=== PATIENT | male | born 1960 | race Caucasian/White ===

== ENCOUNTER 2019-06-16 08:26 | Emergency (ER) | payer MEDICARE, SELFPAY ==
[2019-06-16 08:28] VITALS: BP 102/72; RESP 16; TEMP 36.4; O2SAT 92; BMI 30.6
[2019-06-16 08:39] VITALS: O2SAT 92
--- NOTE | 2019-06-16 08:39 | RAD_ITS ---
STUDY: X-RAY - LEFT KNEE REASON FOR EXAM: Male, 59 years old. Status post fall TECHNIQUE: 2 view(s) of the knee. COMPARISON: None. FINDINGS: Normal visualized distal femur. Normal visualized proximal tibia and fibula. Normal proximal tibiofibular articulation. Normal medial femorotibial compartment. Normal lateral femorotibial compartment. There is a comminuted dislocated patella fracture with a gap of at least 1.5 cm between the craniocaudal fragments. There is overlying soft tissue edema and a ruedh-en-orzrieka joint effusion.. RAD/Knee 1 or 2 Views IMPRESSION: Comminuted superiorly and inferiorly displaced fracture of the patella with overlying soft tissue edema joint effusion. Electronically Signed: Yanna Faria MD at 9:34 EDT Tel , Service support ,
--- NOTE | 2019-06-16 08:40 | ED.VIS.GEN ---
History of Present Illness Chief Complaint: Fall Informant: Patient Onset: Today Current Severity: Mild Narrative: Patient presents to nursing center where he states he was in his usual state of health no changes, he tripped and fell striking his left knee against a hard surface he had trouble moving the knee afterwards and he came in for evaluation with EMS he denies head neck chest or abdominal pain all of his chronic health conditions are stable he has no complaints except for the left knee pain Past Medical History - Allergies and Home Meds Allergies/Adverse Reactions: Allergies No Known Allergies Allergy (Verified 06/16/19 08:33) Primary Care Physician: Andrea Hawley MD [STAFF PHYSICIAN] - Past Medical History: - - hypertension COPD most some element of dementia see the list Surgical History: noncontributory Smoking Status: Former smoker Review of Systems General: Denies: Chills, Fever, Sweats Eyes: Denies: Visual changes - bilaterally, Diplopia ENT: Denies: Rhinorrhea, Sore throat Cardiovascular: Denies: Chest pain, Palpitations Respiratory: Denies: Dyspnea, Cough, Dyspnea on exertion Gastrointestinal: Denies: Abdominal pain, Nausea, Vomiting, Diarrhea, Melena, Hematochezia Genitourinary: Denies: Dysuria, Hematuria, Frequency Musculoskeletal: Reports: Extremity Pain. Denies: Back pain Skin: Denies: Rash, Wounds Neurological: Denies: Headache, Weakness, Numbness Physical Exam Vital Signs/Narrative: Vital Signs Temp Resp BP Pulse Ox 06/16/19 08:28 97.6 F L 16 102/72 92 General: Well nourished, Well developed, No Acute Distress Head: Normocephalic, Atraumatic Eyes: Perrl, EOMI ENT: Moist mucous membranes, No rhinorrhea Neck: Supple, Nontender Cardiovascular: Regular rate, Regular rhythm, No murmurs Respiratory: No distress, Chest nontender, Wheezing Abdomen: Soft, Nontender, Nondistended, Normal bowel sounds Back: Nontender, Normal Inspection Extremities: No edema, Tenderness, - - Has tenderness and contusion to the left knee he has ability to extend but not fully he has some significant swelling of the patella the potential defect in the mid patellar region no malalignment distal hip thigh tib-fib ankle and foot exam unremarkable Skin: Normal color, No rash Neurological: Alert, Oriented x3, Cranial nerves II-XII grossly intact, Normal Strength, Normal Sensation Psychological: Normal affect, Normal Mood Diagnostic/Tx/Re-eval - Medical Decision Making In all the above this are the possibility of fracture other pathologic conditions in the fall x-rays are obtained he does not wish to have any for the pain The patient's x-ray shows a comminuted fracture of the patella see that report again he is able to partially extend explained this to him is placed in the immobilizer walker he is referred to Dr. Ray Newton on-call for orthopedics ice elevation he wants something for pain and he will follow-up with nursing center for further management of all the above Home to [facility] stable Impression final Fall, left knee patellar fracture ED Disposition - Plan for ED Patient: Diagnosis: Patellar fracture Instructions: Reducing Knee Pain and Swelling Prescriptions: Hydrocodone Bitart/Apap 5-325 [[place] 5MG-325MG] 1 tab PO Q4H PRN PRN 2 Days #10 tab PRN Reason: Pain Prescription Printed Referrals: Andrea Hawley MD [STAFF PHYSICIAN] - Isaiah Valera DO [STAFF PHYSICIAN] - Additional Instructions: You have a fractured kneecap, use the knee immobilizer walker and follow-up with orthopedics
[2019-06-16] MEDS: HYDROcodone Bitartrate/Apap 5/325 Tablet PO (08:49)
[2019-06-16 08:52] VITALS: BP 107/89; PULSE 88; O2SAT 93
[2019-06-16] MEDS: Ipratropium/Albuterol Sulfate 3 ML AMPUL.NEB INHALATION (09:04)
[2019-06-16 09:06] VITALS: PULSE 87; RESP 18; O2SAT 93
--- NOTE | 2019-06-16 10:31 | NURSING ---
CALLED [facility] FOR TRANSPORT TO [facility]
[2019-06-16 10:51] VITALS: BP 127/72; BP 128/7; PULSE 100; O2SAT 94; O2SAT 96
--- NOTE | 2019-06-16 10:57 | ED.RN ---
Knee immobilizer placed to left leg for fx patella. No reduction preformed.
--- NOTE | 2019-06-16 11:36 | ED.RN ---
report given to Annemarie from [facility].
== END 2019-06-16 11:38 | disposition skilled nursing facility (03) ==
PROVIDERS: Emergency Provider Emergency Medicine; Family Provider Family Medicine; PCP Family Medicine
DX: S82.045A Nondisplaced comminuted fracture of left patella, initial encounter for closed fracture (principal); F03.90 Unspecified dementia, unspecified severity, without behavioral disturbance, psychotic disturbance, mood disturbance, and anxiety; J44.9 Chronic obstructive pulmonary disease, unspecified; I10 Essential (primary) hypertension; Z79.899 Other long term (current) drug therapy; Z87.891 Personal history of nicotine dependence; W01.0XXA Fall on same level from slipping, tripping and stumbling without subsequent striking against object, initial encounter; Y93.01 Activity, walking, marching and hiking; Y92.89 Other specified places as the place of occurrence of the external cause; Y99.8 Other external cause status
CPT/HCPCS: 73560; 94640; 99285

== ENCOUNTER 2019-06-26 07:08 | Day surgery (SDC) | payer MEDICARE, MEDICAID, SELFPAY ==
[2019-06-18 13:53] VITALS: BMI 30.6
--- NOTE | 2019-06-20 01:14 | HP_ITS ---
I have re-examined the patient. There are no clinical changes since date of exam. Intake Vital Signs 06/18/19 Body Mass Index (BMI) 30.6 Intake Visit Reasons: LEFT KNEE Allergies No Known Allergies Allergy (Verified 06/20/19 09:23) [facility] Social History (Updated 06/20/19 @ 13:14 by Jaqui Amaya DO) Smoking Status: Former smoker HPI LEFT KNEE: Surgical H&P: Yes Details: Parts of this documentation were recorded by a scribe, this documentation accurately reflects the service provided and the decisions made by me, Jaqui Amaya DO 06/18/19 8401. LISSA ZIEGLER is a 59 year old M NEW patient here today for ED f/u on left knee injury from a fall on 06/16/19. He is brought to the appointment by a project scheduler from his care facility in a wheelchair. He states that he is compliant with knee immobilizer with moderate swelling and mild discoloration. He is using pain medication daily, elevating the leg but not using any ice.Denies numbness, tingling or other associated constitutional symptoms. Ortho Exam Left Knee Date of injury: 06/16/19 Skin/Wound: Yes healing, Yes ecchymosis, Yes swelling Contralateral Normal: Yes Homans Sign: No Knee ROM: No ROM-Extension -20 to 0, No ROM-Flexion 0-140 KNEE: ttp at fracture site, neg sec survey Assessment & Plan Problems 1. Closed displaced comminuted fracture of left patella, initial encounter S82.042A Plan Personally reviewed the patient's medical history, medications, surgeries and recent exams if available. X-rays were reviewed. There is a displaced patella fracture noted. He does need surgery to repair the patella but due to the skin abrasion from the fall we will wait one week for additional healing of the abrasion and reduce the risk of infection. Reviewed increased risk of OA secondary to surgery. He can be wbat in the brace prior to surgery. Reviewed the pre-operative plans with the patient. Risks and benefits of the procedure were fully explained, including but not limited to infection, neurovascular injury, continued pain, arthritis, stiffness, need for further surgery, re-injury, DVT, PE, general risks of anesthesia, and loss of limb or life. The patient understands all the risks and does wish to proceed with written consent. Follow up postop or sooner if pain, swelling, numbness or associated symptoms, or concerns develop. All questions answered. Patient in agreement of plan. Coding Level of Care Code Off vis,new,level 3 Diagnoses Closed displaced comminuted fracture of left patella, initial encounter S82.042A ??Encounter type: initial encounter ??Fracture morphology: comminuted ??Fracture type: closed 06/20/19 1315 <Electronically signed by Jaqui ruano DO> Date _ aJqui Amaya DO
[2019-06-26] VITALS (10 sets, daily range): BP systolic 132–161; BP diastolic 72–98; PULSE 95–126; RESP 18–22; TEMP 36.6–37.4; O2SAT 90–98; BMI 27.6
[2019-06-26] MEDS: Lactated Ringers 1,000 ML 100 ML IV ×2 (08:23→10:01)
[2019-06-26] MEDS: Cefazolin 2 GM in 0.9% Normal Saline 100 ML IV (08:42)
--- NOTE | 2019-06-26 08:43 | PCM.DC.ORTHO ---
Discharge Diet: No Restrictions - wbat left le with brace locked in extension, do not bend knee, call with concerns, follow up in 2 weeks Discharge Activity: May Not Drive May shower in (days): 1 Ice area for (Minutes): 20 - Every hour while awake. Weight Bearing Status: Weight bearing as tolerated Keep extremity elevated above heart level: Operative Extremity Call your doctor if your incision/area has: Continuous Slow Oozing, Sudden Increased Bleeding, Increased Pain/ Swelling, Increased Redness, Foul Smelling Discharge Call your doctor if you observe: Fever of 101 or Higher, Coldness, Increased Pain, Numbness or Tingling, Change in Color, Calf discomfort Allergies/Adverse Reactions: Allergies No Known Allergies Allergy (Verified 06/20/19 09:23) Medications to take at Discharge Cimetidine 200 mg PO TID 06/16/19 Multivitamin with Minerals [Multiple Vitamin] 1 ea PO DAILY 06/16/19 Oxcarbazepine [Trileptal] 450 mg PO BID 06/16/19 Paroxetine HCl 40 mg PO DAILY 06/16/19 Tamsulosin HCl [Flomax] 0.4 mg PO QHS 06/16/19 Venlafaxine HCl [Effexor Xr] 37.5 mg PO DAILY 06/16/19 Acetaminophen [Acetaminophen 8 Hour] 650 mg RECTALLY Q4H PRN PRN 06/26/19 Acetaminophen [Tylenol] 325 mg PO Q4H PRN PRN 06/26/19 Bisacodyl 10 mg DE X1 06/26/19 Guaifenesin 10 ml PO Q4H PRN PRN 06/26/19 Hydrocodone/Acetaminophen [Hydrocodon-Acetaminophen 5-325] 2 tab PO Q4H PRN PRN 06/26/19 Loratadine 10 mg PO DAILY PRN 06/26/19 Mag Hydrox/Aluminum Hyd/Simeth [Antacid Suspension] 30 ml PO Q4H PRN PRN 06/26/19 Magnesium Hydroxide [Milk Of Magnesia] 30 ml PO DAILY PRN PRN 06/26/19 Memantine HCl 10 mg PO PCHS 06/26/19 Na Phos,M-B/Na Phos,Di-Ba [Fleet Enema] 1 bottle RECTAL X1 06/26/19 Oxycodone HCl/Acetaminophen [Percocet 5/325] 1 - 2 tab PO Q6H PRN PRN 5 Days #28 tab 06/26/19 The following prescriptions were given: Oxycodone HCl/Acetaminophen [Percocet 5/325] 1 - 2 tab PO Q6H PRN PRN 5 Days #28 tab PRN Reason: Pain Transmission Status: Received by [facility] Primary Care Physician: Giana Hansen MD [Primary Care Provider] - Test Results: Test results from this visit will be discussed in further detail at your follow-up appointment, if applicable. Please Follow Up With: Jaqui Amaya, - [phone]
--- NOTE | 2019-06-26 08:56 | RAD_ITS ---
STUDY: X-RAY - LEFT KNEE REASON FOR EXAM: ORIF left knee. TECHNIQUE: 5 intraoperative images of the knee. COMPARISON: Radiographs 06/16/2019. FINDINGS: There are 2 orthopedic screws transfixing a patellar fracture in anatomic alignment and position. 60.6 seconds of fluoroscopy time was used. Electronically Signed: Tr Elliott MD at 12:10 EDT Tel , Service support , RAD/Knee 1 or 2 Views
--- NOTE | 2019-06-26 09:01 | OP.PCM_ITS ---
Report of Operation Date of Procedure: 06/26/19 Pre-Operative Diagnosis: left displaced patella fracture Post-Operative Diagnosis: same Surgery/Procedure Performed:: orif left patella wash driller helper: Kumar Kern Type of Anesthesia:: General Anesthesiologist: Javi Link Estimated Blood Loss (mL): 25cc Fluids Replaced: 1100cc Description of Procedure: Preoperative note Patient is a 59-year-old male who lives in a halfway who sustained a fall of unknown time and unknown etiology at the halfway x-rays confirmed a patella fracture patient was seen in my office. Secondary survey was essentially negative. Risk benefits alternatives were discussed with patient and caregiver. Risks including but not limited to blood loss, blood clot, infection, neurovascular, failure procedure, loss of life and loss of limb. Patient is aware and would like proceed with ORIF of his left patella. Next Operative note Next Patient seen and examined preoperative holding area. Left knee was marked. Patient was brought to the operating placed supine on the operating table. Signed, anesthesia, antibiotics were oxyacetylene torch operator. The left leg was prepped and draped usual sterile fashion with a tourniquet on his upper thigh. All bony promises well-padded SCDs placed on his contralateral limb. We used fluoroscopy to ascertain the level of the fracture site. The timeout was performed. We marked out our incision for our patella ORIF was which is a midline incision starting at the quad insertion and going down to the tibial tubercle just proximal to that. The left leg was then elevated same any lead pourer rates her pressure 250 torr. A timeout was performed. We then using a 10 blade to cut through the skin dissect down with tenotomies to level of the fracture site which was gently debrided we did mika the fracture site and use a curette we then irrigated the hematoma with copious muscle sterile saline he had a medial retinacular tear. We then use Arthrex his patella fracture repair system. We used pointed bone reduction forceps to reduce the patella fracture we then took multiple images AP and lateral to confirm good reduction of her fracture site which we did have. We then placed 2 guide pins across the fracture site measured appropriate length. We with a we placed 1.35 Hawley guidewire across t he we then placed a second guidewire parallel to the first and confirmed in AP and lateral planes good reduction and good fixation placement of our wires ensuring that they just stopped just distal to the bone. We then measured appropriate length minus to take off 4 mm without over the wire depth gauge. We then reamed over then with a 2.6 cm cannulated drill. We inserted the 36 and a 34 blunt-tipped cannulated lag screws over each guidewire ensuring that the threads across the fracture site. We then placed our past the 5 inch needle with a fiber tape through 1 of the 4 mm cannulated lag screws and then performing a cross stitch and then tying at the superior aspect of the proximally. We then cut about a 5 mm tail and directed the knot underneath the not but underneath the tape to prevent irritation. We then irrigated the incision with copious muscle sterile saline we repaired the retinaculum with a 0 Vicryl. The skin was closed with 3-0 Vicryl and li. Patient was placed in a locked brace placed next in extension. Tourniquet was deflated patient tired procedure well transferred recovery room in stable condition without convocation. Postoperative note Follow-up in 2 weeks Call with increased pain numbness tingling further issues arise [place] per halfway Keep brace locked in extension during ambulation This note was generated with [employer] dictation software. It may contain incorrect words, spelling, and punctuation that were not noted in checking the note before signing.
[2019-06-26] MEDS: Mupirocin Ointment 22gm Tube 1 APPLIC (10:30)
[2019-06-26] MEDS: HYDROcodone Bitartrate/Apap 5/325 Tablet PO (13:28)
== END 2019-06-26 14:41 | disposition skilled nursing facility (03) ==
LOC: SDC 07:10 → AC 07:10
PROVIDERS: Family Provider Family Medicine; PCP Family Medicine; Referring Provider Orthopaedic Surgery; Visit Provider Orthopaedic Surgery
PROC: (CPT 27524; principal; 2019-06-26 08:45)
DX: S82.042A Displaced comminuted fracture of left patella, initial encounter for closed fracture (principal); F41.9 Anxiety disorder, unspecified; F32.9 Major depressive disorder, single episode, unspecified; E06.9 Thyroiditis, unspecified; I10 Essential (primary) hypertension; J44.9 Chronic obstructive pulmonary disease, unspecified; Z87.891 Personal history of nicotine dependence; W19.XXXA Unspecified fall, initial encounter; Y93.89 Activity, other specified; Y92.89 Other specified places as the place of occurrence of the external cause; Y99.8 Other external cause status
CPT/HCPCS: 01392; 27524; 73560; 76000; C1713; J7120; J2405

== ENCOUNTER → 2019-07-11 | Outpatient (CLI) | payer MEDICARE, MEDICAID, SELFPAY ==
[2019-06-26 07:59] VITALS: BMI 27.6
--- NOTE | 2019-07-11 13:20 | RAD_ITS ---
STUDY: X-RAY - LEFT KNEE REASON FOR EXAM: Male, 59 years old. Postop TECHNIQUE: 2 view(s) of the knee. COMPARISON: 06/16/2019. FINDINGS: Normal visualized distal femur. Normal visualized proximal tibia and fibula. Normal proximal tibiofibular articulation. 2. Screws are seen approximating the patellar fragments since previous exam, although along the anterior edge of the patella, the fracture line is still by 8 mm. There is also still a cortical step-off of the posterior surface of the patella. Normal medial femorotibial compartment. Normal lateral femorotibial compartment. Normal patellofemoral articulation. There is a soft tissue prominence in the suprapatellar region suggesting a small volume joint effusion. There are atherosclerotic calcifications. RAD/Knee 1 or 2 Views IMPRESSION: Interval repair of transverse fracture through the patella by 2 orthopedic screws although the fracture line remains distracted. Electronically Signed: Willie Tatum MD at 17:27 EDT , Service support ,
== END | disposition home or self-care (01) ==
LOC: HPRAD 13:19
PROVIDERS: Family Provider Family Medicine; PCP Family Medicine; Referring Provider Physician Assistant; Visit Provider Physician Assistant
DX: S82.002A Unspecified fracture of left patella, initial encounter for closed fracture (principal)
CPT/HCPCS: 73560

== ENCOUNTER 2019-07-17 08:16 | Day surgery (SDC) | payer MEDICARE, MEDICAID, SELFPAY ==
[2019-07-15 14:42] VITALS: BMI 27.6
[2019-07-17] VITALS (10 sets, daily range): BP systolic 118–178; BP diastolic 77–103; PULSE 90–121; RESP 16–18; TEMP 36.2–37.3; O2SAT 93–99; BMI 30.3
[2019-07-17] MEDS: Lactated Ringers 1,000 ML 100 ML IV ×2 (08:20→12:06)
--- NOTE | 2019-07-17 08:30 | EKG12_ITS ---
Test Reason : PREOP Blood Pressure : / mmHG Vent. Rate : 080 BPM Atrial Rate : 080 BPM P-R Int : 152 ms QRS Dur : 088 ms QT Int : 386 ms P-R-T Axes : 048 082 071 degrees QTc Int : 445 ms Normal sinus rhythm Normal ECG When compared with ECG of 07-NOV-2012 18:16, No significant change was found Confirmed by JAME BAGLEY, INDIRA ([id number]), supervising film or videotape editor DANNY LEWIS ([id number]) on 07/19/2019 10:27:53 A M Referred By: Jaqui Amaya Confirmed By:SAMEER KILGORE MD
--- NOTE | 2019-07-17 08:36 | HP.PCM_ITS ---
History and Physical I have re-examined the patient. There are no clinical changes since date of exam. Intake Vital Signs 07/15/19 Body Mass Index (BMI) 27.6 Intake Visit Reasons: LEFT KNEE Is patient in pain?: No Allergies No Known Allergies Allergy (Verified 06/20/19 09:23) [facility] Social History (Updated 07/15/19 @ 16:24 by NAYELY Gray) Smoking Status: Former smoker HPI LEFT KNEE: Details: Parts of this documentation were recorded by a scribe, this documentation accurately reflects the service provided and the decisions made by me, NAYELY Gray 07/15/19 [id number]. LISSA ZIEGLER is a 59 year old M here today for f/u and sign consent for surgery for revision left patella surgery. He presents in the wheelchair with approx 40 degrees of knee flexion in trom brace. Denies numbness, tingling or other associated symptoms. Ortho Exam Left Knee Skin/Wound: Yes healing, No ecchymosis, No erythema, No swelling Contralateral Normal: Yes Homans Sign: No Knee ROM: Yes ROM-Extension -20 to 0, No ROM-Flexion 0-140 KNEE: Patient is still wearing his T ROM brace at the same time the knee is still sitting in a flexed position of approximately 30 to 40 degrees now. There is very mild/minimal swelling at this time. Incision has healed well with minimal scarring and no signs of infection. He does not have any tenderness on palpation around the incision or around the knee. Patient has normal sensation throughout the lower extremity. He has normal distal pulses. He has no calf tenderness, negative Homans, and compartments are soft. As evident intact motor function of the ankle/foot. No rales rhonchi wheezing, no abdominal pain, no audible bruits Assessment & Plan Problems 1. Closed displaced transverse fracture of left patella with malunion, subsequent encounter S82.032P Plan Patient presents to the office today from the [facility] for surgical sent for revision left knee patella ORIF. Risks and benefits of the surgery have already been discussed with his mother at his last visit as well as on the phone this morning. She was unable to make this office visit today and had just the [facility] bring him. I did also discuss risks and benefits of the procedure with the patient as well as recovery. I did explain that this time instead of the T ROM brace he will be placed in a long-leg cast expanding the knee joint to keep him from flexing the knee this time. Patient does verbally acknowledge this at the same time I do understand with his dementia is not something likely he will remember. Again, this was discussed in detail with his mother twice now regarding the procedure as well as the follow-up management/treatment. All of her questions were answered as well as the patient's at this time. Consent was signed by the patient and mother gave verbal consent. She will be present in the morning of surgery. Antibacterial soap was given to [facility] to be used the night before the morning of the surgery. They will be contacted tomorrow afternoon regarding the time of his surgery. Anesthesia will also call him for preanesthesia testing. They can notify the office they have any other concerns or complaints in the meantime. This note was generated with [employer] dictation software. It may contain incorrect words, spelling, and punctuation that were not noted in checking the note before signing. Coding Level of Care Code Global Post Op Diagnoses Closed displaced transverse fracture of left patella with malunion, subsequent encounter S82.032P ??Fracture type: closed ??Fracture morphology: transverse ??Fracture alignment: displaced ??Fracture healing: with malunion ??Encounter type: subsequent encounter
--- NOTE | 2019-07-17 08:38 | DCINST_ITS ---
Discharge Diet: No Restrictions - follow up in one week with [facility] for xrays, wbat with left leg in straight leg cast, keep cast clean and dry, do not put anything down cast or get cast wet Discharge Activity: May Not Drive May shower in (days): 1 Ice area for (Minutes): 20 - Every hour while awake. Weight Bearing Status: Weight bearing as tolerated Keep extremity elevated above heart level: Operative Extremity Call your doctor if your incision/area has: Continuous Slow Oozing, Sudden Increased Bleeding, Increased Pain/ Swelling, Increased Redness, Foul Smelling Discharge Call your doctor if you observe: Fever of 101 or Higher, Coldness, Increased Pain, Numbness or Tingling, Change in Color, Calf discomfort Allergies/Adverse Reactions: Allergies No Known Allergies Allergy (Verified 06/20/19 09:23) Medications to take at Discharge Cimetidine 200 mg PO TID 06/16/19 Multivitamin with Minerals [Multiple Vitamin] 1 ea PO DAILY 06/16/19 Oxcarbazepine [Trileptal] 450 mg PO BID 06/16/19 Paroxetine HCl 40 mg PO DAILY 06/16/19 Tamsulosin HCl [Flomax] 0.4 mg PO QHS 06/16/19 Venlafaxine HCl [Effexor Xr] 37.5 mg PO DAILY 06/16/19 Acetaminophen [Acetaminophen 8 Hour] 650 mg RECTALLY Q4H PRN PRN 06/26/19 Acetaminophen [Tylenol] 325 mg PO Q4H PRN PRN 06/26/19 Bisacodyl 10 mg [place] X1 06/26/19 Guaifenesin 10 ml PO Q4H PRN PRN 06/26/19 Hydrocodone/Acetaminophen [Hydrocodon-Acetaminophen 5-325] 2 tab PO Q4H PRN PRN 06/26/19 Loratadine 10 mg PO DAILY PRN 06/26/19 Mag Hydrox/Aluminum Hyd/Simeth [Antacid Suspension] 30 ml PO Q4H PRN PRN 06/26/19 Magnesium Hydroxide [Milk Of Magnesia] 30 ml PO DAILY PRN PRN 06/26/19 Memantine HCl 10 mg PO PCHS 06/26/19 Orders to be completed after discharge: Thyroid Stim Hormone (TSH) Time Frame: 07/17/19, Facility: [facility], Location: Laboratory Primary Care Physician: Giana Hansen MD [Primary Care Provider] - Test Results: Test results from this visit will be discussed in further detail at your follow- up appointment, if applicable. Please Follow Up With: Jaqui Amaya, - [phone]
--- NOTE | 2019-07-17 08:39 | PCM.OPRPT ---
Report of Operation Date of Procedure: 07/17/19 Pre-Operative Diagnosis: previous orif left patella, displaced left patella fracture Post-Operative Diagnosis: same Surgery/Procedure Performed:: removal of hardware left patella, debridement of callus, open reduction/revision left patella fracture staker surveying: Kumar Kern Type of Anesthesia:: General Anesthesiologist: Dashawn Chin Estimated Blood Loss (mL): 25cc Fluids Replaced: 1200cc lr Description of Procedure: Preop note She is 59-year-old male who had an open reduction internal fixation of his left patella a few weeks ago. He is demented at baseline and was at home. He has been moving his brace and is unaware he had been had surgery he was bending his knee came into the clinic and noted that he had a displaced open left patella fracture. Risk benefits and alternatives were discussed with patient. Risks including but not limited to blood loss, blood clot, infection, neurovascular, failure procedure, loss of life and loss of limb. This was discussed with patient and with mom. Patient and mom are aware would like proceed with revision open reduction internal fixation of left patella with removal of hardware. Next Operative note Patient seen and examined preop preoperative holding area. Left leg was marked. Patient brought to the operating room please see placed on the operating table. Sign, anesthesia, antibiotics were administered. The left leg was prepped and draped in usual sterile fashion with tourniquet around his upper thigh. All bony promises well-padded SCDs placed on his contralateral limb. We used our previous incision and marked out with a marking pen. The left leg was then elevated exsanguinated tourniquet was raised to pressure of 250 torr. Timeout was performed. We then use our 15 blade R 10 blade to cut through skin dissect down tenotomies to level of the scar tissue and the scar tissue throughout over the fascia closure with the use of Bovie to release the fascia from the subcuticular layer pack. We then moved down to the fracture site the fracture site had callus abundant callus which had not had to be taken down. We then placed two-point reduction clamps across the fracture site after please note that we did remove the 2 screws and there was no signs of infection. The cerclage tape had been broken busted. We then irrigated the area with copious muscle sterile saline. We placed 3 guidewires measured and then drilled accordingly for the Arthrex patella fixation system. We measured and then subtracted for from age 3 and ended up doing a 3836 and 32 mm screws across the fracture site. We then placed a [id number] tape further reducing her fracture we then placed a cerclage tape around this for further redundancy as well. The knee was an area again irrigated with copious muscle sterile saline. The fascia was closed with 0 Vicryl and the skin with 2-0 Vicryl subcuticular layer and the skin with li. Tourniquet was deflated for a total working time of 100 minutes minutes. Multiple images throughout the case were maintained good reduction of her fracture site. Patient tied procedure well [facility] recovery room in stable condition. Postoperative note Next Weight-bear as tolerated with knee locked in cast Follow-up in 2 weeks for cast removal next Call with increased pain numbness tingling or further issues arise May resume [facility] at outpatient facility note Dragon disclaimer This note was generated with Contents First dictation software. It may contain incorrect words, spelling, and punctuation that were not noted in checking the note before signing.
[2019-07-17 09:14] LABS: Thyroid Stim Hormone (TSH) 2.47 uIU/mL (0.358-3.74)
--- NOTE | 2019-07-17 09:35 | RAD_ITS ---
STUDY: X-RAY - LEFT KNEE REASON FOR EXAM: ORIF of patella. TECHNIQUE: 2 intraoperative images of the knee. COMPARISON: Radiographs 07/11/2019. FINDINGS: There are 3 orthopedic screws transfixing a patellar fracture in anatomic alignment and position. Electronically Signed: Tr Elliott MD at 13:15 EDT Tel , Service support , RAD/Knee 1 or 2 Views
[2019-07-17] MEDS: Cefazolin 2 GM in 0.9% Normal Saline 100 ML IV (09:40)
--- NOTE | 2019-07-17 14:45 | SUR.PHASEII ---
Addendum entered by Danette Shrestha 07/17/19 16:03: CORRECTION: [facility] WAS CONTACTED AT 1420, WAS TOLD BY DISPATCHER THE AMBULANCE WOULD ARRIVE AT [address]. CALL[address] [facility] AGAIN AT 1520 WHEN NO ONE ARRIVED FOR PATIENT AFTER ONE HOUR. PATIENT'S MOTHER REMAINS AT BEDSIDE TILL [facility] ARRIVED AT 1555. Addendum entered by Danette Shrestha 07/17/19 15:21: CALLED [facility], DISPATCH DID NOT NOTIFY THE [facility] TO PUTTY MIXER AND APPLIER PATIENT, STATES WILL ARRIVE IN 15 MINUTES. REMINDED [facility] THAT PATIENT ARRIVED TO [facility] IN [place] FROM [facility] WHICH NEEDS RETURNED TO FACILITY. Original Note: NORCO GIVEN AT 1445 FOR LEFT KNEE PAIN AFTER GETTING DRESSED. CALLED REPORT TO NURSE MCGHEE AT [facility]. [facility] CONTACTED AT 1520, SCHEDULED ARRIVE FOR TRANSPORT BACK TO [facility] AT APPROX 1550. PATIENT'S MOTHER AT BEDSIDE, COPY OF D/C INSTRUCTIONS GIVEN.
[2019-07-17] MEDS: HYDROcodone Bitartrate/Apap 5/325 Tablet PO (14:46)
== END 2019-07-17 15:55 | disposition intermediate care facility (04) ==
LOC: SDC 08:18 → AC 08:18
PROVIDERS: Anesthesiology; Family Provider Family Medicine; PCP Family Medicine; Referring Provider Orthopaedic Surgery; Visit Provider Orthopaedic Surgery
PROC: (CPT 27524; principal; 2019-07-17 09:20)
DX: S82.032 Displaced transverse fracture of left patella (principal); M25.762 Osteophyte, left knee; I10 Essential (primary) hypertension; F41.9 Anxiety disorder, unspecified; F32.9 Major depressive disorder, single episode, unspecified; E06.9 Thyroiditis, unspecified; Z87.891 Personal history of nicotine dependence; Z79.899 Other long term (current) drug therapy; X58.XXXS Exposure to other specified factors, sequela
CPT/HCPCS: 20680; 27524; 36415; 73560; 76000; 84443; 93005; C1713; J7120; J2405

== ENCOUNTER → 2019-07-22 | Outpatient (CLI) | payer MEDICARE, MEDICAID, SELFPAY ==
[2019-07-17 08:47] VITALS: BMI 30.3
--- NOTE | 2019-07-22 11:05 | RAD_ITS ---
STUDY: X-RAY - LEFT KNEE REASON FOR EXAM: Male, 59 years old. Rest TECHNIQUE: 2 view(s) of the knee. COMPARISON: July 11, 2019 FINDINGS: This postoperative change involving the left knee with cortical screws transfixing the patella. Overlying skin li. There is visualized joint effusion and fluid in Hoffa's fat pad. There is atherosclerotic disease of the superficial femoral artery. There is mild to moderate degenerative change in the medial lateral compartments. RAD/Knee 1 or 2 Views IMPRESSION: Status post open reduction internal fixation of a patellar fracture. Soft tissue edema postoperative change. Electronically Signed: Yanna Faria MD at 17:53 EDT Tel , Service support ,
== END | disposition home or self-care (01) ==
LOC: HPRAD 11:05
PROVIDERS: Family Provider Family Medicine; PCP Family Medicine; Referring Provider Physician Assistant; Visit Provider Physician Assistant
DX: Z98.890 Other specified postprocedural states (principal)
CPT/HCPCS: 73560

== ENCOUNTER → 2019-08-01 | Outpatient (CLI) | payer MEDICARE, MEDICAID, SELFPAY ==
[2019-07-22 11:06] VITALS: BMI 30.3
--- NOTE | 2019-08-01 10:49 | RAD_ITS ---
STUDY: X-RAY - LEFT KNEE REASON FOR EXAM: Male, 59 years old. Post operative follow-up of patellar fracture. TECHNIQUE: 2 view(s) of the knee. COMPARISON: Prior left knee of July 22, 2019. FINDINGS: Normal visualized distal femur. Normal visualized proximal tibia and fibula. Normal proximal tibiofibular articulation. Stable alignment of the transverse patellar fracture with screw fixation. Callus forming at the fracture site. Normal medial femorotibial compartment. Normal lateral femorotibial compartment. Normal patellofemoral articulation. Resolving postoperative soft tissue changes. Skin li have been removed. Atherosclerotic vascular changes. RAD/Knee 1 or 2 Views IMPRESSION: Healing transverse patellar fracture with no change in alignment. Stable hardware placement. Resolving soft tissue edema. [place] removed. Electronically Signed: Genet Navarro MD at 21:47 EDT , Service support ,
== END | disposition home or self-care (01) ==
LOC: HPRAD 10:48
PROVIDERS: Family Provider Family Medicine; PCP Family Medicine; Referring Provider Physician Assistant; Visit Provider Physician Assistant
DX: Z47.89 Encounter for other orthopedic aftercare (principal)
CPT/HCPCS: 73560

== ENCOUNTER → 2019-08-12 | Outpatient (CLI) | payer MEDICARE, MEDICAID, SELFPAY ==
[2019-08-01 11:09] VITALS: BMI 30.3
--- NOTE | 2019-08-12 13:45 | RAD_ITS ---
STUDY: X-RAY - LEFT KNEE REASON FOR EXAM: Male, 59 years old. Pain patient in cast TECHNIQUE: 2 view(s) of the knee. COMPARISON: 01 August 2019 FINDINGS: The knee is in a cast. Assessment of fine osseous details is limited. The knee is located. There is a horizontally oriented fracture of the patella held in anatomic alignment with 3 partially threaded screws. Joint space is preserved. Appearance is similar to prior. RAD/Knee 1 or 2 Views IMPRESSION: 1. Stable appearance of subacute patellar fracture internal screw fixation in cast. Electronically Signed: Medardo Yancey, at 20:01 EDT Tel , Service support ,
--- NOTE | 2019-08-12 14:35 | RAD_ITS ---
STUDY: X-RAY - LEFT KNEE REASON FOR EXAM: Male, 59 years old. Cast removal TECHNIQUE: 2 view(s) of the knee. COMPARISON: August 12, 2019 at 13:55 hours FINDINGS: Status post cast removal since the previous study. Normal visualized distal femur. Normal visualized proximal tibia and fibula. Normal proximal tibiofibular articulation. Normal medial femorotibial compartment. Normal lateral femorotibial compartment. Normal patellofemoral articulation. Status post ORIF of the patella with 3 screws noted. Complete bony union is not appreciated. There is thickening/edema of the quadriceps/infrapatellar tendon. Vascular calcifications. RAD/Knee 1 or 2 Views IMPRESSION: Status post ORIF of the patella with 3 screws noted. Complete bony union is not appreciated. There is thickening/edema of the quadriceps/infrapatellar tendon. Electronically Signed: Navarro Castaneda DO at 20:22 EDT Tel [phone], Service support ,
== END | disposition home or self-care (01) ==
LOC: HPRAD 13:43
PROVIDERS: Family Provider Family Medicine; PCP Family Medicine; Referring Provider Physician Assistant; Visit Provider Physician Assistant
DX: M25.562 Pain in left knee (principal)
CPT/HCPCS: 73560

== ENCOUNTER → 2019-09-12 11:03 | Outpatient (CLI) | payer MEDICARE, MEDICAID, SELFPAY ==
[2019-09-12 10:59] VITALS: BMI 30.3
--- NOTE | 2019-09-12 11:05 | RAD_ITS ---
STUDY: X-RAY - LEFT KNEE REASON FOR EXAM: Male, 59 years old. Postop TECHNIQUE: 2 view(s) of the knee. COMPARISON: Prior study of 08/12/2019 FINDINGS: Normal visualized distal femur. Normal visualized proximal tibia and fibula. Normal proximal tibiofibular articulation. There is mild degenerative arthrosis of the medial femorotibial compartment. Normal lateral femorotibial compartment. There is noted internal fixation with 3 screws of a previously noted transverse patellar fracture. Bone union has not occurred as of yet. There is decrease in the degree of soft tissue swelling in the anterior knee region. RAD/Knee 1 or 2 Views IMPRESSION: Internal fixation with 3 screws of transverse patellar fracture, which appears in adequate alignment. Bone union has not occurred as of yet. Mild degenerative changes of the medial knee compartment. Electronically Signed: Dejon Valdez MD at 23:11 EST , Service support ,
== END ==
PROVIDERS: Family Provider Family Medicine; PCP Family Medicine; Referring Provider Physician Assistant; Visit Provider Physician Assistant
DX: Z47.89 Encounter for other orthopedic aftercare (principal)
CPT/HCPCS: 73560

== ENCOUNTER → 2019-10-10 10:18 | Outpatient (CLI) | payer MEDICARE, MEDICAID, SELFPAY ==
[2019-09-12 10:59] VITALS: BMI 30.3
--- NOTE | 2019-10-10 10:20 | RAD_ITS ---
STUDY: X-RAY - LEFT KNEE REASON FOR EXAM: Male, 59 years old. Recheck left knee TECHNIQUE: 2 view(s) of the knee. COMPARISON: Previous study 09/12/2019 FINDINGS: Normal visualized distal femur. Normal visualized proximal tibia and fibula. Normal proximal tibiofibular articulation. There is mild degenerative arthrosis of the medial femorotibial compartment. There is mild degenerative arthrosis of the lateral femorotibial compartment. Is internal fixation with 3 screws of a previously noted patellar fracture. Fracture fragments appear in adequate alignment. The soft tissue structures are unremarkable. RAD/Knee 1 or 2 Views IMPRESSION: Mild degenerative changes of the medial and lateral knee compartments. Internal fixation of previously noted patellar fracture with 3 screws. Fracture alignment appears adequate and unchanged from the previous study. Bony union has not occurred as of yet. Electronically Signed: Dejon Valdez MD at 21:32 EST , Service support ,
== END ==
PROVIDERS: Family Provider Family Medicine; PCP Family Medicine; Referring Provider Physician Assistant; Visit Provider Physician Assistant
DX: S82.009A Unspecified fracture of unspecified patella, initial encounter for closed fracture (principal)
CPT/HCPCS: 73560

== ENCOUNTER → 2019-12-19 | Outpatient (CLI) | payer MEDICARE, MEDICAID, SELFPAY ==
[2019-10-10 11:34] VITALS: BMI 30.3
--- NOTE | 2019-12-19 10:45 | RAD_ITS ---
STUDY: X-RAY - LEFT KNEE REASON FOR EXAM: Male, 59 years old. POST OP FOLLOW UP VISIT TECHNIQUE: 2 view(s) of the knee. COMPARISON: Previous study of 10/10/2019 FINDINGS: Normal visualized distal femur. Normal visualized proximal tibia and fibula. Normal proximal tibiofibular articulation. There is mild degenerative arthrosis of the medial femorotibial compartment. There is mild degenerative arthrosis of the lateral femorotibial compartment. there is internal fixation with 3 screws are previously noted patellar fracture, appearing similar to the previous study. The soft tissue structures are unremarkable. RAD/Knee 1 or 2 Views IMPRESSION: Mild degenerative changes of the medial and lateral knee compartments. There is again noted internal fixation with 3 screws are previously noted patellar fracture, appearing similar to the previous study. Bone union has not occurred as of yet. Electronically Signed: Dejon Valdez MD at 19:38 EST , Service support ,
== END | disposition home or self-care (01) ==
LOC: HPRAD 10:45
PROVIDERS: PCP Family Medicine; Referring Provider Physician Assistant; Visit Provider Physician Assistant
DX: S82.002A Unspecified fracture of left patella, initial encounter for closed fracture (principal)
CPT/HCPCS: 73560

== ENCOUNTER → 2020-01-27 | Outpatient (CLI) | payer MEDICARE, MEDICAID, SELFPAY ==
[2019-12-19 10:47] VITALS: BMI 30.3
--- NOTE | 2020-01-27 13:26 | CT_ITS ---
STUDY: CT SOFT TISSUE NECK WITH CONTRAST REASON FOR EXAM: Male, 60 years old. RT LATERAL ANTERIOR CERVICAL MASS, MEMORY ISSUES, ETOH ENCEPHALOPATHY RADIATION DOSAGE (If Supplied By Facility): CTDIvol = ( 18.57 ) mGy, DLP = ( 463.61 ) mGycm TECHNIQUE: The patient was scanned in a multi-detector CT scanner. High resolution transaxial imaging was performed following intravenous administration of 100 CC ISOVUE 300. Sagittal and coronal images were reconstructed. Individualized dose optimization techniques were used for this CT. COMPARISON: None. FINDINGS: On the limited views of the brain, there is a 1.6 cm x 1.5 cm slightly enhancing rounded nodule in the right frontal lobe with surrounding edema. A metastatic deposit should be ruled out. Normal bilateral parotid glands. Normal bilateral java tech spaces. Normal bilateral parapharyngeal spaces. Normal bilateral carotid spaces. Normal bilateral sublingual and submandibular glands and spaces. Normal visualized nasopharynx. Normal retropharyngeal space. Normal perivertebral space. Normal visualized bilateral faucial tonsils. The visualized tongue, tongue base and oropharynx are normal. There is a 3.3 cm x 3.8 cm x 3.5 cm inhomogeneously enhancing mass in the right cervical region deep to the right sternocleidomastoid muscle and anterior to the right jugular vein and right common carotid artery. This extends into the inferior aspect of the right parotid gland. This corresponds to the palpable abnormality and most likely represents a neoplastic process or a conglomeration of lymph nodes. Normal epiglottis, bilateral vallecula and hypopharynx. The pre-epiglottic and paraglottic adipose spaces are normal. Normal visualized bilateral piriform sinuses, aryepiglottic folds, vocal cords, and arytenoid-cricoid articulations. Normal subglottic trachea. Normal bilateral lobes of the thyroid gland. Emphysematous changes seen in the upper lobes of both lungs. Partial opacification of the right sphenoid sinus and right ethmoid sinus. There is degenerative changes of the cervical spine. CT/Soft Tissue Neck WITH Contrast IMPRESSION: 3.3 cm x 3.8 cm x 3.5 cm homogeneous enhancing mass in the right cervical region as described corresponding to the palpable abnormality. A neoplastic process should BE ruled out. 1.6 cm x 1.5 cm enhancing nodule in the right frontal lobe with surrounding edema. A metastatic deposit should be ruled out. Electronically Signed: Raman Mallory, at 15:10 EDT , Service support ,
== END | disposition home or self-care (01) ==
LOC: CT 13:25
PROVIDERS: PCP Family Medicine; Referring Provider Family Medicine; Visit Provider Family Medicine
DX: R22.1 Localized swelling, mass and lump, neck (principal)
CPT/HCPCS: 70491; Q9967

== ENCOUNTER → 2020-03-02 | Outpatient (CLI) | payer MEDICARE, MEDICAID, SELFPAY ==
[2019-12-19 10:47] VITALS: BMI 30.3
== END | disposition home or self-care (01) ==
LOC: LABSPEC 03-03 12:54
PROVIDERS: PCP Family Medicine; Referring Provider Family Medicine; Visit Provider Family Medicine
DX: Z53.9 Procedure and treatment not carried out, unspecified reason (principal)

== ENCOUNTER → 2020-03-10 16:18 | Outpatient (CLI) | payer MEDICARE, MEDICAID, SELFPAY ==
[2019-12-19 10:47] VITALS: BMI 30.3
== END ==
PROVIDERS: PCP Family Medicine; Referring Provider Nurse Practitioner Adult Health; Visit Provider Nurse Practitioner Adult Health
DX: J98.8 Other specified respiratory disorders (principal); Z11.59 Encounter for screening for other viral diseases
CPT/HCPCS: 87635; U0004

== ENCOUNTER → 2020-03-12 07:39 | Outpatient (CLI) | payer MEDICARE, MEDICAID, SELFPAY ==
--- NOTE | 2020-03-11 | IMM_PTH ---
PATIENT: Neeta ZIEGLER LOC: [facility] U#:[id number] AGE/SX: 65/M ROOM: RE03/12/[address]: Dr. Yonis Jacobs MD : 1960 BED: DIS: SPEC #: [id number] RECD: 03/13/20 12:22 STATUS: WM SUDEEP #: [id number] BARON: 03/11/20 00:[address]: Yonis Jacobs DEPT: IMMUNOHISTOCHEMISTRY RECD BY: Yulissa Bishop Tissues: Neck, NOS Procedures: RCC (add) NAPSIN A (add) CK20 (add) CK5-6 (add) CK7 (add) CK8 (add) HEP PAR (add) KI-67 (add) P16 (add) TTF1 (add) Pankeratin (initial) P40 (add) PSAP (add) PHYSICIAN & INSTITUTION [place] [id number] SPECIMEN INFORMATION: Tissue Source: Right neck Clinical Info: Right neck mass Specimen Number: [id number] CPT code: 59736, 61636 x12 METHODOLOGY: Deparaffinized sections of prefer/formalin-fixed tissue or PAP/DQ stained slides are incubated with monoclonal/polyclonal antibodies/oligonucleotide probes. Localization is made via biotin free immunoperoxidase method. Appropriate controls are performed and reacted as expected. Results on target cell population are indicated in the following table: RESULTS: ANTIBODY / CLONE RESULT AE1-3 (AE1/AE3/PCK26) positive CK7 (OV-TL12/30) negative CK8 (41vtfbI63) positive CK20 (KS20.8) negative TTF-1 (8G7G3/1) negative Napsin A (Rabbit Polyclonal) negative HepPar (OCh1E5) negative RCC (PN-15) negative PSAP (PASE/4LJ) negative CK5-6 (D5 & 1684) positive P40 (BC28) positive P16 (E6H4) negative Ki-67 (30-9) positive, high These tests were developed and their performance characteristics determined by [facility]. They may not have been cleared or approved by the U.S. Food and Drug Administration. The FDA has determined that such clearance or approval is not necessary. The above immunohistochemical/dualISH markers are ordered and reviewed by the Pathologist. INTERPRETATION: Right neck tissue, core biopsy: Consistent with metastatic non-small cell carcinoma, favor squamous cell carcinoma. SJ:dot 03/17/20
--- NOTE | 2020-03-11 16:00 | MASS_PTH ---
PATIENT: Neeta ZIEGLER LOC: [facility] U#:[id number] AGE/SX: 65/M ROOM: RE03/12/[address]: Dr. Yonis Jacobs MD : 1960 BED: DIS: SPEC #: [id number] RECD: 03/11/20 17:04 STATUS: WM SUDEEP #: [id number] BARON: 03/11/20 16:[address]: Yonis Jacobs DEPT: SURGICAL PATHOLOGY RECD BY: Edgardo Ford Tissues: Neck, NOS Procedures: Surgery Specimen Level IV HEADER OPERATION: Right neck biopsy PRE-OP DIAGNOSIS: Right neck mass TISSUE SUBMITTED: Right neck tissue MICROSCOPIC DIAGNOSIS Right neck tissue, core biopsy: Consistent with metastatic non-small cell carcinoma, favor squamous cell carcinoma. See comment. IRIS:dot 03/13/20 COMMENT Immunohistochemistry ([id number]) supports the above diagnosis. Molecular studies on the tumor can be performed, if clinically indicated, please notify the laboratory if they are needed. Case has been reviewed in consultation with Dr. Boyd who concurs with the above diagnosis. IDC:AM MICROSCOPIC DESCRIPTION Slides are reviewed. GROSS DESCRIPTION Received in fixative is one container labeled with the patient's name and designated right neck tissue. The specimen consists of multiple elongated fragments of wong soft tissue that in aggregate measure 1.5 x 0.2 x 0.1 cm. The specimen is totally submitted in one cassette. / SJ:dot 03/12/20 TC:0 CPT: 95684
[2020-03-11 16:04] VITALS: BMI 26.3
== END ==
PROVIDERS: Referring Provider Surgery; Visit Provider Surgery
DX: R22.1 Localized swelling, mass and lump, neck (principal)
CPT/HCPCS: 88305; 88341; 88342

== ENCOUNTER → 2020-03-27 | Outpatient (CLI) | payer MEDICARE, MEDICAID, SELFPAY ==
[2020-03-18 09:18] VITALS: BMI 27.6
--- NOTE | 2020-03-27 12:17 | MRI_ITS ---
STUDY: MRI SOFT TISSUE NECK WITH AND WITHOUT CONTRAST REASON FOR EXAM: Male, 60 years old. New dx squamous cell neck CA, mass RIGHT neck since November 2019 TECHNIQUE: Standarized fat and water weighted pulse sequences were obtained in all 3 orthogonal plane pre and post administration of IV 19 cc dotarem. COMPARISON: CT 01/27/2020 FINDINGS: Interval increase in the size of the enhancing mass in the right side of the neck just inferior to the right parotid gland and possibly arising from the parotid gland and anterior to the right sternocleidomastoid muscle from 2.8 x 4.2 cm to 4.2 x 6.8 cm. This is consistent with worsening known squamous cell carcinoma. The mass extends medially towards the right side of the floor the mouth. Normal bilateral digital retoucher spaces. Normal bilateral parapharyngeal spaces. Normal bilateral carotid spaces. Normal bilateral sublingual and submandibular glands and spaces. Normal visualized nasopharynx. Normal retropharyngeal space. Normal perivertebral space. Normal visualized bilateral faucial tonsils. The visualized tongue, tongue base and oropharynx are normal. The visualized cervical lymph nodes (levels I-) are within normal size limits, and maintain normal morphology. There is no demonstrated solid or cystic mass lesion. There is no abnormal contrast enhancement. Normal epiglottis, bilateral vallecula and hypopharynx. The pre-epiglottic and paraglottic adipose spaces are normal. Normal visualized bilateral piriform sinuses, aryepiglottic folds, vocal cords, and arytenoid-cricoid articulations. Normal subglottic trachea. Normal bilateral lobes of the thyroid gland. Normal visualized pulmonary apices. Normal visualized paranasal sinuses. Normal visualized cervical spine. MRI/Orbit Face Neck W/WO Contrast IMPRESSION: Worsening known squamous cell carcinoma the right side of the face just inferior to the right parotid gland. Electronically Signed: Jaime Hernández MD at 14:41 EDT Tel , Service support ,
--- NOTE | 2020-03-27 12:17 | MRI_ITS ---
STUDY: MRI BRAIN WITH AND WITHOUT CONTRAST REASON FOR EXAM: Male, 60 years old. New dx squamous cell neck CA, mass RIGHT neck since November 2019 TECHNIQUE: Standardized multiplanar fat and water weighted pulse sequences were obtained. IV 19cc dotarem was administered for the contrast portion of the examination. COMPARISON: 09/01/2010 FINDINGS: There is moderate cerebral atrophy with widening of the extra-axial spaces and ventricular dilatation. Normal white matter tracts of the supratentorial brain. No change in encephalomalacia and gliosis in the frontal lobes bilaterally possibly from prior infarct or trauma. There is no evidence for recent intracranial ischemia or other cause of cytotoxic edema on diffusion weighted imaging (DWI). Normal T2* images of the brain without demonstrated susceptibility artifact. There is no demonstrated hemosiderin stain. Normal bilateral basal ganglia. Normal thalami. There is no extra-axial fluid accumulation. Normal flow voids within the major intracranial circulation suggesting patency by spin echo criteria. Normal venous enhancement. There is no enhancing intra-axial or extra-axial abnormality. Normal sella turcica, pituitary gland, infundibular stalk, optic chiasm and hypothalamus. Normal tectal plate and pineal gland. Normal midbrain, linwood and medulla. Normal cerebellum. Normal basal cisterns. Normal bilateral temporal bones. Normal bilateral internal auditory canals. No demonstrated orbital abnormality, within the constraints of a routine brain study. Normal visualized paranasal sinuses. Normal calvarium and skull base. Normal visualized soft tissue structures. Normal visualized upper cervical spine. MRI/Brain W/WO Contrast IMPRESSION: No MR evidence of metastatic disease. Electronically Signed: Jaime Hernández MD at 14:33 EDT Tel , Service support ,
[2020-03-27 12:36] LABS: CREATININE FINGERSTICK 0.7 mg/dL (0.70-1.30); EGFR FINGERSTICK > 60.0000 mL/min (>60)
== END | disposition home or self-care (01) ==
PROVIDERS: PCP Family Medicine; Visit Provider Internal Medicine Medical Oncology
DX: G93.89 Other specified disorders of brain (principal); C80.1 Malignant (primary) neoplasm, unspecified; R22.1 Localized swelling, mass and lump, neck
CPT/HCPCS: 70543; 70553; A9575

== ENCOUNTER 2020-04-28 11:11 | Day surgery (SDC) | payer MEDICARE, MEDICAID, SELFPAY ==
[2020-04-01 10:26] VITALS: BMI 27.5
[2020-04-27 09:50] VITALS: BMI 27.3
[2020-04-28] VITALS (11 sets, daily range): BP systolic 106–156; BP diastolic 75–98; PULSE 77–95; RESP 16–18; TEMP 36.2–36.8; O2SAT 92–100; BMI 27.1
[2020-04-28] MEDS: Lactated Ringers 1,000 ML 15 ML IV (07:00)
--- NOTE | 2020-04-28 10:31 | PCM.NTREPORT ---
Nutrition Therapy Report - History Nutrition Services has been consulted to:: Manage enteral nutrition Current diet / nutrition support order:: Currently on an oral diet. Anticipate significant decline in oral intake with course of treatment - Anthropometric Measurements Height:: 6 ft Weight:: 91.427 kg Body Mass Index (BMI):: 27.3 - Assessment Food / Nutrition-Related History:: [facility] at [facility] report adequate oral intake at the current time - Nutrition Diagnosis Problem / Etiology / Signs & Symptoms (PES):: Placement of percutaneous endoscopic gastrostomy tube to facilitate chemotherapy. Anticipated inadequate oral nutrition to meet patient's nutrition requirements Evidence of Malnutrition Exists:: No - Nutrition Intervention Nutrition Prescription:: Goal of 1250 mL Impact Peptide 1.5 per day with 1680 mL additional water flush to provide 1875 calories & 117 gm protein when patient is unable to consume nutrients by mouth.
--- NOTE | 2020-04-28 11:21 | EKG12_ITS ---
Test Reason : PRE OP Blood Pressure : / mmHG Vent. Rate : 099 BPM Atrial Rate : 099 BPM P-R Int : 150 ms QRS Dur : 086 ms QT Int : 346 ms P-R-T Axes : 068 086 067 degrees QTc Int : 444 ms Normal sinus rhythm Normal ECG Confirmed by ANTOINE BAGLEY, OBEY ([id number]), newspaper editor managing RACHEL DONIS ([id number]) on 04/29/2020 10:23:22 AM Referred By: Giana Hansen Confirmed By:OBEY SCHULTZ MD
[2020-04-28 11:33] LABS: Hematocrit 42.2 % (40-54); Hemoglobin 13.5 g/dL (13.0-16.5); Mean Corpuscular Hgb 28.2 pg (27.0-32.0); Mean Corpuscular Volume 88.1 fL (80-94); Mean Platelet Vol. 10.7 fl (6.2-12.0); Platelet Count 213 K/mm3 (150-450); RBC Distribution Width CV 13.1 % (11.6-14.6); RBC Distribution Width SD 42.2 fl (35.1-43.9); Red Blood Count 4.79 M/mm3 (4.6-6.2); White Blood Count 7.2 K/mm3 (4.4-11.0)
--- NOTE | 2020-04-28 11:41 | HP.PCM_ITS ---
Problem List (1) Oropharyngeal carcinoma Status: Acute History and Physical Date of Admission: 04/28/20 Intake Visit Reasons: PEG/ PORT PLACEMENT Chief Complaint: discuss port/ PEG Collection Clerk Required: No Is patient in pain?: No Allergies No Known Allergies Allergy (Verified 04/27/20 12:11) Medications Cimetidine 200 mg PO TID 06/16/19 [History Confirmed 04/27/20] Multivitamin with Minerals [Multiple Vitamin] 1 ea PO DAILY 06/16/19 [History Confirmed 04/27/20] Oxcarbazepine [Trileptal] 450 mg PO BID 06/16/19 [History Confirmed 04/27/20] Paroxetine HCl 40 mg PO DAILY 06/16/19 [History Confirmed 04/27/20] Tamsulosin HCl [Flomax] 0.4 mg PO QHS 06/16/19 [History Confirmed 04/27/20] Venlafaxine HCl [Effexor Xr] 37.5 mg PO DAILY 06/16/19 [History Confirmed 04/27/20] Acetaminophen [Acetaminophen 8 Hour] 650 mg RECTALLY Q4H PRN PRN 06/26/19 [History Confirmed 04/27/20] Acetaminophen [Tylenol] 325 mg PO Q4H PRN PRN 06/26/19 [History Confirmed 04/27/20] Guaifenesin 10 ml PO Q4H PRN PRN 06/26/19 [History Confirmed 04/27/20] Hydrocodone/Acetaminophen [Hydrocodon-Acetaminophen 5-325] 2 tab PO Q4H PRN PRN 06/26/19 [History Confirmed 04/27/20] Loratadine 10 mg PO DAILY PRN 06/26/19 [History Confirmed 04/27/20] Mag Hydrox/Aluminum Hyd/Simeth [Antacid Suspension] 30 ml PO Q4H PRN PRN 06/26/19 [History Confirmed 04/27/20] Magnesium Hydroxide [Milk Of Magnesia] 30 ml PO DAILY PRN PRN 06/26/19 [History Confirmed 04/27/20] Memantine HCl 10 mg PO PCHS 06/26/19 [History Confirmed 04/27/20] Ascorbic Acid [Vitamin C] 1,000 mg PO DAILY 04/01/20 [History Confirmed 04/27/20] Lorazepam [Ativan] 1 mg PO Q6H PRN 04/22/20 [History Confirmed 04/27/20] PFSH Family History (Updated 04/01/20 @ 10:18 by Annemarie Tucker) Mother History of heart artery stent Pacemaker Hypertension Father Heart problem Grandmother Hypertension Sister Melanoma of thigh Social History (Updated 04/27/20 @ 12:[address] Yonis Jacobs MD) Smoking Status: Former smoker HPI HPI HPI: LISSA ZIEGLER, is a 60 M who presents to the office today for surgical consultation regarding percutaneous endoscopic gastrostomy tube placement and port placement to facilitate oncology treatment. The patient's history as summarized by Dr. Marques is as follows. 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 History of Present Illness: 01/27/2020: CT neck with contrast was performed due to having developed a right lateral anterior cervical mass. There is a 1.6 x 1.5 cm slightly enhancing rounded nodule in the right frontal lobe with some surrounding edema. There is a 3.3 x 3.8 x 3.5 cm and homogeneously enhancing mass in the right cervical region deep to the right sternocleidomastoid muscle and anterior to the right jugular vein and right common artery. This extends into the inferior aspect of the right parotid gland and corresponds to the palpable abnormality and most likely represents a neoplastic process or conglomeration of lymph nodes. No other abnormality is identified. 03/11/2020: Right neck core biopsy was performed which demonstrated metastatic non-small cell carcinoma favoring squamous cell carcinoma p16 negative. 03/23/2020: PET scan was performed which demonstrated asymmetric focus of increased glucose metabolism defined in the right lateral neck extending medially to the right vascular carotid space, the calculated maximum SUV of this area is 12.9 with the maximal diameter being 6.8 x 4.5 cm. There is increased concentration also observed in the midline pharyngeal mucosal space with soft tissue thickening defined on CT of the neck, the calculated maximum SUV of 6.2 and the abnormality on CT measures 7.9 mm. Both of these areas of abnormality are consistent with viable neoplasm, there is no other evidence of abnormalities noted and no distant metastatic disease identified. 03/27/2020: MRI brain with and without contrast was performed. This demonstrated no evidence of metastatic disease. 03/27/2020: MRI soft tissue neck with and without contrast was performed which demonstrated interval increase in size of the enhancing mass in the right side of the neck just inferior to the right parotid gland and possibly arising from the parotid gland and anterior to the right sternocleidomastoid muscle, this measures 4.2 x 6.8 cm and previously measured 2.8 x 4.2 cm. The mass extends medially towards the right side of the floor of mouth. No other abnormalities are identified. 03/27/2020: Patient was evaluated by ENT on exam he was noted to have a small exophytic smooth midline irregularity/neoplasm within the base of tongue. This did not appear to involve any other adjacent structures and there were no other identified abnormalities. Also noted was a 6 x 6 cm right level 2 lymph node that was fixed to deep tissue and nontender to palpation. He was referred for further evaluation and tumor board discussion at cancer center. HPI HPI HPI: LISAS ZIEGLER, is a 60 M who presents to the office today for ROS General General: Yes fatigue; no weight change, appetite, colon cancer, breast cancer or weakness HEENT HEENT: No difficulty swallowing, eye injury, eye surgery, swollen glands or hoarseness Endo Endocrine: Yes thyroid disease; no diabetes mellitus, thyroid cancer, Hair loss, heat intolerance or cold intolerance Musc Musculoskeletal: Yes arthritis; no back problems, rheumatoid arthritis, gout or joint pain Cardio Cardiovascular: Yes high blood pressure; no murmur, pacemaker, heart disease, atrial fibrillation, heart attack, heart stent, palpitations, shortness of breat with exertion or chest pain Psych Psychiatric: Yes anxiety; no depression or hearing voices Resp Respiratory: No shortness of breath, No sleep apnea, No cough, Yes COPD, No asthma, No emphysema, No wheezing Gastro Gastrointestinal: No abdominal pain, No nausea or vomiting, No diarrhea, No constipation, No blood in stool, No acid reflux, No hemorrhoids, No ulcers, No gallbladder problem, No black,tarry stools Daljit Hematologic: No blood thinners, No blood disorders, No bleeding, No anemia, No blood clots Neuro Neurologic: No weakness Exam Const General: cooperative Nutritional Appearance: overweight Orientation: alert, awake HENHI Head: normal to inspection Neck Other: Very large protruding mass right neck increased from previous visit Resp Effort & Inspection: normal respiratory effort Auscultation: clear to auscultation bilaterally Cardio Rate: regular rate Rhythm: regular rhythm Heart Sounds: no murmurs GI Palpation: soft, no hepatosplenomegaly Auscultation: normal bowel sounds Neuro Other: Wide based unsteady gait Extrem General: no calf tenderness Psych Other: Aware of his situation Assessment & Plan Problems 1. Oropharyngeal carcinoma C10.9 2. Mass of lateral neck R22.1 Plan I recommend to the patient a esophagogastroduodenoscopy with percutaneous endoscopic gastrostomy tube placement. I additionally recommend the placement of a port to facilitate chemotherapy. He is aware of the technique, benefit, risk, alternatives. He has had an opportunity to ask and have questions answered. We will schedule and expedite his care. He has not had any previous abdominal surgery. Because of the large right neck mass I would anticipate a left internal jugular port placement. Cc: Dr. Giana Hansen and Dr. Ortega Calderón and Dr. Giovanny Jacobs M.D., F.A.C.S. Coding Level of Care Code Off vis,est,level 2 Diagnoses Oropharyngeal carcinoma C10.9 Mass of lateral neck R22.1 I have re-examined the patient. There are no clinical changes since date of exam. Procedure Criteria Procedure Type: Elective COVID Risk Discussion: The surgeon/proceduralist and patient have discussed in detail the risk of exposure to and/or potential harm posed by the COVID-19 virus with having a surgery/procedure at this time versus the risk of delaying the surgery/procedure. It is not possible to know either the risk of delaying the surgery or procedure or chance of getting an infection with perfect accuracy, but a joint decision was made between the patient and the surgeon/proceduralist to proceed at this time with the scheduled surgery/procedure as indicated on the consent form.
--- NOTE | 2020-04-28 11:42 | PCM.DC.POR ---
Discharge Diet: No Restrictions - Pain medication may cause nausea. You should typically eat light foods as you take your pain medication. Discharge Activity: Return to Normal Activity, May Not Shower - You may shower in 3 days. Be very careful with your PEG tube site. You may rinse around that site and then after patting the site dry reapply dry gauze dressings. The PEG site should be dressed daily. You may utilize a Q-tip and some peroxide to cleanse and crusting. Apply dry gauze and securely taped the tubing so that it does not accidentally get withdrawn. You may utilize an abdominal binder so that you do not accidentally remove the tube. You may leave the plastic dressings on the chest in place for 3 days then you may remove them. Leave the Steri-Strips then in place for 1 week. The peg tube should be flushed with tap water 30 cc approximately every 4-6 hours. Your oncology department will assist with tube feeding prescriptions and recommendations when appropriate. Additional Dressing/Incision Instructions:: Leave the bandage on for 2-3 days. When you remove the bandage, leave the steri-strips intact until they fall off. Allergies/Adverse Reactions: Allergies No Known Allergies Allergy (Verified 04/28/20 12:00) Medications to take at Discharge Cimetidine 200 mg PO TID 06/16/19 Multivitamin with Minerals [Multiple Vitamin] 1 ea PO DAILY 06/16/19 Oxcarbazepine [Trileptal] 450 mg PO BID 06/16/19 Paroxetine HCl 40 mg PO DAILY 06/16/19 Tamsulosin HCl [Flomax] 0.4 mg PO QHS 06/16/19 Venlafaxine HCl [Effexor Xr] 37.5 mg PO DAILY 06/16/19 Acetaminophen [Acetaminophen 8 Hour] 650 mg RECTALLY Q4H PRN PRN 06/26/19 Acetaminophen [Tylenol] 325 mg PO Q4H PRN PRN 06/26/19 Guaifenesin 10 ml PO Q4H PRN PRN 06/26/19 Hydrocodone/Acetaminophen [Hydrocodon-Acetaminophen 5-325] 2 tab PO Q4H PRN PRN 06/26/19 Loratadine 10 mg PO DAILY PRN 06/26/19 Mag Hydrox/Aluminum Hyd/Simeth [Antacid Suspension] 30 ml PO Q4H PRN PRN 06/26/19 Magnesium Hydroxide [Milk Of Magnesia] 30 ml PO DAILY PRN PRN 06/26/19 Memantine HCl 10 mg PO PCHS 06/26/19 Ascorbic Acid [Vitamin C] 1,000 mg PO DAILY 04/01/20 Lorazepam [Ativan] 1 mg PO Q6H PRN 04/22/20 Hydrocodone Bitart/Apap 5-325 [Mohler 5MG-325MG] 1 tab PO Q6H PRN PRN 3 Days #8 tab 04/28/20 The following prescriptions were given: Hydrocodone Bitart/Apap 5-325 [Mohler 5MG-325MG] 1 tab PO Q6H PRN PRN 3 Days #8 tab PRN Reason: Pain Transmission Status: Sent to [facility] Primary Care Physician: Giana Hansen MD [Primary Care Provider] - Test Results: Test results from this visit will be discussed in further detail at your follow-up appointment, if applicable. Please Follow Up With: Yonis Jacobs MD - [phone] When: Office follow-up can be if needed for concerns
[2020-04-28 11:45] LABS: Anion Gap 4 (5-15); BUN 16 mg/dL (7-18); BUN/Creat Ratio 16.5 RATIO (10-20); Chloride 101 mmol/L (98-107); Creatinine, Serum 0.97 mg/dL (0.70-1.30); EST Glomerular Filtration Rate 84 mL/min (>60); Est Glom Filt Rate - Afr Amer 101 mL/min (>60); Estimated Creatinine Clearance 88.89 ml/min; Glucose 114 mg/dL (74-106); Potassium 3.9 mmol/L (3.5-5.1); Sodium Level 133 mmol/L (136-145)
--- NOTE | 2020-04-28 14:15 | IMM_PTH ---
PATIENT: Neeta ZIEGLER LOC: [facility] – [place] U#:[id number] AGE/SX: 60/M ROOM: RE04/28/[address]: Dr. Yonis Jacobs MD : 1960 BED: DIS: 04/28/2020 SPEC #: [id number] RECD: 04/29/20 12:10 STATUS: WM REQ #: [id number] BARON: 04/28/20 14:[address]: Yonsi Jacobs DEPT: IMMUNOHISTOCHEMISTRY RECD BY: Yulissa Bishop ENTERED: 04/29/20 12:11 SP TYPE: IMMUNO OTHR DR: Dr. Giana Hansen MD Tissues: Stomach, NOS Procedures: H Pylori (initial) PHYSICIAN & INSTITUTION [place] [id number] SPECIMEN INFORMATION: Tissue Source: Antral biopsy Clinical Info: Oropharyngeal cancer Specimen Number: [id number] CPT code: 29949 METHODOLOGY: Deparaffinized sections of prefer/formalin-fixed tissue or PAP/DQ stained slides are incubated with monoclonal/polyclonal antibodies/oligonucleotide probes. Localization is made via biotin free immunoperoxidase method. Appropriate controls are performed and reacted as expected. Results on target cell population are indicated in the following table: RESULTS: ANTIBODY / CLONE RESULT H Pylori (polyclonal) negative These tests were developed and their performance characteristics determined by [facility]. They may not have been cleared or approved by the U.S. Food and Drug Administration. The FDA has determined that such clearance or approval is not necessary. INTERPRETATION: Antral biopsy: Negative for Helicobacter pylori organisms. AM:dot 04/30/20
--- NOTE | 2020-04-28 14:15 | GASB_PTH ---
PATIENT: Neeta ZIEGLER [place] [facility] [place][id number] AGE/SX: 60/M ROOM: RE04/28/[address]: Dr. Yonis Jacobs MD : 1960 BED: DIS: 04/28/2020 SPEC #: [id number] RECD: 04/28/20 17:05 STATUS: WM SUDEEP #: [id number] BARON: 04/28/20 14:[address]: Yonis Jacobs DEPT: SURGICAL PATHOLOGY RECD BY: Edgardo Ford ENTERED: 04/29/20 09:20 SP TYPE: Gastric Bx OTHR DR: Dr. Giana Hansen MD Tissues: Gastric mucous membrane Procedures: Surgery Specimen Level IV HEADER OPERATION: Insertion vascular port / PEG tube PRE-OP DIAGNOSIS: Oropharyngeal cancer TISSUE SUBMITTED: Antral biopsy for H. pylori and pathology MICROSCOPIC DIAGNOSIS Gastric antrum, biopsy: Minimal chronic inflammation. AM:dot 04/30/20 COMMENT The results of immunohistochemistry for Helicobacter pylori will be reported separately ([id number]). MICROSCOPIC DESCRIPTION Slides are reviewed. GROSS DESCRIPTION Received in fixative is one container labeled with the patient's name and designated antrum biopsy. The specimen consists of one irregular fragment of light wong soft tissue that measures 0.7 x 0.2 x 0.1 cm. The specimen is totally submitted in one cassette. / SJ:dot 04/29/20 TC:3 CPT: 00036
[2020-04-28] MEDS: Cefazolin 2 GM in 0.9% Normal Saline 100 ML IV (14:57)
[2020-04-28] MEDS: Bupivacaine Mpf 0.5% 30 ML VIAL (15:50)
--- NOTE | 2020-04-28 16:30 | OP.PCM_ITS ---
Problem List (1) Oropharyngeal carcinoma Status: Acute Report of Operation Date of Procedure: 04/28/20 Pre-Operative Diagnosis: Oral pharyngeal cancer with metastatic disease to the right neck Post-Operative Diagnosis: Same Surgery/Procedure Performed:: Left internal jugular 6 Ukrainian PowerPort placement with fluoroscopic and ultrasound guidance. 6 Ukrainian PowerPort. Reference #[id number]. Lot [id number]. For gastroduodenoscopy with percutaneous endoscopic gastrostomy tube placement. Dictation performed through [employer] system. Primary date 06/22/2021 Description of Surgical Findings:: Timeout and informed consent was obtained. 60-year-old gentleman was taken to the operating placed on the table underwent monitored anesthesia care. Ancef 2 g given intravenously preoperatively. The left neck and chest were sterilely prepped and draped. Under ultrasound guidance the left internal jugular vein was noted. It was rather deeply placed. 1% lidocaine mixed 50-50 with 0.5% Marcaine was used as a local anesthetic. Under ultrasound guidance local was instilled. The ultrasound guidance a micropuncture needle was inserted into the left internal jugular vein followed by micropuncture wire advancement. Fluoroscopy demonstrated good positioning. Micropuncture sheath was inserted. 035 J-wire was inserted. Local was instilled down upon the left chest wall. A transverse incision was made just medial left clavicle to avoid some of his psoriasis. Subcutaneous tissues were dissected free with electrocautery. The tubing was tunneled from the chest to the neck site. Then the sheath dilator was placed over the wire. The wire dilator removed. The catheter was advanced through the sheath. The catheter got hung up in the SVC. I had a placed a 035 angled Glidewire to reposition the catheter. Then the catheter got withdrawn a bit I had exchanged out for an 035 stiff Glidewire finally able to advance the catheter under fluoroscopic control. I did use approximately 5 cc of Isovue contrast to better identify and position the catheter tip. It appeared to be in a good curvilinear position. It aspirated very easily it was flushed with saline. Then it was amputated at length connected to the port secured with a port attachment device. It was placed in the pocket secured there with 2-0 silk. The port site was closed interrupted 3-0 Vicryl subdermal stitch. The neck site was closed with interrupted 5-0 Vicryl. Steri-Strips Telfa OpSite dressings applied. Sponge and instrument and needle counts were reported to the surgeon to be correct. Specimens none. Drains none. Blood loss minimal. Subsequently the EGD with PEG tube placement was performed dictated separately. Yonis Jacobs M.D., F.A.C.S. Type of Anesthesia:: Local MAC Anesthesiologist: Jose Gaston
--- NOTE | 2020-04-28 16:41 | OP.EGD_ITS ---
Patient Name: Oralia Drake Procedure Date: 04/28/2020 4:07 PM Date of : 1960 Age: 60 Procedure: Upper GI endoscopy Indications: Tumor of the GI tract Providers: Yonis Jacobs MD Medicines: See the Anesthesia note for documentation of the administered medications Complications: No immediate complications. Procedure: Pre-Anesthesia Assessment: - Prior to the procedure, a History and Physical was performed, and patient medications and allergies were reviewed. The patient's tolerance of previous anesthesia was also reviewed. The risks and benefits of the procedure and the sedation options and risks were discussed with the patient. All questions were answered, and informed consent was obtained. Prior Anticoagulants: The patient has taken no previous anticoagulant or antiplatelet agents. ASA Grade Assessment: III - A patient with severe systemic disease. After reviewing the risks and benefits, the patient was deemed in satisfactory condition to undergo the procedure. After obtaining informed consent, the endoscope was passed under direct vision. Throughout the procedure, the patient's blood pressure, pulse, and oxygen saturations were monitored continuously. The Endoscope was introduced through the mouth, and advanced to the second part of duodenum. The upper GI endoscopy was accomplished without difficulty. The patient tolerated the procedure well. Scope In: 4:13:55 PM Scope Out: 4:27:14 PM Total Procedure Duration Time 0 hours 13 minutes 19 seconds Findings: The examined esophagus was normal. The Z-line was regular and was found 40 cm from the incisors. Localized mildly erythematous mucosa without bleeding was found in the gastric antrum. Biopsies were taken with a cold forceps for histology. The examined duodenum was normal. Placement of an endoscopically removable PEG with no T-fasteners was successfully completed. The external bumper was at the 4.0 cm marking on the tube. Estimated blood loss was minimal. Impression: - Normal esophagus. - Z-line regular, 40 cm from the incisors. - Erythematous mucosa in the antrum. Biopsied. - Normal examined duodenum. - An endoscopically removable PEG placement was successfully completed. Recommendation: - Discharge patient to a custodial. - Resume previous diet. - Continue present medications. - Telephone my office for pathology results in 1 week. Procedure Code(s): --- Professional --- 43007, Esophagogastroduodenoscopy, flexible, transoral; with directed placement of percutaneous gastrostomy tube 05568, Esophagogastroduodenoscopy, flexible, transoral; with biopsy, single or multiple Diagnosis Code(s): --- Professional --- K31.89, Other diseases of stomach and duodenum D49.0, Neoplasm of unspecified behavior of digestive system CPT copyright 2017 [employer]. All rights reserved. The codes documented in this report are preliminary and upon ground wood supervisor review may be revised to meet current compliance requirements. Yonis Jacobs MD 04/28/2020 4:40:47 PM This report has been signed electronically. Number of Addenda: 0 Note Initiated On: 04/28/2020 4:07 PM
--- NOTE | 2020-04-28 16:41 | OP.CCLET_ITS ---
04/28/2020 Ortega Calderón MD [address] [facility] [address] [place] [address] Re : Upper GI endoscopy procedure for Oralia Vidal Dear Dr. Calderón This procedure was performed on Tuesday, April 28, 2020. My impressions and recommendations are as follows: Impressions : - Normal esophagus. - Z-line regular, 40 cm from the incisors. - Erythematous mucosa in the antrum. Biopsied. - Normal examined duodenum. - An endoscopically removable PEG placement was successfully completed. Recommendations : - Discharge patient to a [place] [facility]. - Resume previous diet. - Continue present medications. - Telephone my office for pathology results in 1 week. My findings are described in the full procedure note, which is enclosed. If I can be of further assistance, please feel free to contact me at Doctor phone number(s): Work: . Sincerely, Yonis Jacobs MD 04/28/2020 4:40:47 PM This report has been signed electronically.
--- NOTE | 2020-04-28 16:55 | RAD_ITS ---
STUDY: X-RAY CHEST REASON FOR EXAM: Male, 60 years old. Line placement TECHNIQUE: Single AP portable view of the chest. COMPARISON: 11/11/2012 FINDINGS: EKG leads overlie the chest. A left subclavian port is in place, tip is in the mid SVC, no pneumothorax or mediastinal shift. The lungs are clear and expanded. There is no demonstrated pleural abnormality. Normal size heart. Normal mediastinum and henrietta. Normal visualized pulmonary arteries. Normal visualized aortic arch and descending thoracic aorta. Normal visualized thoracic spine. Normal visualized ribs, clavicles, and shoulders. There is no demonstrated abnormality of the visualized soft tissue structures of the upper abdomen. RAD/CXR for Line Placement IMPRESSION: No acute pulmonary process Left subclavian port tip in the mid SVC Electronically Signed: Yoni Mena MD at 17:28 EDT , Service support ,
== END 2020-04-28 18:46 | disposition intermediate care facility (04) ==
LOC: SDC 11:12 → AC 11:14
PROVIDERS: Anesthesiology; PCP Family Medicine; Referring Provider Family Medicine; Visit Provider Surgery
PROC: (CPT 36561; principal; 2020-04-28 14:00)
PROC: 0DJ08ZZ Inspection of Upper Intestinal Tract, Via Natural or Artificial Opening Endoscopic (ICD-10-PCS; CPT 43235; principal; 2020-04-28 15:10)
DX: Z51.0 Encounter for antineoplastic radiation therapy (principal); C76.0 Malignant neoplasm of head, face and neck; C10.9 Malignant neoplasm of oropharynx, unspecified; K29.50 Unspecified chronic gastritis without bleeding; R22.1 Localized swelling, mass and lump, neck; F41.9 Anxiety disorder, unspecified; F32.9 Major depressive disorder, single episode, unspecified; I10 Essential (primary) hypertension; J44.9 Chronic obstructive pulmonary disease, unspecified; Z79.899 Other long term (current) drug therapy; Z87.891 Personal history of nicotine dependence
CPT/HCPCS: 00731; 36561; 43239; 43246; 71045; 77001; 77300; 77301; 80048; 85027; 87635; 88305; 88342; 93005; J7120; C1769; U0003

== ENCOUNTER 2020-06-04 01:00 | Inpatient (IN) | payer MEDICARE, MEDICAID, SELFPAY ==
[2020-04-01 10:26] VITALS: BMI 27.5
[2020-06-03 08:36] VITALS: BMI 24.2
[2020-06-04] VITALS (14 sets, daily range): BP systolic 108–130; BP diastolic 50–95; PULSE 68–140; RESP 16–22; TEMP 36.7–38.6; O2SAT 93–98; BMI 25.5; BMI 24.0; BMI 25.6
--- NOTE | 2020-06-04 01:15 | EKG12_ITS ---
Test Reason : FEVER Blood Pressure : / mmHG Vent. Rate : 139 BPM Atrial Rate : 139 BPM P-R Int : 136 ms QRS Dur : 082 ms QT Int : 280 ms P-R-T Axes : 086 090 070 degrees QTc Int : 426 ms Sinus tachycardia Rightward axis Borderline ECG Confirmed by RADAMES WASHINGTON ([id number]), newspaper photo editor RACHEL DONIS ([id number]) on 06/08/2020 2:15:14 PM Referred By: HUEY Confirmed By:RADAMES WASHINGTON
--- NOTE | 2020-06-04 01:18 | CT_ITS ---
STUDY: CT ABDOMEN AND PELVIS WITH CONTRAST REASON FOR EXAM: Male, 60 years old. Left lower quadrant pain RADIATION DOSAGE (If Supplied By Facility): CTDIvol = ( 16.48 ) mGy, DLP = ( 1005.60 ) mGycm TECHNIQUE: Transaxial images were obtained from the dome of the diaphragm to the symphysis pubis without oral contrast. IV 100mL Isovue-370 was administered. Sagittal and coronal images were reconstructed. Individualized dose optimization techniques were used for this CT. COMPARISON: None. FINDINGS: 7 mm subpleural nodule at the left lateral lung base. The visualized portions of the heart are within normal limits. Shrunken nodular appearance to the liver. Normal gallbladder and extrahepatic biliary system. Mild splenomegaly. Normal pancreas. Normal bilateral adrenal glands. Hypoattenuated lesions within the left kidney measuring near water density. No hydronephrosis. Normal bilateral ureters. Percutaneous gastrostomy catheter in place. Stomach is otherwise unremarkable. Normal small intestine. Mild to moderate stool burden within the colon with without colonic wall thickening. The appendix is visualized and appears normal. Moderate atherosclerotic plaque within the abdominal arterial vasculature. Normal inferior vena cava. Normal retroperitoneum. No free air or free fluid. Normal urinary bladder. Small fat-containing umbilical hernia with no bowel involvement. Mild multilevel degenerative change of the spine. No acute skeletal abnormality. CT/Abdomen/Pelvis W IV Cont ONLY IMPRESSION: 1. Mild to moderate constipation. 2. Simple appearing left renal cysts. 3. Cirrhotic changes of the liver. 4. Small fat-containing umbilical hernia without bowel involvement. Electronically Signed: Tejinder Mitchell MD at 2:33 EDT Tel , Service support ,
--- NOTE | 2020-06-04 01:18 | RAD_ITS ---
STUDY: X-RAY CHEST REASON FOR EXAM: Male, 60 years old. Fever and back pain TECHNIQUE: 04/28/2020 a left internal jugular portacatheter is in place with the tip extending to the central superior vena cava. COMPARISON: None. FINDINGS: No confluent airspace opacity. Mild prominence of interstitial lung markings throughout bilateral lung bases, unchanged. No pleural effusion. No pneumothorax. Normal size heart. Normal mediastinum and henrietta. Normal visualized pulmonary arteries. There is atherosclerotic calcification of the aortic arch . There are diffuse degenerative changes of the visualized thoracic spine. Normal visualized ribs, clavicles, and shoulders. There is no demonstrated abnormality of the visualized soft tissue structures of the upper abdomen. RAD/Chest 1 View (Portable) IMPRESSION: Chronic bibasilar interstitial change with no evidence of acute cardiopulmonary disease Electronically Signed: Tejinder Mitchell MD at 2:35 EDT Tel , Service support ,
--- NOTE | 2020-06-04 01:20 | ED.DCSUM_ITS ---
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 Patient had fever of 103.2 at facility. Patient had lab work yesterday from his oncologist which showed a neutropenia with an ANC of 0.9 and thrombocytopenia of 70,000. Patient's last chemotherapy was 04/29/2020, 1 month ago. He did not receive chemotherapy this month because of his neutropenia. Patient is complaining of some mild left lower quadrant abdominal pain but not able to characterize it further. He cannot tell me how long it is been there. He denies associated nausea or vomiting. He denies any other complaints at this time. Patient's oncologist is Dr. Calderón. Past Medical History - Allergies and Home Meds Allergies/Adverse Reactions: Allergies No Known Allergies Allergy (Verified 06/04/20 02:31) Primary Care Physician: Giana Hansen MD [Primary Care Provider] - Past Medical History: - - Age for squamous cell carcinoma of the tongue, hypertension, COPD, EtOH induced dementia Surgical History: noncontributory, - - PEG tube, port Lives: [facility] Smoking Status: Former smoker - Family History Maternal Family History: Family History (Last Reviewed 06/03/20 @ 08:33 by Annemarie Tucker) Mother History of heart artery stent Pacemaker Hypertension Father Heart problem Grandmother Hypertension Sister Melanoma of thigh Family History: Reports: Heart Disease, Hypertension Paternal Family History: Family History (Last Reviewed 06/03/20 @ 08:33 by Annemarie Tucker) Mother History of heart artery stent Pacemaker Hypertension Father Heart problem Grandmother Hypertension Sister Melanoma of thigh Family History: Reports: Heart Disease Review of Systems General: Reports: Fever, Malaise. Denies: Chills, Sweats Eyes: Denies: Visual changes - bilaterally, Diplopia ENT: Denies: Rhinorrhea, Sore throat Cardiovascular: Denies: Chest pain, Palpitations Respiratory: Denies: Dyspnea, Cough, Dyspnea on exertion Gastrointestinal: Reports: Abdominal pain. Denies: Nausea, Vomiting, Diarrhea, Melena, Hematochezia Genitourinary: Denies: Dysuria, Hematuria, Frequency Musculoskeletal: Denies: Back pain, Extremity Pain Skin: Denies: Rash, Wounds Neurological: Denies: Headache, Weakness, Numbness Physical Exam Vital Signs/Narrative: Vital Signs Temp Pulse Resp BP Pulse Ox 06/04/20 01:15 100.3 F H 140 H 22 H 129/59 H 95 06/04/20 01:01 100.3 F H 140 H 22 H 129/59 H 95 Inital Vital Signs reviewed: Yes General: Well nourished, Well developed, No Acute Distress Head: Normocephalic, Atraumatic Eyes: Perrl, EOMI ENT: Moist mucous membranes, No rhinorrhea Neck: Supple, Nontender, No lymphadenopathy, No JVD Cardiovascular: Regular rhythm, No murmurs, Tachycardia Respiratory: No distress, CTA bilaterally, Chest nontender, - - Port palpable in left anterior chest wall Abdomen: Soft, Nondistended, Normal bowel sounds, Tender - LLQ, not reproducable on exam . Negative for: Guarding, Rebound tenderness Back: Nontender, Normal Inspection Extremities: Nontender, No edema Skin: Normal color, Rash - Diffuse erythema of the neck, patient is not sure if this is chronic or not. Neurological: Alert, Cranial nerves II-XII grossly intact, Normal Strength, Normal Sensation, Disoriented, - - Oriented to self only Psychological: Normal affect, Normal Mood Diagnostic/Tx/Re-eval Chest X-Ray - ED: 1 View, Read by ED Physician, Read by Radiologist, No Acute Disease Clinical Impression(s) from Imaging Studies Abdomen/Pelvis CT 06/04/20 01:18 IMPRESSION: 1. Mild to moderate constipation. 2. Simple appearing left renal cysts. 3. Cirrhotic changes of the liver. 4. Small fat-containing umbilical hernia without bowel involvement. Electronically Signed: Tejinder Mitchell MD at 2:33 EDT Tel , Service support , Chest X-Ray 06/04/20 01:18 IMPRESSION: Chronic bibasilar interstitial change with no evidence of acute cardiopulmonary disease Electronically Signed: Tejinder Mitchell MD at 2:35 EDT Tel , Service support , Laboratory Data 06/04/20 06/04/20 06/04/20 01:45 01:45 01:45 WBC 1.2 L* RBC 2.96 L Hgb 8.6 L Hct 24.8 L MCV 83.8 MCH 29.1 MCHC 34.7 RDW Std Deviation 40.6 RDW Coeff of Puneet 14.5 Plt Count 56 L MPV 9.9 Immature Gran % (Auto) 0.900 Neut % (Auto) 73.5 H Lymph % (Auto) 8.5 L [place] % (Auto) 16.2 H Eos % (Auto) 0.9 Baso % (Auto) 0.0 Absolute Neuts (auto) 0.9 L Absolute Lymphs (auto) 0.10 L Nucleated RBC % 0 Differential Comment COMMENT Diff Path Review May foll Platelet Estimate MOD DEC Anisocytosis 1+ Sodium 130 L Potassium 4.1 Chloride 99 Carbon Dioxide 25.0 Anion Gap 6 BUN 23 H Creatinine 0.68 L Estim Creat Clear Calc 130.56 Est GFR (MDRD) Af Amer 153 Est GFR (MDRD) Non-Af 127 BUN/Creatinine Ratio 33.9 H Glucose 142 H Lactic Acid 1.1 Calcium 8.6 Total Bilirubin 0.90 AST 23 ALT 52 Alkaline Phosphatase 29 L Total Protein 6.7 Albumin 2.6 L Globulin 4.1 Albumin/Globulin Ratio 0.6 L Urine Color Urine Clarity Urine pH Ur Specific [place] Urine Protein Urine Glucose (UA) Urine Ketones Urine Occult Blood Urine Nitrite Urine Bilirubin Urine Urobilinogen Ur Leukocyte Esterase Urine RBC Urine WBC Ur Squamous Epith Cells Amorphous Sediment Urine Bacteria Urine Mucus 06/04/20 02:00 WBC RBC Hgb Hct MCV MCH MCHC RDW Std Deviation RDW Coeff of [place]une[place] Plt Count MPV Immature Gran % (Auto) Neut % (Auto) Lymph % (Auto) [place] % (Auto) Eos % (Auto) Baso % (Auto) Absolute Neuts (auto) Absolute Lymphs (auto) Nucleated RBC % Differential Comment Diff Path Review Platelet Estimate Anisocytosis Sodium Potassium Chloride Carbon Dioxide Anion Gap BUN Creatinine Estim Creat Clear Calc Est GFR (MDRD) Af Amer Est GFR (MDRD) Non-Af BUN/Creatinine Ratio Glucose Lactic Acid Calcium Total Bilirubin AST ALT Alkaline Phosphatase Total Protein Albumin Globulin Albumin/Globulin Ratio Urine Color Yellow Urine Clarity Clear Urine pH 7.0 Ur Specific [place] 1.010 Urine Protein 100 H Urine Glucose (UA) Normal Urine Ketones Negative Urine Occult Blood Negative Urine Nitrite Negative Urine Bilirubin Negative Urine Urobilinogen 1 H Ur Leukocyte Esterase Negative Urine RBC 0 SEEN Urine WBC 0 SEEN Ur Squamous Epith Cells 0 SEEN Amorphous Sediment 1+ Urine Bacteria 0 SEEN Urine Mucus 0 SEEN - Rhythm Strip Rhythm Strip: Sinus Tach Rate: 139 Ectopy: None - EKG Initial EKG Interpretation: Sinus Tachycardia, - - Sinus tachycardia at a rate of 139 Right dewey axis Normal intervals Normal ST segments Read by emergency medicine physician - Medical Decision Making Patient is evaluated for fever. He was neutropenic yesterday on his lab work. He is treated as a neutropenic fever in the emergency room antibiotics are immediately ordered. The exact source of his infection is not clear. Patient has erythematous changes around his neck however I suspect is more from radiation versus cellulitis. Patient will be covered for cellulitis however. He is neutropenic in the emergency room with a stable anemia. He does have a slight worsening of his thrombocytopenia. He is not having obvious source of bleeding and again his H&H is stable. Patient has mild hyponatremia however this appears to be his baseline and again stable. He is not have any other significant laboratory abnormalities. His lactate is normal. He is tachycardic and does spike a fever in the emergency room. He is given Tylenol and IV fluids. Blood cultures and urine cultures are pending. Patient did complain of some left lower quadrant abdominal pain. This is very nonspecific however I did obtain a CT which did not show any acute process. Patient be admitted for IV antibiotics and further evaluation of neutropenic fever. He is stable for PCU at time of disposition. He has a slight improvement of his tachycardia while in the emergency room. Patient does meet criteria for sepsis but there is no clear source. ED Disposition - Plan for ED Patient: Disposition: [facility] Diagnosis: Neutropenic fever, Pancytopenia, Tachycardia, Hyponatremia Referrals: Giana Hansen MD [Primary Care Provider] -
[2020-06-04 02:05] LABS: Bacteria 0 SEEN /hpf (None Seen); Color, Urine Yellow (Yellow); Glucose, Dipstick Normal (Normal); Ketone-Dipstick Negative (Negative); Leukocyte Esterase-Dipstick Negative /ul (Negative); Mucous, Urine 0 SEEN /hpf (<or=2+); Nitrite-Dipstick Negative (Negative); Occult Blood-Urine Negative /ul (Negative); Protein-Dipstick 100 mg/dl (Negative); Red Blood Cells-Urine 0 SEEN /hpf (0-5); Squamous Epithelial Cells - UA 0 SEEN /hpf (0-5); Urine Bilirubin Dipstick Negative (Negative); Urine Clarity Clear (Clear); Urine Urobilinogen 1 mg/dl (Normal); White Blood Cells 0 SEEN /hpf (0-5)
[2020-06-04 02:06] LABS: Absolute Neutrophil Count 0.9 X10^3/uL (2.0-7.7); Eosinophil# 0.01 X10^3/uL; Eosinophils% 0.9 % (0-5); Hematocrit 24.8 % (40-54); Hemoglobin 8.6 g/dL (13.0-16.5); Lymphocyte % 8.5 % (19-41); Mean Corp Hgb Conc 34.7 g/dL (32-36); Mean Corpuscular Hgb 29.1 pg (27.0-32.0); Mean Corpuscular Volume 83.8 fL (80-94); Mean Platelet Vol. 9.9 fl (6.2-12.0); Monocyte# 0.19 X10^3/uL; Monocyte% 16.2 % (0-10); NRBC Flagged by Analyzer 0 % (0-5); Neutrophil # 0.86 X10^3/uL (2.7-7.7); Neutrophil % 73.5 % (47-70); POSITIVE COUNT YES; POSITIVE DIFFERENTIAL YES; POSITIVE MORPHOLOGY YES; RBC Distribution Width CV 14.5 % (11.6-14.6); RBC Distribution Width SD 40.6 fl (35.1-43.9); Red Blood Count 2.96 M/mm3 (4.6-6.2)
[2020-06-04 02:09] LABS: White Blood Count 1.2 K/mm3 (4.4-11.0)
[2020-06-04 02:10] LABS: Differential Indicated SCAN CRITERIA MET; Platelet Count 56 K/mm3 (150-450)
[2020-06-04 02:11] LABS: Amorphous Sediment 1+
[2020-06-04 02:13] LABS: ALB/GLOB Ratio 0.6 RATIO (0.9-2.4); AST(SGOT) 23 U/L (15-37); Alanine Aminotransfer ALT/SGPT 52 U/L (16-61); Albumin, Serum 2.6 g/dL (3.2-5.0); Alkaline Phosphatase 29 U/L (45-117); Anion Gap 6 (5-15); BUN 23 mg/dL (7-18); BUN/Creat Ratio 33.9 RATIO (10-20); Calcium,Total 8.6 mg/dL (8.5-10.1); Chloride 99 mmol/L (98-107); Creatinine, Serum 0.68 mg/dL (0.70-1.30); EST Glomerular Filtration Rate 127 mL/min (>60); Est Glom Filt Rate - Afr Amer 153 mL/min (>60); Estimated Creatinine Clearance 130.56 ml/min; Globulin 4.1 g/dL (2.2-4.2); Glucose 142 mg/dL (74-106); Potassium 4.1 mmol/L (3.5-5.1); Protein, Total 6.7 g/dL (6.4-8.2); Sodium Level 130 mmol/L (136-145)
[2020-06-04 02:23] LABS: Lactic Acid 1.1 mmol/L (0.4-1.9)
[2020-06-04] MEDS: 0.9% Normal Saline 1,000 ML 999 ML IV ×2 (02:26→06:03)
[2020-06-04 02:38] LABS: Anisocytosis 1+; Platelet Estimate MOD DEC (ADEQ)
--- NOTE | 2020-06-04 02:40 | PCM.HP.STD ---
Problem List (1) Neutropenic fever Status: Acute (2) Pancytopenia Status: Acute Comment: Acute on Chronic (3) HTN (hypertension) Status: Chronic Qualifiers: Hypertension type: essential hypertension Qualified Code(s): I10 - Essential (primary) hypertension (4) HLD (hyperlipidemia) Status: Chronic Qualifiers: Hyperlipidemia type: unspecified Qualified Code(s): E78.5 - Hyperlipidemia, unspecified (5) Alcoholic dementia Status: Chronic (6) Former tobacco use Status: Chronic (7) COPD (chronic obstructive pulmonary disease) Status: Chronic Qualifiers: Emphysema type: unspecified (8) BPH (benign prostatic hyperplasia) Status: Acute Qualifiers: Lower urinary tract symptom presence: unspecified whether lower urinary tract symptoms present Qualified Code(s): N40.0 - Benign prostatic hyperplasia without lower urinary tract symptoms (9) Oropharyngeal carcinoma Status: Chronic (10) Hyponatremia Status: Chronic History of Present Illness Date of Admission: 06/04/20 Chief Complaint: Fever The patient is a 60 y/o M w/ PMHx: Chronic COPD, Former EtOH Abuse w/ associated induced dementia, Anxiety and Depression, HTN, HLD, BPH, Former Tobacco use, 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 Garrison w/ noted R level II node 6 cm w/ follow-up MRI head and neck 03/27/2020 w/ R upper node 6.8cm, 03/23/2020 PET/CT w/ hypermetabolic area in pharynx and R neck, s/p Port and PEG-tube 04/28/2020, started chemoradiation weekly with Taxol and Carboplatin on 04/29/20 with continuous tube feeds who presents to the [facility] ED on 06/04/20 with history of general malaise and fatigue undifferentiated from recent weeks on the radiation however patient had onset of significant fever at his [place] [facility] facility the evening prior to current presentation noted to be up to 103.2 with recent 06/03/2020 oncology visit with mild hypotension noted during that visit but otherwise no complaints prompting ED presentation. In the ED there was some concern for some mild left lower quadrant discomfort but belly was soft and CT was unremarkable with no [place] [facility] facility reported discomfort nor any nausea or emesis. Patient's last chemotherapy was on 04/29/2020 with chemotherapy skipped this month secondary to ongoing neutropenia. Work-up in the ED included T101.4, heart rate 128, BP 116/95, respiratory rate 22, 95% on room air, CBC with WC 1.2, hemoglobin 8.6, platelet 56 with significant neutropenia and lymphopenia with most recent 06/03/2020 CBC with WBC 1.6, hemoglobin 8.7, platelets 70 with concurrent similar neutropenia and lymphopenia at that time, CMP with sodium 130, BUN/creatinine 23/0.68, glucose 142, alk phos 29 similar to day prior with 06/03/2020 CMP with sodium 129, chloride 95, BUN/creatinine 21/0.62, glucose 116, alk phos 29 noted of been initiated on sodium tablets at that time, urinalysis unremarkable, blood culture x2 pending per ED, urine culture pending per ED, negative coronavirus testing, CT abdomen and pelvis with mild bladder constipation with a simple appearing left renal cyst, cirrhotic changes of the liver, small fat-containing umbilical hernia without bowel movement, chest x-ray with chronic bibasilar interstitial changes with no acute cardiopulmonary disease endings. In the ED patient administered vancomycin as well as meropenem and normal saline. Past Medical History Past Medical History (Chronic Problems): Chronic Problems (Last Reviewed 06/03/20 @ 08:33 by Annemarie Tucker) Hyponatremia (Chronic) HTN (hypertension) (Chronic) HLD (hyperlipidemia) (Chronic) Alcoholic dementia (Chronic) Former tobacco use (Chronic) COPD (chronic obstructive pulmonary disease) (Chronic) Oropharyngeal carcinoma (Chronic) Medical History: Medical History (Last Reviewed 06/03/20 @ 08:33 by Annemarie Tucker) Mass of lateral neck (Acute) R22.1 Alcohol dependence with alcohol-induced persisting dementia F10.27 Anxiety F41.9 Benign prostatic hyperplasia without lower urinary tract symptoms N40.0 Essential (primary) hypertension I10 Impulse disorder, unspecified F63.9 Major depressive disorder, recurrent, mild F33.0 Chronic obstructive pulmonary disease, unspecified J44.9 Allergies No Known Allergies Allergy (Verified 06/04/20 02:31) Home Medications: Ambulatory Orders Medication Instructions Recorded Cimetidine 200 mg PO TID 06/16/19 Multivitamin with Minerals 1 ea PO DAILY 06/16/19 [Multiple Vitamin] Paroxetine HCl 40 mg PO DAILY 06/16/19 Acetaminophen [Acetaminophen 8 650 mg RECTALLY Q4H PRN PRN 06/26/19 Hour] Acetaminophen [Tylenol] 325 mg PO Q4H PRN PRN 06/26/19 Guaifenesin 10 ml PO Q4H PRN PRN 06/26/19 Hydrocodone/Acetaminophen 2 tab PO Q4H PRN PRN 06/26/19 [Hydrocodon-Acetaminophen 5-325] Loratadine 10 mg PO DAILY PRN 06/26/19 Mag Hydrox/Aluminum Hyd/Simeth 30 ml PO Q4H PRN PRN 06/26/19 [Antacid Suspension] Magnesium Hydroxide [Milk Of 30 ml PO DAILY PRN PRN 06/26/19 Magnesia] Memantine HCl 10 mg PO BID 06/26/19 Ascorbic Acid [Vitamin C] 1,000 mg PO DAILY 04/01/20 Lorazepam [Ativan] 1 mg PO Q6H PRN 04/22/20 Doxazosin Mesylate [Cardura] 1 mg PO DAILY 06/03/20 Hydrocodone/Acetaminophen 1 tab PO BID 06/03/20 [Hydrocodon-Acetaminophen 5-325] Lidocaine/Prilocaine 1 applicatio TP PRN PRN 06/03/20 [Lidocaine-Prilocaine Cream] Magic Mouth Wash 15 ml PO ACHS 06/03/20 Mineral Oil/Petrolatum Cr 1 applic TOPICAL TID 06/03/20 [Aquaphor] Ondansetron HCl [Zofran] 8 mg PO Q8H PRN 06/03/20 Oxcarbazepine [Trileptal] 7.5 ml PO BID 06/03/20 Polyethylene Glycol 3350 [Miralax] 17 gm PO DAILY PRN 06/03/20 Saliva Substitute Combo No.9 15 ml MM PRN PRN 06/03/20 [Biotene] Venlafaxine HCl [Effexor] 12.5 mg PO DINNER 06/03/20 Venlafaxine HCl [Effexor] 25 mg PO DAILY 06/03/20 Surgical History: Surgical History (Last Reviewed 06/03/20 @ 08:33 by Annemarie Tucker) Hx of knee surgery Z98.890 Left knee x2 surgeries, has 3 pins history of neck biopsy Onset Date: ~02/2020 Surgical History: - - PEG tube, port, L knee surgery x 2, neck Bx. Psychiatric History: Anxiety, Depression Lives: Intermediate Smoking Status: Former smoker - Patient reports quitting in his 40s with prior to this at least 1 pack/day since early use. Tobacco Use: Non-smoker Alcohol: Sober Drugs: None - *Family History Maternal Family History: Family History (Last Reviewed 06/03/20 @ 08:33 by Annemarie Tucker) Mother History of heart artery stent Pacemaker Hypertension Father Heart problem Grandmother Hypertension Sister Melanoma of thigh History Items: Heart Disease, Hypertension Paternal Family History: Family History (Last Reviewed 06/03/20 @ 08:33 by Annemarie Tucker) Mother History of heart artery stent Pacemaker Hypertension Father Heart problem Grandmother Hypertension Sister Melanoma of thigh History Items: Heart Disease Review of Systems Constitutional: Reports: Anorexia, Fever, Malaise, Weakness, Fatigue. Denies: Chills, Weight Change HEENT: Reports: Difficulty Swallowing, Sore Throat. Denies: Head Aches, Sinus Congestion, Sinus Drainage Cardiovascular: Denies: Chest Pain, Palpitations Respiratory: Denies: Cough, Shortness of breath at rest, Sputum production Gastrointestinal: Denies: Abdominal Pain, Nausea, Vomiting Genitourinary: Denies: Dysuria Musculoskeletal: Reports: Joint Pain. Denies: Joint Tenderness Skin: Denies: Rash, Wounds Neurological: Reports: Confusion. Denies: Focal weakness, Numbness, Tingling Psychiatric: Reports: Anxiety, Depression. Denies: Homicidal Ideations, Suicidal Ideations Hematologic/ Lymphatic: Reports: Anemia, Easy Bruising, Easy Bleeding VTE Information - Inpt Only VTE Present on Admission: No VTE Mechan Device Prophylaxis: SCD's VTE Pharm Prophylaxis ordered?: No Reason prophylaxis not ordered:: Medical Contraindication Patient Problems: Active and Suspected Problems (Last Reviewed 06/03/20 @ 08:33 by Annemarie Tucker) Encounter for education (Acute) Chemotherapy management, encounter for (Acute) Hypoalbuminemia (Acute) Weight loss (Acute) Dehydration (Acute) Neutropenic fever (Acute) Pancytopenia (Acute) Acute on Chronic BPH (benign prostatic hyperplasia) (Acute) Carcinoma of unknown primary (Acute) Mass, brain (Acute) Subjective: Patient laying in the ED bed, mildly irritable at having examination otherwise no acute distress. Objective: Physical Examination: General: awake, alert, oriented to self and place as well as some events but significant severe dementia present, remains cooperative, seated upright in the ED bed in no apparent distress, mildly irritable with certain requests. Skin: normal color, turgor, no icterus, cyanosis set noted expected reddening of the neck region with ongoing radiation therapy. HEENT: AT/NC, EOMI, PERRLA, dry MM, right neck mass with lateral erythema with no evidence of desquamation with recent radiation therapy, no carotid bruits or JVD noted however radiation changes make examination difficult. Lungs: CTA bilaterally, moderate effort, moderate decrease BL bases, no rales, ronchi or wheezing. Heart: Tachycardic with regular rhythm; no gallop, rub audible. Abdomen: soft, unable to discern any discomfort with palpation of all quadrants, ND, normal BS, no HSM. Extremities: no cyanosis, clubbing, or edema. Neurological: patient awake, alert, oriented as noted; cognitive function per report severely reduced baseline secondary to severe dementia, suspect baseline intact; pupils equally reactive to light and accomodation; cranial nerves II-XII grossly normal, moving all 4 extremities, no focal deficits, strength moderately global decreased. Psychiatric: affect appears mildly irritable otherwise normal, no acute evidence of depressive or anxiety feelings. - Physical Exam Vitals/I&O's: Vital Signs Temp Pulse Resp BP Pulse Ox 101.4 F H 128 H 18 116/95 H 97 06/04/20 02:30 06/04/20 02:30 06/04/20 02:30 06/04/20 02:30 06/04/20 02:30 Oxygen Delivery Method Room Air Weight: 193 lb 12.581 oz Body Mass Index (BMI) 25.5 Laboratory Results 06/04/20 01:35: COVID-19 ([facility]) Pending 06/04/20 01:45: WBC 1.2 L*, RBC 2.96 L, Hgb 8.6 L, Hct 24.8 L, MCV 83.8, MCH 29.1, MCHC 34.7, RDW Std Deviation 40.6, RDW Coeff of Puneet 14.5, Plt Count 56 L, MPV 9.9, Immature Gran % (Auto) 0.900, Neut % (Auto) 73.5 H, Lymph % (Auto) 8.5 L, Alfalfa % (Auto) 16.2 H, Eos % (Auto) 0.9, Baso % (Auto) 0.0, Absolute Neuts (auto) 0.9 L, Absolute Lymphs (auto) 0.10 L, Nucleated RBC % 0, Differential Comment COMMENT, Diff Path Review May foll, Platelet Estimate MOD DEC, Anisocytosis 1+ 06/04/20 01:45: Sodium 130 L, Potassium 4.1, Chloride 99, Carbon Dioxide 25.0, Anion Gap 6, BUN 23 H, Creatinine 0.68 L, Estim Creat Clear Calc 130.56, Est GFR (MDRD) Af Amer 153, Est GFR (MDRD) Non-Af 127, BUN/Creatinine Ratio 33.9 H, Glucose 142 H, Calcium 8.6, Total Bilirubin 0.90, AST 23, ALT 52, Alkaline Phosphatase 29 L, Total Protein 6.7, Albumin 2.6 L, Globulin 4.1, Albumin/Globulin Ratio 0.6 L 06/04/20 01:45: Lactic Acid 1.1 06/04/20 02:00: Urine Color Yellow, Urine Clarity Clear, Urine pH 7.0, Ur Specific [place] 1.010, Urine Protein 100 H, Urine Glucose (UA) Normal, Urine Ketones Negative, Urine Occult Blood Negative, Urine Nitrite Negative, Urine Bilirubin Negative, Urine Urobilinogen 1 H, Ur Leukocyte Esterase Negative, Urine RBC 0 SEEN, Urine WBC 0 SEEN, Ur Squamous Epith Cells 0 SEEN, Amorphous Sediment 1+, Urine Bacteria 0 SEEN, Urine Mucus 0 SEEN Current Medications Vancomycin HCl 2,000 mg/ (Sodium Chloride) 540 mls @ 250 mls/hr IV X1 ONE; Protocol Stop: 06/04/20 03:23 Assessment/Plan All Active Problems (Last Reviewed 06/03/20 @ 08:33 by Annemarie Tucker) Encounter for education (Acute) Chemotherapy management, encounter for (Acute) Hypoalbuminemia (Acute) Weight loss (Acute) Dehydration (Acute) Neutropenic fever (Acute) Pancytopenia (Acute) BPH (benign prostatic hyperplasia) (Acute) Carcinoma of unknown primary (Acute) Mass, brain (Acute) Mass of lateral neck (Acute) The patient is a 60 y/o M w/ PMHx: Chronic COPD, Former EtOH Abuse w/ associated induced dementia, Anxiety and Depression, HTN, HLD, BPH, Former Tobacco use, recent diagnosis 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 ED on 06/04/20 with history of general malaise and fatigue undifferentiated from recent weeks on the radiation however patient had onset of significant fever at his [place] [facility] facility the evening prior to current presentation noted to be up to 103.2. 1. Acute SIRS with Neutropenic Fever, Unclear Source: Admission CBC with WC 1.2, hemoglobin 8.6, platelet 56 with significant neutropenia and lymphopenia, CMP with sodium 130, BUN/creatinine 23/0.68, glucose 142, alk phos 29, urinalysis unremarkable, blood culture x 2 pending per ED, urine culture pending per ED, negative coronavirus testing, CT abdomen and pelvis with mild bladder constipation with a simple appearing left renal cyst, cirrhotic changes of the liver, small fat-containing umbilical hernia without bowel movement, chest x-ray with chronic bibasilar interstitial changes with no acute cardiopulmonary disease endings, LA normal. Will admit to PCU given significant ongoing tachycardia, give additional IVF bolus and continued MIVFs, consult Oncology, maintain on Neutropenic precautions, obtain mag and phos levels, maintain I&Os, treat with IV meropenem and vancomycin pending cultures. PRN tylenol, anti-emetics, pain regimen. 2. 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 Last chemotherapy 04/29/2020 with chemotherapy skipped this month secondary to ongoing neutropenia. We will continue patient PRN guaifenesin, oral pain regimen, Magic mouthwash, Biotene regimen. From SNF able to have altered diet with TFs also scheduled. ST consulted. Continue to trend CBC, defer any chemoprophylaxis. Dr. Calderón consulted. 3. Chronic COPD: Will maintain on oxygen with wean as tolerated to room air, PRN albuterol, HOB, IS parameters. 4. Anxiety and depression: We will continue patient home venlafaxine and paroxetine however recommend continued close outpatient follow-up given usage of these 2 agents together. Continue PRN Ativan. 5. Hypertension: Continue home regimen including Cardura, PRN hydralazine. 6. Hyperlipidemia: Not on statin, defer. 7. Alcohol-related dementia with unclear behavioral disturbance history: Complicates presentation, will continue patient home memantine regimen. 8. Chronic constipation: We will continue patient home PRN bowel regimen. 9. BPH: We will continue patient home Cardura regimen. 10. Former tobacco use: Encourage continued tobacco cessation. 11. DVT prophylaxis: SCDs, defer chemoprophylaxis given thrombocytopenia. 12. CODE status: DNR-CCA, no intubation per SNF paperwork. Inpatient E&M: 87431 Init Hosp L3
[2020-06-04] MEDS: Acetaminophen 160 MG/5 ML UDC 1000 MG GT (03:38)
[2020-06-04 04:56] LABS: Magnesium 1.5 mg/dL (1.6-2.6); Phosphorus 1.9 mg/dL (2.5-4.9)
--- NOTE | 2020-06-04 05:02 | PCM.RX.CS ---
Consult Pharmacy has been consulted to manage selected antiobiotic: Vancomycin Type of Consult: New start Labs: Sodium 130 mmol/L (136-145) L 06/04/20 01:45 Potassium 4.1 mmol/L (3.5-5.1) 06/04/20 01:45 Chloride 99 mmol/L (98-107) 06/04/20 01:45 Carbon Dioxide 25.0 mmol/L (21.0-32.0) 06/04/20 01:45 Anion Gap 6 (5-15) 06/04/20 01:45 BUN 23 mg/dL (7-18) H 06/04/20 01:45 Creatinine 0.68 mg/dL (0.70-1.30) L 06/04/20 01:45 Est GFR (MDRD) Af Amer 153 mL/min (>60) 06/04/20 01:45 Est GFR (MDRD) Non-Af 127 mL/min (>60) 06/04/20 01:45 BUN/Creatinine Ratio 33.9 RATIO (10-20) H 06/04/20 01:45 Glucose 142 mg/dL (74-106) H 06/04/20 01:45 Weight used for dosin.2 kg Estimated Creatinine Clearance: 138 Goal Trough: 15-20 mcg/mL Pharmacy Plan for Drug Dosing: Pharmacy Service will continue to monitor and adjust dosing as required. Medications Vancomycin IV Pharmacy to Dose (1 ea/ Sodium Chloride) 500 mls @ 250 mls/hr IV X1 PRN; Protocol PRN Reason: Rx to Dose Discontinued Medications Vancomycin HCl 2,000 mg/ (Sodium Chloride) 540 mls @ 250 mls/hr IV X1 ONE; Protocol Stop: 06/04/20 03:23 Last Admin: 06/04/20 03:10 Dose: 250 mls/hr Documented by: Follow-Up Labs: Trough Vancomycin Labs to be done on [date and time ordered]: 06/05 @ 3421
[2020-06-04 05:44] LABS: Absolute Lymphocyte Count 0.11 X10^3/uL (0.83-4.51); Absolute Neutrophil Count 0.8 X10^3/uL (2.0-7.7); Hematocrit 21.1 % (40-54); Hemoglobin 7.2 g/dL (13.0-16.5); Lymphocyte # 0.11 X10^3/ul (4.0); Lymphocyte % 9.2 % (19-41); Mean Corp Hgb Conc 34.1 g/dL (32-36); Mean Corpuscular Hgb 28.8 pg (27.0-32.0); Mean Corpuscular Volume 84.4 fL (80-94); Mean Platelet Vol. 9.7 fl (6.2-12.0); Monocyte# 0.29 X10^3/uL; Monocyte% 24.4 % (0-10); NRBC Flagged by Analyzer 0 % (0-5); Neutrophil # 0.78 X10^3/uL (2.7-7.7); Neutrophil % 65.6 % (47-70); POSITIVE COUNT YES; POSITIVE DIFFERENTIAL YES; POSITIVE MORPHOLOGY YES; RBC Distribution Width CV 14.4 % (11.6-14.6)
[2020-06-04 05:49] LABS: Differential Indicated SCAN CRITERIA MET; Platelet Count 49 K/mm3 (150-450); White Blood Count 1.2 K/mm3 (4.4-11.0)
[2020-06-04 06:23] LABS: Platelet Estimate MKD DEC (ADEQ)
[2020-06-04] MEDS: 0.9% Normal Saline 1,000 ML 150 ML IV (08:23)
[2020-06-04 08:29] LABS: M R Staph aureus DNA By PCR Negative (Negative); Probe Check PASS; Specimen Processing Control PASS
--- NOTE | 2020-06-04 10:19 | CASEMGMT ---
Patient is from [facility]. SW faxed updates to [facility]. 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 She is checking to see if he will need pre-cert to return. Isadora ODELL MSW
--- NOTE | 2020-06-04 10:28 | CON.PCM_ITS ---
Problem List (1) Neutropenic fever Status: Acute Reason for Consult: fever Consulted by: Dr. Hawkins History of Present Illness: The patient is a 60 year old M with dementia, laryngeal cancer, [facility] last night due to one day of fever, not feeling well. He is unable to provide much history. Mild sore throat, no cough or SOB. No abd pain or n/v/d. No blood in stool, no aches, no dysuria. No line in place, no sick contacts. Admitted on vanc/tara, feeling better this AM. Full ROS performed and neg except as noted above. - Medical History Past Medical History (Chronic Problems): Chronic Problems (Last Reviewed 06/03/20 @ 08:33 by Annemarie Tucker) Hyponatremia (Chronic) HTN (hypertension) (Chronic) HLD (hyperlipidemia) (Chronic) Alcoholic dementia (Chronic) Former tobacco use (Chronic) COPD (chronic obstructive pulmonary disease) (Chronic) Oropharyngeal carcinoma (Chronic) Allergies/Adverse Reactions: Allergies No Known Allergies Allergy (Verified 06/04/20 02:31) Home Medications: Ambulatory Orders Medication Instructions Recorded Cimetidine 200 mg PO TID 06/16/19 Multivitamin with Minerals 1 ea PO DAILY 06/16/19 [Multiple Vitamin] Paroxetine HCl 40 mg PO DAILY 06/16/19 Acetaminophen [Acetaminophen 8 650 mg RECTALLY Q4H PRN PRN 06/26/19 Hour] Acetaminophen [Tylenol] 325 mg PO Q4H PRN PRN 06/26/19 Guaifenesin 10 ml PO Q4H PRN PRN 06/26/19 Hydrocodone/Acetaminophen 2 tab PO Q4H PRN PRN 06/26/19 [Hydrocodon-Acetaminophen 5-325] Loratadine 10 mg PO DAILY PRN 06/26/19 Mag Hydrox/Aluminum Hyd/Simeth 30 ml PO Q4H PRN PRN 06/26/19 [Antacid Suspension] Magnesium Hydroxide [Milk Of 30 ml PO DAILY PRN PRN 06/26/19 Magnesia] Memantine HCl 10 mg PO BID 06/26/19 Ascorbic Acid [Vitamin C] 1,000 mg PO DAILY 04/01/20 Lorazepam [Ativan] 1 mg PO Q6H PRN 04/22/20 Doxazosin Mesylate [Cardura] 1 mg PO DAILY 06/03/20 Hydrocodone/Acetaminophen 1 tab PO BID 06/03/20 [Hydrocodon-Acetaminophen 5-325] Lidocaine/Prilocaine 1 applicatio TP PRN PRN 06/03/20 [Lidocaine-Prilocaine Cream] Magic Mouth Wash 15 ml PO ACHS 06/03/20 Ondansetron HCl [Zofran] 8 mg PO Q8H PRN 06/03/20 Oxcarbazepine [Trileptal] 7.5 ml PO BID 06/03/20 Polyethylene Glycol 3350 [Miralax] 17 gm PO DAILY PRN 06/03/20 Saliva Substitute Combo No.9 15 ml MM PRN PRN 06/03/20 [Biotene] Venlafaxine HCl [Effexor] 12.5 mg PO DINNER 06/03/20 Venlafaxine HCl [Effexor] 25 mg PO DAILY 06/03/20 Sodium Chloride 1 gm PO DAILY 06/04/20 - Social History SMOKING STATUS:: Former smoker Vital Signs Temp Pulse Resp BP Pulse Ox 98.9 F 116 H 18 108/50 L 95 06/04/20 04:30 06/04/20 07:47 06/04/20 04:30 06/04/20 04:30 06/04/20 04:30 Oxygen Delivery Method Room Air Weight: 87.2 kg Body Mass Index (BMI) 24.0 Laboratory Tests Past 24 Hrs 06/04/20 06/04/20 06/04/20 01:35 01:45 01:45 WBC 1.2 L* RBC 2.96 L Hgb 8.6 L Hct 24.8 L MCV 83.8 MCH 29.1 MCHC 34.7 RDW Std Deviation 40.6 RDW Coeff of Puneet 14.5 Plt Count 56 L MPV 9.9 Immature Gran % (Auto) 0.900 Neut % (Auto) 73.5 H Lymph % (Auto) 8.5 L [place] % (Auto) 16.2 H Eos % (Auto) 0.9 Baso % (Auto) 0.0 Absolute Neuts (auto) 0.9 L Absolute Lymphs (auto) 0.10 L Nucleated RBC % 0 Differential Comment COMMENT Diff Path Review May foll Platelet Estimate MOD DEC Anisocytosis 1+ Sodium 130 L Potassium 4.1 Chloride 99 Carbon Dioxide 25.0 Anion Gap 6 BUN 23 H Creatinine 0.68 L Estim Creat Clear Calc 130.56 Est GFR (MDRD) Af Amer 153 Est GFR (MDRD) Non-Af 127 BUN/Creatinine Ratio 33.9 H Glucose 142 H Lactic Acid Calcium 8.6 Phosphorus 1.9 L Magnesium 1.5 L Total Bilirubin 0.90 AST 23 ALT 52 Alkaline Phosphatase 29 L Troponin I Total Protein 6.7 Albumin 2.6 L Globulin 4.1 Albumin/Globulin Ratio 0.6 L Urine Color Urine Clarity Urine pH Ur Specific [place] Urine Protein Urine Glucose (UA) Urine Ketones Urine Occult Blood Urine Nitrite Urine Bilirubin Urine Urobilinogen Ur Leukocyte Esterase Urine RBC Urine WBC Ur Squamous Epith Cells Amorphous Sediment Urine Bacteria Urine Mucus COVID-19 ([facility]) Not Detected MRSA (PCR) 06/04/20 06/04/20 06/04/20 01:45 01:45 02:00 WBC RBC Hgb Hct MCV MCH MCHC RDW Std Deviation RDW Coeff of [place] Plt Count MPV Immature Gran % (Auto) Neut % (Auto) Lymph % (Auto) [place] % (Auto) Eos % (Auto) Baso % (Auto) Absolute Neuts (auto) Absolute Lymphs (auto) Nucleated RBC % Differential Comment Diff Path Review Platelet Estimate Anisocytosis Sodium Potassium Chloride Carbon Dioxide Anion Gap BUN Creatinine Estim Creat Clear Calc Est GFR (MDRD) Af Amer Est GFR (MDRD) Non-Af BUN/Creatinine Ratio Glucose Lactic Acid 1.1 Calcium Phosphorus Magnesium Total Bilirubin AST ALT Alkaline Phosphatase Troponin I < 0.015 Total Protein Albumin Globulin Albumin/Globulin Ratio Urine Color Yellow Urine Clarity Clear Urine pH 7.0 Ur Specific [place] 1.010 Urine Protein 100 H Urine Glucose (UA) Normal Urine Ketones Negative Urine Occult Blood Negative Urine Nitrite Negative Urine Bilirubin Negative Urine Urobilinogen 1 H Ur Leukocyte Esterase Negative Urine RBC 0 SEEN Urine WBC 0 SEEN Ur Squamous Epith Cells 0 SEEN Amorphous Sediment 1+ Urine Bacteria 0 SEEN Urine Mucus 0 SEEN COVID-19 ([facility]) MRSA (PCR) 06/04/20 06/04/20 05:12 05:30 WBC 1.2 L* RBC 2.50 L Hgb 7.2 L Hct 21.1 L MCV 84.4 MCH 28.8 MCHC 34.1 RDW Std Deviation 41.0 RDW Coeff of Puneet 14.4 Plt Count 49 L* MPV 9.7 Immature Gran % (Auto) 0.800 Neut % (Auto) 65.6 Lymph % (Auto) 9.2 L [place] % (Auto) 24.4 H Eos % (Auto) 0.0 Baso % (Auto) 0.0 Absolute Neuts (auto) 0.8 L Absolute Lymphs (auto) 0.11 L Nucleated RBC % 0 Differential Comment COMMENT Diff Path Review May foll Platelet Estimate MKD DEC Anisocytosis Sodium Potassium Chloride Carbon Dioxide Anion Gap BUN Creatinine Estim Creat Clear Calc Est GFR (MDRD) Af Amer Est GFR (MDRD) Non-Af BUN/Creatinine Ratio Glucose Lactic Acid Calcium Phosphorus Magnesium Total Bilirubin AST ALT Alkaline Phosphatase Troponin I Total Protein Albumin Globulin Albumin/Globulin Ratio Urine Color Urine Clarity Urine pH Ur Specific [place] Urine Protein Urine Glucose (UA) Urine Ketones Urine Occult Blood Urine Nitrite Urine Bilirubin Urine Urobilinogen Ur Leukocyte Esterase Urine RBC Urine WBC Ur Squamous Epith Cells Amorphous Sediment Urine Bacteria Urine Mucus COVID-19 ([facility]) MRSA (PCR) Negative - Other Studies Radiology: [] reviewed Other Studies: [] Route of nutrition/ use of supplements: [] Nutritional Intake: [] IV Site: [] Onofre Catheter: [] - Physical Exam General: Cooperative, No apparent distress, - - oriented x1 HEENT: Atraumatic, PERRLA, EOMI, - - small amount of blood in posterior pharynx. No thrush. Neck: Supple, No Nodes Lungs: Clear to auscultation, Normal air movement Cardiovascular: Regular rate, Regular Rhythm Abdomen: Soft, Non Tender, Non-Distended Extremities: No edema Skin: No rashes IV Site: Peripheral, without redness Musculoskeletal: No Tenderness to Palpation of Joints or Extremities Neurological: Cranial nerves II-XII grossly intact - Assessment/Plan Antibiotics: [] Assessment/Plan: [] Active and Suspected Problems (Last Reviewed 06/03/20 @ 08:33 by Annemarie Tucker) Encounter for education (Acute) Chemotherapy management, encounter for (Acute) Hypoalbuminemia (Acute) Weight loss (Acute) Dehydration (Acute) Neutropenic fever (Acute) Pancytopenia (Acute) Acute on Chronic Tachycardia (Acute) Carcinoma of unknown primary (Acute) Mass, brain (Acute) Neutropenic fever - cxs pending. covid neg. On RA. No line in place. Cont vanc/tara for now, likely can stop vanc tomorrow if cxs still neg. Will follow, thank you
--- NOTE | 2020-06-04 11:44 | PCM.NTREPORT ---
Nutrition Therapy Report - History Nutrition Services has been consulted to:: Manage enteral nutrition Current diet / nutrition support order:: NPO - Anthropometric Measurements Height:: 6 ft 3 in Weight:: 87.2 kg Body Mass Index (BMI):: 24.0 - Relevant Labs Relevant Labs:: WBC 1.2 K/mm3 (4.4-11.0) L* 06/04/20 05:12 RBC 2.50 M/mm3 (4.6-6.2) L 06/04/20 05:12 Hgb 7.2 g/dL (13.0-16.5) L 06/04/20 05:12 Hct 21.1 % (40-54) L 06/04/20 05:12 Plt Count 49 K/mm3 (150-450) L* 06/04/20 05:12 Neut % (Auto) 73.5 % (47-70) H 06/04/20 01:45 Lymph % (Auto) 9.2 % (19-41) L 06/04/20 05:12 [place] % (Auto) 24.4 % (0-10) H 06/04/20 05:12 Absolute Neuts (auto) 0.8 X10^3/uL (2.0-7.7) L 06/04/20 05:12 Absolute Lymphs (auto) 0.11 X10^3/uL (0.83-4.51) L 06/04/20 05:12 Sodium 130 mmol/L (136-145) L 06/04/20 01:45 BUN 23 mg/dL (7-18) H 06/04/20 01:45 Creatinine 0.68 mg/dL (0.70-1.30) L 06/04/20 01:45 BUN/Creatinine Ratio 33.9 RATIO (10-20) H 06/04/20 01:45 Glucose 142 mg/dL (74-106) H 06/04/20 01:45 Phosphorus 1.9 mg/dL (2.5-4.9) L 06/04/20 01:45 Magnesium 1.5 mg/dL (1.6-2.6) L 06/04/20 01:45 Alkaline Phosphatase 29 U/L (45-117) L 06/04/20 01:45 Albumin 2.6 g/dL (3.2-5.0) L 06/04/20 01:45 Albumin/Globulin Ratio 0.6 RATIO (0.9-2.4) L 06/04/20 01:45 - Assessment Food / Nutrition-Related History:: Pt residing at [facility] prior to admin. Underwent PEG placement 04/28. TF provided at [facility]- Impact Peptide 1.5 via PEG 5 cartons per day (250 ml) with 340 ml H2O 5 times per day to provide 1875 calories, 117.5 gram protein, 2665 ml total fluid. Per EMR pt was receiving pureed diet w/ PEG tube feedings at [facility] however pt w/ minimal PO intake during stay; poor PO intake x ~ 2 weeks at [facility] per EMR. BEREAVEMENT COORDINATOR consulted. Last chemoradition tx 04/29- tx to be held at this time. CBW 192.2#; [facility] wt hx-- 187# 06/02, 186.2# 05/20, 203.9# 05/06, 201.6# 04/28. Noted wt loss of 9.4#/5% x 1 month (moderate). Will monitor wt for trends. Upon visual observation pt w/ no s/s of muscle wasting/fat loss. Pt reports unsure of wt changes. States receiving 3 meals per day however minimal intake noted. States no N/V/D/C. RDN spoke w/ Kalani Izquierdo RDN who has been following w/ pt as outpatient-- reports Dr. Marques Oncologist would like pt to recieve Lex 1 packet BID in TF. RDN will order. - Nutrition Diagnosis Problem / Etiology / Signs & Symptoms (PES):: Moderate Malnutrition in the context of chronic illness related to inadequate oral intake as evidenced by </= 50% of energy intake compared to estimated energy needs, 5% wt loss x 1 month. Evidence of Malnutrition Exists:: Yes Moderate PCM:: Chronic Illness - Nutrition Intervention Nutrition Prescription:: Estimated needs: [id number]; 120-130 gram protein. - Food / Nutrient Delivery Interventions Summary of nutrition intervention:: Pivot 1.5 via PEG 345 ml five times per day w/ 260 ml H2O flush five times per day to provide 2588 calories, 162 gram protein, 2609 ml total fluid per day. TF will meet 100% of pt estimated nutrition needs. Provide 1 packet Lex BID via PEG. Rec diet advanced as pt medically able to Regular w/ texture modification per BEREAVEMENT COORDINATOR. Nutrition support ordered as / adjusted to:: Pivot 1.5 via PEG 345 ml five times per day w/ 260 ml H2O flush five times per day to provide 2588 calories, 162 gram protein, 2609 ml total fluid per day. TF will meet 100% of pt estimated nutrition needs. Will provide Lex 1 packet BID. Nutrition education provided?: No - MNT Monitoring Further MNT monitoring and evaluation required?: Yes MNT Follow-up in:: 1-2 days - Please call RDN as needed [phone].
--- NOTE | 2020-06-04 11:50 | ONC.CON.INP2 ---
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 Chemotherapy for the week of June 01 was held due to neutropenia and hospitalized June 03 with neutropenic fever. Past Medical History: Chronic Problems (Last Reviewed 06/03/20 @ 08:33 by Annemarie Tucker) Hyponatremia (Chronic) HTN (hypertension) (Chronic) HLD (hyperlipidemia) (Chronic) Alcoholic dementia (Chronic) Former tobacco use (Chronic) COPD (chronic obstructive pulmonary disease) (Chronic) Past Medical/Surgical History: Past Medical History - Most Recent Inpatient Visit Past Medical History Start: 06/04/20 04:30 Text: Status: Complete Freq: ONCE Protocol: Document 06/04/20 04:30 MAB (Rec: 06/04/20 04:36 MAB [id number]) BMI Required to complete PMH What is Patient's BMI 25.6 Neurologic Medical History Hx Stroke/TIA No Hx Dementia/Alzheimer's Yes: alcohol induced dementia Hx Parkinson's Disease No Hx Seizures No Hx Multiple Sclerosis No Hx Migraines No Cardiac Medical History VTE Present on Admission No Hx of Deep Vein Thrombosis/VTE/PE No Hx Hypertension Yes: ON NO MEDS Hx Chest Pain/Angina No Hx Heart Attack No Hx Cardiac Surgery/Stents/Etc. No Hx Heart Failure No Hx Pacemaker/AICD No Hx Irregular Heartbeat and/or Afib No Hx Anticoagulant Therapy No Query Text:(Coumadin, Aspirin, Plavix, Xarelto, etc.) Hx Pain in Legs when Walking/Leg Cramps No Respiratory Medical History Hx COPD No Hx Emphysema No Hx Smoking Yes Smoking Status Former smoker Tobacco Use Non-smoker Hx Smoking Cessation Date 08/01/10 Hx Smoking Cessation Counseling No Hx Smoking Exposure No Hx Tobacco Use in last 12 months No Hx of Pipe Smoking No Hx Sleep Apnea No Do you snore loudly (louder than talking No or can be heard through closed doors)? Do you often feel tired/ fatigued/ Yes sleepy during daytime? Has anyone observed you stop breathing No during sleep? STOP Results Positive GI Medical History Hx Ulcer No Hx Hepatitis No: inflammatory liver disease in the past Hx Cirrhosis No Hx GI Bleed No Hx Unplanned Weight Loss No Genitourinary Medical History Indwelling Catheter in Place on Arrival/ No Admission Hx Renal Disease No: benign prostatic hyperplasia Hx Dialysis No Musculoskeletal History Hx Arthritis No Hx Rheumatoid Arthritis No Endocrine Medical History Hx Diabetes No Hx Thyroid Disease No Hematologic Medical History Hx of Blood Transfusion No Hx of Transfusion in last 3 Months No Ever experience any problems with No transfusion(s)? Hx of Preganancy in last 3 Months N/A Nurse Filling Out Transfusion & [facility]OREMAN Questions: Date: 06/04/20 Time: 04:35 Psycho/Social Medical History Hx Depression Yes: on meds Hx Anxiety Yes: on meds Hx Behavior Disorder No Hx Alcohol Use Yes Hx Substance Use No Other Medical History Hx Blood Disorders No Hx Anemia No Hx Cancer Yes: tongue ca/right neck lymph node mets/brain nodule Hx Drug Resistant Organism No Wound/Pressure Injury Present on Arrival No /Admission Query Text:If yes, chart assessment in Shift/Clinical Findings Central Line/PICC/VAD Present on Arrival No /Admission Antibiotics within last 7 days? No Methicillin Resistant Staphylococcus aureus Screening Active MRSA No Risk for Readmission Number of Risk Factors 5 At Risk for Readmission Patient is At Risk For Readmission Patient is eligible for Call Back Y Past Medical History (Last Reviewed 06/03/20 @ 08:33 by Annemarie Tucker) Mass of lateral neck (Acute) Alcohol dependence with alcohol-induced persisting dementia (Acute) Anxiety (Acute) Benign prostatic hyperplasia without lower urinary tract symptoms (Acute) Essential (primary) hypertension (Acute) Impulse disorder, unspecified (Acute) Major depressive disorder, recurrent, mild (Acute) Chronic obstructive pulmonary disease, unspecified (Chronic) Past Surgical History (Last Reviewed 06/03/20 @ 08:33 by Annemarie Tucker) Hx of knee surgery (Acute) history of neck biopsy (Acute ~02/2020) Maternal Family History: Family History (Last Reviewed 06/03/20 @ 08:33 by Annemarie Tucker) Mother History of heart artery stent Pacemaker Hypertension Father Heart problem Grandmother Hypertension Sister Melanoma of thigh Family History: Heart Disease, Hypertension Paternal Family History: Family History (Last Reviewed 06/03/20 @ 08:33 by Annemarie Tucker) Mother History of heart artery stent Pacemaker Hypertension Father Heart problem Grandmother Hypertension Sister Melanoma of thigh Family History: Heart Disease - Social History Lives: [place] Smoking Status: Former smoker Tobacco Use: Non-smoker Alcohol: Sober Drugs: None Allergies/Adverse Reactions: Allergy/AdvReac Type Severity Reaction Status Date / Time No Known Allergies Allergy Verified 06/04/20 02:31 Review of Systems Unable to obtain accurate/complete ROS d/t: Confusion Comment: Patient denied any pain or discomfort Vital Signs Temperature 98.0 F 06/04/20 10:30 Temperature Source Temporal 06/04/20 10:30 Pulse Rate 68 06/04/20 10:30 Pulse Strength Normal (2+) 06/04/20 10:00 Respiratory Rate 18 06/04/20 10:30 Respiratory Effort 06/04/20 10:00 Respiratory Depth Normal 06/04/20 10:00 Respiratory Pattern Normal 06/04/20 10:00 Blood Pressure 122/68 H 06/04/20 10:30 Blood Pressure Mean 86 06/04/20 10:30 Blood Pressure Source Monitor 06/04/20 10:30 Blood Pressure Position Semi-Fowlers 06/04/20 10:30 Blood Pressure Location Left Arm 06/04/20 10:30 Pulse Ox 94 06/04/20 11:42 Oxygen Delivery Method Room Air 06/04/20 11:42 - Physical Exam General: Cooperative, No apparent distress, Confused HEENT: Atraumatic Oropharynx:: Dry mucosa Neck:: Supple Cardiac:: Regular rate, Regular rhythm, Normal S1, Normal S2. Negative for: Murmur Lungs: Clear to auscultation, Excusion symmetrical Abdomen:: Soft, Non-tender, Non-distended Extremities:: Negative for: Cyanosis, Edema Neurological: - - Confused, responds to verbal commands Skin:: Redness - And neck radiation field. Negative for: Ecchymosis Lymphatics:: Negative for: Cervical lymphadenopathy Laboratory Data: Laboratory Tests 06/04/20 06/04/20 06/04/20 Range/Units 05:30 05:12 02:00 WBC 1.2 L* (4.4-11.0) K/mm3 RBC 2.50 L (4.6-6.2) M/mm3 Hgb 7.2 L (13.0-16.5) g/dL Hct 21.1 L (40-54) % MCV 84.4 (80-94) fL MCH 28.8 (27.0-32.0) pg MCHC 34.1 (32-36) g/dL RDW Std Deviation 41.0 (35.1-43.9) fl RDW Coeff of Puneet 14.4 (11.6-14.6) % Plt Count 49 L* (150-450) K/mm3 MPV 9.7 (6.2-12.0) fl Immature Gran % (Auto) 0.800 (0.0-0.9) % Neut % (Auto) 65.6 (47-70) % Lymph % (Auto) 9.2 L (19-41) % [place] % (Auto) 24.4 H (0-10) % Eos % (Auto) 0.0 (0-5) % Baso % (Auto) 0.0 (0-1) % Absolute Neuts (auto) 0.8 L (2.0-7.7) X10^3/uL Absolute Lymphs (auto) 0.11 L (0.83-4.51) X10^3/uL Nucleated RBC % 0 (0-5) % Differential Comment COMMENT Diff Path Review May foll Platelet Estimate MKD DEC (ADEQ) Anisocytosis Sodium (136-145) mmol/L Potassium (3.5-5.1) mmol/L Chloride (98-107) mmol/L Carbon Dioxide (21.0-32.0) mmol/L Anion Gap (5-15) BUN (7-18) mg/dL Creatinine (0.70-1.30) mg/dL Estim Creat Clear Calc ml/min Est GFR (MDRD) Af Amer (>60) mL/min Est GFR (MDRD) Non-Af (>60) mL/min BUN/Creatinine Ratio (10-20) RATIO Glucose (74-106) mg/dL Lactic Acid (0.4-1.9) mmol/L Calcium (8.5-10.1) mg/dL Phosphorus (2.5-4.9) mg/dL Magnesium (1.6-2.6) mg/dL Total Bilirubin (0.20-1.00) mg/dL AST (15-37) U/L ALT (16-61) U/L Alkaline Phosphatase (45-117) U/L Troponin I (<0.045) ng/mL Total Protein (6.4-8.2) g/dL Albumin (3.2-5.0) g/dL Globulin (2.2-4.2) g/dL Albumin/Globulin Ratio (0.9-2.4) RATIO Urine Color Yellow (Yellow) Urine Clarity Clear (Clear) Urine pH 7.0 (5.0 - 8.0) Ur Specific [place] 1.010 (1.002-1.030) Urine Protein 100 H (Negative) mg/dl Urine Glucose (UA) Normal (Normal) mg/dl Urine Ketones Negative (Negative) mg/dl Urine Occult Blood Negative (Negative) /ul Urine Nitrite Negative (Negative) Urine Bilirubin Negative (Negative) mg/dL Urine Urobilinogen 1 H (Normal) mg/dl Ur Leukocyte Esterase Negative (Negative) /ul Urine RBC 0 SEEN (0-5) /hpf Urine WBC 0 SEEN (0-5) /hpf Ur Squamous Epith Cells 0 SEEN (0-5) /hpf Amorphous Sediment 1+ Urine Bacteria 0 SEEN (None Seen) /hpf Urine Mucus 0 SEEN (<or=2+) /hpf COVID-19 ([place]) (Not Detect) MRSA (PCR) Negative (Negative) 06/04/20 06/04/20 06/04/20 Range/Units 01:45 01:45 01:45 WBC (4.4-11.0) K/mm3 RBC (4.6-6.2) M/mm3 Hgb (13.0-16.5) g/dL Hct (40-54) % MCV (80-94) fL MCH (27.0-32.0) pg MCHC (32-36) g/dL RDW Std Deviation (35.1-43.9) fl RDW Coeff of Puneet (11.6-14.6) % Plt Count (150-450) K/mm3 MPV (6.2-12.0) fl Immature Gran % (Auto) (0.0-0.9) % Neut % (Auto) (47-70) % Lymph % (Auto) (19-41) % [place] % (Auto) (0-10) % Eos % (Auto) (0-5) % Baso % (Auto) (0-1) % Absolute Neuts (auto) (2.0-7.7) X10^3/uL Absolute Lymphs (auto) (0.83-4.51) X10^3/uL Nucleated RBC % (0-5) % Differential Comment Diff Path Review Platelet Estimate (ADEQ) Anisocytosis Sodium 130 L (136-145) mmol/L Potassium 4.1 (3.5-5.1) mmol/L Chloride 99 (98-107) mmol/L Carbon Dioxide 25.0 (21.0-32.0) mmol/L Anion Gap 6 (5-15) BUN 23 H (7-18) mg/dL Creatinine 0.68 L (0.70-1.30) mg/dL Estim Creat Clear Calc 130.56 ml/min Est GFR (MDRD) Af Amer 153 (>60) mL/min Est GFR (MDRD) Non-Af 127 (>60) mL/min BUN/Creatinine Ratio 33.9 H (10-20) RATIO Glucose 142 H (74-106) mg/dL Lactic Acid 1.1 (0.4-1.9) mmol/L Calcium 8.6 (8.5-10.1) mg/dL Phosphorus 1.9 L (2.5-4.9) mg/dL Magnesium 1.5 L (1.6-2.6) mg/dL Total Bilirubin 0.90 (0.20-1.00) mg/dL AST 23 (15-37) U/L ALT 52 (16-61) U/L Alkaline Phosphatase 29 L (45-117) U/L Troponin I < 0.015 (<0.045) ng/mL Total Protein 6.7 (6.4-8.2) g/dL Albumin 2.6 L (3.2-5.0) g/dL Globulin 4.1 (2.2-4.2) g/dL Albumin/Globulin Ratio 0.6 L (0.9-2.4) RATIO Urine Color (Yellow) Urine Clarity (Clear) Urine pH (5.0 - 8.0) Ur Specific [place] (1.002-1.030) Urine Protein (Negative) mg/dl Urine Glucose (UA) (Normal) mg/dl Urine Ketones (Negative) mg/dl Urine Occult Blood (Negative) /ul Urine Nitrite (Negative) Urine Bilirubin (Negative) mg/dL Urine Urobilinogen (Normal) mg/dl Ur Leukocyte Esterase (Negative) /ul Urine RBC (0-5) /hpf Urine WBC (0-5) /hpf Ur Squamous Epith Cells (0-5) /hpf Amorphous Sediment Urine Bacteria (None Seen) /hpf Urine Mucus (<or=2+) /hpf COVID-19 ([place]) (Not Detect) MRSA (PCR) (Negative) 06/04/20 06/04/20 Range/Units 01:45 01:35 WBC 1.2 L* (4.4-11.0) K/mm3 RBC 2.96 L (4.6-6.2) M/mm3 Hgb 8.6 L (13.0-16.5) g/dL Hct 24.8 L (40-54) % MCV 83.8 (80-94) fL MCH 29.1 (27.0-32.0) pg MCHC 34.7 (32-36) g/dL RDW Std Deviation 40.6 (35.1-43.9) fl RDW Coeff of Puneet 14.5 (11.6-14.6) % Plt Count 56 L (150-450) K/mm3 MPV 9.9 (6.2-12.0) fl Immature Gran % (Auto) 0.900 (0.0-0.9) % Neut % (Auto) 73.5 H (47-70) % Lymph % (Auto) 8.5 L (19-41) % [place] % (Auto) 16.2 H (0-10) % Eos % (Auto) 0.9 (0-5) % Baso % (Auto) 0.0 (0-1) % Absolute Neuts (auto) 0.9 L (2.0-7.7) X10^3/uL Absolute Lymphs (auto) 0.10 L (0.83-4.51) X10^3/uL Nucleated RBC % 0 (0-5) % Differential Comment COMMENT Diff Path Review May foll Platelet Estimate MOD DEC (ADEQ) Anisocytosis 1+ Sodium (136-145) mmol/L Potassium (3.5-5.1) mmol/L Chloride (98-107) mmol/L Carbon Dioxide (21.0-32.0) mmol/L Anion Gap (5-15) BUN (7-18) mg/dL Creatinine (0.70-1.30) mg/dL Estim Creat Clear Calc ml/min Est GFR (MDRD) Af Amer (>60) mL/min Est GFR (MDRD) Non-Af (>60) mL/min BUN/Creatinine Ratio (10-20) RATIO Glucose (74-106) mg/dL Lactic Acid (0.4-1.9) mmol/L Calcium (8.5-10.1) mg/dL Phosphorus (2.5-4.9) mg/dL Magnesium (1.6-2.6) mg/dL Total Bilirubin (0.20-1.00) mg/dL AST (15-37) U/L ALT (16-61) U/L Alkaline Phosphatase (45-117) U/L Troponin I (<0.045) ng/mL Total Protein (6.4-8.2) g/dL Albumin (3.2-5.0) g/dL Globulin (2.2-4.2) g/dL Albumin/Globulin Ratio (0.9-2.4) RATIO Urine Color (Yellow) Urine Clarity (Clear) Urine pH (5.0 - 8.0) Ur Specific [place] (1.002-1.030) Urine Protein (Negative) mg/dl Urine Glucose (UA) (Normal) mg/dl Urine Ketones (Negative) mg/dl Urine Occult Blood (Negative) /ul Urine Nitrite (Negative) Urine Bilirubin (Negative) mg/dL Urine Urobilinogen (Normal) mg/dl Ur Leukocyte Esterase (Negative) /ul Urine RBC (0-5) /hpf Urine WBC (0-5) /hpf Ur Squamous Epith Cells (0-5) /hpf Amorphous Sediment Urine Bacteria (None Seen) /hpf Urine Mucus (<or=2+) /hpf COVID-19 ([place]) Not Detected (Not Detect) MRSA (PCR) (Negative) Diagnostic Data: Diagnostic Data Abdomen/Pelvis CT 06/04/20 01:18 IMPRESSION: 1. Mild to moderate constipation. 2. Simple appearing left renal cysts. 3. Cirrhotic changes of the liver. 4. Small fat-containing umbilical hernia without bowel involvement. Electronically Signed: Tejinder Mitchell MD at 2:33 EDT Tel , Service support , Chest X-Ray 06/04/20 01:18 IMPRESSION: Chronic bibasilar interstitial change with no evidence of acute cardiopulmonary disease Electronically Signed: Tejinder Mitchell MD at 2:35 EDT Tel , Service support , Assessment and Plan 60-year-old male with head and neck squamous cell cancer on active combined chemoradiation hospitalized with febrile neutropenia. Neutropenia was noted earlier this week and therefore his chemotherapy was held. Recommendation: 1. Broad spectrum empiric antibiotic cover as per primary service, to be modified according to culture sensitivity results if any bacterial infection is confirmed. If no bacterial infections are confirmed continue empiric antibiotic coverage until neutrophil recovery. 2. Radiation will be on hold for the rest of this week and until recovery of neutrophil count and treatment of any documented active infection (discussed with Dr. Marques). 3. Growth factor support with filgrastim (5 mcg/kg rounded to 480 mcg) subcutaneously daily until neutrophil recovery above 1000 for at least 2 days in succession. 4. Follow with daily CBC and differential. Tracey Fox MD Periodontist, [facility] Divisions of Medical Oncology & Hematology Department of Internal Medicine [place] [phone] This note was generated using a voice recognition system software. Although it was reviewed by the author prior to finalization, it may still contain incorrect words, spelling, and punctuation that were not noted when reviewing prior to saving. If a clinically significant typo or inaccurately typed phrase is noted, please notify the author. Medications: Prescriptions This Visit Medication Instructions Recorded Sodium Chloride 1 gm PO DAILY 06/04/20 Medications Added to Medication List This Visit Category Date Time Status 0.9% Normal Saline 1,000 ml Med 06/04/20 04:22 Active IV 150 mls/hr 0.9% Normal Saline 250 ml Med 06/04/20 04:31 Active IV 15 mls/hr 0.9% Normal Saline 250 ml Med 06/04/20 04:31 Active IV 15 mls/hr 0.9% Saline Lock Med 06/04/20 04:31 Active 10 - 40 ml IV UD PRN Acetaminophen Liquid [Tylenol Liquid] Med 06/04/20 09:32 Active 650 mg GT Q6H PRN PRN Acetaminophen [Tylenol] Med 06/04/20 04:22 Active 650 mg RECTAL Q4H PRN PRN Albuterol Aerosols [Ventolin Aerosols] Med 06/04/20 04:22 Active 2.5 mg INHALATION Q2H PRN PRN Bmx Liquid Med 06/04/20 07:00 Active 15 ml PO ACHS Doxazosin Mesylate [Cardura] Med 06/04/20 10:00 Active 1 mg GT DAILY Ensure Enlive Med 06/04/20 10:00 Active 120 ml PO 4X/DAY Famotidine [Pepcid] Med 06/04/20 10:00 Active 20 mg GT BID Guaifenesin [Robitussin] Med 06/04/20 09:30 Active 10 ml GT Q4H PRN PRN Hydrocodone Bitart/Apap 5-325 [[place] 5MG-325MG] Med 06/04/20 10:00 Active 1 tablet GT BID Hydrocodone Bitart/Apap 5-325 [[place] 5MG-325MG] Med 06/04/20 09:30 Active 2 tablet GT Q4H PRN PRN Loratadine [Claritin] Med 06/04/20 09:30 Active 10 mg GT DAILY PRN PRN Lorazepam [Ativan] Med 06/04/20 09:30 Active 1 mg GT Q6H PRN Mag Hydrox/Al Hydrox/Simeth [Mylanta II] Med 06/04/20 09:30 Active 30 ml GT Q4H PRN PRN Magnesium Hydroxide [Milk Of Magnesia] Med 06/04/20 04:22 Active 30 ml PO DAILY PRN PRN Memantine Hydrochloride [Namenda] Med 06/04/20 10:00 Active 10 mg GT BID Meropenem [Merrem] 1 gm Med 06/04/20 14:00 Active 0.9% Normal Saline 100 ml IV Q8 Ondansetron [Zofran] Med 06/04/20 04:22 Active 4 mg IV Q8H PRN PRN Ondansetron [Zofran] Med 06/04/20 04:22 Active 8 mg PO Q8H PRN PRN Oxcarbazepine [Trileptal] Med 06/04/20 10:00 Active 450 mg GT BID Paroxetine [Paxil] Med 06/04/20 10:00 Active 40 mg PO DAILY Polyethylene Glycol 3350 [Miralax] Med 06/04/20 09:35 Active 17 gm GT DAILY PRN Saliva Substitute [Biotene] Med 06/04/20 04:22 Active 15 ml MM PRN PRN Tbo-Filgrastim [Granix] Med 06/04/20 10:00 Active 480 mcg SC DAILY Vancomycin IV Pharmacy to Dose 1 ea Med 06/04/20 04:22 Active 0.9% Normal Saline 500 ml IV X1 Vancomycin IV [Vancomycin] Med 06/04/20 11:00 Active 1,000 mg in 200 ml IV Q8H Venlafaxine HCl [Effexor] Med 06/04/20 17:00 Active 12.5 mg GT DINNER Venlafaxine HCl [Effexor] Med 06/04/20 10:00 Active 25 mg GT DAILY hydrALAZINE IV [Apresoline IV] Med 06/04/20 04:22 Active 10 mg IV Q4H PRN PRN morphine Inj Med 06/04/20 04:22 Active 2 mg IV Q3H PRN PRN proCHLORPERazine IV [Compazine IV] Med 06/04/20 04:22 Active 5 mg IV Q4H PRN PRN Primary Care Provider: Dr. Giana Hansen MD Referring Provider:
[2020-06-04 11:57] LABS: Pathologist Review Reviewed
[2020-06-04 11:57] LABS: Pathologist Review Reviewed
[2020-06-04] MEDS: Vancomycin IV 1,000 MG/200 ML BAG 200 MG IV ×2 (12:00→19:06)
[2020-06-04] MEDS: HYDROcodone Bitartrate/Apap 5/325 Tablet GT ×2 (12:00→22:45)
--- NOTE | 2020-06-04 15:26 | PCM.HOSP.N ---
Hospitalist Note Patient was seen and examined briefly today, I had infectious diseases see the patient concerning antibiotic coverage, for now patient will remain on vancomycin and meropenem. I placed the patient on Zoloft due to the fact his Paxil cannot be crushed. Patient will continue tube feedings while in the hospital
[2020-06-04] MEDS: Famotidine 20 MG Tablet GT ×2 (15:29→22:40)
[2020-06-04] MEDS: OXcarbazepine 300 MG Tablet 450 MG GT ×2 (15:30→22:39)
[2020-06-04] MEDS: TBO-FILGRASTIM 480 MCG/0.8 ML ML SC (15:38)
[2020-06-04] MEDS: BMX LIQUID 180 ML 15 ML PO (15:38)
[2020-06-04] MEDS: Venlafaxine HCl 25 MG Tablet 12.5 MG GT (15:49)
[2020-06-04] MEDS: Doxazosin 1 MG Tablet GT (15:49)
[2020-06-04] MEDS: Memantine Hydrochloride 10 MG Tablet GT (22:39)
[2020-06-05] VITALS (16 sets, daily range): BP systolic 113–148; BP diastolic 51–86; PULSE 84–107; RESP 16–18; TEMP 36.2–37.8; O2SAT 95–98
[2020-06-05] MEDS: Vancomycin IV 1,000 MG/200 ML BAG 200 MG IV ×2 (02:47→10:07)
[2020-06-05 03:16] LABS: Vancomycin, Trough Level 15.6 ug/mL (5.0-15.0)
[2020-06-05] MEDS: 0.9% Normal Saline 1,000 ML 150 ML IV (05:22)
[2020-06-05] MEDS: BMX LIQUID 180 ML 15 ML PO ×3 (05:26→15:00)
[2020-06-05] MEDS: Pivot 1.5 Cal 1,000 ML BOTTLE 345 ML GT ×5 (05:28→21:53)
--- NOTE | 2020-06-05 05:50 | PCM.RX.CS ---
Consult Pharmacy has been consulted to manage selected antiobiotic: Vancomycin Type of Consult: Follow-up Labs: Sodium 130 mmol/L (136-145) L 06/04/20 01:45 Potassium 4.1 mmol/L (3.5-5.1) 06/04/20 01:45 Chloride 99 mmol/L (98-107) 06/04/20 01:45 Carbon Dioxide 25.0 mmol/L (21.0-32.0) 06/04/20 01:45 Anion Gap 6 (5-15) 06/04/20 01:45 BUN 23 mg/dL (7-18) H 06/04/20 01:45 Creatinine 0.68 mg/dL (0.70-1.30) L 06/04/20 01:45 Est GFR (MDRD) Af Amer 153 mL/min (>60) 06/04/20 01:45 Est GFR (MDRD) Non-Af 127 mL/min (>60) 06/04/20 01:45 BUN/Creatinine Ratio 33.9 RATIO (10-20) H 06/04/20 01:45 Glucose 142 mg/dL (74-106) H 06/04/20 01:45 Vancomycin Trough 15.6 ug/mL (5.0-15.0) H 06/05/20 02:37 Goal Trough: 15-20 mcg/mL Pharmacy Plan for Drug Dosing: Pharmacy Service will continue to monitor and adjust dosing as required. TROUGH 15.6 NO CHANGES Follow-Up Labs: Trough Vancomycin Labs to be done on [date and time ordered]: 06/09 @ 4168
[2020-06-05 07:29] LABS: Hematocrit 20.5 % (40-54); Hemoglobin 6.9 g/dL (13.0-16.5); Mean Corp Hgb Conc 33.7 g/dL (32-36); Mean Corpuscular Hgb 28.9 pg (27.0-32.0); Mean Corpuscular Volume 85.8 fL (80-94); Mean Platelet Vol. 10.4 fl (6.2-12.0); POSITIVE COUNT YES; POSITIVE DIFFERENTIAL YES; POSITIVE MORPHOLOGY YES; Platelet Count 53 K/mm3 (150-450); RBC Distribution Width CV 15.1 % (11.6-14.6); RBC Distribution Width SD 42.7 fl (35.1-43.9); Red Blood Count 2.39 M/mm3 (4.6-6.2); White Blood Count 1.5 K/mm3 (4.4-11.0)
[2020-06-05 08:22] LABS: Blast 1 % (0-0); Eosinophil 1 % (0-5); Lymphocyte 10 % (19-41); Metamyelocyte 1 % (0-1); Monocyte 18 % (0-10); Neutrophil-Band 39 % (0-5); Neutrophil-Segmented 30 % (47-70); Total Cells Counted 100 (MANUAL DIFF)
[2020-06-05 08:23] LABS: Absolute Lymphocyte Count 0.15 X10^3/uL (0.83-4.51); Differential Indicated MANUAL DIFF
[2020-06-05 08:24] LABS: Absolute Neutrophil Count 1.1 X10^3/uL (2.0-7.7)
[2020-06-05 08:25] LABS: Platelet Estimate MOD DEC (ADEQ)
[2020-06-05 08:26] LABS: Anisocytosis 1+; Red Cell Morphology N CHROM NORMAL (NORM C&C)
[2020-06-05] MEDS: Juven (unflavored) Packet 1 PACKET GT ×2 (10:11→17:41)
[2020-06-05] MEDS: Venlafaxine HCl 25 MG Tablet GT (10:13)
[2020-06-05] MEDS: HYDROcodone Bitartrate/Apap 5/325 Tablet GT ×2 (10:13→22:08)
[2020-06-05] MEDS: Famotidine 20 MG Tablet GT ×2 (10:14→21:53)
[2020-06-05] MEDS: OXcarbazepine 300 MG Tablet 450 MG GT ×2 (10:15→21:54)
[2020-06-05] MEDS: Sertraline 100 MG Tablet GT (10:16)
[2020-06-05] MEDS: TBO-FILGRASTIM 480 MCG/0.8 ML ML SC (10:39)
--- NOTE | 2020-06-05 11:31 | CASEMGMT ---
ALYSSA still has not been able to get updates faxed to [facility] as there is something wrong with their fax machine. ALYSSA called [facility] and spoke with Tracie letting her know this information. She told SW to fax updates to [phone]. SW let her know patient may come over the weekend. SW then faxed updates to the alternate fax number. Plan: d/c back to [facility] under skilled level of care. Isadora [employer]
[2020-06-05 12:36] LABS: Pathologist Review Reviewed
--- NOTE | 2020-06-05 14:57 | PCM.PN.ID ---
Patient Problems: Active and Suspected Problems (Last Reviewed 06/03/20 @ 08:33 by Annemarie Tucker) Encounter for education (Acute) Chemotherapy management, encounter for (Acute) Hypoalbuminemia (Acute) Weight loss (Acute) Dehydration (Acute) Neutropenic fever (Acute) Pancytopenia (Acute) Acute on Chronic Tachycardia (Acute) Regional lymph node metastasis present (Acute) Carcinoma of unknown primary (Acute) Mass, brain (Acute) Oropharyngeal carcinoma (Acute) Subjective: Feeling better, no fever, no abd pain, no cough or SOB, no dysuria - Physical Exam Vitals/I&O's: Vital Signs Temp Pulse Resp BP Pulse Ox 98.2 F 94 18 120/73 97 06/05/20 14:37 06/05/20 14:37 06/05/20 14:37 06/05/20 14:37 06/05/20 14:37 Oxygen Delivery Method Room Air Weight: 87.2 kg Body Mass Index (BMI) 24.0 Intake and Output for Last 24 Hours 06/03/20 06/04/20 06/05/20 23:59 23:59 23:59 Intake Total 4002.5 / 4342.5 2687.5 / 2687.5 Balance 4002.5 / 4342.5 2687.5 / 2687.5 General: Alert, Cooperative, No apparent distress Lungs: Clear to auscultation, Normal air movement Cardiovascular: Regular rate, Regular Rhythm Abdomen: Soft, Non Tender, Non-Distended Skin: No rashes Microbiology Past 72 Hours 06/04/20 02:00 Urine, Clean Catch Urine Culture - Final Mixed Gram Positive Organisms Laboratory Results 06/05/20 02:37: Vancomycin Trough 15.6 H 06/05/20 02:37: WBC 1.5 L, RBC 2.39 L, Hgb 6.9 L, Hct 20.5 L, MCV 85.8, MCH 28.9, MCHC 33.7, RDW Std Deviation 42.7, RDW Coeff of Puneet 15.1 H, Plt Count 53 L, MPV 10.4, Neut % (Auto) Not Reportable, Absolute Neuts (auto) 1.1 L, Absolute Lymphs (auto) 0.15 L, Total Counted 100, Neutrophils % (Manual) 30 L, Band Neutrophils % 39 H, Lymphocytes % (Manual) 10 L, Monocytes % (Manual) 18 H, Eosinophils % (Manual) 1, Metamyelocytes % 1, Blast Cells % 1 H*, Diff Path Review Reviewed, Platelet Estimate MOD DEC, RBC Morphology N CHROM, Anisocytosis 1+ 06/05/20 09:28: Blood Type A NEGATIVE, Antibody Screen NEGATIVE, Crossmatch See Detail Current Medications Acetaminophen (Tylenol) 650 mg RECTAL Q4H PRN PRN PRN Reason: Pain Score 1-10/Temp > 100.7 F Acetaminophen (Tylenol Liquid) 650 mg GT Q6H PRN PRN PRN Reason: Pain Score 1-10/Temp > 100.7 F Hydrocodone Bitart/Acetaminophen ([place] 5mg-325mg) 1 tablet GT BID [facility] Last Admin: 06/05/20 10:13 Dose: 1 tablet Documented by: Hydrocodone Bitart/Acetaminophen ([place] 5mg-325mg) 2 tablet GT Q4H PRN PRN PRN Reason: Pain Score 1-10/10 Albuterol Sulfate (Ventolin Aerosols) 2.5 mg INHALATION Q2H PRN PRN PRN Reason: Dyspnea, wheezing Doxazosin Mesylate (Cardura) 1 mg GT DAILY [facility] Last Admin: 06/05/20 12:53 Dose: Not Given Documented by: Famotidine (Pepcid) 20 mg GT BID [facility] Last Admin: 06/05/20 10:14 Dose: 20 mg Documented by: Sodium Chloride () 1,000 mls @ 150 mls/hr IV .Q6H40M [facility] Last Infusion: 06/05/20 10:10 Dose: 0 mls/hr Documented by: Meropenem 1 gm/ Sodium (Chloride) 120 mls @ 33 mls/hr IV Q8 [facility] Last Admin: 06/05/20 14:39 Dose: 33 mls/hr Documented by: Sodium Chloride () 250 mls @ 15 mls/hr IV .[id number] PRN PRN Reason: Saline Flush Sodium Chloride () 250 mls @ 15 mls/hr IV .[id number] PRN PRN Reason: Additional IVPB Infusion Lactose (Pivot 1.5 Joseph) 345 ml GT 5X/DAY [facility] Last Admin: 06/05/20 14:47 Dose: 345 ml Documented by: Lidocaine/Diphenhydr/Alum/Mg/Simeth () 15 ml PO ACHS [facility] Last Admin: 06/05/20 10:40 Dose: 15 ml Documented by: Lorazepam (Ativan) 1 mg GT Q6H PRN PRN Reason: ANXIETY Memantine (Namenda) 10 mg GT BID [facility] Last Admin: 06/05/20 12:54 Dose: Not Given Documented by: Morphine Sulfate () 2 mg IV Q3H PRN PRN PRN Reason: Pain Score 6-10/10 Ondansetron HCl (Zofran) 8 mg PO Q8H PRN PRN PRN Reason: NAUSEA Ondansetron HCl (Zofran) 4 mg IV Q8H PRN PRN PRN Reason: NAUSEA/VOMITING Oxcarbazepine (Trileptal) 450 mg GT BID [facility] Last Admin: 06/05/20 10:15 Dose: 450 mg Documented by: Saliva Substitute (Biotene) 15 ml MM PRN PRN PRN Reason: DRY MOUTH Sertraline HCl (Zoloft) 100 mg GT DAILY [facility] Last Admin: 06/05/20 10:16 Dose: 100 mg Documented by: Sodium Chloride () 10 - 40 ml IV UD PRN PRN Reason: SALINE FLUSH Tbo-Filgrastim (Granix) 480 mcg SC DAILY [facility] Last Admin: 06/05/20 10:39 Dose: 480 mcg Documented by: Venlafaxine HCl (Effexor) 25 mg GT DAILY [facility] Last Admin: 06/05/20 10:13 Dose: 25 mg Documented by: Venlafaxine HCl (Effexor) 12.5 mg GT DINNER [facility] Last Admin: 06/04/20 15:49 Dose: 12.5 mg Documented by: Medical Necessity - Tobacco Use Smoking Status: Former smoker Tobacco Use: Non-smoker Route of nutrition/ use of supplements: [] Nutritional Intake: [] IV Site: [] Onofre Catheter: [] - Assessment/Plan Antibiotics: [] Assessment/Plan: [] Active and Suspected Problems (Last Reviewed 06/03/20 @ 08:33 by Annemarie Tucker) Encounter for education (Acute) Chemotherapy management, encounter for (Acute) Hypoalbuminemia (Acute) Weight loss (Acute) Dehydration (Acute) Neutropenic fever (Acute) Pancytopenia (Acute) Acute on Chronic Tachycardia (Acute) Carcinoma of unknown primary (Acute) Mass, brain (Acute) Neutropenic fever - cxs neg so far except for some mixed dayne on ucx. covid neg. On RA. No line in place. Cont tara for now, stop vanc today. No fever now, ANC improving. Plan on home with 4 more days of omnicef tomorrow if cont to improve. Will follow
--- NOTE | 2020-06-05 17:13 | PN_ITS ---
Patient Problems: Active and Suspected Problems (Last Reviewed 06/03/20 @ 08:33 by Annemarie Tucker) Encounter for education (Acute) Chemotherapy management, encounter for (Acute) Hypoalbuminemia (Acute) Weight loss (Acute) Dehydration (Acute) Neutropenic fever (Acute) Pancytopenia (Acute) Acute on Chronic Tachycardia (Acute) Regional lymph node metastasis present (Acute) Carcinoma of unknown primary (Acute) Mass, brain (Acute) Oropharyngeal carcinoma (Acute) Subjective: Patient was seen and examined today, his absolute neutrophil count today was 1100. Patient appears comfortable and he has no complaints. - Physical Exam Vitals/I&O's: Vital Signs Temp Pulse Resp BP Pulse Ox 98.2 F 98 18 120/73 97 06/05/20 14:37 06/05/20 15:00 06/05/20 14:37 06/05/20 14:37 06/05/20 14:37 Oxygen Delivery Method Room Air Weight: 87.2 kg Body Mass Index (BMI) 24.0 Intake and Output for Last 24 Hours 06/03/20 06/04/20 06/05/20 23:59 23:59 23:59 Intake Total 4002.5 / 4342.5 2687.5 / 2687.5 Balance 4002.5 / 4342.5 2687.5 / 2687.5 General: Alert, Cooperative, Well developed, Confused HEENT: Atraumatic, PERRLA, EOMI, Normocephalic Oral: Moist Mucosa Neck: Supple, No JVD, Trachea Midline, Thyroid Normal Size and Texture Lungs: Clear to auscultation, Normal air movement, No rhonchi, No wheeze Cardiovascular: Regular rate, Regular Rhythm, Normal S1, Normal S2, No murmurs, PMI Normal, No rub noted, No Gallop Abdomen: Bowel Sounds Present, Soft, Non Tender, Non-Distended, - - PEG tube in place Extremities: No clubbing, No cyanosis, No edema, Capillary Refill Less than 3 Seconds Skin: No rashes, No breakdown Musculoskeletal: No Tenderness to Palpation of Joints or Extremities Neurological: Cranial nerves II-XII grossly intact, Neuro grossly intact, Sensory exam intact to light touch and pain Psych/Mental Status: Flat Affect, - - Patient exhibits confusion Microbiology Past 72 Hours 06/04/20 02:00 Urine, Clean Catch Urine Culture - Final Mixed Gram Positive Organisms Laboratory Results 06/05/20 02:37: Vancomycin Trough 15.6 H 06/05/20 02:37: WBC 1.5 L, RBC 2.39 L, Hgb 6.9 L, Hct 20.5 L, MCV 85.8, MCH 28.9, MCHC 33.7, RDW Std Deviation 42.7, RDW Coeff of Puneet 15.1 H, Plt Count 53 L , MPV 10.4, Neut % (Auto) Not Reportable, Absolute Neuts (auto) 1.1 L, Absolute Lymphs (auto) 0.15 L, Total Counted 100, Neutrophils % (Manual) 30 L, Band Neutrophils % 39 H, Lymphocytes % (Manual) 10 L, Monocytes % (Manual) 18 H, Eosinophils % (Manual) 1, Metamyelocytes % 1, Blast Cells % 1 H*, Diff Path Review Reviewed, Platelet Estimate MOD DEC, RBC Morphology N CHROM, Anisocytosis 1+ 06/05/20 09:28: Blood Type A NEGATIVE, Antibody Screen NEGATIVE, Crossmatch See Detail Current Medications Acetaminophen (Tylenol) 650 mg RECTAL Q4H PRN PRN PRN Reason: Pain Score 1-10/Temp > 100.7 F Acetaminophen (Tylenol Liquid) 650 mg GT Q6H PRN PRN PRN Reason: Pain Score 1-10/Temp > 100.7 F Hydrocodone Bitart/Acetaminophen ([place] 5mg-325mg) 1 tablet GT BID [facility] Last Admin: 06/05/20 10:13 Dose: 1 tablet Documented by: Hydrocodone Bitart/Acetaminophen ([place] 5mg-325mg) 2 tablet GT Q4H PRN PRN PRN Reason: Pain Score 1-10/10 Albuterol Sulfate (Ventolin Aerosols) 2.5 mg INHALATION Q2H PRN PRN PRN Reason: Dyspnea, wheezing Doxazosin Mesylate (Cardura) 1 mg GT DAILY [facility] Last Admin: 06/05/20 12:53 Dose: Not Given Documented by: Famotidine (Pepcid) 20 mg GT BID [facility] Last Admin: 06/05/20 10:14 Dose: 20 mg Documented by: Meropenem 1 gm/ Sodium (Chloride) 120 mls @ 33 mls/hr IV Q8 [facility] Last Admin: 06/05/20 14:39 Dose: 33 mls/hr Documented by: Sodium Chloride () 250 mls @ 15 mls/hr IV .[id number] PRN PRN Reason: Saline Flush Sodium Chloride () 250 mls @ 15 mls/hr IV .[id number] PRN PRN Reason: Additional IVPB Infusion Lactose (Pivot 1.5 Joseph) 345 ml GT 5X/DAY [facility] Last Admin: 06/05/20 14:47 Dose: 345 ml Documented by: Lidocaine/Diphenhydr/Alum/Mg/Simeth () 15 ml PO ACHS [facility] Last Admin: 06/05/20 15:00 Dose: 15 ml Documented by: Lorazepam (Ativan) 1 mg GT Q6H PRN PRN Reason: ANXIETY Memantine (Namenda) 10 mg GT BID [facility] Last Admin: 06/05/20 12:54 Dose: Not Given Documented by: Morphine Sulfate () 2 mg IV Q3H PRN PRN PRN Reason: Pain Score 6-10/10 Ondansetron HCl (Zofran) 8 mg PO Q8H PRN PRN PRN Reason: NAUSEA Ondansetron HCl (Zofran) 4 mg IV Q8H PRN PRN PRN Reason: NAUSEA/VOMITING Oxcarbazepine (Trileptal) 450 mg GT BID [facility] Last Admin: 06/05/20 10:15 Dose: 450 mg Documented by: Saliva Substitute (Biotene) 15 ml MM PRN PRN PRN Reason: DRY MOUTH Sertraline HCl (Zoloft) 100 mg GT DAILY [facility] Last Admin: 06/05/20 10:16 Dose: 100 mg Documented by: Sodium Chloride () 10 - 40 ml IV UD PRN PRN Reason: SALINE FLUSH Tbo-Filgrastim (Granix) 480 mcg SC DAILY [facility] Last Admin: 06/05/20 10:39 Dose: 480 mcg Documented by: Venlafaxine HCl (Effexor) 25 mg GT DAILY [facility] Last Admin: 06/05/20 10:13 Dose: 25 mg Documented by: Venlafaxine HCl (Effexor) 12.5 mg GT DINNER [facility] Last Admin: 06/04/20 15:49 Dose: 12.5 mg Documented by: Medical Necessity - Tobacco Use Smoking Status: Former smoker Tobacco Use: Non-smoker Assessment/Plan All Active Problems (Last Reviewed 06/03/20 @ 08:33 by Annemarie Tucker) Encounter for education (Acute) Chemotherapy management, encounter for (Acute) Hypoalbuminemia (Acute) Weight loss (Acute) Dehydration (Acute) Neutropenic fever (Acute) Pancytopenia (Acute) BPH (benign prostatic hyperplasia) (Acute) Tachycardia (Acute) Regional lymph node metastasis present (Acute) Carcinoma of unknown primary (Acute) Mass, brain (Acute) Oropharyngeal carcinoma (Acute) Mass of lateral neck (Acute) #1 neutropenic fever-etiology unclear, patient has no evidence of an acute infection at this time, infectious diseases is seeing patient, patient's IV vancomycin was stopped today. #2 pancytopenia-secondary to chemotherapy, patient is getting IV Granix, recheck CBC tomorrow #3 head and neck cancer #4 dementia #5 essential hypertension Inpatient E&M: 20317 Subs Hosp L2
[2020-06-05] MEDS: Venlafaxine HCl 25 MG Tablet 12.5 MG GT (17:41)
[2020-06-05] MEDS: Memantine Hydrochloride 10 MG Tablet GT (21:53)
[2020-06-05] MEDS: 0.9% Saline Lock 10 ML Syringe IV (22:17)
[2020-06-06] VITALS (8 sets, daily range): BP systolic 114–131; BP diastolic 62–81; PULSE 78–97; RESP 16–18; TEMP 36.6–37.2; O2SAT 96–98
[2020-06-06] MEDS: Pivot 1.5 Cal 1,000 ML BOTTLE 345 ML GT ×2 (05:51→11:47)
[2020-06-06 07:14] LABS: Absolute Neutrophil Count 1.5 X10^3/uL (2.0-7.7); Basophil# 0.01 X10^3/uL; Basophil% 0.5 % (0-1); Eosinophil# 0.03 X10^3/uL; Eosinophils% 1.5 % (0-5); Hematocrit 24.3 % (40-54); Hemoglobin 8.4 g/dL (13.0-16.5); Mean Corp Hgb Conc 34.6 g/dL (32-36); Mean Corpuscular Hgb 29.5 pg (27.0-32.0); Mean Corpuscular Volume 85.3 fL (80-94); Mean Platelet Vol. 9.8 fl (6.2-12.0); Monocyte# 0.26 X10^3/uL; Monocyte% 12.9 % (0-10); NRBC Flagged by Analyzer 0 % (0-5); Neutrophil % 74.6 % (47-70); POSITIVE COUNT YES; POSITIVE DIFFERENTIAL YES; POSITIVE MORPHOLOGY YES; Platelet Count 65 K/mm3 (150-450); RBC Distribution Width CV 15.8 % (11.6-14.6); RBC Distribution Width SD 44.2 fl (35.1-43.9); Red Blood Count 2.85 M/mm3 (4.6-6.2)
[2020-06-06 07:29] LABS: Differential Indicated SCAN CRITERIA MET
[2020-06-06 08:08] LABS: Dohle Bodies RARE; Hypochromasia 2+; Platelet Estimate MKD DEC (ADEQ); Toxic Granulation 1+
[2020-06-06] MEDS: HYDROcodone Bitartrate/Apap 5/325 Tablet GT (09:36)
[2020-06-06] MEDS: Juven (unflavored) Packet 1 PACKET GT (09:38)
[2020-06-06] MEDS: Famotidine 20 MG Tablet GT (09:42)
[2020-06-06] MEDS: Sertraline 100 MG Tablet GT (09:42)
[2020-06-06] MEDS: Doxazosin 1 MG Tablet GT (09:42)
[2020-06-06] MEDS: Memantine Hydrochloride 10 MG Tablet GT (09:43)
[2020-06-06] MEDS: Venlafaxine HCl 25 MG Tablet GT (09:43)
[2020-06-06] MEDS: OXcarbazepine 300 MG Tablet 450 MG GT (09:45)
[2020-06-06] MEDS: BMX LIQUID 180 ML 15 ML PO (10:02)
--- NOTE | 2020-06-06 10:23 | PCM.TXEXTCAR ---
- Diet 06/04/20 06:38 NPO [Diet: Nothing Per Oral] Is pt able to select menu?: Yes - Wound(s) jaw/tongue Wound Type: radiation burn - Therapies Physical Therapy: Eval and Treat Occupational Therapy: Eval and Treat Speech Therapy: Eval and Treat - Allergies/Procedures Done in Hospital Allergies/Adverse Reactions: Allergies No Known Allergies Allergy (Verified 06/04/20 02:31) - Type of Care/Length of Stay Estimated LOS: Convalescent Care Less Than 30 days Type of Care Needed: Skilled Rehab Potential: Good Prognosis: Good - Additional Orders/Day of Discharge H&P will serve as current which was dated: 06/04/20 Day of Discharge: 06/06/20 - Dietary and Speech Recommendations Dietitian Recommendations/Changes: Continue Pivot 1.5 via PEG- 345 mL bolus five times per day w/ 130 mL H2O flush before and after each feeding to provide 2588 calories, 162 g protein, 2609 mL total fluid per day. TF will meet 100% of pt estimated nutrition needs. Continue 1 packet Lex BID mixed in 8 oz water via PEG. If appropriate for PO diet, recommend regular diet consistency per RV TECHNICIAN. - Follow Up Care Primary Care Physician: Giana Hansen MD [Primary Care Provider] - Please Follow Up With: Ortega Calderón MD When: DIRECTED
--- NOTE | 2020-06-06 11:24 | NURSING ---
Report called to nurse Ariza for pt transfer to [facility].
--- NOTE | 2020-06-06 11:27 | PCM.DC.SUM ---
Discharge Date and Diagnosis - Problem List Patient Problems: Active and Suspected Problems (Last Reviewed 06/03/20 @ 08:33 by Annemarie Tucker) Encounter for education (Acute) Chemotherapy management, encounter for (Acute) Hypoalbuminemia (Acute) Weight loss (Acute) Dehydration (Acute) Neutropenic fever (Acute) Pancytopenia (Acute) Acute on Chronic Tachycardia (Acute) Regional lymph node metastasis present (Acute) Carcinoma of unknown primary (Acute) Oropharyngeal carcinoma (Acute) Date of Admission: 06/04/20 Date of Discharge: 06/06/20 - Primary Discharge Diagnosis Acute Problems: Active Problems (Last Reviewed 06/03/20 @ 08:33 by Annemarie Tucker) #1 neutropenic fever-etiology unclear #2 pancytopenia-secondary to chemotherapy #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 #4 dementia #5 essential hypertension #6 anemia secondary to chemotherapy requiring blood transfusion #7 severe protein and caloric malnutrition - Secondary Discharge Diagnosis Chronic Problems: Chronic Problems (Last Reviewed 06/03/20 @ 08:33 by Annemarie Tucker) Hyponatremia (Chronic) HTN (hypertension) (Chronic) HLD (hyperlipidemia) (Chronic) Alcoholic dementia (Chronic) Former tobacco use (Chronic) COPD (chronic obstructive pulmonary disease) (Chronic) Hospital Course and Treatment Operations: None Procedures: Blood transfusion Summary of Care Provided: The patient is a 60 year old M was seen in the emergency room at [facility] after being transported in from a local [facility] care facility at which she resides due to fever. Patient had lab work the day before which showed a pancytopenia. Patient is undergoing chemotherapy for head and neck cancer. Work-up in the emergency room included labs which showed an absolute neutrophil count of 900, hemoglobin was low at 8.6, platelet count was 56,000. Chest x-ray was performed which showed no evidence of pneumonia, blood cultures were drawn and at the time of this dictation the results are pending. Urine culture showed mixed gram-positive organisms. Patient was admitted to PCU, he was seen in consultation by infectious diseases and oncology, he was kept on IV antibiotics during his hospital stay and given Granix at the direction of his oncologist. Patient's hemoglobin dipped to 6.9 and he was given 1 unit of packed red blood cells. Patient's blood counts improved during his hospital stay. On 06/06/2020, patient was seen and examined: General: Alert, Cooperative, Well developed, Confused HEENT: Atraumatic, PERRLA, EOMI, Normocephalic Oral: Moist Mucosa Neck: Supple, No JVD, Trachea Midline, Thyroid Normal Size and Texture Lungs: Clear to auscultation, Normal air movement, No rhonchi, No wheeze Cardiovascular: Regular rate, Regular Rhythm, Normal S1, Normal S2, No murmurs, PMI Normal, No rub noted, No Gallop Abdomen: Bowel Sounds Present, Soft, Non Tender, Non-Distended, - - PEG tube in place Extremities: No clubbing, No cyanosis, No edema, Capillary Refill Less than 3 Seconds Skin: No rashes, No breakdown Musculoskeletal: No Tenderness to Palpation of Joints or Extremities Neurological: Cranial nerves II-XII grossly intact, Neuro grossly intact, Sensory exam intact to light touch and pain Psych/Mental Status: Flat Affect, - - Patient exhibits confusion Patient was felt to be stable for discharge to his extended care facility on 06/06/2020. Patient Problems: Active and Suspected Problems (Last Reviewed 06/03/20 @ 08:33 by Annemarie Tucker) Encounter for education (Acute) Chemotherapy management, encounter for (Acute) Hypoalbuminemia (Acute) Weight loss (Acute) Dehydration (Acute) Neutropenic fever (Acute) Pancytopenia (Acute) Acute on Chronic Tachycardia (Acute) Regional lymph node metastasis present (Acute) Carcinoma of unknown primary (Acute) Oropharyngeal carcinoma (Acute) - Physical Exam Vitals/I&O's: Vital Signs Temp Pulse Resp BP Pulse Ox 99 F 84 18 122/62 H 98 06/06/20 10:57 06/06/20 11:00 06/06/20 10:57 06/06/20 10:57 06/06/20 10:57 Oxygen Delivery Method Room Air Weight: 87.2 kg Body Mass Index (BMI) 24.0 Intake and Output for Last 24 Hours 06/04/20 06/05/20 06/06/20 23:59 23:59 23:59 Intake Total 4002.5 / 4342.5 3292.5 / 3292.5 1209 / 1209 Balance 4002.5 / 4342.5 3292.5 / 3292.5 1209 / 1209 Microbiology Past 72 Hours 06/04/20 02:00 Urine, Clean Catch Urine Culture - Final Mixed Gram Positive Organisms Laboratory Results 06/05/20 02:37: Diff Path Review Reviewed 06/05/20 09:28: Blood Type A NEGATIVE, Antibody Screen NEGATIVE, Crossmatch See Detail 06/06/20 06:48: WBC 2.0 L, RBC 2.85 L, Hgb 8.4 L, Hct 24.3 L, MCV 85.3, MCH 29.5, MCHC 34.6, RDW Std Deviation 44.2 H, RDW Coeff of Puneet 15.8 H, Plt Count 65 L, MPV 9.8, Immature Gran % (Auto) 0.500, Neut % (Auto) 74.6 H, Lymph % (Auto) 10.0 L, [place] % (Auto) 12.9 H, Eos % (Auto) 1.5, Baso % (Auto) 0.5, Absolute Neuts (auto) 1.5 L, Absolute Lymphs (auto) 0.20 L, Nucleated RBC % 0, Diff Path Review May foll, Toxic Granulation 1+, Dohle Bodies RARE, Platelet Estimate MKD DEC, Hypochromasia 2+ Current Medications Acetaminophen (Tylenol) 650 mg RECTAL Q4H PRN PRN PRN Reason: Pain Score 1-10/Temp > 100.7 F Acetaminophen (Tylenol Liquid) 650 mg GT Q6H PRN PRN PRN Reason: Pain Score 1-10/Temp > 100.7 F Hydrocodone Bitart/Acetaminophen ([place] 5mg-325mg) 1 tablet GT BID [facility] Last Admin: 06/06/20 09:36 Dose: 1 tablet Documented by: Hydrocodone Bitart/Acetaminophen ([place] 5mg-325mg) 2 tablet GT Q4H PRN PRN PRN Reason: Pain Score 1-10/10 Doxazosin Mesylate (Cardura) 1 mg GT DAILY [facility] Last Admin: 06/06/20 09:42 Dose: 1 mg Documented by: Famotidine (Pepcid) 20 mg GT BID [facility] Last Admin: 06/06/20 09:42 Dose: 20 mg Documented by: Meropenem 1 gm/ Sodium (Chloride) 120 mls @ 33 mls/hr IV Q8 [facility] Last Infusion: 06/06/20 09:54 Dose: Infused Documented by: Sodium Chloride () 250 mls @ 15 mls/hr IV .[id number] PRN PRN Reason: Saline Flush Sodium Chloride () 250 mls @ 15 mls/hr IV .[id number] PRN PRN Reason: Additional IVPB Infusion Lactose (Pivot 1.5 Joseph) 345 ml GT 5X/DAY [facility] Last Admin: 06/06/20 05:51 Dose: 345 ml Documented by: Lidocaine/Diphenhydr/Alum/Mg/Simeth () 15 ml PO ACHS [facility] Last Admin: 06/06/20 10:02 Dose: 15 ml Documented by: Lorazepam (Ativan) 1 mg GT Q6H PRN PRN Reason: ANXIETY Memantine (Namenda) 10 mg GT BID [facility] Last Admin: 06/06/20 09:43 Dose: 10 mg Documented by: Morphine Sulfate () 2 mg IV Q3H PRN PRN PRN Reason: Pain Score 6-10/10 Ondansetron HCl (Zofran) 8 mg PO Q8H PRN PRN PRN Reason: NAUSEA Ondansetron HCl (Zofran) 4 mg IV Q8H PRN PRN PRN Reason: NAUSEA/VOMITING Oxcarbazepine (Trileptal) 450 mg GT BID [facility] Last Admin: 06/06/20 09:45 Dose: 450 mg Documented by: Saliva Substitute (Biotene) 15 ml MM PRN PRN PRN Reason: DRY MOUTH Sertraline HCl (Zoloft) 100 mg GT DAILY [facility] Last Admin: 06/06/20 09:42 Dose: 100 mg Documented by: Sodium Chloride () 10 - 40 ml IV UD PRN PRN Reason: SALINE FLUSH Last Admin: 06/05/20 22:17 Dose: 10 ml Documented by: Tbo-Filgrastim (Granix) 480 mcg SC DAILY [facility] Last Admin: 06/06/20 10:02 Dose: Not Given Documented by: Venlafaxine HCl (Effexor) 25 mg GT DAILY [facility] Last Admin: 06/06/20 09:43 Dose: 25 mg Documented by: Venlafaxine HCl (Effexor) 12.5 mg GT DINNER [facility] Last Admin: 06/05/20 17:41 Dose: 12.5 mg Documented by: Home Medications: Medications to take at Discharge Lidocaine/Prilocaine [Lidocaine-Prilocaine Cream] 1 applicatio TP PRN PRN 06/03/20 Magic Mouth Wash 15 ml PO ACHS 06/03/20 Ondansetron HCl [Zofran] 8 mg PO Q8H PRN 06/03/20 Saliva Substitute Combo No.9 [Biotene] 15 ml MM PRN PRN 06/03/20 Cefdinir [Omnicef [equiv]] 600 mg PO DAILY #10 cap 06/06/20 Doxazosin Mesylate [Cardura] 1 mg GT DAILY tab 06/06/20 Famotidine [Pepcid] 20 mg GT BID tab 06/06/20 Hydrocodone Bitart/Apap 5-325 [[place] 5/325] 1 tab GT BID 5 Days #10 tab 06/06/20 Hydrocodone Bitart/Apap 5-325 [[place] 5/325] 2 tab GT Q4H PRN PRN 7 Days #20 tab 06/06/20 Lorazepam [Ativan] 1 mg GT Q6H PRN #20 tab 06/06/20 Memantine Hydrochloride [Namenda] 10 mg GT BID tab 06/06/20 Ondansetron [Zofran] 8 mg GT Q8H PRN PRN tab 06/06/20 Oxcarbazepine [Trileptal] 450 mg GT BID tab 06/06/20 Pivot 1.5 Joseph 345 ml GT 5X/DAY bottle 06/06/20 Sertraline HCl [Zoloft] 100 mg GT DAILY tab 06/06/20 Venlafaxine HCl [Effexor] 12.5 mg GT DINNER tab 06/06/20 Venlafaxine HCl [Effexor] 25 mg GT DAILY tab 06/06/20 Following Prescriptions Were Given to Patient: Lorazepam [Ativan] 1 mg GT Q6H PRN #20 tab PRN Reason: Anxiety Prescription Printed Hydrocodone Bitart/Apap 5-325 [[place] 5/325] 2 tab GT Q4H PRN PRN 7 Days #20 tab PRN Reason: Pain Score 1-10/10 Prescription Printed Hydrocodone Bitart/Apap 5-325 [[place] 5/325] 1 tab GT BID 5 Days #10 tab Prescription Printed Cefdinir [Omnicef [equiv]] 600 mg PO DAILY #10 cap Primary Care Physician: Giana Hansen MD [Primary Care Provider] - Please Follow Up With: Ortega Calderón MD When: DIRECTED Disposition: Long-Term facility Minutes spent on discharge:: 32 Patient Condition:: Stable Medical Necessity - Tobacco Use Smoking Status: Former smoker Tobacco Use: Non-smoker Meaningful Use Info Meaningful Use Diagnoses (Choose all that apply): None applicable Inpatient E&M: 13361 Disch Hosp
[2020-06-08 12:30] LABS: Pathologist Review Reviewed
== END 2020-06-06 14:00 | disposition skilled nursing facility (03) | DRG 808 ==
LOC: ED 03:22 → PCU 04:13
PROVIDERS: Internal Medicine Hematology & Oncology; Admitting Provider Family Medicine; Emergency Provider Emergency Medicine; PCP Family Medicine; Visit Provider Internal Medicine
DX: D70.9 Neutropenia, unspecified (principal); E43 Unspecified severe protein-calorie malnutrition; E87.1 Hypo-osmolality and hyponatremia; C77.0 Secondary and unspecified malignant neoplasm of lymph nodes of head, face and neck; F10.97 Alcohol use, unspecified with alcohol-induced persisting dementia; E78.5 Hyperlipidemia, unspecified; R50.81 Fever presenting with conditions classified elsewhere; D61.810 Antineoplastic chemotherapy induced pancytopenia; T45.1X5A Adverse effect of antineoplastic and immunosuppressive drugs, initial encounter; I10 Essential (primary) hypertension; C01 Malignant neoplasm of base of tongue; Z87.891 Personal history of nicotine dependence; J44.9 Chronic obstructive pulmonary disease, unspecified; Z79.899 Other long term (current) drug therapy; F32.9 Major depressive disorder, single episode, unspecified; F41.9 Anxiety disorder, unspecified; K59.09 Other constipation; N40.0 Benign prostatic hyperplasia without lower urinary tract symptoms; Z66 Do not resuscitate; Z51.0 Encounter for antineoplastic radiation therapy; C76.0 Malignant neoplasm of head, face and neck; C10.9 Malignant neoplasm of oropharynx, unspecified
CPT/HCPCS: 36415; 36591; 71045; 74177; 77336; 77386; 80053; 80202; 81001; 83605; 83735; 84100; 84484; 85025; 86850; 86900; 86901; 86920; 86922; 87040; 87086; 87088; 87635; 87641; 92610; 93005; 94799; 96360; 96361; 97162; 97166; 97802; 97803; 99251; 99285; J2185; J7030; J7040; J7050; P9016; Q9967; A4216; G0463; J1447; U0003

== ENCOUNTER 2020-06-25 12:17 | Emergency (ER) | payer MEDICARE, MEDICAID, SELFPAY ==
[2020-04-01 10:26] VITALS: BMI 27.5
[2020-06-24 10:40] VITALS: BMI 24.5
[2020-06-25 12:20] VITALS: BP 138/82; PULSE 88; RESP 16; TEMP 36.6; O2SAT 95; BMI 22.7
--- NOTE | 2020-06-25 12:31 | CT_ITS ---
STUDY: CT ABDOMEN AND PELVIS WITHOUT CONTRAST REASON FOR EXAM: Male, 60 years old. PT STATED PAIN WHEN USING PEG TUBE RADIATION DOSAGE (If Supplied By Facility): CTDIvol = ( 8.28 ) mGy, DLP = ( 457.46 ) mGycm TECHNIQUE: Transaxial images were obtained from the dome of the diaphragm to the symphysis pubis without oral contrast, and without intravenous contrast. Sagittal and coronal images were reconstructed. Individualized dose optimization techniques were used for this CT. COMPARISON: Comparison is made with prior study dated 06/04/2020. FINDINGS: The visualized lung bases are unremarkable. The visualized portions of the heart are within normal limits. Normal liver. Normal gallbladder and extrahepatic biliary system. Normal spleen. Normal pancreas. There is symmetric enlargement of the adrenal glands suggesting adrenal hyperplasia. Normal right kidney. Stable 1.9 cm cyst in the upper pole of the left kidney. A PEG tube is seen in the body of the stomach. Normal small intestine. Normal colon. The appendix is visualized and appears normal. There is diffuse atherosclerotic calcification of the abdominal aorta, without a demonstrated aneurysm. Normal inferior vena cava. Normal retroperitoneum. Distended urinary bladder. Small bilateral inguinal hernias containing fat. Small umbilical hernia containing fat. There are mild degenerative changes of the visualized lumbar spine. CT/Abdomen/Pelvis without Cont IMPRESSION: A PEG tube is seen with the tip in the body of the stomach. This is unchanged. Stable 1.9 cm cyst in the upper pole of the left kidney. Electronically Signed: Raman Mallory, at 13:42 EDT , Service support ,
--- NOTE | 2020-06-25 12:35 | ED.DCSUM_ITS ---
- ER Visit Summary Date of Service: 06/25/20 Chief Complaint: Abdominal pain History of Present Illness: The patient is a 60 M who presents with abdominal pain that has been intermittent over the past couple days. Patient states he gets pain around his PEG tube site whenever tube feedings are administered. Patient states his last a couple minutes. Patient describes the pain is sharp. Patient denies any fevers or chills. Patient denies any nausea or vomiting. Patient denies any chest pain or shortness of breath. Patient denies any drainage around the PEG tube site. Patient denies any redness over this area. Physical Examination: Vital signs are stable. Patient is afebrile. Patient is in no acute distress. Oral mucosa is pink and moist. Neck is supple. Trachea is midline. There is no JVD. Heart was regular rate and rhythm. Lungs are clear and equal bilaterally. Abdomen is soft. There is some tenderness over the left upper quadrant around the PEG tube site. There is no erythema. There is no discharge or drainage. Bowel sounds are normal. Cranial nerves II through XII are intact. There are no focal motor or sensory deficits noted. Extremities are intact. There is no calf tenderness or edema. Test Results: CBC showed a hemoglobin of 10.3. Hematocrit was 31.3. Comprehensive metabolic profile was essentially within normal limits. CT scan of the abdomen pelvis was obtained. There is no acute abnormality. The PEG tube is noted to be in good position. This was interpreted by the radiologist and reviewed by myself. Emergency Department Course and Treatment: The PEG tube was flushed. Patient had minimal discomfort after this. Case was discussed with Dr. Yin. He agreed with discharging the patient back to the extended care facility. He will continue treating the patient for peptic ulcer disease. Patient and family understood and were agreeable with the plan. All questions were answered. Disposition: Discharge home Impression: Abdominal pain This note was generated with [employer] dictation software. It may contain incorrect words, spelling, and punctuation that were not noted in review of the chart prior to signing ED Disposition - Plan for ED Patient: Disposition: Assisted Facility Diagnosis: Abdominal pain Instructions: ED Unknown Causes of Abdominal Pain Male Referrals: Giana Hansen MD [Primary Care Provider] - 5-7 Days Nolan Yin MD [STAFF PHYSICIAN] - 5-7 Days
[2020-06-25 13:20] LABS: Absolute Lymphocyte Count 0.44 X10^3/uL (0.83-4.51); Basophil# 0.01 X10^3/uL; Basophil% 0.2 % (0-1); Eosinophil# 0.03 X10^3/uL; Eosinophils% 0.7 % (0-5); Hematocrit 31.3 % (40-54); Hemoglobin 10.3 g/dL (13.0-16.5); Lymphocyte # 0.44 X10^3/ul (4.0); Lymphocyte % 9.5 % (19-41); Mean Corp Hgb Conc 32.9 g/dL (32-36); Mean Corpuscular Hgb 29.9 pg (27.0-32.0); Mean Corpuscular Volume 90.7 fL (80-94); Mean Platelet Vol. 8.9 fl (6.2-12.0); Monocyte# 1.14 X10^3/uL; Monocyte% 24.7 % (0-10); NRBC Flagged by Analyzer 0 % (0-5); Neutrophil # 2.97 X10^3/uL (2.7-7.7); Neutrophil % 64.5 % (47-70); POSITIVE DIFFERENTIAL YES; Platelet Count 256 K/mm3 (150-450); RBC Distribution Width CV 19.2 % (11.6-14.6); RBC Distribution Width SD 62.2 fl (35.1-43.9); Red Blood Count 3.45 M/mm3 (4.6-6.2); White Blood Count 4.6 K/mm3 (4.4-11.0)
[2020-06-25 13:23] LABS: Differential Indicated SCAN CRITERIA MET
[2020-06-25 13:33] LABS: ALB/GLOB Ratio 0.7 RATIO (0.9-2.4); AST(SGOT) 30 U/L (15-37); Alanine Aminotransfer ALT/SGPT 54 U/L (16-61); Albumin, Serum 2.9 g/dL (3.2-5.0); Alkaline Phosphatase 32 U/L (45-117); Anion Gap 7 (5-15); BUN 21 mg/dL (7-18); Chloride 103 mmol/L (98-107); Creatinine, Serum 0.66 mg/dL (0.70-1.30); EST Glomerular Filtration Rate 131 mL/min (>60); Est Glom Filt Rate - Afr Amer 159 mL/min (>60); Estimated Creatinine Clearance 138.89 ml/min; Globulin 4.2 g/dL (2.2-4.2); Glucose 107 mg/dL (74-106); Lipase 275 U/L (73-393); Potassium 4.1 mmol/L (3.5-5.1); Protein, Total 7.1 g/dL (6.4-8.2); Sodium Level 134 mmol/L (136-145)
--- NOTE | 2020-06-25 15:22 | ED.RN ---
flushed PEG with 60 ml of sterile water. pt tolerated with slight burning. aware. mother at bedside.
[2020-06-25 16:35] VITALS: BP 131/71; PULSE 98; RESP 16; O2SAT 100
--- NOTE | 2020-06-25 16:43 | ED.RN ---
dressing changed to PEG tube site. report given to nurse at [facility]. mother is giving pt a ride home.
== END 2020-06-25 16:44 ==
PROVIDERS: Emergency Provider Emergency Medicine; PCP Family Medicine
DX: R10.12 Left upper quadrant pain (principal); Z93.1 Gastrostomy status; F03.90 Unspecified dementia, unspecified severity, without behavioral disturbance, psychotic disturbance, mood disturbance, and anxiety; C02.9 Malignant neoplasm of tongue, unspecified; Z87.891 Personal history of nicotine dependence
CPT/HCPCS: 36591; 74176; 80053; 83690; 85025; 99285; A4216

== ENCOUNTER 2020-07-01 05:25 | Day surgery (SDC) | payer MEDICARE, MEDICAID, SELFPAY ==
[2020-04-01 10:26] VITALS: BMI 27.5
[2020-06-30 05:28] VITALS: BMI 22.7
[2020-06-30 13:23] VITALS: BMI 24.0
[2020-07-01] VITALS (7 sets, daily range): BP systolic 97–124; BP diastolic 71–89; PULSE 69–80; RESP 14–16; TEMP 36.1–36.4; O2SAT 97–100; BMI 24.1
--- NOTE | 2020-07-01 06:01 | PCM.HP.BLA ---
Problem List (1) PEG (percutaneous endoscopic gastrostomy) status Status: Acute History and Physical Date of Admission: 07/01/20 Intake Visit Reasons: PEG leaking/pain Chief Complaint: F/u for peg tube check Learning Support Services Director Required: No Is patient in pain?: No Allergies No Known Allergies Allergy (Verified 06/30/20 12:38) Medications Lidocaine/Prilocaine [Lidocaine-Prilocaine Cream] 1 applicatio TP PRN PRN 06/03/20 [History Confirmed 06/30/20] Magic Mouth Wash 15 ml PO ACHS 06/03/20 [History Confirmed 06/30/20] Ondansetron HCl [Zofran] 8 mg PO Q8H PRN 06/03/20 [History Confirmed 06/30/20] Saliva Substitute Combo No.9 [Biotene] 15 ml MM PRN PRN 06/03/20 [History Confirmed 06/30/20] Doxazosin Mesylate [Cardura] 1 mg GT DAILY tab 06/06/20 [Rx Confirmed 06/30/20] Famotidine [Pepcid] 20 mg GT BID tab 06/06/20 [Rx Confirmed 06/30/20] Lorazepam [Ativan] 1 mg GT Q6H PRN #20 tab 06/06/20 [Rx Confirmed 06/30/20] Memantine Hydrochloride [Namenda] 10 mg GT BID tab 06/06/20 [Rx Confirmed 06/30/20] Ondansetron [Zofran] 8 mg GT Q8H PRN PRN tab 06/06/20 [Rx Confirmed 06/30/20] Oxcarbazepine [Trileptal] 450 mg GT BID tab 06/06/20 [Rx Confirmed 06/30/20] Pivot 1.5 Joseph 345 ml GT 5X/DAY bottle 06/06/20 [Rx Confirmed 06/30/20] Sertraline HCl [Zoloft] 100 mg GT DAILY tab 06/06/20 [Rx Confirmed 06/30/20] Venlafaxine HCl [Effexor] 12.5 mg GT DINNER tab 06/06/20 [Rx Confirmed 06/30/20] Venlafaxine HCl [Effexor] 25 mg GT DAILY tab 06/06/20 [Rx Confirmed 06/30/20] aluminum-magnesium hydroxide 225 mg-200 mg/5 mL oral suspension ml PO 06/30/20 [History] bacitracin-polymyxin B ea TOPICAL 06/30/20 [History] hydrocodone 5 mg-acetaminophen 325 mg tablet 1 tab PO BID PRN 06/30/20 [History Confirmed 06/30/20] omeprazole magnesium 20 mg tablet,delayed release 20 mg PO DAILY 06/30/20 [History Confirmed 06/30/20] polyethylene glycol 3350 17 gram/dose oral powder 17 g PO DAILY 06/30/20 [History Confirmed 06/30/20] saliva stimulant comb. no.3 1 applic MUCOUS MEMBRANE 4-6XD PRN 06/30/20 [History Confirmed 06/30/20] [facility] Medical History Mass of lateral neck (Acute) Alcohol dependence with alcohol-induced persisting dementia (Acute) Anxiety (Acute) Benign prostatic hyperplasia without lower urinary tract symptoms (Acute) Essential (primary) hypertension (Acute) Impulse disorder, unspecified (Acute) Major depressive disorder, recurrent, mild (Acute) Chronic obstructive pulmonary disease, unspecified (Chronic) Surgical History Hx of knee surgery (Acute) history of neck biopsy (Acute ~02/2020) Family History Mother History of heart artery stent Pacemaker Hypertension Father Heart problem Grandmother Hypertension Sister Melanoma of thigh Social History (Updated 06/30/20 @ 12:[address] Yonis Jacobs MD) Smoking Status: Former smoker HPI HPI HPI: LISSA ZIEGLER, is a 60 M who presents to the office today for surgical follow-up of PEG tube. He has metastatic oropharyngeal cancer. There is concerns that the PEG tube is not irrigating well and is causing pain. He was seen in the emergency room on June 25, 2020. CT scan was obtained. That suggested there was good positioning. On my review of the CT however there appears to be unusual soft tissue swelling at the site of the tube. April 28, 2020 I performed an upper endoscopy with placement of the PEG tube. [facility] Imaging Services [address] [place] [address] Abdomen/Pelvis without Cont MR#: [id number] Name: LISSA ZIEGLER RRep #:[id number] : 1960 60 From: Raman Mallory MD PCP:Dr. Giana Hansen MD Status:REG ER Study:Abdomen/Pelvis without Cont Date of Exam:06/25/20 Exam#[id number] Ordering Dr: Dashawn Álvarez DO STUDY: CT ABDOMEN AND PELVIS WITHOUT CONTRAST REASON FOR EXAM: Male, 60 years old. PT STATED PAIN WHEN USING PEG TUBE RADIATION DOSAGE (If Supplied By Facility): CTDIvol = ( 8.28 ) mGy, DLP = ( 457.46 ) mGycm TECHNIQUE: Transaxial images were obtained from the dome of the diaphragm to the symphysis pubis without oral contrast, and without intravenous contrast. Sagittal and coronal images were reconstructed. Individualized dose optimization techniques were used for this CT. COMPARISON: Comparison is made with prior study dated 06/04/2020. FINDINGS: The visualized lung bases are unremarkable. The visualized portions of the heart are within normal limits. Normal liver. Normal gallbladder and extrahepatic biliary system. Normal spleen. Normal pancreas. There is symmetric enlargement of the adrenal glands suggesting adrenal hyperplasia. Normal right kidney. Stable 1.9 cm cyst in the upper pole of the left kidney. A PEG tube is seen in the body of the stomach. Normal small intestine. Normal colon. The appendix is visualized and appears normal. There is diffuse atherosclerotic calcification of the abdominal aorta, without a demonstrated aneurysm. Normal inferior vena cava. Normal retroperitoneum. Distended urinary bladder. Small bilateral inguinal hernias containing fat. Small umbilical hernia containing fat. There are mild degenerative changes of the visualized lumbar spine. CT/Abdomen/Pelvis without Cont IMPRESSION: A PEG tube is seen with the tip in the body of the stomach. This is unchanged. Stable 1.9 cm cyst in the upper pole of the left kidney. Electronically Signed: Raman Mallory, at 13:42 EDT , Service support , HPI HPI HPI: LISSA ZIEGLER, is a 60 M who presents to the office today for Exam Const General: cooperative, comfortable, no acute distress Nutritional Appearance: average body habitus Orientation: awake Resp Effort & Inspection: normal respiratory effort Auscultation: clear to auscultation bilaterally Cardio Rate: regular rate Rhythm: regular rhythm GI Other: PEG tube left upper quadrant. I am not able to irrigate it. There was some fluid drainage from around it. Minimal erythema at the site. Extrem General: no calf tenderness Psych Affect: normal affect Assessment & Plan Problems 1. PEG (percutaneous endoscopic gastrostomy) status Z93.1 Plan I was unable to flush the PEG tube. I remove the PEG tube thinking there was an obstruction. I then attempted replace PEG tube on to realize that the PEG tube was asked to complete the external to the stomach. Upon probing the track does not enter the stomach. The external bumper also appear to be more distally placed consistent with malpositioning of the PEG. I suspect at some time there is been traction applied to the PEG partially removing it from the stomach. I will recommend dressing changes to the wound. We will allow it to slowly resolve and heal. He will need to have a urgent esophagogastroduodenoscopy with replacement of the PEG tube. He is accompanied by his mother who has had an opportunity ask and have questions answered. We will schedule and proceed tomorrow morning. Yonis Jacobs M.D., F.A.C.S. Coding Level of Care Code Off vis,est,level 2 Diagnoses PEG (percutaneous endoscopic gastrostomy) status Z93.1 I have re-examined the patient. There are no clinical changes since date of exam. Procedure Criteria COVID Risk Discussion: Urgent place replacement of PEG tube allow for nutrition warranted. This will not permit 1 week delay in COVID testing. The patient is aware of the pandemic. He is aware of the increased risk. The urgent nature of the procedure appears to outweigh this risk. We will proceed as noted. Yonis Jacobs M.D., F.A.C.S.
[2020-07-01] MEDS: Lactated Ringers 1,000 ML 100 ML IV (06:12)
[2020-07-01] MEDS: Cefazolin 2 GM in 0.9% Normal Saline 100 ML IV (06:21)
--- NOTE | 2020-07-01 06:49 | OP.CCLET_ITS ---
07/01/2020 Giana Hansen [address] [place] [address] Re : Upper GI endoscopy procedure for Oralia Drake Dear Dr. Hansen This procedure was performed on Wednesday, July 01, 2020. My impressions and recommendations are as follows: Impressions : - Reflux esophagitis. - Medium-sized hiatal hernia. - Scarred mucosa in the gastric body with irritation and swelling at site of recent PEG - Normal examined duodenum. - An externally removable PEG placement was successfully completed. - No specimens collected. Recommendations : - Please follow the post-PEG recommendations including: change dressing once per day, dry dressing only, NPO x4 hrs then water today, may use PEG today for meds and water and may use PEG tomorrow for feedings. - Continue present medications. My findings are described in the full procedure note, which is enclosed. If I can be of further assistance, please feel free to contact me at Doctor phone number(s): Work: . Sincerely, Yonis Jacobs MD 07/01/2020 6:48:58 AM This report has been signed electronically.
--- NOTE | 2020-07-01 06:49 | OP.EGD_ITS ---
Patient Name: Oralia Drake Procedure Date: 07/01/2020 6:03 AM Date of : 1960 Age: 60 Procedure: Upper GI endoscopy Indications: Place PEG because patient is unable to eat Providers: Yonis Jacobs MD Medicines: See the Anesthesia note for documentation of the administered medications Complications: No immediate complications. Procedure: Pre-Anesthesia Assessment: - Prior to the procedure, a History and Physical was performed, and patient medications and allergies were reviewed. The patient's tolerance of previous anesthesia was also reviewed. The risks and benefits of the procedure and the sedation options and risks were discussed with the patient. All questions were answered, and informed consent was obtained. Prior Anticoagulants: The patient has taken no previous anticoagulant or antiplatelet agents. ASA Grade Assessment: III - A patient with severe systemic disease. After reviewing the risks and benefits, the patient was deemed in satisfactory condition to undergo the procedure. After obtaining informed consent, the endoscope was passed under direct vision. Throughout the procedure, the patient's blood pressure, pulse, and oxygen saturations were monitored continuously. The Endoscope was introduced through the mouth, and advanced to the second part of duodenum. The upper GI endoscopy was accomplished without difficulty. The patient tolerated the procedure well. Scope In: 6:28:25 AM Scope Out: 6:39:57 AM Total Procedure Duration Time 0 hours 11 minutes 32 seconds Findings: Esophagitis with no bleeding was found 39 cm from the incisors. A medium-sized hiatal hernia was present. Localized mucosal changes characterized by scarring were found in the gastric body. The examined duodenum was normal. Placement of an externally removable PEG with no T-fasteners was successfully completed. The external bumper was at the 5.0 cm marking on the tube. Estimated blood loss was minimal. Impression: - Reflux esophagitis. - Medium-sized hiatal hernia. - Scarred mucosa in the gastric body with irritation and swelling at site of recent PEG - Normal examined duodenum. - An externally removable PEG placement was successfully completed. - No specimens collected. Recommendation: - Please follow the post-PEG recommendations including: change dressing once per day, dry dressing only, NPO x4 hrs then water today, may use PEG today for meds and water and may use PEG tomorrow for feedings. - Continue present medications. Procedure Code(s): --- Professional --- 81635, Esophagogastroduodenoscopy, flexible, transoral; with directed placement of percutaneous gastrostomy tube Diagnosis Code(s): --- Professional --- K21.0, Gastro-esophageal reflux disease with esophagitis K44.9, Diaphragmatic hernia without obstruction or gangrene K31.89, Other diseases of stomach and duodenum R63.3, Feeding difficulties Z43.1, Encounter for attention to gastrostomy CPT copyright 2017 [employer]. All rights reserved. The codes documented in this report are preliminary and upon field account director review may be revised to meet current compliance requirements. Yonis Jacobs MD 07/01/2020 6:48:58 AM This report has been signed electronically. Number of Addenda: 0 Note Initiated On: 07/01/2020 6:03 AM
== END 2020-07-01 07:48 ==
LOC: EN 05:29 → AC 05:29
PROVIDERS: PCP Family Medicine; Referring Provider Family Medicine; Visit Provider Surgery
PROC: 0DJ08ZZ Inspection of Upper Intestinal Tract, Via Natural or Artificial Opening Endoscopic (ICD-10-PCS; CPT 43235; principal; 2020-07-01 06:25)
DX: C10.9 Malignant neoplasm of oropharynx, unspecified (principal); C79.9 Secondary malignant neoplasm of unspecified site; Z43.1 Encounter for attention to gastrostomy; I10 Essential (primary) hypertension; F41.9 Anxiety disorder, unspecified; F32.9 Major depressive disorder, single episode, unspecified; J44.9 Chronic obstructive pulmonary disease, unspecified; Z87.891 Personal history of nicotine dependence; Z79.899 Other long term (current) drug therapy
CPT/HCPCS: 43246; J7120; J2405

== ENCOUNTER 2020-08-19 06:10 | Day surgery (SDC) | payer MEDICARE, MEDICAID, SELFPAY ==
[2020-04-01 10:26] VITALS: BMI 27.5
[2020-08-19] VITALS (7 sets, daily range): BP systolic 112–140; BP diastolic 77–84; PULSE 74–83; RESP 16; TEMP 36.2–36.5; O2SAT 96–98; BMI 24.0
--- NOTE | 2020-08-19 06:16 | HP.PCM_ITS ---
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: No Accompanied by: Mother Is patient in pain?: No Allergies No Known Allergies Allergy (Verified 08/18/20 13:56) Medications Lidocaine/Prilocaine [Lidocaine-Prilocaine Cream] 1 applicatio TP PRN PRN 06/03/20 [History Confirmed 08/18/20] Magic Mouth Wash 15 ml PO ACHS 06/03/20 [History Confirmed 08/18/20] Doxazosin Mesylate [Cardura] 1 mg GT DAILY tab 06/06/20 [Rx Confirmed 08/18/20] Famotidine [Pepcid] 20 mg GT BID tab 06/06/20 [Rx Confirmed 08/18/20] Memantine Hydrochloride [Namenda] 10 mg GT BID tab 06/06/20 [Rx Confirmed 08/18/20] Ondansetron [Zofran] 8 mg GT Q8H PRN PRN tab 06/06/20 [Rx Confirmed 08/18/20] Sertraline HCl [Zoloft] 100 mg GT DAILY tab 06/06/20 [Rx Confirmed 08/18/20] Venlafaxine HCl [Effexor] 12.5 mg GT DINNER tab 06/06/20 [Rx Confirmed ] Venlafaxine HCl [Effexor] 25 mg GT DAILY tab 06/06/20 [Rx Confirmed 08/18/20] Lorazepam [Ativan] 1 mg GT Q8H PRN 06/30/20 [History Confirmed 08/18/20] Oxcarbazepine [Trileptal] 7.5 ml GT BID 06/30/20 [History Confirmed 08/18/20] aluminum-magnesium hydroxide 225 mg-200 mg/5 mL oral suspension 5 ml PO Q4H PRN 06/30/20 [History Confirmed 08/18/20] hydrocodone 5 mg-acetaminophen 325 mg tablet 1 tab PO BID 06/30/20 [History Confirmed 08/18/20] omeprazole magnesium 20 mg tablet,delayed release 20 ml GT DAILY 06/30/20 [History Confirmed 08/18/20] polyethylene glycol 3350 17 gram/dose oral powder 17 g GT PRN PRN 06/30/20 [History Confirmed 08/18/20] [facility] Medical History Mass of lateral neck (Acute) Alcohol dependence with alcohol-induced persisting dementia (Acute) Anxiety (Acute) Benign prostatic hyperplasia without lower urinary tract symptoms (Acute) Essential (primary) hypertension (Acute) Impulse disorder, unspecified (Acute) Major depressive disorder, recurrent, mild (Acute) Chronic obstructive pulmonary disease, unspecified (Chronic) Surgical History Hx of knee surgery (Acute) history of neck biopsy (Acute ~02/2020) Family History Mother History of heart artery stent Pacemaker Hypertension Father Heart problem Grandmother Hypertension Sister Melanoma of thigh Social History (Updated 08/18/20 @ 16:08 by Radha ADLER, PAPatriciaC) Smoking Status: Former smoker HPI HPI HPI: LISSA ZIEGLER, is a 60 M who presents to the office today for HPI HPI HPI: LISSA ZIEGLER, is a 60 M who presents to the office today for malfunction PEG tube. Patient has a history of dementia. He currently resides in [facility]. custodial called our office yesterday noting the patient's PEG tube was malfunctioning for approximately 1 1/2 days. Patient states he is not taking any solid or liquid foods. Patient has not been wearing a binder. ROS General General: Yes fatigue; no weight change, appetite, colon cancer, breast cancer or weakness HEENT HEENT: No difficulty swallowing, eye injury, eye surgery, swollen glands or hoarseness Endo Endocrine: Yes thyroid disease; no diabetes mellitus, thyroid cancer, Hair loss, heat intolerance or cold intolerance Musc Musculoskeletal: Yes arthritis; no back problems, rheumatoid arthritis, gout or joint pain Cardio Cardiovascular: Yes high blood pressure; no murmur, pacemaker, heart disease, atrial fibrillation, heart attack, heart stent, palpitations, shortness of breat with exertion or chest pain Psych Psychiatric: Yes anxiety; no depression or hearing voices Resp Respiratory: No shortness of breath, No sleep apnea, No cough, Yes COPD, No asthma, No emphysema, No wheezing Gastro Gastrointestinal: No abdominal pain, No nausea or vomiting, No diarrhea, No constipation, No blood in stool, No acid reflux, No hemorrhoids, No ulcers, No gallbladder problem, No black,tarry stools Daljit Hematologic: No blood thinners, No blood disorders, No bleeding, No anemia, No blood clots Neuro Neurologic: No weakness Exam Const General: cooperative, healthy appearing, comfortable, no acute distress [facility] Head: normal to inspection Eyes General: appearance normal, both eyes and all related structures Neck Neck: normal visual inspection Neck mass: No Resp Effort & Inspection: normal respiratory effort Auscultation: clear to auscultation bilaterally Cardio Rate: regular rate Rhythm: regular rhythm Heart Sounds: no murmurs GI Inspection: normal to inspection Palpation: soft Auscultation: normal bowel sounds Other: PEG tube at 5 cm. Abdomen soft. Audible gurgle noted with air flush and then normal saline flush 10cc would not go down. Skin General: no rashes or lesions noted Neuro General: no focal motor deficits Extrem General: normal to inspection Psych Appearance: grossly normal Affect: normal affect Assessment & Plan Problems 1. Malfunction of percutaneous endoscopic gastrostomy (PEG) tube K94.[address] Jacobs also evaluated this patient. Dr. Jacobs removed the PEG tube in office, upon Qtip evaluation the tract was not present. Dr. Jacobs will plan to perform an EGD with PEG tube placement. Patient has had the opportunity to ask and have questions answered. Patient verbally understands and agrees with the plan. custodial has been updated with current plan. Coding Level of Care Code Off vis,est,level 3 Diagnoses Malfunction of percutaneous endoscopic gastrostomy (PEG) tube K94.23 Second time at this long term that the patient has disrupted the PEG tube pulling it out of the stomach and having it sitting in the subcutaneous tissue. After the last replacement the PEG tube was treated with a completely occlusive dressing and the patient was discharged with an abdominal binder to help protect the PEG tube. Both the occlusive dressing in the binder were discontinued at the long term and now a similar recurrence with partial PEG tube removal has occurred. The patient is presenting now for third PEG tube placement. I have personally contacted the nursing facility suggesting that protective measures to be continuously utilized to help protect the PEG tube from removal. If the PEG tube is removed soon after placement the patient risks peritonitis and . I have re-examined the patient. There are no clinical changes since date of exam. Procedure Criteria Procedure Type: Elective COVID Risk Discussion: The surgeon/proceduralist and patient have discussed in detail the risk of exposure to and/or potential harm posed by the COVID-19 virus with having a surgery/procedure at this time versus the risk of delaying the surgery/procedure. It is not possible to know either the risk of delaying the surgery or procedure or chance of getting an infection with perfect accuracy, but a joint decision was made between the patient and the surgeon/proceduralist to proceed at this time with the scheduled surgery/procedure as indicated on the consent form.
[2020-08-19] MEDS: Lactated Ringers 1,000 ML 100 ML IV (06:45)
[2020-08-19] MEDS: Cefazolin 2 GM in 0.9% Normal Saline 100 ML IV (07:04)
--- NOTE | 2020-08-19 07:30 | OP.CCLET_ITS ---
08/19/2020 Nolan Yin MD [address] [id number] Re : Upper GI endoscopy procedure for Oralia Vidal Dear Dr. Yin This procedure was performed on Wednesday, August 19, 2020. My impressions and recommendations are as follows: Impressions : - Normal esophagus. - Erythematous mucosa in the gastric body. - Normal examined duodenum. - An endoscopically removable PEG placement was successfully completed. - No specimens collected. Recommendations : - Discharge patient to a [facility]. - Resume previous diet. - Continue present medications. My findings are described in the full procedure note, which is enclosed. If I can be of further assistance, please feel free to contact me at Doctor phone number(s): Work: . Sincerely, Yonis Jacobs MD 08/19/2020 7:29:38 AM This report has been signed electronically.
--- NOTE | 2020-08-19 07:30 | OP.EGD_ITS ---
Patient Name: Oralia Drake Procedure Date: 08/19/2020 6:57 AM Date of : 1960 Age: 60 Procedure: Upper GI endoscopy Indications: Dysphagia Providers: Yonis Jacobs MD Medicines: See the Anesthesia note for documentation of the administered medications Complications: No immediate complications. Procedure: Pre-Anesthesia Assessment: - Prior to the procedure, a History and Physical was performed, and patient medications and allergies were reviewed. The patient's tolerance of previous anesthesia was also reviewed. The risks and benefits of the procedure and the sedation options and risks were discussed with the patient. All questions were answered, and informed consent was obtained. Prior Anticoagulants: The patient has taken no previous anticoagulant or antiplatelet agents. ASA Grade Assessment: III - A patient with severe systemic disease. After reviewing the risks and benefits, the patient was deemed in satisfactory condition to undergo the procedure. After obtaining informed consent, the endoscope was passed under direct vision. Throughout the procedure, the patient's blood pressure, pulse, and oxygen saturations were monitored continuously. The Endoscope was introduced through the mouth, and advanced to the second part of duodenum. The upper GI endoscopy was accomplished without difficulty. The patient tolerated the procedure well. Scope In: 7:08:15 AM Scope Out: 7:21:51 AM Total Procedure Duration Time 0 hours 13 minutes 36 seconds Findings: The examined esophagus was normal. Diffuse mildly erythematous mucosa without bleeding was found in the gastric body. The examined duodenum was normal. Placement of an endoscopically removable PEG with no T-fasteners was successfully completed. The external bumper was at the 4.5 cm marking on the tube. Estimated blood loss was minimal. Impression: - Normal esophagus. - Erythematous mucosa in the gastric body. - Normal examined duodenum. - An endoscopically removable PEG placement was successfully completed. - No specimens collected. Recommendation: - Discharge patient to a [facility]. - Resume previous diet. - Continue present medications. Procedure Code(s): --- Professional --- 41594, Esophagogastroduodenoscopy, flexible, transoral; with directed placement of percutaneous gastrostomy tube Diagnosis Code(s): --- Professional --- K31.89, Other diseases of stomach and duodenum R13.10, Dysphagia, unspecified CPT copyright 2017 [employer]. All rights reserved. The codes documented in this report are preliminary and upon inspector general review may be revised to meet current compliance requirements. Yonis Jacobs MD 08/19/2020 7:29:38 AM This report has been signed electronically. Number of Addenda: 0 Note Initiated On: 08/19/2020 6:57 AM
--- NOTE | 2020-08-19 07:35 | DCINST_ITS ---
Discharge Diet: - - Resume tube feeds Discharge Activity: Return to Normal Activity Additional Instructions: Change PEG tube gauze daily Patient went home with a binder. The binder will need to be worn at all times. The tubing will need to have an occlusive dressing followed by the binder at all times. Occlusive dressing meaning gauze sponge at the hub, ABD pad taped to the skin followed by the abdominal binder. Please call our office in regards to any questions or concerns Allergies/Adverse Reactions: Allergies No Known Allergies Allergy (Verified 08/18/20 16:43) Medications to take at Discharge Lidocaine/Prilocaine [Lidocaine-Prilocaine Cream] 1 applicatio TP PRN PRN 06/03/20 Magic Mouth Wash 15 ml PO ACHS 06/03/20 Doxazosin Mesylate [Cardura] 1 mg GT DAILY tab 06/06/20 Famotidine [Pepcid] 20 mg GT BID tab 06/06/20 Memantine Hydrochloride [Namenda] 10 mg GT BID tab 06/06/20 Ondansetron [Zofran] 8 mg GT Q8H PRN PRN tab 06/06/20 Sertraline HCl [Zoloft] 100 mg GT DAILY tab 06/06/20 Venlafaxine HCl [Effexor] 12.5 mg GT DINNER tab 06/06/20 Venlafaxine HCl [Effexor] 25 mg GT DAILY tab 06/06/20 Lorazepam [Ativan] 1 mg GT Q8H PRN 06/30/20 Oxcarbazepine [Trileptal] 7.5 ml GT BID 06/30/20 aluminum-magnesium hydroxide 225 mg-200 mg/5 mL oral suspension 5 ml PO Q4H PRN 06/30/20 hydrocodone 5 mg-acetaminophen 325 mg tablet 1 tab PO BID 06/30/20 omeprazole magnesium 20 mg tablet,delayed release 20 ml GT DAILY 06/30/20 polyethylene glycol 3350 17 gram/dose oral powder 17 g GT PRN PRN 06/30/20 Primary Care Physician: Nolan Yin MD [Primary Care Provider] - Test Results: Test results from this visit will be discussed in further detail at your follow- up appointment, if applicable. When: Follow-up as needed
== END 2020-08-19 08:20 | disposition home or self-care (01) ==
LOC: EN 06:13 → AC 06:13
PROVIDERS: PCP Family Medicine; Referring Provider Family Medicine; Visit Provider Surgery
PROC: 0DJ08ZZ Inspection of Upper Intestinal Tract, Via Natural or Artificial Opening Endoscopic (ICD-10-PCS; CPT 43235; principal; 2020-08-19 06:55)
DX: K94.23 Gastrostomy malfunction (principal); F41.9 Anxiety disorder, unspecified; F32.9 Major depressive disorder, single episode, unspecified; I10 Essential (primary) hypertension; J44.9 Chronic obstructive pulmonary disease, unspecified; F03.90 Unspecified dementia, unspecified severity, without behavioral disturbance, psychotic disturbance, mood disturbance, and anxiety; K21.9 Gastro-esophageal reflux disease without esophagitis; Z85.810 Personal history of malignant neoplasm of tongue; Z79.899 Other long term (current) drug therapy; Z87.891 Personal history of nicotine dependence
CPT/HCPCS: 43246; J7120; A4216; J2405

== ENCOUNTER → 2021-03-23 04:00 | Outpatient (REF) | payer MEDICARE, MEDICAID, SELFPAY ==
[2020-04-01 10:26] VITALS: BMI 27.5
[2020-09-29 14:31] VITALS: BMI 23.8
[2021-03-29 13:11] VITALS: BMI 23.8
== END ==
LOC: OLS.SW300 04:00
PROVIDERS: PCP Family Medicine; Referring Provider Family Medicine; Visit Provider Family Medicine
DX: F31.9 Bipolar disorder, unspecified (principal)
CPT/HCPCS: 36415

== ENCOUNTER → 2021-04-12 06:35 | Outpatient (REF) | payer MEDICARE, MEDICAID, SELFPAY ==
[2020-04-01 10:26] VITALS: BMI 27.5
[2021-03-29 13:11] VITALS: BMI 23.8
[2021-04-12 09:49] LABS: ALB/GLOB Ratio 0.9 RATIO (0.9-2.4); AST(SGOT) 18 U/L (15-37); Alanine Aminotransfer ALT/SGPT 18 U/L (16-61); Albumin, Serum 3.2 g/dL (3.2-5.0); Alkaline Phosphatase 38 U/L (45-117); Anion Gap 8 (5-15); BUN 8 mg/dL (7-18); BUN/Creat Ratio 10.2 RATIO (10-20); Chloride 92 mmol/L (98-107); Creatinine, Serum 0.78 mg/dL (0.70-1.30); EST Glomerular Filtration Rate 107 mL/min (>60); Est Glom Filt Rate - Afr Amer 130 mL/min (>60); Globulin 3.5 g/dL (2.2-4.2); Glucose 87 mg/dL (74-106); Potassium 3.9 mmol/L (3.5-5.1); Protein, Total 6.7 g/dL (6.4-8.2); Sodium Level 128 mmol/L (136-145); Thyroid Stim Hormone (TSH) 3.25 uIU/mL (0.358-3.74)
[2021-04-14 14:27] VITALS: BMI 23.5
== END ==
LOC: OLS.SW300 06:35
PROVIDERS: PCP Family Medicine; Visit Provider Family Medicine
DX: C10.9 Malignant neoplasm of oropharynx, unspecified (principal); R53.83 Other fatigue
CPT/HCPCS: 36415; 80053; 84443

== ENCOUNTER → 2021-05-17 04:00 | Outpatient (REF) | payer MEDICARE, MEDICAID, SELFPAY ==
[2020-04-01 10:26] VITALS: BMI 27.5
[2021-04-14 14:27] VITALS: BMI 23.5
[2021-05-17 08:29] LABS: Absolute Neutrophil Count 2.3 X10^3/uL (2.0-7.7); Basophil# 0.01 X10^3/uL; Basophil% 0.3 % (0-1); Eosinophil# 0.11 X10^3/uL; Eosinophils% 3.2 % (0-5); Hematocrit 35.5 % (40-54); Hemoglobin 12.4 g/dL (13.0-16.5); Lymphocyte % 11.5 % (19-41); Mean Corp Hgb Conc 34.9 g/dL (32-36); Mean Corpuscular Volume 82.9 fL (80-94); Mean Platelet Vol. 10.1 fl (6.2-12.0); Monocyte# 0.61 X10^3/uL; Monocyte% 17.6 % (0-10); NRBC Flagged by Analyzer 0 % (0-5); Neutrophil # 2.32 X10^3/uL (2.7-7.7); Neutrophil % 66.8 % (47-70); POSITIVE DIFFERENTIAL YES; Platelet Count 115 K/mm3 (150-450); RBC Distribution Width CV 13.2 % (11.6-14.6); RBC Distribution Width SD 39.8 fl (35.1-43.9); Red Blood Count 4.28 M/mm3 (4.6-6.2); White Blood Count 3.5 K/mm3 (4.4-11.0)
[2021-05-17 08:31] LABS: Differential Indicated SCAN CRITERIA MET
[2021-05-17 08:55] LABS: Anion Gap 7 (5-15); BUN 9 mg/dL (7-18); BUN/Creat Ratio 13.4 RATIO (10-20); Calcium,Total 8.6 mg/dL (8.5-10.1); Chloride 92 mmol/L (98-107); Creatinine, Serum 0.67 mg/dL (0.70-1.30); EST Glomerular Filtration Rate 128 mL/min (>60); Est Glom Filt Rate - Afr Amer 155 mL/min (>60); Glucose 90 mg/dL (74-106); Potassium 3.5 mmol/L (3.5-5.1); Sodium Level 127 mmol/L (136-145)
[2021-05-18 12:13] LABS: Pathologist Review Reviewed
== END ==
LOC: OLS.SW300 04:00
PROVIDERS: PCP Family Medicine; Referring Provider Family Medicine; Visit Provider Family Medicine
DX: R53.83 Other fatigue (principal)
CPT/HCPCS: 36415; 80048; 85025

== ENCOUNTER → 2021-06-21 04:00 | Outpatient (REF) | payer MEDICARE, MEDICAID, SELFPAY ==
[2021-06-23 13:09] LABS: Trileptal-Oxcarbazepine 11 ug/mL (10-35)
== END ==
LOC: OLS.SW300 04:00
PROVIDERS: PCP Family Medicine; Referring Provider Family Medicine; Visit Provider Family Medicine
DX: F31.9 Bipolar disorder, unspecified (principal)
CPT/HCPCS: 36415; 82542

== ENCOUNTER → 2021-07-27 04:00 | Outpatient (REF) | payer MEDICARE, MEDICAID, SELFPAY ==
[2020-04-01 10:26] VITALS: BMI 27.5
== END ==
LOC: OLS.SW300 04:00
PROVIDERS: PCP Family Medicine; Visit Provider Family Medicine
DX: I10 Essential (primary) hypertension (principal); K75.9 Inflammatory liver disease, unspecified
CPT/HCPCS: 36415; 82140

== ENCOUNTER 2021-08-06 21:30 | Inpatient (IN) | payer MEDICARE, MEDICAID, SELFPAY ==
[2020-04-01 10:26] VITALS: BMI 27.5
[2021-08-06 21:32] VITALS: BP 170/89; PULSE 95; RESP 18; TEMP 36.8; O2SAT 98; BMI 25.2
--- NOTE | 2021-08-06 21:56 | RAD_ITS ---
EXAM: XR RIGHT FOOT COMPLETE, 3 OR MORE VIEWS : 1960 CLINICAL INDICATION: REDNESS, SWELLING, WOUND TECHNIQUE: Frontal, lateral and oblique views of the right foot. This report was created using [employer] report generation technology. COMPARISON: None. FINDINGS: BONES/JOINTS: Dislocation at the fifth MTP joint. No acute fracture. No sclerotic or destructive changes observed. SOFT TISSUES: Significant soft tissue swelling of the fifth toe with a plantar wound identified, as well as small foci of air possibly in the joint space. Soft tissue swelling of the forefoot. No radiopaque foreign body. RAD/Foot min 3 Views IMPRESSION: Significant soft tissue swelling of the fifth toe with a plantar wound identified, as well as small foci of air possibly in the joint space. Dislocation at the fifth MTP joint. Septic joint is not excluded. at 2222 Reported and signed by: Mazin Dunn MD Electronically Signed: Mazin Dunn MD at 22:21 EDT Tel , Service support ,
[2021-08-06 22:19] LABS: Absolute Lymphocyte Count 0.23 X10^3/uL (0.83-4.51); Absolute Neutrophil Count 5.3 X10^3/uL (2.0-7.7); Basophil# 0.01 X10^3/uL; Basophil% 0.2 % (0-1); Eosinophil# 0.03 X10^3/uL; Eosinophils% 0.5 % (0-5); Hematocrit 33.8 % (40-54); Hemoglobin 11.7 g/dL (13.0-16.5); Lymphocyte # 0.23 X10^3/ul (0.83-4.51); Lymphocyte % 3.6 % (19-41); Mean Corp Hgb Conc 34.6 g/dL (32-36); Mean Corpuscular Hgb 28.6 pg (27.0-32.0); Mean Corpuscular Volume 82.6 fL (80-94); Mean Platelet Vol. 9.4 fl (6.2-12.0); Monocyte# 0.78 X10^3/uL; Monocyte% 12.1 % (0-10); NRBC Flagged by Analyzer 0 % (0-5); Neutrophil # 5.34 X10^3/uL (2.7-7.7); Neutrophil % 83.1 % (47-70); POSITIVE DIFFERENTIAL YES; Platelet Count 171 K/mm3 (150-450); RBC Distribution Width CV 12.5 % (11.6-14.6); Red Blood Count 4.09 M/mm3 (4.6-6.2); White Blood Count 6.4 K/mm3 (4.4-11.0)
[2021-08-06 22:30] LABS: Anion Gap 8 (5-15); BUN 11 mg/dL (7-18); Calcium,Total 8.7 mg/dL (8.5-10.1); Chloride 90 mmol/L (98-107); Creatinine, Serum 0.74 mg/dL (0.70-1.30); EST Glomerular Filtration Rate 115 mL/min (>60); Est Glom Filt Rate - Afr Amer 139 mL/min (>60); Estimated Creatinine Clearance 115.06 ml/min; Glucose 103 mg/dL (74-106); Sodium Level 123 mmol/L (136-145)
[2021-08-06 22:51] LABS: Differential Indicated SCAN CRITERIA MET
--- NOTE | 2021-08-06 22:52 | EDS_ITS ---
HPI History of Present Illness Chief Complaint: Wound Narrative Narrative: 61-year-old male presenting with right foot infection. He is unsure how long it has been here. He thinks it might be a day. He does not know if he had any injury. He does not know if Deniz Ford has been caring for his foot or not. He does not know if he has been on antibiotics. Patient is a poor informant. Per his medical records he has a history of hypothyroidism, EtOH abuse, gastric ulcer, anxiety disorder, hyperlipidemia, bipolar disorder, pancytopenia, COPD. [facility] Medical History Alcohol dependence with alcohol-induced persisting dementia Anxiety Benign prostatic hyperplasia without lower urinary tract symptoms Chronic obstructive pulmonary disease, unspecified Essential (primary) hypertension Impulse disorder, unspecified Major depressive disorder, recurrent, mild Mass of lateral neck Home Medications Magic Mouth Wash 15 ml PO ACHS 06/03/20 [History Last Taken 06/03/20 15 ml] lidocaine-prilocaine 1 applicatio TP PRN PRN 06/03/20 [History Last Taken Unknown] doxazosin 1 mg G-TUBE DAILY tab 06/06/20 [Rx Last Taken Unknown] famotidine 20 mg G-TUBE BID tab 06/06/20 [Rx Last Taken Unknown] memantine 10 mg G-TUBE BID tab 06/06/20 [Rx Last Taken Unknown] ondansetron HCl 8 mg G-TUBE Q8H PRN PRN tab 06/06/20 [Rx Last Taken Unknown] sertraline 100 mg G-TUBE DAILY tab 06/06/20 [Rx Last Taken Unknown] aluminum-magnesium hydroxide 225 mg-200 mg/5 mL oral suspension 5 ml PO Q4H PRN 06/30/20 [History Last Taken Unknown] hydrocodone-acetaminophen 5-325mg 5mg-325mg 1 tab PO BID 06/30/20 [History Last Taken Unknown] oxcarbazepine 2.5 ml G-TUBE BID 06/30/20 [History Last Taken Unknown] polyethylene glycol 3350 17 gram/dose oral powder 17 g G-TUBE PRN PRN 06/30/20 [History Last Taken Unknown] sodium chloride 1 gram tablet 1,000 mg PO BID tab 04/14/21 [History Last Taken Unknown] buspirone 10 mg tablet 10 mg PO BID 06/24/21 [History Last Taken Unknown] guaifenesin 100 mg/5 mL oral liquid 200 mg PO Q4H PRN 06/24/21 [History Last Taken Unknown] lorazepam 1 mg tablet 1 mg PO Q12H PRN tab 06/24/21 [History Last Taken Unknown] menthol-sorbitol lozenges 1 kena MUCOUS MEMBRANE Q2H PRN 06/24/21 [History Last Taken Unknown] saliva substitute combo no.9 15 ml MUCOUS MEMBRANE BID-QID PRN 06/24/21 [History Last Taken Unknown] Allergy/AdvReac Type Severity Reaction Status Date / Time No Known Allergies Allergy Verified 08/06/21 21:32 Family History Mother History of heart artery stent Pacemaker Hypertension Father Heart problem Grandmother Hypertension Sister Melanoma of thigh Surgical History history of neck biopsy (~02/2020) Hx of knee surgery Social History Smoking Status: Former smoker ROS ROS ED Review of Systems ROS Unobtainable: due to mental condition EXAM Physical Exam Const Vital Signs: 08/06/21 21:32 08/06/21 23:44 Temperature 98.3 F 96.8 F L Temperature Source Oral Temporal Pulse Rate 95 90 Respiratory Rate 18 16 Blood Pressure 170/89 H 169/89 H Blood Pressure Mean 116 115 Pulse Ox 98 96 Oxygen Delivery Method Room Air Room Air Positive unkempt General Appearance ED: unkempt and NAD HEENT normocephalic and atraumatic Eyes PERRL Neck full ROM and supple Resp normal respiratory effort and clear to auscultation bilaterally GI non-tender Palpation: soft Extremity Extremity Narrative: Erythema and swelling of the right foot. There is a small wound on the base of the right foot proximal to the right fifth toe. There is drainage from this site. There does not appear to be any crepitance. Erythema does move proximally over the base of the foot and there is some streaking up the tibia. Neuro CN's II-XII intact bilaterally Sensorium / Orientation: alert Psych Appearance: unkempt Skin Skin Narrative: As described above MDM MDM MDM Narrative Medical decision making narrative: Patient is a poor informant. His foot does appear to be cellulitic. There is a draining wound on the plantar surface. This was cultured. Patient CBC shows no leukocytosis but he does have a left shift. Renal function electrolytes are normal with exception of hyponatremia and a sodium of 123. ESR is 67. CRP 138. It does appear to be a dorsal dislocation of the right fifth MTP with air likely in the joint based on my interpretation. Radiologist does agree. It is unknown how long this has been this way. Is possible this could have been an old dislocation and this is why the skin is breaking down and the specific area. Discussed with Dr. Dodson who will see the patient in consult. Patient will be admitted to the hospitalist. Patient was given vancomycin and Zosyn. He is kept n.p.o. I am told patient will likely need the OR at 7 AM. Impression: 1. Right foot wound 2. Right foot cellulitis 3. Right fifth MTP dislocation Lab Data Labs: Laboratory Results - last 24 hr 08/06/21 08/06/21 08/06/21 22:06 22:06 22:06 WBC 6.4 RBC 4.09 L Hgb 11.7 L Hct 33.8 L MCV 82.6 MCH 28.6 MCHC 34.6 RDW Std Deviation 38.0 RDW Coeff of Puneet 12.5 Plt Count 171 MPV 9.4 Immature Gran % (Auto) 0.500 Neut % (Auto) 83.1 H Lymph % (Auto) 3.6 L [place] % (Auto) 12.1 H Eos % (Auto) 0.5 Baso % (Auto) 0.2 Absolute Neuts (auto) 5.3 Absolute Lymphs (auto) 0.23 L Nucleated RBC % 0 Differential Comment SEE COMMENT Toxic Granulation RARE Platelet Estimate ADEQUATE RBC Morphology NORM C+C Hypochromasia RARE Anisocytosis RARE ESR 67 H Sodium 123 L Potassium 4.0 Chloride 90 L Carbon Dioxide 25.0 Anion Gap 8 BUN 11 Creatinine 0.74 Estim Creat Clear Calc 115.06 Est GFR (MDRD) Af Amer 139 Est GFR (MDRD) Non-Af 115 BUN/Creatinine Ratio 15.0 Glucose 103 Calcium 8.7 C-React Prot Ext Range 08/06/21 22:06 WBC RBC Hgb Hct MCV MCH MCHC RDW Std Deviation RDW Coeff of Puneet Plt Count MPV Immature Gran % (Auto) Neut % (Auto) Lymph % (Auto) [place] % (Auto) Eos % (Auto) Baso % (Auto) Absolute Neuts (auto) Absolute Lymphs (auto) Nucleated RBC % Differential Comment Toxic Granulation Platelet Estimate RBC Morphology Hypochromasia Anisocytosis ESR Sodium Potassium Chloride Carbon Dioxide Anion Gap BUN Creatinine Estim Creat Clear Calc Est GFR (MDRD) Af Amer Est GFR (MDRD) Non-Af BUN/Creatinine Ratio Glucose Calcium C-React Prot Ext Range 138.00 H Radiography Diagnostic Testing: Clinical Impression(s) from Imaging Studies Foot X-Ray 08/06/21 21:56 IMPRESSION: Significant soft tissue swelling of the fifth toe with a plantar wound identified, as well as small foci of air possibly in the joint space. Dislocation at the fifth MTP joint. Septic joint is not excluded. at 2222 Reported and signed by: Mazin Dunn MD Electronically Signed: Mazin Dunn MD at 22:21 EDT Tel , Service support , Discharge Plan Triage Chief Complaint: Wound ED Provider: Alvin Garcia Dx/Rx/DC Orders Prescriptions: No Action aluminum-magnesium hydroxide 225 mg-200 mg/5 mL oral suspension 225-200 mg/5 mL suspension 5 ml PO Q4H PRN (Reason: gi distress) RF: 0 hydrocodone-acetaminophen 5-325 mg tablet 1 tab PO BID RF: 0 polyethylene glycol 3350 [Miralax] 17 gram/dose powder 17 g G-tube PRN PRN (Reason: Constipation) RF: 0 sodium chloride 1 gram tablet 1,000 mg PO BID RF: 0 Biotene Dry Mouth Oral Rinse Mouthwash 15 ml mucous membrane BID-QID PRNRF: 0 buspirone 10 mg tablet 10 mg PO BID RF: 0 guaifenesin 100 mg/5 mL liquid 200 mg PO Q4H PRNRF: 0 Throat Lozenges Lozenge 1 kena mucous membrane Q2H PRNRF: 0 lidocaine-prilocaine 30 GM cream 1 applicatio TP PRN PRN (Reason: Port access) RF: 0 Magic Mouth Wash 15 ml PO ACHS RF: 0 doxazosin 1 MG tablet 1 mg G-tube DAILY RF: 0 ondansetron HCl 8 MG tablet 8 mg G-tube Q8H PRN PRN (Reason: NAUSEA) RF: 0 sertraline 100 MG tablet 100 mg G-tube DAILY RF: 0 famotidine 20 MG tablet 20 mg G-tube BID RF: 0 memantine 10 MG tablet 10 mg G-tube BID RF: 0 oxcarbazepine 300 MG tablet 2.5 ml G-tube BID RF: 0 lorazepam 1 mg tablet 1 mg PO Q12H PRN (Reason: Anxiety) RF: 0 Primary Care Provider: Giana Hansen
[2021-08-06 22:55] LABS: Anisocytosis RARE; Platelet Estimate ADEQUATE (ADEQ); Red Cell Morphology NORM C+C NORMAL (NORM C&C); Toxic Granulation RARE
[2021-08-06 22:56] LABS: Hypochromasia RARE
[2021-08-06 23:44] VITALS: BP 169/89; PULSE 90; RESP 16; TEMP 36; O2SAT 96
[2021-08-06 23:54] LABS: Erythrocyte Sedimentation Rate 67 mm/hr (0-20)
[2021-08-07] VITALS (14 sets, daily range): BP systolic 127–172; BP diastolic 71–106; PULSE 69–92; RESP 16–18; TEMP 36.1–37.1; O2SAT 95–100; BMI 24.3
--- NOTE | 2021-08-07 02:00 | PCM.HP.STD ---
HPI - General General Date of Admission: 08/07/21 HPI Narrative LISSA ZIEGLER, is a 61 M with a significant history of hypertension and bipolar disorder who presents to the emergency department with swelling and redness of his right foot. Patient denies knowledge of when his symptoms started. Patient is minimally participative in the history taking. He answers majority of questions by I do not know. Patient lives at [facility]. [facility] Medical History Alcohol dependence with alcohol-induced persisting dementia Anxiety Benign prostatic hyperplasia without lower urinary tract symptoms Chronic obstructive pulmonary disease, unspecified Essential (primary) hypertension Impulse disorder, unspecified Major depressive disorder, recurrent, mild Mass of lateral neck Home Medications Magic Mouth Wash 15 ml PO ACHS 06/03/20 [History Last Taken 06/03/20 15 ml] lidocaine-prilocaine 1 applicatio TP PRN PRN 06/03/20 [History Last Taken Unknown] doxazosin 1 mg G-TUBE DAILY tab 06/06/20 [Rx Last Taken Unknown] famotidine 20 mg G-TUBE BID tab 06/06/20 [Rx Last Taken Unknown] memantine 10 mg G-TUBE BID tab 06/06/20 [Rx Last Taken Unknown] ondansetron HCl 8 mg G-TUBE Q8H PRN PRN tab 06/06/20 [Rx Last Taken Unknown] sertraline 100 mg G-TUBE DAILY tab 06/06/20 [Rx Last Taken Unknown] aluminum-magnesium hydroxide 225 mg-200 mg/5 mL oral suspension 5 ml PO Q4H PRN 06/30/20 [History Last Taken Unknown] hydrocodone-acetaminophen 5-325mg 5mg-325mg 1 tab PO BID 06/30/20 [History Last Taken Unknown] oxcarbazepine 2.5 ml G-TUBE BID 06/30/20 [History Last Taken Unknown] polyethylene glycol 3350 17 gram/dose oral powder 17 g G-TUBE PRN PRN 06/30/20 [History Last Taken Unknown] sodium chloride 1 gram tablet 1,000 mg PO BID tab 04/14/21 [History Last Taken Unknown] buspirone 10 mg tablet 10 mg PO BID 06/24/21 [History Last Taken Unknown] guaifenesin 100 mg/5 mL oral liquid 200 mg PO Q4H PRN 06/24/21 [History Last Taken Unknown] lorazepam 1 mg tablet 1 mg PO Q12H PRN tab 06/24/21 [History Last Taken Unknown] menthol-sorbitol lozenges 1 kena MUCOUS MEMBRANE Q2H PRN 06/24/21 [History Last Taken Unknown] saliva substitute combo no.9 15 ml MUCOUS MEMBRANE BID-QID PRN 06/24/21 [History Last Taken Unknown] Allergy/AdvReac Type Severity Reaction Status Date / Time No Known Allergies Allergy Verified 08/06/21 21:32 Family History Mother History of heart artery stent Pacemaker Hypertension Father Heart problem Grandmother Hypertension Sister Melanoma of thigh Surgical History history of neck biopsy (~02/2020) Hx of knee surgery Social History Smoking Status: Former smoker ROS Review of Systems ROS Unobtainable: due to mental condition Vital Signs Vital Signs Vital Signs: 08/06/21 21:32 08/06/21 23:44 08/07/21 01:14 Temperature 98.3 F 96.8 F L Temperature Source Oral Temporal Pulse Rate 95 90 Respiratory Rate 18 16 18 Blood Pressure 170/89 H 169/89 H 149/79 H Blood Pressure Mean 116 115 102 Blood Pressure Source Blood Pressure Position Blood Pressure Location Pulse Ox 98 96 96 Oxygen Delivery Method Room Air Room Air Room Air 08/07/21 01:23 08/07/21 01:56 Temperature 96.9 F L 98.8 F Temperature Source Temporal Oral Pulse Rate 79 92 Respiratory Rate 16 18 Blood Pressure 149/94 H 172/106 H Blood Pressure Mean 112 128 Blood Pressure Source Monitor Blood Pressure Position Semi-Fowlers Blood Pressure Location Right Arm Pulse Ox 97 95 Oxygen Delivery Method Room Air Room Air Weight Weight: 84.6 kg Body Mass Index (BMI) 25.2 Physical Exam Narrative Physical exam: General: Well-nourished, well-developed. Head: Normocephalic, atraumatic, no tenderness Eyes: PERRLA, EOMI ENT, no trauma, moist mucous membranes, no rhinorrhea Neck: Nontender, full range of motion, no spinal tenderness, deformities, step-off CVS: Regular rate and rhythm. S1-S2 present. No murmur, gallop or rub. Respiratory : clear to auscultation bilaterally, chest wall nontender, no wheezing Abdomen: Soft, nontender, nondistended, normal bowel sounds, no masses : Deferred Back: Nontender, no CVA tenderness, no midline spinal tenderness, deformities, step-offs Extremities: Right foot erythema; swelling; tenderness and with ulcers. No swelling; no erythema and no tenderness of left foot. Skin: Normal color, no trauma, abrasions Neuro: Alert, oriented, cranial nerves II through XII grossly intact. Psychiatry: Normal mood. Normal affect. Not depressed. Not anxious. Results Lab / Micro Data Result Diagrams: 08/06/21 22:06 08/06/21 22:06 Labs: Laboratory Results - last 24 hr 08/06/21 22:06: WBC 6.4, RBC 4.09 L, Hgb 11.7 L, Hct 33.8 L, MCV 82.6, MCH 28.6, MCHC 34.6, RDW Std Deviation 38.0, RDW Coeff of Puneet 12.5, Plt Count 171, MPV 9.4, Immature Gran % (Auto) 0.500, Neut % (Auto) 83.1 H, Lymph % (Auto) 3.6 L, [place] % (Auto) 12.1 H, Eos % (Auto) 0.5, Baso % (Auto) 0.2, Absolute Neuts (auto) 5.3, Absolute Lymphs (auto) 0.23 L, Nucleated RBC % 0, Differential Comment SEE COMMENT, Toxic Granulation RARE, Platelet Estimate ADEQUATE, RBC Morphology NORM C+C, Hypochromasia RARE, Anisocytosis RARE 08/06/21 22:06: Sodium 123 L, Potassium 4.0, Chloride 90 L, Carbon Dioxide 25.0, Anion Gap 8, BUN 11, Creatinine 0.74, Estim Creat Clear Calc 115.06, Est GFR (MDRD) Af Amer 139, Est GFR (MDRD) Non-Af 115, BUN/Creatinine Ratio 15.0, Glucose 103, Calcium 8.7 08/06/21 22:06: ESR 67 H 08/06/21 22:06: C-React Prot Ext Range 138.00 H Radiology Impression Foot X-Ray 08/06/21 21:56 IMPRESSION: Significant soft tissue swelling of the fifth toe with a plantar wound identified, as well as small foci of air possibly in the joint space. Dislocation at the fifth MTP joint. Septic joint is not excluded. at 2222 Reported and signed by: Mazin Dunn MD Electronically Signed: Mazin Dunn MD at 22:21 EDT Tel , Service support , Assessment & Plan Assessment/Plan (1) Foot infection: (2) Hyponatremia: PLAN: R Foot infection with dislocation of fifth MTP joint Foot x-ray was independently interpreted and I agree with radiologist interpretation as above. Received vancomycin and Zosyn IV at the ED; and continued Review of labs showed normal white count with neutrophilia, lymphopenia and monocytosis. ESR is elevated at 67. Podiatry is following. NPO for possible foot surgical intervention. Trend CBC and BMP. Acute on chronic Hyponatremia Asymptomatic Likely secondary to oxcarbazepine use. Gentle IV hydration Trend BMP History of Bipolar Continue home meds DVT Prophylaxis: SCD ordered Charges/Coding Visit Charges Inpatient E&M: 66237 Init Hosp L3
[2021-08-07] MEDS: 0.9% Normal Saline 1,000 ML 75 ML IV ×2 (02:48→17:28)
--- NOTE | 2021-08-07 02:55 | PCM.RX.CS ---
Consult Pharmacy has been consulted to manage selected antiobiotic: Vancomycin Type of Consult: New start Suspected Infection: Skin/Soft tissue Prior Doses of Antibiotics Received/Current Regimen: Medications Vancomycin HCl (Vancomycin) 1,000 mg in 200 mls @ 200 mls/hr IV Q8H EDUARDO Discontinued Medications Vancomycin HCl 1,250 mg/ (Sodium Chloride) 275 mls @ 167 mls/hr IV X1 ONE Stop: 08/07/21 01:46 Last Admin: 08/07/21 01:19 Dose: 167 mls/hr Labs: Sodium 123 mmol/L (136-145) L 08/06/21 22:06 Potassium 4.0 mmol/L (3.5-5.1) 08/06/21 22:06 Chloride 90 mmol/L (98-107) L 08/06/21 22:06 Carbon Dioxide 25.0 mmol/L (21.0-32.0) 08/06/21 22:06 Anion Gap 8 (5-15) 08/06/21 22:06 BUN 11 mg/dL (7-18) 08/06/21 22:06 Creatinine 0.74 mg/dL (0.70-1.30) 08/06/21 22:06 Est GFR (MDRD) Af Amer 139 mL/min (>60) 08/06/21 22:06 Est GFR (MDRD) Non-Af 115 mL/min (>60) 08/06/21 22:06 BUN/Creatinine Ratio 15.0 RATIO (10-20) 08/06/21 22:06 Glucose 103 mg/dL (74-106) 08/06/21 22:06 Weight used for dosin.6 kg Estimated Creatinine Clearance: 115 Goal Trough: 15-20 mcg/mL Pharmacy Plan for Drug Dosing: Pharmacy Service will continue to monitor and adjust dosing as required. Follow-Up Labs: Trough Vancomycin Labs to be done on [date and time ordered]: 08/08/21 @0100
[2021-08-07 06:28] LABS: Absolute Lymphocyte Count 0.25 X10^3/uL (0.83-4.51); Absolute Neutrophil Count 3.6 X10^3/uL (2.0-7.7); Basophil# 0.01 X10^3/uL; Basophil% 0.2 % (0-1); Eosinophil# 0.09 X10^3/uL; Eosinophils% 1.9 % (0-5); Hematocrit 31.8 % (40-54); Lymphocyte # 0.25 X10^3/ul (0.83-4.51); Lymphocyte % 5.3 % (19-41); Mean Corp Hgb Conc 34.6 g/dL (32-36); Mean Corpuscular Hgb 28.6 pg (27.0-32.0); Mean Corpuscular Volume 82.8 fL (80-94); Mean Platelet Vol. 8.7 fl (6.2-12.0); Monocyte# 0.76 X10^3/uL; NRBC Flagged by Analyzer 0 % (0-5); Neutrophil # 3.62 X10^3/uL (2.7-7.7); POSITIVE DIFFERENTIAL YES; Platelet Count 141 K/mm3 (150-450); RBC Distribution Width CV 12.7 % (11.6-14.6); RBC Distribution Width SD 38.6 fl (35.1-43.9); Red Blood Count 3.84 M/mm3 (4.6-6.2); White Blood Count 4.8 K/mm3 (4.4-11.0)
[2021-08-07 06:34] LABS: Differential Indicated SCAN CRITERIA MET
[2021-08-07 06:52] LABS: Anion Gap 8 (5-15); BUN 9 mg/dL (7-18); BUN/Creat Ratio 12.7 RATIO (10-20); Calcium,Total 8.6 mg/dL (8.5-10.1); Chloride 95 mmol/L (98-107); Creatinine, Serum 0.71 mg/dL (0.70-1.30); EST Glomerular Filtration Rate 120 mL/min (>60); Est Glom Filt Rate - Afr Amer 146 mL/min (>60); Estimated Creatinine Clearance 119.92 ml/min; Glucose 91 mg/dL (74-106); Potassium 4.1 mmol/L (3.5-5.1); Sodium Level 128 mmol/L (136-145)
[2021-08-07] MEDS: Vancomycin IV 1,000 MG/200 ML BAG 200 MG IV ×2 (09:41→17:33)
--- NOTE | 2021-08-07 10:30 | CON.PCM_ITS ---
Assessment & Plan Assessment/Plan (1) Foot infection: (2) Alcoholic peripheral neuropathy: PLAN: Evaluation performed. Reviewed diagnostic data. There is abscess to the right foot, with gas noted on xrays, there is concern for osteomyelitis right 5th toe and 5th met head. Discussed the findings with patient, as well as with his mother with patient's permission. Given the severity of the infection surgical intervention - I+D, debridement and likely amputation of the 5th toe and 5th metatarsal was recommended. Reviewed the rationale of this with them, they agreed with the plan. The patient has been NPO and we will proceed with this procedure this morning. The patient has been started on IV antibiotics, and medically is managed by the hospitalist medical team. No weightbearing right foot. Keep heels offloaded while in bed. D/w Dr. Nascimento. (3) Cellulitis of right lower limb: HPI Consult Data Date of Consult: 08/07/21 HPI Narrative Reason for Consultation: Left foot infection HPI Narrative: LISSA ZIEGLER, is a 61 M who presents from [facility] for right foot infection. Patient was admitted last night from the ER due to the infection. He is not sure how he got the infection. His foot is red and swollen, with some streaking up leg. There is drainage/purulence from the plantar sub 5th met head ulcer. There was noted to be gas on the right foot xrays. I spoke with patient's mother who helps care for him - patient has a stiff gait but does normal walk some. He recently went through cancern treatment s - oropharyngeal cancer- relates it is in remission. Patient has alcoholic dementia. Patients labs show normal WBC, high ESR and CRP, and low sodium [facility] Medical History (Updated 08/07/21 @ 10:[address] Joss Dodson, DPM) Alcohol dependence with alcohol-induced persisting dementia Anxiety Benign prostatic hyperplasia without lower urinary tract symptoms Chronic obstructive pulmonary disease, unspecified Essential (primary) hypertension Impulse disorder, unspecified Major depressive disorder, recurrent, mild Mass of lateral neck Medical History unable to obtain Home Medications Magic Mouth Wash 15 ml PO ACHS PRN 06/03/20 [History Last Taken 06/03/20 15 ml] aluminum-magnesium hydroxide 225 mg-200 mg/5 mL oral suspension 5 ml PO Q4H PRN 06/30/20 [History Last Taken Unknown] oxcarbazepine 300 mg PO BID 06/30/20 [History Last Taken Unknown] polyethylene glycol 3350 17 gram/dose oral powder 17 g PO PRN PRN 06/30/20 [History Last Taken Unknown] sodium chloride 1 gram tablet 1,000 mg PO BID tab 04/14/21 [History Last Taken Unknown] buspirone 10 mg tablet 10 mg PO BID 06/24/21 [History Last Taken Unknown] guaifenesin 100 mg/5 mL oral liquid 200 mg PO Q4H PRN 06/24/21 [History Last Taken Unknown] lorazepam 1 mg tablet 1 mg PO Q12H PRN tab 06/24/21 [History Last Taken Unknown] menthol-sorbitol lozenges 1 kena MUCOUS MEMBRANE Q2H PRN 06/24/21 [History Last Taken Unknown] saliva substitute combo no.9 15 ml MUCOUS MEMBRANE BID-QID PRN 06/24/21 [History Last Taken Unknown] acetaminophen 650 mg PO Q4H PRN 08/07/21 [History Last Taken Unknown] acetaminophen 650 mg PA Q4H PRN 08/07/21 [History Last Taken Unknown] doxazosin 1 mg PO QHS 08/07/21 [History Last Taken Unknown] famotidine 20 mg PO BID 08/07/21 [History Last Taken Unknown] memantine 10 mg PO BID 08/07/21 [History Last Taken Unknown] ondansetron HCl 8 mg PO Q8H PRN PRN 08/07/21 [History Last Taken Unknown] pilocarpine HCl 5 mg PO TID 08/07/21 [History Last Taken Unknown] sertraline 75 mg PO DAILY 08/07/21 [History Last Taken Unknown] Allergy/AdvReac Type Severity Reaction Status Date / Time No Known Allergies Allergy Verified 08/06/21 21:32 Family History Mother History of heart artery stent Pacemaker Hypertension Father Heart problem Grandmother Hypertension Sister Melanoma of thigh Surgical History history of neck biopsy (~02/2020) Hx of knee surgery Social History Smoking Status: Former smoker Physical Exam Const alert and no apparent distress Extremity Extremity Narrative: Right foot - there is ulceration sub 5th met head with purulent drainage, there is visible abscess at the 5th MTPJ, there is significant cellulitis to the right foot extending to ankle and leg, there is concern for osteomyelitis tot he 5th Met head and 5th toe, there are no other open lesions. There are no open lesions to the left foot or areas of break down. Pedal pulses palpable bilateral. Decreased sensation to the foot bilateral. There is contracture of toes - chronic bilateral. There is some tenderness to the 5th MTPJ right foot, otherwise no POP or pain on ROM to the foot or ankle. Lab / Micro Data Result Diagrams: 08/07/21 06:20 08/07/21 06:20 Labs: Laboratory Results - last 24 hr 08/06/21 22:06: WBC 6.4, RBC 4.09 L, Hgb 11.7 L, Hct 33.8 L, MCV 82.6, MCH 28.6, MCHC 34.6, RDW Std Deviation 38.0, RDW Coeff of Puneet 12.5, Plt Count 171, MPV 9.4, Immature Gran % (Auto) 0.500, Neut % (Auto) 83.1 H, Lymph % (Auto) 3.6 L, Bennett % (Auto) 12.1 H, Eos % (Auto) 0.5, Baso % (Auto) 0.2, Absolute Neuts (auto) 5.3, Absolute Lymphs (auto) 0.23 L, Nucleated RBC % 0, Differential Comment SEE COMMENT, Toxic Granulation RARE, Platelet Estimate ADEQUATE, RBC Morphology NORM C+C, Hypochromasia RARE, Anisocytosis RARE 08/06/21 22:06: Sodium 123 L, Potassium 4.0, Chloride 90 L, Carbon Dioxide 25.0, Anion Gap 8, BUN 11, Creatinine 0.74, Estim Creat Clear Calc 115.06, Est GFR (MDRD) Af Amer 139, Est GFR (MDRD) Non-Af 115, BUN/Creatinine Ratio 15.0, Glucose 103, Calcium 8.7 08/06/21 22:06: ESR 67 H 08/06/21 22:06: C-React Prot Ext Range 138.00 H 08/07/21 06:20: WBC 4.8, RBC 3.84 L, Hgb 11.0 L, Hct 31.8 L, MCV 82.8, MCH 28.6, MCHC 34.6, RDW Std Deviation 38.6, RDW Coeff of Puneet 12.7, Plt Count 141 L, MPV 8.7, Immature Gran % (Auto) 0.600, Neut % (Auto) 76.0 H, Lymph % (Auto) 5.3 L, Bennett % (Auto) 16.0 H, Eos % (Auto) 1.9, Baso % (Auto) 0.2, Absolute Neuts (auto) 3.6, Absolute Lymphs (auto) 0.25 L, Nucleated RBC % 0 08/07/21 06:20: Sodium 128 L, Potassium 4.1, Chloride 95 L, Carbon Dioxide 25.0, Anion Gap 8, BUN 9, Creatinine 0.71, Estim Creat Clear Calc 119.92, Est GFR (MDRD) Af Amer 146, Est GFR (MDRD) Non-Af 120, BUN/Creatinine Ratio 12.7, Glucose 91, Calcium 8.6 Radiology Impression Foot X-Ray 08/06/21 21:56 IMPRESSION: Significant soft tissue swelling of the fifth toe with a plantar wound identified, as well as small foci of air possibly in the joint space. Dislocation at the fifth MTP joint. Septic joint is not excluded. at 2222 Reported and signed by: Mazin Dunn MD Electronically Signed: Mazin Dunn MD at 22:21 EDT Tel , Service support ,
--- NOTE | 2021-08-07 10:56 | CM.ED ---
ALYSSA SHAH called Catalina at [facility]. She was not aware of patient being at [facility]. SHe said that patient can return to [facility] medically ready. Plan: Return to [facility] Mimi SOLAN
--- NOTE | 2021-08-07 11:28 | NURSING ---
PT TO OR VIA BED
--- NOTE | 2021-08-07 11:30 | BONBX_PTH ---
PATIENT: Neeta ZIEGLER LOC: MS3 U#:[id number] AGE/SX: 61/M ROOM: OK321 RE08/07/[address]: Dr. Livia Aguiar MD : 1960 BED: 1 DIS: 08/10/2021 SPEC #: [id number] RECD: 08/09/21 09:27 STATUS: WM REQ #: [id number] BARON: 08/07/21 11:[address]: Joss Dodson DEPT: SURGICAL PATHOLOGY RECD BY: Julianna Hernandes ENTERED: 08/09/21 13:13 SP TYPE: Bone OTHR DR: MD Dr. Ortega Strickland MD Dr. Jeffrey Wunning, DPM Dr. Livia Aguiar MD Tissues: A - Toe, NOS B - Toe, NOS Procedures: Decalcification bone/plaque Surgery Specimen Level IV Comments: @ Ordering doctor for DEC edited from to @ franny PEREZ at 08/09/21 1509 @ Ordering doctor for SUIV edited from to @ by ANA at 08/09/21 1509 @ Submitting doctor edited from to @ by ANA at 08/09/21 1509 HEADER OPERATION: Incision, drainage, debridement of soft tissue and bone PRE-OP DIAGNOSIS: Right foot infection with dislocation of fifth MTP joint TISSUE SUBMITTED: A ? Right fifth toe and metatarsal head, B ? Right fifth metatarsal clearance fragment MICROSCOPIC DIAGNOSIS A. Right fifth toe and metatarsal head, excision: Soft tissue with acute inflammation consistent with microabscess formation. Bone with acute osteomyelitis. B. Right fifth bone, biopsy: Reparative and reactive change. No evidence of acute osteomyelitis. Fragment of fibrofatty tissue with no significant pathologic change. AM:dot 08/12/2021 MICROSCOPIC DESCRIPTION Slides are reviewed. GROSS DESCRIPTION A - Received in fixative is one container labeled with the patient's name and designated right fifth toe and metatarsal head. The specimen consists of a portion of toe with attached skin, soft tissue and bone measuring 4 cm in length and 2.5 cm in diameter. No distinct cutaneous lesions are identified. The nail appears to be intact and slightly discolored. The second fragment consists of entirely bone measuring 1.5 cm in length and 0.5 cm in diameter. No gross lesions are identified. Weatherization Administrator sections from both fragments are submitted in two cassettes after decalcification. B - Received in fixative is one container labeled with the patient's name and designated right fifth metatarsal clearance fragment. The specimen consists of multiple irregular fragments of wong bone that in aggregate measure 1.2 x 0.3 x 0.1 cm. The specimen is totally submitted in one cassette after decalcification. / AM:dot 08/09/21 TC:2 CPT: 92374 x2, 38869 x2
--- NOTE | 2021-08-07 12:13 | OP.PCM_ITS ---
Report of Operation Date of Procedure: 08/07/21 Pre-Operative Diagnosis: Osteomyelitis, abscess, gas infection, ulcer down to b one right foot Post-Operative Diagnosis: Same Surgery/Procedure Performed:: Debridement of all nonviable, infected, and necrotic soft tissue and bone right foot Surgeon: Joss Dodson gelatin powder mixer: None Type of Anesthesia: Local MAC Specimen's removed: 1. Removed right 5th toe and 5th metatarsal head sent to microbiology and pathology 2. Clearance fragment right 5th metatarsal sent to microbiology and pathology Estimated Blood Loss (mL): 10mL Description of Procedure: Indications: The patient is a 61 year old male with multiple medical problems including alcoholic dementia as well as peripheral neuropathy who presented with right sub 5th metatarsal head/5th metatarsal phalangeal joint (MTPJ) ulceration with significant infection - including gas as seen on the xray. There is severe redness/cellulitis, purulence with abscess formation, ulcer probed to bone and edema present. We discussed the options with the patient as well as with his mother in great detail, and patient elected to proceed with the procedure. Patient's mother agreed as patient has very poor memory. This was discussed with themin detail, reviewed the possible benefits vs risks. They were advised the risks include, but are not limited to pain, further infections, need for further surgery, nonhealing, delay healing, scarring, poor cosmetic result, numbness, weakness, loss of function, complex regional pain syndrome, blood clots, loss of function, inability to walk or wear foot wear, loss of limb, loss of life. They expressed understanding and agreement, they were able to repeat back, all questions were answered. The consent form was reviewed and it was freely signed. No guarantees were given nor implied. No warranties were given. Operative Procedure: The patient was brought into the operating room, and was place on the operating room table in the supine position. He was carefully secured to the operating room table with a safely belt around his waist. A time out was performed, the patient was properly identified and the surgical plan was confirmed. He was already on IV antibiotics - Vancomycin and Zosyn. A well padded pneumatic tourniquet was placed around the right ankle. The patient received MAC anesthesia per the anesthesiologist, then a total of 20mL of 0.5% Marcaine plain was given as a right foot 5th ray block after the skin was cleansed with 70% isopropyl alcohol. The right foot was scrubbed, prepped and draped in the usual aseptic fashion. The right foot was elevated for 3 minutes, and the ankle pneumatic tourniquet was inflated to 250mmHg. There was again noted to be significant infection as already noted to the right 5th toe/5th MTPJ with cellulitis extending to the rest of the foot and ankle with some slightly to the distal leg. Using a 15 scalpel blade, all nonviable, necrotic, infected soft tissue and bone was debrided, this entailed having to remove the entire 5th toe at the level of the 5th metatarsal phalangeal joint, and also removing the 5th metatarsal head. The toe was disarticulated at the 5th metatarsal phalangeal joint. The base of the proximal phalanx of the 5th toe and the head of the 5th metatarsal was garcia, soft, and eroded consistent with osteomyelitis. There was also significant purulence with abscess to the 5th MTPJ and within the 5th MTPJ. All nonviable bone and soft tissue was debrided in excisional fashion. A bone culture was obtained from the 5th metatarsal head and base of the proximal phalanx of the 5th toe and was sent to microbiology for further evaluation. The removed tissue was sent to pathology for further evaluation as well. The site was flushed out with copious amounts of normal saline solution. Using new instruments/bone cutting forceps a clearance fragment was obtained at the distal edge of the residual 5th metatarsal and this bone overall appeared to be healthy viable and appeared free of infection - this was sent to microbiology and pathology as a clearance fragment. All remaining tissues appeared to be healthy and viable, free of any infection. The site was again flushed out with copious amounts of normal saline solution. Area of debridement as noted above measured 7cm x 2.5cm and 2cm in depth - in excisional fashion using 15 scalpel blade. The pneumatic tourniquet was deflated, and there was immediate return of good vascular flow to the left foot, with normal temperature gradient and CFT < 2 seconds to the amputation site and to all remaining toes. Total tourniquet time was 14 minutes. The site was left open to drain. A dressing was applied which consisted of 1/4in Iodoform packing, 4x4 gauze, Kerlix, abd pads, and kashmir dressing. Patient tolerated the above procedure well with no complications. He was transferred back to the floor with vital signs stable and in good condition. He will be followed as inpatient. Post op xrays were ordered of the right foot - these were reviewed which confirmed 5th toe/5th metatarsal head debridement/removal. No weightbearing to the right foot and keep the right foot elevated. Grafts/Implants Used: None
--- NOTE | 2021-08-07 12:16 | RAD_ITS ---
EXAM: XR RIGHT FOOT COMPLETE, 3 OR MORE VIEWS : 1960 CLINICAL INDICATION: post op TECHNIQUE: Frontal, lateral and oblique views of the right foot. This report was created using [employer] report generation technology. COMPARISON: 08/06/21 FINDINGS: BONES/JOINTS: Surgical resection of the fifth toe and the distal end of the fifth metatarsal with associated soft tissue changes. No acute fracture. No subluxation. Normal alignment. Preservation of the joint space. SOFT TISSUES: Postsurgical changes. No radiopaque foreign body. RAD/Foot min 3 Views IMPRESSION: Surgical resection of the fifth toe and the distal end of the fifth metatarsal with associated soft tissue changes. at 0041 Reported and signed by: Mazin Dunn MD Electronically Signed: Mazin Dunn MD at 0:40 EDT Tel , Service support ,
--- NOTE | 2021-08-07 13:07 | NURSING ---
SPOKE TO NURSE @ [facility] FOR DATES OF VACCINATIONS
[2021-08-07] MEDS: Nystatin Ointment 1 APPLIC TOPICAL ×2 (16:29→21:02)
[2021-08-07] MEDS: Juven (unflavored) Packet 1 PACKET PO (17:28)
--- NOTE | 2021-08-07 17:59 | PN.HOSP_ITS ---
Hospitalist Note Patient was seen and examined today, he underwent surgery on his right foot which consisted of debridement of all nonviable infected and necrotic soft tissue and bone, the right fifth toe and fifth metatarsal head was removed, there was clearance fragment of the right fifth metatarsal sent to microbiology and pathology. I have confirmed patient's detention medications. Patient will remain on IV antibiotics with podiatry participating in his care.
--- NOTE | 2021-08-07 19:11 | ART_ITS ---
Reason For Study: ULCER Procedure A bilateral lower extremity continuous wave Doppler with analog waveform analysis,segmental pressures,and ankle brachial indexes without exercise. Toe waveforms were obtained, toe pressures were not due to bandages. Left Segmental Pressures Left brachial= 160mmHg. Left posterior tibial artery = 178mmHg. Left dorsalis pedis artery = 180mmHg. The left posterior tibial artery waveforms are triphasic. The left dorsalis pedis waveforms are triphasic. Right Segmental Pressures Right brachial= 154mmHg. Right posterior tibial artery = 176mmHg. Right dorsalis pedis artery = 166mmHg. The right posterior tibial artery waveforms are triphasic. The right dorsalis pedis waveforms are triphasic. Indices The right ankle brachial index by the posterior tibial artery is 1.1. The right ankle brachial index by the dorsalis pedis is 1.04. The left ankle brachial index by the posterior tibial artery is 1.11. The left ankle brachial index by the dorsalis pedis is 1.13. VL/Lower Ext Art Exam w/o Exercis Interpretation Summary Normal bilateral extremity ankle-brachial indices and triphasic bilateral poste rior tibial and dorsalis pedis triphasic Doppler waveforms. Digital pressures not obtained secondary to bandages. Ordering Physician: Joss Dodson Referring Physician: Giana Hansen Performed By: Alyce Owusu RVT, RDCS
[2021-08-07] MEDS: busPIRone 5 MG Tablet 10 MG PO (20:54)
[2021-08-07] MEDS: Famotidine 20 MG Tablet PO (20:55)
[2021-08-07] MEDS: OXcarbazepine 300 MG Tablet PO (20:55)
[2021-08-07] MEDS: Memantine Hydrochloride 10 MG Tablet PO (20:55)
[2021-08-07] MEDS: Doxazosin 1 MG Tablet PO (20:56)
[2021-08-08 02:11] VITALS: BP 157/89; PULSE 81; RESP 18; TEMP 36.8; O2SAT 98
[2021-08-08] MEDS: Vancomycin IV 1,000 MG/200 ML BAG 200 MG IV ×2 (02:30→12:29)
[2021-08-08 02:31] LABS: Vancomycin, Trough Level 16.3 ug/mL (5.0-15.0)
--- NOTE | 2021-08-08 02:42 | PCM.RX.CS ---
Consult Pharmacy has been consulted to manage selected antiobiotic: Vancomycin Type of Consult: Follow-up Suspected Infection: Skin/Soft tissue Prior Doses of Antibiotics Received/Current Regimen: Medications Vancomycin HCl (Vancomycin) 1,000 mg in 200 mls @ 200 mls/hr IV Q8H EDUARDO Last Admin: 08/07/21 18:33 Dose: Infused Labs: Sodium 128 mmol/L (136-145) L 08/07/21 06:20 Potassium 4.1 mmol/L (3.5-5.1) 08/07/21 06:20 Chloride 95 mmol/L (98-107) L 08/07/21 06:20 Carbon Dioxide 25.0 mmol/L (21.0-32.0) 08/07/21 06:20 Anion Gap 8 (5-15) 08/07/21 06:20 BUN 9 mg/dL (7-18) 08/07/21 06:20 Creatinine 0.71 mg/dL (0.70-1.30) 08/07/21 06:20 Est GFR (MDRD) Af Amer 146 mL/min (>60) 08/07/21 06:20 Est GFR (MDRD) Non-Af 120 mL/min (>60) 08/07/21 06:20 BUN/Creatinine Ratio 12.7 RATIO (10-20) 08/07/21 06:20 Glucose 91 mg/dL (74-106) 08/07/21 06:20 Vancomycin Trough 16.3 ug/mL (5.0-15.0) H 08/08/21 01:10 Microbiology: Microbiology 08/06/21 22:06 Wound - Right Foot Gram Stain - Final 08/06/21 22:06 Wound - Right Foot Wound Culture - Preliminary Streptococcus group A Weight used for dosin.6 kg Estimated Creatinine Clearance: 120 Goal Trough: 15-20 mcg/mL Pharmacy Plan for Drug Dosing: Vancomycin trough level of 16.3 was within target range of 15-20. Will continue current dosing and re-draw a trough 08/09/21. Pharmacy Service will continue to monitor and adjust dosing as required. Follow-Up Labs: Trough Vancomycin Labs to be done on [date and time ordered]: 08/09/21 @0900
[2021-08-08] MEDS: 0.9% Normal Saline 1,000 ML 75 ML IV ×2 (06:06→18:08)
[2021-08-08 09:45] VITALS: BP 147/85; PULSE 83; RESP 18; TEMP 36.4; O2SAT 96
[2021-08-08] MEDS: busPIRone 5 MG Tablet 10 MG PO ×2 (09:48→22:05)
[2021-08-08] MEDS: Juven (unflavored) Packet 1 PACKET PO ×2 (09:48→18:00)
[2021-08-08] MEDS: Nystatin Ointment 1 APPLIC TOPICAL (09:48)
[2021-08-08] MEDS: Famotidine 20 MG Tablet PO ×2 (09:49→22:05)
[2021-08-08] MEDS: Sertraline 100 MG Tablet 75 MG PO (09:49)
[2021-08-08] MEDS: Memantine Hydrochloride 10 MG Tablet PO ×2 (09:49→22:05)
[2021-08-08] MEDS: OXcarbazepine 300 MG Tablet PO ×2 (09:49→22:05)
--- NOTE | 2021-08-08 10:28 | PCM.PROGNOTE ---
Subjective Subjective Patient was seen this morning, no overnight events. Patient resting comfortably in bed, no complaints. No fever, chills, nausea or vomiting. Objective Data Objective Data Vital Signs: Vital Signs Temp Pulse Resp BP Pulse Ox 97.5 F L 83 18 147/85 H 96 08/08/21 09:45 08/08/21 09:45 08/08/21 09:45 08/08/21 09:45 08/08/21 09:45 Oxygen Delivery Method Room Air Weight: 81.6 kg Body Mass Index (BMI) 24.3 Intake & Output: Intake and Output for Last 24 Hours 08/06/21 08/07/21 08/08/21 23:59 23:59 23:59 Intake Total 2505 / 2505 1197.5 / 1197.5 Output Total 850 / 2025 1675 / 1675 Balance 1655 / 480 -477.5 / -477.5 Lab / Micro Data Result Diagrams: 08/07/21 06:20 08/07/21 06:20 Labs: Laboratory Results - last 24 hr 08/08/21 01:10: Vancomycin Trough 16.3 H Micro: Microbiology 08/06/21 22:06 Wound - Right Foot Gram Stain - Final 08/06/21 22:06 Wound - Right Foot Wound Culture - Preliminary Streptococcus group A Radiography Diagnostic Testing: Radiology Impression Foot X-Ray 08/07/21 12:16 IMPRESSION: Surgical resection of the fifth toe and the distal end of the fifth metatarsal with associated soft tissue changes. at 0041 Reported and signed by: Mazin Dunn MD Electronically Signed: Mazin Dunn MD at 0:40 EDT Tel , Service support , Physical Exam Const alert and no apparent distress Extremity Extremity Narrative: Right foot - s/p debridement 5th toe and distal 5th ray - open ulceration - tissues healthy and viable, there is no maloder, no necrosis, no abscess, no crepitus, no purulence - ulcer down to bone - cellulitis resolved from leg and ankle - there is some residual cellulitis to the dorsal forefoot and midfoot which is resolving. No calf pain bilateral, no leg edema bilateral. No evidence of ischemia to the foot bilateral. Assessment & Plan Assessment/Plan (1) Foot infection: (2) Alcoholic peripheral neuropathy: PLAN: Evaluation performed. Reviewed diagnostic data. Right foot significantly improved. Changed dressing - cleansed with normal saline soln, applied betadine soln, gauze, kerlix, and kashmir bandage - keep clean, dry and intact - change daily. Keep heels offloaded. The patient is on IV antibiotics, Vancomycin and Zosyn, Medically patient is also managed by the hospitalist medical team. No weightbearing right foot. Keep heels offloaded while in bed. LEAS ordered for further evaluation of arterial flow to feet. Patient to go back to nursing facility upon discharge. Podiatry will continue to follow. (3) Cellulitis of right lower limb:
[2021-08-08 11:20] LABS: Absolute Lymphocyte Count 0.27 X10^3/uL (0.83-4.51); Absolute Neutrophil Count 2.8 X10^3/uL (2.0-7.7); Basophil# 0.01 X10^3/uL; Basophil% 0.3 % (0-1); Eosinophils% 2.7 % (0-5); Hemoglobin 11.7 g/dL (13.0-16.5); Lymphocyte # 0.27 X10^3/ul (0.83-4.51); Lymphocyte % 7.4 % (19-41); Mean Corp Hgb Conc 34.4 g/dL (32-36); Mean Corpuscular Hgb 28.7 pg (27.0-32.0); Mean Corpuscular Volume 83.3 fL (80-94); Mean Platelet Vol. 9.4 fl (6.2-12.0); Monocyte# 0.47 X10^3/uL; Monocyte% 12.9 % (0-10); NRBC Flagged by Analyzer 0 % (0-5); Neutrophil # 2.77 X10^3/uL (2.7-7.7); Neutrophil % 75.9 % (47-70); POSITIVE DIFFERENTIAL YES; Platelet Count 177 K/mm3 (150-450); RBC Distribution Width CV 12.9 % (11.6-14.6); RBC Distribution Width SD 39.2 fl (35.1-43.9); Red Blood Count 4.08 M/mm3 (4.6-6.2); White Blood Count 3.7 K/mm3 (4.4-11.0)
[2021-08-08 11:24] LABS: Differential Indicated SCAN CRITERIA MET
[2021-08-08 11:34] LABS: Anion Gap 6 (5-15); BUN 10 mg/dL (7-18); BUN/Creat Ratio 11.8 RATIO (10-20); Calcium,Total 8.7 mg/dL (8.5-10.1); Chloride 100 mmol/L (98-107); Creatinine, Serum 0.85 mg/dL (0.70-1.30); EST Glomerular Filtration Rate 98 mL/min (>60); Est Glom Filt Rate - Afr Amer 118 mL/min (>60); Estimated Creatinine Clearance 100.17 ml/min; Glucose 98 mg/dL (74-106); Potassium 4.6 mmol/L (3.5-5.1); Sodium Level 132 mmol/L (136-145)
[2021-08-08 14:42] VITALS: O2SAT 96
--- NOTE | 2021-08-08 15:24 | PN.HOSP_ITS ---
Subjective Subjective Patient was seen and examined today, he states that his right foot is not bothering him today. Patient does not complain of any fevers or chills. Objective Data Objective Data Vital Signs: Vital Signs Temp Pulse Resp BP Pulse Ox 97.5 F L 83 18 147/85 H 96 08/08/21 09:45 08/08/21 09:45 08/08/21 09:45 08/08/21 09:45 08/08/21 14:42 Oxygen Delivery Method Room Air Weight: 81.6 kg Body Mass Index (BMI) 24.3 Intake & Output: Intake and Output for Last 24 Hours 08/06/21 08/07/21 08/08/21 23:59 23:59 23:59 Intake Total 2505 / 2505 2067.5 / 2067.5 Output Total 850 / 2025 2825 / 2825 Balance 1655 / 480 -757.5 / -757.5 Lab / Micro Data Result Diagrams: 08/08/21 11:08 08/08/21 11:08 Labs: Laboratory Results - last 24 hr 08/08/21 01:10: Vancomycin Trough 16.3 H 08/08/21 11:08: WBC 3.7 L, RBC 4.08 L, Hgb 11.7 L, Hct 34.0 L, MCV 83.3, MCH 28.7, MCHC 34.4, RDW Std Deviation 39.2, RDW Coeff of Puneet 12.9, Plt Count 177, MPV 9.4, Immature Gran % (Auto) 0.800, Neut % (Auto) 75.9 H, Lymph % (Auto) 7.4 L, [place] % (Auto) 12.9 H, Eos % (Auto) 2.7, Baso % (Auto) 0.3, Absolute Neuts (auto) 2.8, Absolute Lymphs (auto) 0.27 L, Nucleated RBC % 0, Diff Path Review February08/08/21 11:08: Sodium 132 L, Potassium 4.6, Chloride 100, Carbon Dioxide 26.0, Anion Gap 6, BUN 10, Creatinine 0.85, Estim Creat Clear Calc 100.17, Est GFR (MDRD) Af Amer 118, Est GFR (MDRD) Non-Af 98, BUN/Creatinine Ratio 11.8, Glucose 98, Calcium 8.7 Micro: Microbiology 08/07/21 12:00 Wound - Right Foot Gram Stain - Final 08/07/21 12:00 Wound - Right Foot Wound Culture - Preliminary Streptococcus group A 08/07/21 12:00 Bone - Right Foot Gram Stain - Final 08/07/21 12:00 Bone - Right Foot Wound Culture - Preliminary No growth-Final to follow 08/06/21 22:06 Wound - Right Foot Gram Stain - Final 08/06/21 22:06 Wound - Right Foot Wound Culture - Final Streptococcus group A Radiography Diagnostic Testing: Radiology Impression Foot X-Ray 08/07/21 12:16 IMPRESSION: Surgical resection of the fifth toe and the distal end of the fifth metatarsal with associated soft tissue changes. at 0041 Reported and signed by: Mazin Dunn MD Electronically Signed: Mazin Dunn MD at 0:40 EDT Tel , Service support , Physical Exam Const alert, no apparent distress and average body habitus HEENT head/scalp atraumatic and moist oral mucous membranes Head and Scalp: normocephalic Eyes PERRL, EOMs intact bilaterally and conjunctivae normal Neck supple and no JVD Resp normal respiratory effort, no retractions, no use of accessory muscles and clear to auscultation bilaterally Cardio regular rate, regular rhythm, S1 normal heart sound, S2 normal heart sound, no gallops and no clicks GI normal to inspection, nondistended, normoactive bowel sounds, soft to palpation and non-tender Extremity Extremity Narrative: Patient's right foot is wrapped with surgical dressing, this was not removed for inspection of area Skin no rashes or lesions noted Neuro CN's II-XII intact bilaterally and no sensory deficits noted Sensorium / Orientation: awake and alert Psych Psych Narrative: Patient has flat affect and is confused Assessment & Plan Assessment/Plan (1) HTN (hypertension): QUALIFIERS: Hypertension type: essential hypertension Qualified Code(s): I10 - Essential (primary) hypertension (2) Foot infection: (3) Hyponatremia: PLAN: 1. Deep infection of the right foot secondary to peripheral neuropathy from alcoholism-patient's final culture from 08/07/2021 grew out Stre ptococcus group A, I will change his antibiotic coverage to Unasyn and drop the vancomycin and Zosyn. I will let podiatry know about this. 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
[2021-08-08 16:00] VITALS: BP 149/80; PULSE 80; RESP 18; TEMP 36.6; O2SAT 97
[2021-08-08 21:56] VITALS: BP 165/96; PULSE 86; RESP 18; TEMP 36.7; O2SAT 100
[2021-08-08] MEDS: Doxazosin 1 MG Tablet PO (22:05)
[2021-08-09 05:04] VITALS: BP 146/77; PULSE 65; RESP 18; TEMP 36.6; O2SAT 95
[2021-08-09] MEDS: 0.9% Normal Saline 1,000 ML 75 ML IV ×2 (05:04→20:35)
--- NOTE | 2021-08-09 05:23 | NURSING ---
this RN went into pts room to get vitals. urinal was full and emptied at this time. this RN noticed that bedsheets were wet from head to toe. this RN stated, your bed looks wet, let me change it for you. pt yelled and said its fine! This RN asked, are you sure? they are wet. pt angry with flat affect and repeated again, I AM FINE!. pt refuses to have sheets changed at this time.
[2021-08-09] MEDS: Nystatin Ointment 1 APPLIC TOPICAL (08:33)
[2021-08-09] MEDS: Juven (unflavored) Packet 1 PACKET PO ×2 (08:33→17:58)
[2021-08-09 09:11] VITALS: BP 150/84; PULSE 75; RESP 18; TEMP 36.3; O2SAT 98
[2021-08-09] MEDS: OXcarbazepine 300 MG Tablet PO ×2 (10:47→20:46)
[2021-08-09] MEDS: Famotidine 20 MG Tablet PO ×2 (10:47→20:45)
[2021-08-09] MEDS: Sertraline 100 MG Tablet 75 MG PO (10:47)
[2021-08-09] MEDS: busPIRone 5 MG Tablet 10 MG PO ×2 (10:48→20:46)
[2021-08-09] MEDS: Memantine Hydrochloride 10 MG Tablet PO ×2 (10:48→20:45)
--- NOTE | 2021-08-09 12:44 | CASEMGMT ---
Social Work Note SW placed a call to Deanna in admissions at [facility] and left message regarding pt. ALYSSA received call from Deanna stating pt is able to return to [facility] when pt is medically cleared. ALYSSA faxed updated clinicals to [facility]. Plan: Return to [facility] when medically cleared Chantel Barroso HEAD ORTHOPEDIC TEAM PHYSICIAN, INGREDIENT SPECIALIST
--- NOTE | 2021-08-09 13:33 | PN.HOSP_ITS ---
Subjective Subjective Patient seen and examined. He feels well and has no complaints. Pain is well controlled. Review of systems is otherwise negative. He has remained hemodynamically stable. Objective Data Objective Data Vital Signs: Vital Signs Temp Pulse Resp BP Pulse Ox 97.3 F L 75 18 150/84 H 98 08/09/21 09:11 08/09/21 09:11 08/09/21 09:11 08/09/21 09:11 08/09/21 09:11 Oxygen Delivery Method Room Air Weight: 179 lb 14.355 oz Body Mass Index (BMI) 24.3 Intake & Output: Intake and Output for Last 24 Hours 08/07/21 08/08/21 08/09/21 23:59 23:59 23:59 Intake Total 2505 / 2505 3132.0 / 3132.0 1344 / 1344 Output Total 850 / 2025 2825 / 2825 1250 / 1250 Balance 1655 / 480 307.0 / 307.0 94 / 94 Lab / Micro Data Result Diagrams: 08/08/21 11:08 08/08/21 11:08 Micro: Microbiology 08/07/21 12:00 Bone - Right Foot Gram Stain - Final 08/07/21 12:00 Bone - Right Foot Wound Culture - Preliminary Streptococcus group A 08/07/21 12:00 Bone - Right Foot Anaerobic Culture - Preliminary No growth in 48 hours. 08/07/21 12:00 Wound - Right Foot Gram Stain - Final 08/07/21 12:00 Wound - Right Foot Wound Culture - Final Streptococcus group A 08/07/21 12:00 Wound - Right Foot Anaerobic Culture - Preliminary Checking for anaerobes, further studies to follow. 08/06/21 22:06 Wound - Right Foot Gram Stain - Final 08/06/21 22:06 Wound - Right Foot Wound Culture - Final Streptococcus group A Physical Exam Const alert, oriented x3 and no apparent distress Exam Limitations: no limitations HEENT head/scalp atraumatic and moist oral mucous membranes Head and Scalp: normocephalic Eyes PERRL, EOMs intact bilaterally and conjunctivae normal Neck no lymphadenopathy Resp normal respiratory effort, no retractions, no use of accessory muscles and clear to auscultation bilaterally Cardio regular rate, regular rhythm, S1 normal heart sound, S2 normal heart sound and no murmurs GI normal to inspection, nondistended, normoactive bowel sounds, soft to palpation, non-tender and non-distended Extremity Extremity Narrative: right foot bandaged. Peripheral Pulses: Yes pulses 2+ throughout and brachial pulses present Skin no rashes or lesions noted Neuro oriented x3, CN's II-XII intact bilaterally and moves all extremities Sensorium / Orientation: awake and alert Psych affect normal Assessment & Plan Assessment/Plan (1) Foot infection: (2) Cellulitis of right lower limb: PLAN: #Right foot infection * due to peripheral neuropathy * wound cultures growing Staph grouop A. * on IV unasyn * podiatry on board. * s/p amputation of the right toe and debriement of the right foot per podiatry. * #Dementia due to alcohol use disorder: stable. On memantine. #Hypertension: #Hyperlipidemia: on statin #COPD: on breathing treatment with bronchodilators. #History of squamous cell carcinoma of the head and neck * stable. to follow up with oncology on outpatient basis. * DVT prophylaxis: will start lovenox Charges/Coding Visit Charges Inpatient E&M: 77657 Subs Hosp L2
--- NOTE | 2021-08-09 15:37 | WOUNDNOTE ---
wound photo: right foot
[2021-08-09 15:51] LABS: Pathologist Review Reviewed
[2021-08-09 15:52] VITALS: BP 155/80; PULSE 74; RESP 18; TEMP 36.6; O2SAT 97
[2021-08-09 17:00] VITALS: RESP 18
[2021-08-09 17:02] VITALS: O2SAT 97
--- NOTE | 2021-08-09 18:55 | PN_ITS ---
Subjective Subjective Patient was seen this afternoon for follow up on right foot, he denies any pain. He is resting comfortably in bed, no complaints. No complaints of fever, chills, nausea or vomiting. Objective Data Objective Data Vital Signs: Vital Signs Temp Pulse Resp BP Pulse Ox 97.8 F 74 18 155/80 H 97 08/09/21 15:52 08/09/21 15:52 08/09/21 17:00 08/09/21 15:52 08/09/21 17:02 Oxygen Delivery Method Room Air Weight: 81.6 kg Body Mass Index (BMI) 24.3 Intake & Output: Intake and Output for Last 24 Hours 08/07/21 08/08/21 08/09/21 23:59 23:59 23:59 Intake Total 2505 / 2505 3132.0 / 3132.0 1456 / 1456 Output Total 850 / 2025 2825 / 2825 1250 / 1250 Balance 1655 / 480 307.0 / 307.0 206 / 206 Lab / Micro Data Result Diagrams: 08/08/21 11:08 08/08/21 11:08 Labs: Laboratory Results - last 24 hr 08/08/21 11:08: Diff Path Review Reviewed Micro: Microbiology 08/07/21 12:00 Bone - Right Foot Gram Stain - Final 08/07/21 12:00 Bone - Right Foot Wound Culture - Preliminary Streptococcus group A 08/07/21 12:00 Bone - Right Foot Anaerobic Culture - Preliminary No growth in 48 hours. 08/07/21 12:00 Wound - Right Foot Gram Stain - Final 08/07/21 12:00 Wound - Right Foot Wound Culture - Final Streptococcus group A 08/07/21 12:00 Wound - Right Foot Anaerobic Culture - Preliminary Checking for anaerobes, further studies to follow. 08/06/21 22:06 Wound - Right Foot Gram Stain - Final 08/06/21 22:06 Wound - Right Foot Wound Culture - Final Streptococcus group A Radiography Diagnostic Testing: Radiology Impression Extremity Arterial Study 08/07/21 19:11 Interpretation Summary Normal bilateral extremity ankle-brachial indices and triphasic bilateral posterior tibial and dorsalis pedis triphasic Doppler waveforms. Digital pressures not obtained secondary to bandages. Ordering Physician: Joss Dodson Referring Physician: Giana Hansen Performed By: Alyce Owusu RVT, RDCS Physical Exam Const alert and no apparent distress Extremity Extremity Narrative: Right foot - s/p debridement 5th toe and distal 5th ray - open ulceration - tissues healthy and viable, there is no maloder, no necrosis, no abscess, no crepitus, no purulence - ulcer down to bone - cellulitis resolved from leg and ankle and significantly resolved from the foot. No calf pain bilateral, no leg edema bilateral. No evidence of ischemia to the foot bila teral. Assessment & Plan Assessment/Plan (1) Foot infection: (2) Alcoholic peripheral neuropathy: PLAN: Evaluation performed. Reviewed diagnostic data. Right foot significantly improved. Continue with daily dressing changes. Keep heels offloaded. Reviewed LEAS - good arterial flow to feet noted. Reviewed culture results - growing strep group A. The patient is on IV antibiotics, Unsasyn, ID consult will be placed. Medically patient is also managed by the hospitalist medical team. No weightbearing right foot. Keep heels offloaded while in bed. Patient to go back to nursing facility upon discharge. Podiatry will continue to follow. (3) Cellulitis of right lower limb:
[2021-08-09 20:42] VITALS: BP 159/98; PULSE 85; RESP 16; TEMP 36.6; O2SAT 100
[2021-08-09] MEDS: Doxazosin 1 MG Tablet PO (20:46)
[2021-08-10 02:36] VITALS: BP 179/87; PULSE 86; RESP 15; TEMP 36.4; O2SAT 99
[2021-08-10 03:33] VITALS: PULSE 87
[2021-08-10] MEDS: hydrALAZINE 20 MG/ML Vial IV (03:33)
[2021-08-10 05:32] VITALS: BP 157/86
[2021-08-10 06:26] LABS: Absolute Lymphocyte Count 0.34 X10^3/uL (0.83-4.51); Absolute Neutrophil Count 2.9 X10^3/uL (2.0-7.7); Basophil# 0.02 X10^3/uL; Basophil% 0.5 % (0-1); Eosinophil# 0.11 X10^3/uL; Eosinophils% 2.8 % (0-5); Hematocrit 31.9 % (40-54); Hemoglobin 11.3 g/dL (13.0-16.5); Lymphocyte # 0.34 X10^3/ul (0.83-4.51); Lymphocyte % 8.6 % (19-41); Mean Corp Hgb Conc 35.4 g/dL (32-36); Mean Platelet Vol. 9.3 fl (6.2-12.0); Monocyte# 0.53 X10^3/uL; Monocyte% 13.5 % (0-10); NRBC Flagged by Analyzer 0 % (0-5); Neutrophil # 2.92 X10^3/uL (2.7-7.7); Neutrophil % 74.1 % (47-70); POSITIVE DIFFERENTIAL YES; Platelet Count 196 K/mm3 (150-450); RBC Distribution Width CV 12.8 % (11.6-14.6); RBC Distribution Width SD 38.5 fl (35.1-43.9); Red Blood Count 3.89 M/mm3 (4.6-6.2); White Blood Count 3.9 K/mm3 (4.4-11.0)
[2021-08-10 06:28] LABS: Differential Indicated SCAN CRITERIA MET
[2021-08-10 06:57] LABS: Anion Gap 9 (5-15); BUN 11 mg/dL (7-18); BUN/Creat Ratio 14.6 RATIO (10-20); Calcium,Total 8.5 mg/dL (8.5-10.1); Chloride 98 mmol/L (98-107); Creatinine, Serum 0.75 mg/dL (0.70-1.30); EST Glomerular Filtration Rate 112 mL/min (>60); Est Glom Filt Rate - Afr Amer 136 mL/min (>60); Estimated Creatinine Clearance 113.53 ml/min; Glucose 105 mg/dL (74-106); Potassium 3.4 mmol/L (3.5-5.1); Sodium Level 129 mmol/L (136-145)
--- NOTE | 2021-08-10 07:16 | PCM.DC ---
Discharge Instructions Activity Weight Bearing Status: No weight bearing (No weightbearing right foot, but ok to put weight on right heel only for transitions if needed, no weight on forefoot/toes right foot) Keep extremity elevated above heart level: Right Leg (Keep right foot elevated as much as possible with heels offloaded with pillows) Dressing / Incision Call your doctor if your incision/area has: Continuous Slow Oozing, Sudden Increased Bleeding and Foul Smelling Discharge Call your doctor if you observe: Fever of 101 or Higher, Calf discomfort and Uncontrolled pain Change Dressing in: 1 day (Right foot wound: Cleanse with normal saline solution, pack open site with 1/4in gauze packing, apply overlying gauze, kerlix and kashmir bandage - change daily.) Follow Up Care Please Follow Up With: Joss Dodson DPM When: in 1 week, sooner if needed at [facility]. Office number is [phone] Test Results: Test results from this visit will be discussed in further detail at your follow-up appointment, if applicable. Discharge Plan Admission Admit Date/Time: 08/07/21 01:52 Primary Reason for Your Visit: right foot infection Attending Provider: Livia Aguiar Primary Care Provider: Giana Hansen Consulting Providers: Joss Dodson ; Yonis Hardy Discharge Orders/Prescriptions Prescriptions: New ceftriaxone 2 gram recon soln 2 g IV DAILY 40 Days Qty: 40 RF: 0 Continued aluminum-magnesium hydroxide 225 mg-200 mg/5 mL oral suspension 225-200 mg/5 mL suspension 5 ml PO Q4H PRN (Reason: gi distress) RF: 0 polyethylene glycol 3350 [Miralax] 17 gram/dose powder 17 g PO PRN PRN (Reason: Constipation) RF: 0 sodium chloride 1 gram tablet 1,000 mg PO BID RF: 0 Biotene Dry Mouth Oral Rinse Mouthwash 15 ml mucous membrane BID-QID PRN (Reason: Dry Mouth) RF: 0 buspirone 10 mg tablet 10 mg PO BID RF: 0 guaifenesin 100 mg/5 mL liquid 200 mg PO Q4H PRN (Reason: COUGH, CONGESTION) RF: 0 Throat Lozenges Lozenge 1 kena mucous membrane Q2H PRN (Reason: Sore Throat) RF: 0 Magic Mouth Wash 15 ml PO ACHS PRN (Reason: ORAL/CANCER PAIN) RF: 0 oxcarbazepine 300 MG tablet 300 mg PO BID RF: 0 lorazepam 1 mg tablet 1 mg PO Q12H PRN (Reason: Anxiety) RF: 0 doxazosin 1 MG tablet 1 mg PO QHS RF: 0 famotidine 20 MG tablet 20 mg PO BID RF: 0 memantine 10 MG tablet 10 mg PO BID RF: 0 ondansetron HCl 8 MG tablet 8 mg PO Q8H PRN PRN (Reason: NAUSEA) RF: 0 sertraline 100 MG tablet 75 mg PO DAILY RF: 0 pilocarpine HCl 5 mg Tablet 5 mg PO TID RF: 0 acetaminophen 650 mg Tablet 650 mg PO Q4H PRN (Reason: pain/fever) RF: 0 acetaminophen 650 mg Suppository 650 mg AK Q4H PRN (Reason: pain/fever) RF: 0 Referrals / Follow Up: Giana Hansen MD [Primary Care Provider] - Within 2 Weeks Disposition Disposition (needs filled in before D/C Order can be placed): [facility]
[2021-08-10] MEDS: Potassium Chloride Oral Tablet 20 MEQ 40 MEQ PO (08:10)
[2021-08-10] MEDS: Juven (unflavored) Packet 1 PACKET PO (08:11)
[2021-08-10 09:00] VITALS: BP 151/96; PULSE 80; RESP 16; TEMP 36.3; O2SAT 99
--- NOTE | 2021-08-10 10:02 | CASEMGMT ---
Social Work Note Pt has PICC line ordered and will be on IV antibiotics. SW placed a call to [facility] and updated Dameeko. SW faxed IV antibiotic script to [facility]. Plan: Return to [facility] skilled when medically cleared Chantel Barroso MSW, TAPE KELLER OPERATOR
--- NOTE | 2021-08-10 10:07 | PCM.CONS.GEN ---
Assessment & Plan Assessment/Plan (1) Foot osteomyelitis, right: PLAN: GAS R foot osteo - now s/p OR 08/07/[address] Dodson for toe amputation and distal 5th ray resection. Clearance cx also with GAS. Will order picc and 6 weeks ceftriaxone, stop date 09/18/21. ID followup in 3 weeks. Thank you, will follow, wrote rx, d/w block and case maker (2) Alcoholic peripheral neuropathy: HPI Consult Data Date of Consult: 08/10/21 HPI Narrative HPI Narrative: LISSA ZIEGLER, is a 61 M REPLACED BY [facility] resident due to etoh dementia, presented 08/07 with R foot redness, swelling, drainage. He does not recall what happened. Denies any symptoms. Thinks he had covid shots. Taken to OR 08/[address] Dodson for toe amputation, distal 5th ray resection. On unasyn. Full ROS performed and neg except as noted above. [facility] Medical History Alcohol dependence with alcohol-induced persisting dementia Anxiety Benign prostatic hyperplasia without lower urinary tract symptoms Cancer Chronic obstructive pulmonary disease, unspecified Essential (primary) hypertension Impulse disorder, unspecified Major depressive disorder, recurrent, mild Mass of lateral neck Medical History unable to obtain Home Medications Magic Mouth Wash 15 ml PO ACHS PRN 06/03/20 [History Last Taken 06/03/20 15 ml] aluminum-magnesium hydroxide 225 mg-200 mg/5 mL oral suspension 5 ml PO Q4H PRN 06/30/20 [History Last Taken Unknown] oxcarbazepine 300 mg PO BID 06/30/20 [History Last Taken Unknown] polyethylene glycol 3350 17 gram/dose oral powder 17 g PO PRN PRN 06/30/20 [History Last Taken Unknown] sodium chloride 1 gram tablet 1,000 mg PO BID tab 04/14/21 [History Last Taken Unknown] buspirone 10 mg tablet 10 mg PO BID 06/24/21 [History Last Taken Unknown] guaifenesin 100 mg/5 mL oral liquid 200 mg PO Q4H PRN 06/24/21 [History Last Taken Unknown] lorazepam 1 mg tablet 1 mg PO Q12H PRN tab 06/24/21 [History Last Taken Unknown] menthol-sorbitol lozenges 1 kena MUCOUS MEMBRANE Q2H PRN 06/24/21 [History Last Taken Unknown] saliva substitute combo no.9 15 ml MUCOUS MEMBRANE BID-QID PRN 06/24/21 [History Last Taken Unknown] acetaminophen 650 mg PO Q4H PRN 08/07/21 [History Last Taken Unknown] acetaminophen 650 mg [place] Q4H PRN 08/07/21 [History Last Taken Unknown] doxazosin 1 mg PO QHS 08/07/21 [History Last Taken Unknown] famotidine 20 mg PO BID 08/07/21 [History Last Taken Unknown] memantine 10 mg PO BID 08/07/21 [History Last Taken Unknown] ondansetron HCl 8 mg PO Q8H PRN PRN 08/07/21 [History Last Taken Unknown] pilocarpine HCl 5 mg PO TID 08/07/21 [History Last Taken Unknown] sertraline 75 mg PO DAILY 08/07/21 [History Last Taken Unknown] ceftriaxone 2 g IV DAILY 40 Days #40 ea 08/10/21 [Rx Last Taken Unknown] Allergy/AdvReac Type Severity Reaction Status Date / Time No Known Allergies Allergy Verified 08/06/21 21:32 Family History Mother History of heart artery stent Pacemaker Hypertension Father Heart problem Grandmother Hypertension Sister Melanoma of thigh Surgical History history of neck biopsy (~02/2020) Hx of knee surgery Social History Smoking Status: Former smoker Physical Exam Const alert and no apparent distress Constitutional Narrative: oriented x2 General Appearance: cooperative HEENT normocephalic and head/scalp atraumatic Eyes PERRL and EOMs intact bilaterally Neck supple and No nodes Resp normal air movement and clear to auscultation bilaterally Cardio regular rate and regular rhythm GI normal to inspection, nondistended, normoactive bowel sounds Extremity no clubbing, cyanosis or edema Skin Skin Narrative: reviewed photo R foot Neuro CN's II-XII intact bilaterally Lab / Micro Data Result Diagrams: 08/10/21 05:36 08/10/21 05:36 Labs: Laboratory Results - last 24 hr 08/08/21 11:08: Diff Path Review Reviewed 08/10/21 05:36: WBC 3.9 L, RBC 3.89 L, Hgb 11.3 L, Hct 31.9 L, MCV 82.0, MCH 29.0, MCHC 35.4, RDW Std Deviation 38.5, RDW Coeff of Puneet 12.8, Plt Count 196, MPV 9.3, Immature Gran % (Auto) 0.500, Neut % (Auto) 74.1 H, Lymph % (Auto) 8.6 L, [place] % (Auto) 13.5 H, Eos % (Auto) 2.8, Baso % (Auto) 0.5, Absolute Neuts (auto) 2.9, Absolute Lymphs (auto) 0.34 L, Nucleated RBC % 0, Diff Path Review February08/10/21 05:36: Sodium 129 L, Potassium 3.4 L, Chloride 98, Carbon Dioxide 22.0, Anion Gap 9, BUN 11, Creatinine 0.75, Estim Creat Clear Calc 113.53, Est GFR (MDRD) Af Amer 136, Est GFR (MDRD) Non-Af 112, BUN/Creatinine Ratio 14.6, Glucose 105, Calcium 8.5 Micro: Microbiology 08/07/21 12:00 Bone - Right Foot Gram Stain - Final 08/07/21 12:00 Bone - Right Foot Wound Culture - Final Streptococcus group A 08/07/21 12:00 Bone - Right Foot Anaerobic Culture - Preliminary No growth in 48 hours. 08/07/21 12:00 Wound - Right Foot Gram Stain - Final 08/07/21 12:00 Wound - Right Foot Wound Culture - Final Streptococcus group A 08/07/21 12:00 Wound - Right Foot Anaerobic Culture - Preliminary Checking for anaerobes, further studies to follow. Radiology Impression Extremity Arterial Study 08/07/21 19:11 Interpretation Summary Normal bilateral extremity ankle-brachial indices and triphasic bilateral posterior tibial and dorsalis pedis triphasic Doppler waveforms. Digital pressures not obtained secondary to bandages. Ordering Physician: Joss Dodson Referring Physician: Giana Hansen Performed By: Alyce Owusu RVT, [facility]
[2021-08-10] MEDS: Enoxaparin 40 MG/0.4 ML Syringe SC (10:19)
[2021-08-10] MEDS: busPIRone 5 MG Tablet 10 MG PO (10:20)
[2021-08-10] MEDS: OXcarbazepine 300 MG Tablet PO (10:20)
[2021-08-10] MEDS: Nystatin Ointment 1 APPLIC TOPICAL (10:20)
[2021-08-10] MEDS: Memantine Hydrochloride 10 MG Tablet PO (10:20)
[2021-08-10] MEDS: Sertraline 100 MG Tablet 75 MG PO (10:20)
[2021-08-10] MEDS: Famotidine 20 MG Tablet PO (10:20)
--- NOTE | 2021-08-10 11:51 | DS.PCM_ITS ---
Providers Date of Admission: 08/07/21 Primary Care Physician: Dr. Giana Hansen MD Consultations 08/07/21 02:29 Consult: Podiatry Routine Consulting Provider: Joss Dodson Reason for Consult: Foot infection; Fifth MTP joint dislocation EMERGENT Consult: No Notified: Yes Date Notified: 08/07/21 Time Notified: 02:01 Method of Notification: Verbal 08/09/21 14:50 Consult: Onc/Wound/skate hop Routine Comment: Reason for Consult:: s/p 5th toe amputation 08/10/21 07:14 Consult: Infectious Disease Routine Consulting Provider: Yonis Hardy Reason for Consult: osteomyelitis right foot EMERGENT Consult: No Notified: Yes Date Notified: 08/09/21 Time Notified: 19:10 Method of Notification: Text Reason For Visit: ACUTE FOOT INFECTION Diagnosis Discharge Diagnosis (1) Foot osteomyelitis, right: Status: Acute Code(s): M86.9 - Osteomyelitis, unspecified (2) Alcoholic peripheral neuropathy: Status: Acute Code(s): G62.1 - Alcoholic polyneuropathy Medications at Discharge Home Medications Magic Mouth Wash 15 ml PO ACHS PRN 06/03/20 aluminum-magnesium hydroxide 225 mg-200 mg/5 mL oral suspension 5 ml PO Q4H PRN 06/30/20 oxcarbazepine 300 mg PO BID 06/30/20 polyethylene glycol 3350 17 gram/dose oral powder 17 g PO PRN PRN 06/30/20 sodium chloride 1 gram tablet 1,000 mg PO BID tab 04/14/21 buspirone 10 mg tablet 10 mg PO BID 06/24/21 guaifenesin 100 mg/5 mL oral liquid 200 mg PO Q4H PRN 06/24/21 lorazepam 1 mg tablet 1 mg PO Q12H PRN tab 06/24/21 menthol-sorbitol lozenges 1 kena MUCOUS MEMBRANE Q2H PRN 06/24/21 saliva substitute combo no.9 15 ml MUCOUS MEMBRANE BID-QID PRN 06/24/21 acetaminophen 650 mg PO Q4H PRN 08/07/21 acetaminophen 650 mg [place] Q4H PRN 08/07/21 doxazosin 1 mg PO QHS 08/07/21 famotidine 20 mg PO BID 08/07/21 memantine 10 mg PO BID 08/07/21 ondansetron HCl 8 mg PO Q8H PRN PRN 08/07/21 pilocarpine HCl 5 mg PO TID 08/07/21 sertraline 75 mg PO DAILY 08/07/21 ceftriaxone 2 g IV DAILY 40 Days #40 ea 08/10/21 Hospital Course Operations - (debridement of right foot soft tissue and bone) Procedures None Summary of Care Provided Minutes Spent on Discharge: 50 Hospital Course: Patient is a 61-year-old male with a past medical history includes hypertension and bipolar disorder who was admitted through the ED on 08/07/2021 with swelling and redness of his right foot and did not know when his symptoms started. He was admitted from his shelter. Patient could not give any further history about this. Right foot x-ray showed significant soft tissue swelling of the fifth toe with a plantar wound identified as well as a small foci of air possibly in the joint space and dislocation at the fifth MTP joint with septic joint not being excluded. He was admitted and managed for right foot infection with dislocation of the fifth MTP joint and started on IV vancomycin and Zosyn. Podiatry was consulted. He had debridement of all nonviable, infected and necrotic soft tissue and bone of the right foot by podiatry. Wound cultures grew staph group A and antibiotics were transitioned to IV Unasyn. ID was consulted to help with antibiotic recommendations. Wound cultures also grew group A strep. The PICC line was ordered and patient was p laced on IV ceftriaxone for 6 weeks with a stop date of 09/18/2021. He was follow-up with ID in 3 weeks and also to follow-up with podiatry and his primary care doctor. He remained stable and was discharged to his SNF on 08/10/2021. He is to follow-up with his primary care doctor in 1 to 2 weeks. Patient seen and examined prior to discharge. He felt well and had no complaints. Review of stents otherwise negative. Labs and vitals reviewed. Home medication reviewed and reconciled. Physical Exam Const alert, oriented x3, no apparent distress and average body habitus General Appearance: cooperative, comfortable and well kempt Orientation / Consciousness: awake Exam Limitations: no limitations HEENT normocephalic, head/scalp atraumatic and moist oral mucous membranes Eyes PERRL, EOMs intact bilaterally and conjunctivae normal Neck no lymphadenopathy, supple and no JVD Resp normal respiratory effort, no retractions, no use of accessory muscles and clear to auscultation bilaterally Cardio regular rate, regular rhythm, S1 normal heart sound, S2 normal heart sound, no murmurs, no gallops and no clicks GI normal to inspection, nondistended, normoactive bowel sounds, soft to palpation, non-tender and non-distended Extremity Extremity Narrative: right foot bandaged. Skin no rashes or lesions noted Neuro oriented x3, CN's II-XII intact bilaterally, moves all extremities and no sensory deficits noted Sensorium / Orientation: awake and alert Psych affect normal Weight / BMI Weight Weight: 179 lb 14.355 oz Body Mass Index (BMI) 24.3 ABG / Lab / Microbiology Data Result Diagrams: 08/10/21 05:36 08/10/21 05:36 Laboratory: Laboratory Results - last 24 hr 08/08/21 11:08: Diff Path Review Reviewed 08/10/21 05:36: WBC 3.9 L, RBC 3.89 L, Hgb 11.3 L, Hct 31.9 L, MCV 82.0, MCH 29.0, MCHC 35.4, RDW Std Deviation 38.5, RDW Coeff of Puneet 12.8, Plt Count 196, MPV 9.3, Immature Gran % (Auto) 0.500, Neut % (Auto) 74.1 H, Lymph % (Auto) 8.6 L, [place] % (Auto) 13.5 H, Eos % (Auto) 2.8, Baso % (Auto) 0.5, Absolute Neuts (auto) 2.9, Absolute Lymphs (auto) 0.34 L, Nucleated RBC % 0, Diff Path Review May 08/10/21 05:36: Sodium 129 L, Potassium 3.4 L, Chloride 98, Carbon Dioxide 22.0, Anion Gap 9, BUN 11, Creatinine 0.75, Estim Creat Clear Calc 113.53, Est GFR (MDRD) Af Amer 136, Est GFR (MDRD) Non-Af 112, BUN/Creatinine Ratio 14.6, Glucose 105, Calcium 8.5 Microbiology: Microbiology 08/07/21 12:00 Bone - Right Foot Gram Stain - Final 08/07/21 12:00 Bone - Right Foot Wound Culture - Final Streptococcus group A 08/07/21 12:00 Bone - Right Foot Anaerobic Culture - Preliminary No growth in 48 hours. 08/07/21 12:00 Wound - Right Foot Gram Stain - Final 08/07/21 12:00 Wound - Right Foot Wound Culture - Final Streptococcus group A 08/07/21 12:00 Wound - Right Foot Anaerobic Culture - Preliminary Checking for anaerobes, further studies to follow. 08/06/21 22:06 Wound - Right Foot Gram Stain - Final 08/06/21 22:06 Wound - Right Foot Wound Culture - Final Streptococcus group A Radiography Diagnostic Testing: Radiology Impression Extremity Arterial Study 08/07/21 19:11 Interpretation Summary Normal bilateral extremity ankle-brachial indices and triphasic bilateral posterior tibial and dorsalis pedis triphasic Doppler waveforms. Digital pressures not obtained secondary to bandages. Ordering Physician: Joss Dodson Referring Physician: Giana Hansen Performed By: Alyce Owusu RVT, [facility] D/C Instructions Weight Bearing Status: No weight bearing (No weightbearing right foot, but ok to put weight on right heel only for transitions if needed, no weight on forefoot/toes right foot) Keep extremity elevated above heart level: Right Leg (Keep right foot elevated as much as possible with heels offloaded with pillows) Call your doctor if your incision/area has: Continuous Slow Oozing, Sudden Increased Bleeding and Foul Smelling Discharge Call your doctor if you observe: Fever of 101 or Higher, Calf discomfort and Uncontrolled pain Please Follow Up With: Joss Dodson DPM When: in 1 week, sooner if needed at the [facility]. Office number is [phone] Meaningful Use Info Meaningful Use Diagnoses (Choose all that apply): None applicable Discharge Plan Admission Admit Date/Time: 08/07/21 01:52 Attending Provider: Livia Aguiar Primary Care Provider: Giana Hansen Consulting Providers: Joss Dodson ; Yonis Hardy Discharge Orders/Prescriptions Prescriptions: New ceftriaxone 2 gram recon soln 2 g IV DAILY 40 Days Qty: 40 RF: 0 Continued aluminum-magnesium hydroxide 225 mg-200 mg/5 mL oral suspension 225-200 mg/5 mL suspension 5 ml PO Q4H PRN (Reason: gi distress) RF: 0 polyethylene glycol 3350 [Miralax] 17 gram/dose powder 17 g PO PRN PRN (Reason: Constipation) RF: 0 sodium chloride 1 gram tablet 1,000 mg PO BID RF: 0 Biotene Dry Mouth Oral Rinse Mouthwash 15 ml mucous membrane BID-QID PRN (Reason: Dry Mouth) RF: 0 buspirone 10 mg tablet 10 mg PO BID RF: 0 guaifenesin 100 mg/5 mL liquid 200 mg PO Q4H PRN (Reason: COUGH, CONGESTION) RF: 0 Throat Lozenges Lozenge 1 kena mucous membrane Q2H PRN (Reason: Sore Throat) RF: 0 Magic Mouth Wash 15 ml PO ACHS PRN (Reason: ORAL/CANCER PAIN) RF: 0 oxcarbazepine 300 MG tablet 300 mg PO BID RF: 0 lorazepam 1 mg tablet 1 mg PO Q12H PRN (Reason: Anxiety) RF: 0 doxazosin 1 MG tablet 1 mg PO QHS RF: 0 famotidine 20 MG tablet 20 mg PO BID RF: 0 memantine 10 MG tablet 10 mg PO BID RF: 0 ondansetron HCl 8 MG tablet 8 mg PO Q8H PRN PRN (Reason: NAUSEA) RF: 0 sertraline 100 MG tablet 75 mg PO DAILY RF: 0 pilocarpine HCl 5 mg Tablet 5 mg PO TID RF: 0 acetaminophen 650 mg Tablet 650 mg PO Q4H PRN (Reason: pain/fever) RF: 0 acetaminophen 650 mg Suppository 650 mg [place] Q4H PRN (Reason: pain/fever) RF: 0 Referrals / Follow Up: Giana Hansen MD [Primary Care Provider] - Within 2 Weeks Disposition Disposition (needs filled in before D/C Order can be placed): [facility] Charges/Coding Visit Charges Inpatient E&M: 55290 Disch Hosp
--- NOTE | 2021-08-10 11:58 | TREXTCAR_ITS ---
Diet 08/07/21 12:16 Diet: Regular - General Wound(s) bottom of rt foot: Wound Type: Pressure Injury top of right foot at base of little toe: Wound Type: Abrasion RIGHT FOOT: Wound Type: Open Surgical Wound Dressing Change: Packed with NuGauze Therapies Weight Bearing: Non weight bearing Problem/Diagnosis (1) Foot osteomyelitis, right: Status: Acute (2) Alcoholic peripheral neuropathy: Status: Acute Allergies/Procedures Done in Hospital Allergies No Known Allergies Allergy (Verified 08/06/21 21:32) Type of Care/Length of Stay Estimated LOS: Convalescent Care Less Than 30 days Type of Care Needed: Skilled Rehab Potential: Good Prognosis: Good Additional Orders/Day of Discharge Day of Discharge: 08/10/21 Dietary and Speech Recommendations Dietitian Recommendations/Changes: Continue regular diet as ordered. Will add Lex BID for wound healing Follow Up Care Please Follow Up With: Joss Dodson DPM Discharge Plan Admission Admit Date/Time: 08/07/21 01:52 Primary Reason for Your Visit: right foot infection Attending Provider: Livia Aguiar Primary Care Provider: Giana Hansen Consulting Providers: Joss Dodson ; Yonis Hardy Discharge Orders/Prescriptions Prescriptions: New ceftriaxone 2 gram recon soln 2 g IV DAILY 40 Days Qty: 40 RF: 0 Continued aluminum-magnesium hydroxide 225 mg-200 mg/5 mL oral suspension 225-200 mg/5 mL suspension 5 ml PO Q4H PRN (Reason: gi distress) RF: 0 polyethylene glycol 3350 [Miralax] 17 gram/dose powder 17 g PO PRN PRN (Reason: Constipation) RF: 0 sodium chloride 1 gram tablet 1,000 mg PO BID RF: 0 Biotene Dry Mouth Oral Rinse Mouthwash 15 ml mucous membrane BID-QID PRN (Reason: Dry Mouth) RF: 0 buspirone 10 mg tablet 10 mg PO BID RF: 0 guaifenesin 100 mg/5 mL liquid 200 mg PO Q4H PRN (Reason: COUGH, CONGESTION) RF: 0 Throat Lozenges Lozenge 1 kena mucous membrane Q2H PRN (Reason: Sore Throat) RF: 0 Magic Mouth Wash 15 ml PO ACHS PRN (Reason: ORAL/CANCER PAIN) RF: 0 oxcarbazepine 300 MG tablet 300 mg PO BID RF: 0 lorazepam 1 mg tablet 1 mg PO Q12H PRN (Reason: Anxiety) RF: 0 doxazosin 1 MG tablet 1 mg PO QHS RF: 0 famotidine 20 MG tablet 20 mg PO BID RF: 0 memantine 10 MG tablet 10 mg PO BID RF: 0 ondansetron HCl 8 MG tablet 8 mg PO Q8H PRN PRN (Reason: NAUSEA) RF: 0 sertraline 100 MG tablet 75 mg PO DAILY RF: 0 pilocarpine HCl 5 mg Tablet 5 mg PO TID RF: 0 acetaminophen 650 mg Tablet 650 mg PO Q4H PRN (Reason: pain/fever) RF: 0 acetaminophen 650 mg Suppository 650 mg [place] Q4H PRN (Reason: pain/fever) RF: 0 Referrals / Follow Up: Giana Hansen MD [Primary Care Provider] - Within 2 Weeks Disposition Disposition (needs filled in before D/C Order can be placed): Nursing Home Facility
[2021-08-10] MEDS: 0.9% Normal Saline 1,000 ML 75 ML IV (11:59)
--- NOTE | 2021-08-10 13:00 | CASEMGMT ---
Addendum entered by Chantel Barroso 08/10/21 15:35: ALYSSA faxed COVID test/tool to [facility]. Original Note: Social Work Note Pt to discharge back to [facility] skilled today. ALYSSA faxed completed discharge paperwork to [facility] including transfer to extended care facility, signed medication list, and any scripts. Original in SNF folder and copy on pt's chart. ALYSSA spoke with RN. Pt to get PICC line placed, requests transportation be arranged for 6:00pm. RN states pt can transport via wheelchair van. SW accessed trip assist and arranged transportation via wheelchair van for 6:00pm. Transportation form completed and placed on SNF folder and copy on pt's chart. RN updated on transportation time. SW to fax COVID test/tool once completed. SW in to speak with pt. ALYSSA introduced self and role at [facility]. ALYSSA informed pt that he will be discharged back to [facility] today and that this worker will call his mother Noni to update. Pt states understanding. ALYSSA placed a call to pt's mother Noni and updated her on discharge, transportation time, and that pt will be discharged back to [facility] skilled today. Noni states understanding, states she will come to [facility] to see pt. ALYSSA placed a call to Deanna in admissions at [facility] and left message updating her on transportation time. Plan: Return to [facility] skilled today under convalescent level of care with Physician's transporting pt via wheelchair van at 6:00pm. Chantel Barroso FARE COLLECTOR, EXPERIMENTAL ELECTRONICS DEVELOPER
--- NOTE | 2021-08-10 13:33 | PHA.DC.MR ---
Pharmacy Service has performed discharge medication reconciliation for this patient. The patient's discharge medication list was reviewed for discrepancies and discrepancies were resolved. Home Medications Magic Mouth Wash 15 ml PO ACHS PRN 06/03/20 aluminum-magnesium hydroxide 225 mg-200 mg/5 mL oral suspension 5 ml PO Q4H PRN 06/30/20 oxcarbazepine 300 mg PO BID 06/30/20 polyethylene glycol 3350 17 gram/dose oral powder 17 g PO PRN PRN 06/30/20 sodium chloride 1 gram tablet 1,000 mg PO BID tab 04/14/21 buspirone 10 mg tablet 10 mg PO BID 06/24/21 guaifenesin 100 mg/5 mL oral liquid 200 mg PO Q4H PRN 06/24/21 lorazepam 1 mg tablet 1 mg PO Q12H PRN tab 06/24/21 menthol-sorbitol lozenges 1 kena MUCOUS MEMBRANE Q2H PRN 06/24/21 saliva substitute combo no.9 15 ml MUCOUS MEMBRANE BID-QID PRN 06/24/21 acetaminophen 650 mg PO Q4H PRN 08/07/21 acetaminophen 650 mg [place] Q4H PRN 08/07/21 doxazosin 1 mg PO QHS 08/07/21 famotidine 20 mg PO BID 08/07/21 memantine 10 mg PO BID 08/07/21 ondansetron HCl 8 mg PO Q8H PRN PRN 08/07/21 pilocarpine HCl 5 mg PO TID 08/07/21 sertraline 75 mg PO DAILY 08/07/21 ceftriaxone 2 g IV DAILY 40 Days #40 ea 08/10/21
[2021-08-10 13:53] LABS: Pathologist Review Reviewed
[2021-08-10 17:11] VITALS: BP 154/70; PULSE 70; RESP 18; TEMP 36.8; O2SAT 100
== END 2021-08-10 18:10 | disposition skilled nursing facility (03) | DRG 475 ==
LOC: ED 08-07 01:19 → MS3 08-07 02:27
PROVIDERS: Podiatrist; Admitting Provider Hospitalist; Emergency Provider Student in an Organized Health Care Education/Training Program; PCP Family Medicine; Visit Provider Student in an Organized Health Care Education/Training Program
PROC: 0Y6M0ZF Detachment at Right Foot, Partial 5th Ray, Open Approach (ICD-10-PCS; principal; 2021-08-07 11:30)
DX: M86.171 Other acute osteomyelitis, right ankle and foot (principal); F10.27 Alcohol dependence with alcohol-induced persisting dementia; E87.1 Hypo-osmolality and hyponatremia; L03.115 Cellulitis of right lower limb; L97.514 Non-pressure chronic ulcer of other part of right foot with necrosis of bone; B95.0 Streptococcus, group A, as the cause of diseases classified elsewhere; G62.1 Alcoholic polyneuropathy; S93.124A Dislocation of metatarsophalangeal joint of right lesser toe(s), initial encounter; Z87.891 Personal history of nicotine dependence; J44.9 Chronic obstructive pulmonary disease, unspecified; F41.9 Anxiety disorder, unspecified; I10 Essential (primary) hypertension; Z79.899 Other long term (current) drug therapy; F31.9 Bipolar disorder, unspecified; T42.1X5A Adverse effect of iminostilbenes, initial encounter; X58.XXXA Exposure to other specified factors, initial encounter; Y93.89 Activity, other specified; Y92.89 Other specified places as the place of occurrence of the external cause; Y99.8 Other external cause status; E78.5 Hyperlipidemia, unspecified; Z85.89 Personal history of malignant neoplasm of other organs and systems
CPT/HCPCS: 36415; 36569; 73630; 80048; 80202; 85025; 85652; 86140; 87015; 87070; 87075; 87077; 87102; 87116; 87176; 87186; 87205; 87206; 87426; 88305; 88311; 93923; 97162; 97166; 97530; 97802; 99285; J7030; J7040; J7050; A4216; J0295; J0696

== ENCOUNTER → 2021-08-11 05:00 | Outpatient (REF) | payer MEDICARE, MEDICAID, SELFPAY ==
[2020-04-01 10:26] VITALS: BMI 27.5
[2021-08-11 08:57] LABS: Erythrocyte Sedimentation Rate 27 mm/hr (0-20)
[2021-08-11 08:59] LABS: Absolute Neutrophil Count 3.1 X10^3/uL (2.0-7.7); Basophil# 0.01 X10^3/uL; Basophil% 0.2 % (0-1); Eosinophil# 0.11 X10^3/uL; Eosinophils% 2.6 % (0-5); Hematocrit 33.2 % (40-54); Hemoglobin 11.5 g/dL (13.0-16.5); Lymphocyte % 9.6 % (19-41); Mean Corp Hgb Conc 34.6 g/dL (32-36); Mean Corpuscular Hgb 28.5 pg (27.0-32.0); Mean Corpuscular Volume 82.4 fL (80-94); Mean Platelet Vol. 9.5 fl (6.2-12.0); Monocyte# 0.53 X10^3/uL; Monocyte% 12.7 % (0-10); NRBC Flagged by Analyzer 0 % (0-5); Neutrophil % 74.2 % (47-70); POSITIVE DIFFERENTIAL YES; Platelet Count 216 K/mm3 (150-450); RBC Distribution Width CV 12.4 % (11.6-14.6); RBC Distribution Width SD 37.6 fl (35.1-43.9); Red Blood Count 4.03 M/mm3 (4.6-6.2); White Blood Count 4.2 K/mm3 (4.4-11.0)
[2021-08-11 09:02] LABS: Differential Indicated SCAN CRITERIA MET
[2021-08-11 09:15] LABS: ALB/GLOB Ratio 0.5 RATIO (0.9-2.4); AST(SGOT) 38 U/L (15-37); Alanine Aminotransfer ALT/SGPT 58 U/L (16-61); Albumin, Serum 2.3 g/dL (3.2-5.0); Alkaline Phosphatase 34 U/L (45-117); Anion Gap 9 (5-15); BUN 10 mg/dL (7-18); BUN/Creat Ratio 13.7 RATIO (10-20); Calcium,Total 8.4 mg/dL (8.5-10.1); Chloride 93 mmol/L (98-107); Creatinine, Serum 0.73 mg/dL (0.70-1.30); EST Glomerular Filtration Rate 116 mL/min (>60); Est Glom Filt Rate - Afr Amer 141 mL/min (>60); Globulin 4.4 g/dL (2.2-4.2); Glucose 91 mg/dL (74-106); Potassium 3.8 mmol/L (3.5-5.1); Protein, Total 6.7 g/dL (6.4-8.2); Sodium Level 125 mmol/L (136-145); Thyroid Stim Hormone (TSH) 5.74 uIU/mL (0.358-3.74)
[2021-08-12 14:13] LABS: Pathologist Review Reviewed
== END ==
LOC: OLS.SW300 05:00
PROVIDERS: PCP Family Medicine; Visit Provider Family Medicine
DX: R53.83 Other fatigue (principal); K76.9 Liver disease, unspecified
CPT/HCPCS: 36415; 80053; 82140; 84443; 85025; 85652

== ENCOUNTER → 2021-08-18 05:00 | Outpatient (REF) | payer MEDICARE, MEDICAID, SELFPAY ==
[2020-04-01 10:26] VITALS: BMI 27.5
[2021-08-18 08:29] LABS: Erythrocyte Sedimentation Rate 31 mm/hr (0-20)
[2021-08-18 08:31] LABS: ALB/GLOB Ratio 0.6 RATIO (0.9-2.4); AST(SGOT) 23 U/L (15-37); Alanine Aminotransfer ALT/SGPT 32 U/L (16-61); Albumin, Serum 2.5 g/dL (3.2-5.0); Alkaline Phosphatase 54 U/L (45-117); Anion Gap 9 (5-15); BUN 10 mg/dL (7-18); BUN/Creat Ratio 13.4 RATIO (10-20); Calcium,Total 8.4 mg/dL (8.5-10.1); Chloride 94 mmol/L (98-107); Creatinine, Serum 0.75 mg/dL (0.70-1.30); EST Glomerular Filtration Rate 113 mL/min (>60); Est Glom Filt Rate - Afr Amer 136 mL/min (>60); Glucose 92 mg/dL (74-106); Potassium 3.7 mmol/L (3.5-5.1); Protein, Total 6.5 g/dL (6.4-8.2); Sodium Level 128 mmol/L (136-145)
[2021-08-18 08:40] LABS: Absolute Lymphocyte Count 0.47 X10^3/uL (0.83-4.51); Absolute Neutrophil Count 3.3 X10^3/uL (2.0-7.7); Basophil# 0.02 X10^3/uL; Basophil% 0.4 % (0-1); Eosinophil# 0.08 X10^3/uL; Eosinophils% 1.8 % (0-5); Hematocrit 33.3 % (40-54); Hemoglobin 11.6 g/dL (13.0-16.5); Lymphocyte # 0.47 X10^3/ul (0.83-4.51); Lymphocyte % 10.6 % (19-41); Mean Corp Hgb Conc 34.8 g/dL (32-36); Mean Corpuscular Hgb 28.6 pg (27.0-32.0); Mean Platelet Vol. 9.9 fl (6.2-12.0); Monocyte# 0.57 X10^3/uL; Monocyte% 12.8 % (0-10); NRBC Flagged by Analyzer 0 % (0-5); Neutrophil # 3.28 X10^3/uL (2.7-7.7); Neutrophil % 73.7 % (47-70); POSITIVE DIFFERENTIAL YES; Platelet Count 190 K/mm3 (150-450); RBC Distribution Width CV 12.9 % (11.6-14.6); RBC Distribution Width SD 38.5 fl (35.1-43.9); Red Blood Count 4.06 M/mm3 (4.6-6.2); White Blood Count 4.5 K/mm3 (4.4-11.0)
[2021-08-18 08:43] LABS: Differential Indicated SCAN CRITERIA MET
== END ==
LOC: OLS.SW300 05:00
PROVIDERS: PCP Family Medicine; Visit Provider Family Medicine
DX: Z79.899 Other long term (current) drug therapy (principal)
CPT/HCPCS: 36415; 80053; 85025; 85652

== ENCOUNTER → 2021-08-23 04:00 | Outpatient (REF) | payer MEDICARE, MEDICAID, SELFPAY ==
[2020-04-01 10:26] VITALS: BMI 27.5
[2021-08-26 15:52] LABS: Trileptal-Oxcarbazepine 11 ug/mL (10-35)
== END ==
LOC: OLS.SW300 04:00
PROVIDERS: PCP Family Medicine; Visit Provider Family Medicine
DX: Z79.899 Other long term (current) drug therapy (principal)
CPT/HCPCS: 36415; 82542

== ENCOUNTER → 2021-09-15 05:00 | Outpatient (REF) | payer MEDICARE, MEDICAID, SELFPAY ==
[2020-04-01 10:26] VITALS: BMI 27.5
[2021-09-15 08:25] LABS: Absolute Lymphocyte Count 0.38 X10^3/uL (0.83-4.51); Absolute Neutrophil Count 1.6 X10^3/uL (2.0-7.7); Basophil# 0.02 X10^3/uL; Basophil% 0.8 % (0-1); Eosinophil# 0.11 X10^3/uL; Eosinophils% 4.2 % (0-5); Hematocrit 36.8 % (40-54); Hemoglobin 12.9 g/dL (13.0-16.5); Lymphocyte # 0.38 X10^3/ul (0.83-4.51); Lymphocyte % 14.3 % (19-41); Mean Corp Hgb Conc 35.1 g/dL (32-36); Mean Corpuscular Hgb 28.5 pg (27.0-32.0); Mean Corpuscular Volume 81.4 fL (80-94); Monocyte# 0.52 X10^3/uL; Monocyte% 19.6 % (0-10); NRBC Flagged by Analyzer 0 % (0-5); Neutrophil # 1.61 X10^3/uL (2.7-7.7); Neutrophil % 60.7 % (47-70); POSITIVE DIFFERENTIAL YES; Platelet Count 129 K/mm3 (150-450); RBC Distribution Width CV 13.7 % (11.6-14.6); RBC Distribution Width SD 40.4 fl (35.1-43.9); Red Blood Count 4.52 M/mm3 (4.6-6.2); White Blood Count 2.7 K/mm3 (4.4-11.0)
[2021-09-15 08:27] LABS: Erythrocyte Sedimentation Rate 10 mm/hr (0-20)
[2021-09-15 08:28] LABS: Differential Indicated SCAN CRITERIA MET
[2021-09-15 08:41] LABS: ALB/GLOB Ratio 0.8 RATIO (0.9-2.4); AST(SGOT) 23 U/L (15-37); Alanine Aminotransfer ALT/SGPT 26 U/L (16-61); Albumin, Serum 2.9 g/dL (3.2-5.0); Alkaline Phosphatase 42 U/L (45-117); Anion Gap 8 (5-15); BUN 8 mg/dL (7-18); BUN/Creat Ratio 10.7 RATIO (10-20); Calcium,Total 9.2 mg/dL (8.5-10.1); Chloride 94 mmol/L (98-107); Creatinine, Serum 0.75 mg/dL (0.70-1.30); EST Glomerular Filtration Rate 112 mL/min (>60); Est Glom Filt Rate - Afr Amer 136 mL/min (>60); Globulin 3.7 g/dL (2.2-4.2); Glucose 81 mg/dL (74-106); Potassium 3.9 mmol/L (3.5-5.1); Protein, Total 6.6 g/dL (6.4-8.2); Sodium Level 128 mmol/L (136-145)
[2021-09-15 09:01] LABS: Platelet Estimate ADEQUATE (ADEQ); Red Cell Morphology NORM C+C NORMAL (NORM C&C)
[2021-09-17 15:18] LABS: Pathologist Review Reviewed
== END ==
LOC: OLS.SW300 05:00
PROVIDERS: PCP Family Medicine; Visit Provider Family Medicine
DX: I10 Essential (primary) hypertension (principal); E78.5 Hyperlipidemia, unspecified; E03.9 Hypothyroidism, unspecified; Z79.2 Long term (current) use of antibiotics
CPT/HCPCS: 36415; 80053; 85025; 85652

== ENCOUNTER → 2021-09-22 06:00 | Outpatient (REF) | payer MEDICARE, MEDICAID, SELFPAY ==
[2020-04-01 10:26] VITALS: BMI 27.5
[2021-09-22 09:46] LABS: Erythrocyte Sedimentation Rate 6 mm/hr (0-20)
[2021-09-22 09:48] LABS: Absolute Lymphocyte Count 0.47 X10^3/uL (0.83-4.51); Absolute Neutrophil Count 1.3 X10^3/uL (2.0-7.7); Basophil# 0.01 X10^3/uL; Basophil% 0.4 % (0-1); Eosinophil# 0.11 X10^3/uL; Eosinophils% 4.7 % (0-5); Hematocrit 38.1 % (40-54); Hemoglobin 13.2 g/dL (13.0-16.5); Lymphocyte # 0.47 X10^3/ul (0.83-4.51); Lymphocyte % 19.9 % (19-41); Mean Corp Hgb Conc 34.6 g/dL (32-36); Mean Corpuscular Hgb 28.3 pg (27.0-32.0); Mean Corpuscular Volume 81.6 fL (80-94); Mean Platelet Vol. 10.5 fl (6.2-12.0); Monocyte# 0.45 X10^3/uL; Monocyte% 19.1 % (0-10); NRBC Flagged by Analyzer 0 % (0-5); Neutrophil # 1.31 X10^3/uL (2.7-7.7); Neutrophil % 55.5 % (47-70); POSITIVE DIFFERENTIAL YES; Platelet Count 117 K/mm3 (150-450); RBC Distribution Width CV 13.7 % (11.6-14.6); RBC Distribution Width SD 40.7 fl (35.1-43.9); Red Blood Count 4.67 M/mm3 (4.6-6.2); White Blood Count 2.4 K/mm3 (4.4-11.0)
[2021-09-22 09:49] LABS: Differential Indicated SCAN CRITERIA MET
[2021-09-22 10:08] LABS: ALB/GLOB Ratio 0.9 RATIO (0.9-2.4); AST(SGOT) 23 U/L (15-37); Alanine Aminotransfer ALT/SGPT 26 U/L (16-61); Alkaline Phosphatase 38 U/L (45-117); Anion Gap 9 (5-15); BUN 7 mg/dL (7-18); BUN/Creat Ratio 9.5 RATIO (10-20); Calcium,Total 8.6 mg/dL (8.5-10.1); Chloride 93 mmol/L (98-107); Creatinine, Serum 0.74 mg/dL (0.70-1.30); EST Glomerular Filtration Rate 115 mL/min (>60); Est Glom Filt Rate - Afr Amer 139 mL/min (>60); Globulin 3.5 g/dL (2.2-4.2); Glucose 84 mg/dL (74-106); Potassium 4.2 mmol/L (3.5-5.1); Protein, Total 6.5 g/dL (6.4-8.2); Sodium Level 127 mmol/L (136-145)
[2021-09-23 09:45] LABS: Pathologist Review Reviewed
== END ==
LOC: OLS.SW300 06:00
PROVIDERS: PCP Family Medicine; Visit Provider Family Medicine
DX: I10 Essential (primary) hypertension (principal); Z79.2 Long term (current) use of antibiotics
CPT/HCPCS: 36415; 80053; 85025; 85652

== ENCOUNTER → 2021-09-29 04:00 | Outpatient (REF) | payer MEDICARE, MEDICAID, SELFPAY ==
[2020-04-01 10:26] VITALS: BMI 27.5
[2021-09-29 07:04] LABS: Erythrocyte Sedimentation Rate 12 mm/hr (0-20)
[2021-09-29 07:09] LABS: Absolute Lymphocyte Count 0.57 X10^3/uL (0.83-4.51); Absolute Neutrophil Count 1.7 X10^3/uL (2.0-7.7); Basophil# 0.02 X10^3/uL; Basophil% 0.7 % (0-1); Eosinophil# 0.11 X10^3/uL; Eosinophils% 3.7 % (0-5); Hematocrit 37.8 % (40-54); Lymphocyte # 0.57 X10^3/ul (0.83-4.51); Mean Corp Hgb Conc 34.4 g/dL (32-36); Mean Corpuscular Hgb 28.4 pg (27.0-32.0); Mean Corpuscular Volume 82.5 fL (80-94); Mean Platelet Vol. 10.1 fl (6.2-12.0); Monocyte# 0.61 X10^3/uL; Monocyte% 20.3 % (0-10); NRBC Flagged by Analyzer 0 % (0-5); Neutrophil # 1.68 X10^3/uL (2.7-7.7); POSITIVE DIFFERENTIAL YES; Platelet Count 115 K/mm3 (150-450); RBC Distribution Width CV 13.6 % (11.6-14.6); RBC Distribution Width SD 41.2 fl (35.1-43.9); Red Blood Count 4.58 M/mm3 (4.6-6.2)
[2021-09-29 07:11] LABS: Differential Indicated SCAN CRITERIA MET
[2021-09-29 07:13] LABS: ALB/GLOB Ratio 0.8 RATIO (0.9-2.4); AST(SGOT) 19 U/L (15-37); Alanine Aminotransfer ALT/SGPT 26 U/L (16-61); Albumin, Serum 2.8 g/dL (3.2-5.0); Alkaline Phosphatase 38 U/L (45-117); Anion Gap 9 (5-15); BUN 10 mg/dL (7-18); BUN/Creat Ratio 13.4 RATIO (10-20); Calcium,Total 8.6 mg/dL (8.5-10.1); Chloride 96 mmol/L (98-107); Creatinine, Serum 0.74 mg/dL (0.70-1.30); EST Glomerular Filtration Rate 113 mL/min (>60); Est Glom Filt Rate - Afr Amer 137 mL/min (>60); Globulin 3.4 g/dL (2.2-4.2); Glucose 88 mg/dL (74-106); Potassium 3.7 mmol/L (3.5-5.1); Protein, Total 6.2 g/dL (6.4-8.2); Sodium Level 131 mmol/L (136-145)
[2021-09-29 13:48] LABS: Pathologist Review Reviewed
== END ==
LOC: OLS.SW300 04:00
PROVIDERS: PCP Family Medicine; Referring Provider Family Medicine; Visit Provider Family Medicine
DX: J44.9 Chronic obstructive pulmonary disease, unspecified (principal); E78.5 Hyperlipidemia, unspecified; Z79.2 Long term (current) use of antibiotics
CPT/HCPCS: 36415; 80053; 85025; 85652

== ENCOUNTER → 2021-11-04 12:24 | Outpatient (REF) | payer MEDICARE, MEDICAID, SELFPAY ==
[2020-04-01 10:26] VITALS: BMI 27.5
== END ==
LOC: OLS.SW1020 12:24
PROVIDERS: PCP Family Medicine; Visit Provider Family Medicine
DX: U07.1 COVID-19 (principal)
CPT/HCPCS: 87635; U0003; U0005

== ENCOUNTER → 2021-11-15 04:00 | Outpatient (REF) | payer MEDICARE, MEDICAID, SELFPAY ==
[2020-04-01 10:26] VITALS: BMI 27.5
[2021-11-15 08:29] LABS: Absolute Lymphocyte Count 0.49 X10^3/uL (0.83-4.51); Eosinophil# 0.07 X10^3/uL; Eosinophils% 2.3 % (0-5); Hemoglobin 13.6 g/dL (13.0-16.5); Lymphocyte # 0.49 X10^3/ul (0.83-4.51); Lymphocyte % 15.9 % (19-41); Mean Corp Hgb Conc 34.9 g/dL (32-36); Mean Corpuscular Hgb 28.6 pg (27.0-32.0); Mean Corpuscular Volume 82.1 fL (80-94); Mean Platelet Vol. 10.7 fl (6.2-12.0); Monocyte# 0.48 X10^3/uL; Monocyte% 15.5 % (0-10); NRBC Flagged by Analyzer 0 % (0-5); Neutrophil # 2.03 X10^3/uL (2.7-7.7); Neutrophil % 65.7 % (47-70); POSITIVE DIFFERENTIAL YES; Platelet Count 123 K/mm3 (150-450); RBC Distribution Width CV 13.4 % (11.6-14.6); RBC Distribution Width SD 40.4 fl (35.1-43.9); Red Blood Count 4.75 M/mm3 (4.6-6.2); White Blood Count 3.1 K/mm3 (4.4-11.0)
[2021-11-15 08:30] LABS: Differential Indicated SCAN CRITERIA MET
[2021-11-15 08:34] LABS: Anion Gap 7 (5-15); BUN 10 mg/dL (7-18); BUN/Creat Ratio 12.8 RATIO (10-20); Calcium,Total 8.8 mg/dL (8.5-10.1); Chloride 96 mmol/L (98-107); Creatinine, Serum 0.78 mg/dL (0.70-1.30); EST Glomerular Filtration Rate 107 mL/min (>60); Est Glom Filt Rate - Afr Amer 130 mL/min (>60); Glucose 84 mg/dL (74-106); Potassium 4.1 mmol/L (3.5-5.1); Sodium Level 130 mmol/L (136-145)
[2021-11-17 09:14] LABS: Pathologist Review Reviewed
== END ==
LOC: OLS.SW1020 04:00
PROVIDERS: PCP Family Medicine; Visit Provider Family Medicine
DX: R53.83 Other fatigue (principal)
CPT/HCPCS: 36415; 80048; 85025

== ENCOUNTER → 2021-11-23 | Outpatient (REF) | payer MEDICARE, MEDICAID, SELFPAY ==
[2020-04-01 10:26] VITALS: BMI 27.5
[2021-11-25 15:32] LABS: Trileptal-Oxcarbazepine 12 ug/mL (10-35)
== END | disposition home or self-care (01) ==
LOC: OLS.SW300 07:40
PROVIDERS: PCP Family Medicine; Visit Provider Family Medicine
DX: E87.1 Hypo-osmolality and hyponatremia (principal); E78.5 Hyperlipidemia, unspecified
CPT/HCPCS: 36415; 82542

== ENCOUNTER 2021-12-22 04:00 | Outpatient (REF) | payer MEDICARE, MEDICAID, SELFPAY ==
[2020-04-01 10:26] VITALS: BMI 27.5
[2021-12-22 09:58] LABS: Thyroid Stim Hormone (TSH) 4.23 uIU/mL (0.358-3.74)
== END 2021-12-22 23:59 | disposition home or self-care (01) ==
LOC: OLS.SW300 04:00
PROVIDERS: PCP Family Medicine; Referring Provider Family Medicine; Visit Provider Family Medicine
DX: E03.9 Hypothyroidism, unspecified (principal)
CPT/HCPCS: 36415; 84443

== ENCOUNTER → 2022-02-09 | Outpatient (REF) | payer MEDICARE, MEDICAID, SELFPAY ==
[2020-04-01 10:26] VITALS: BMI 27.5
[2022-02-09 09:07] LABS: AST(SGOT) 21 U/L (15-37); Alanine Aminotransfer ALT/SGPT 21 U/L (16-61); Albumin, Serum 3.3 g/dL (3.2-5.0); Alkaline Phosphatase 37 U/L (45-117); Anion Gap 9 (5-15); BUN 6 mg/dL (7-18); BUN/Creat Ratio 7.3 RATIO (10-20); Calcium,Total 8.6 mg/dL (8.5-10.1); Chloride 94 mmol/L (98-107); Creatinine, Serum 0.82 mg/dL (0.70-1.30); EST Glomerular Filtration Rate 101 mL/min (>60); Est Glom Filt Rate - Afr Amer 123 mL/min (>60); Globulin 3.4 g/dL (2.2-4.2); Glucose 94 mg/dL (74-106); Protein, Total 6.7 g/dL (6.4-8.2); Sodium Level 129 mmol/L (136-145); Thyroid Stim Hormone (TSH) 5.25 uIU/mL (0.358-3.74)
== END | disposition home or self-care (01) ==
LOC: OLS.SW300 05:00
PROVIDERS: PCP Family Medicine; Visit Provider Family Medicine
DX: R53.83 Other fatigue (principal); K75.9 Inflammatory liver disease, unspecified
CPT/HCPCS: 36415; 80053; 82140; 84443

== ENCOUNTER → 2022-02-14 | Outpatient (REF) | payer MEDICARE, MEDICAID, SELFPAY ==
[2020-04-01 10:26] VITALS: BMI 27.5
[2022-02-14 09:09] LABS: Absolute Lymphocyte Count 0.53 X10^3/uL (0.83-4.51); Absolute Neutrophil Count 2.1 X10^3/uL (2.0-7.7); Basophil# 0.01 X10^3/uL; Basophil% 0.3 % (0-1); Eosinophil# 0.09 X10^3/uL; Eosinophils% 2.8 % (0-5); Hematocrit 41.1 % (40-54); Hemoglobin 14.1 g/dL (13.0-16.5); Lymphocyte # 0.53 X10^3/ul (0.83-4.51); Lymphocyte % 16.7 % (19-41); Mean Corp Hgb Conc 34.3 g/dL (32-36); Mean Corpuscular Hgb 29.3 pg (27.0-32.0); Mean Corpuscular Volume 85.4 fL (80-94); Monocyte# 0.45 X10^3/uL; Monocyte% 14.2 % (0-10); NRBC Flagged by Analyzer 0 % (0-5); Neutrophil # 2.07 X10^3/uL (2.7-7.7); Neutrophil % 65.4 % (47-70); POSITIVE DIFFERENTIAL YES; Platelet Count 138 K/mm3 (150-450); RBC Distribution Width CV 12.9 % (11.6-14.6); RBC Distribution Width SD 40.2 fl (35.1-43.9); Red Blood Count 4.81 M/mm3 (4.6-6.2); White Blood Count 3.2 K/mm3 (4.4-11.0)
[2022-02-14 09:12] LABS: Differential Indicated SCAN CRITERIA MET
[2022-02-14 09:28] LABS: Anion Gap 6 (5-15); BUN 11 mg/dL (7-18); BUN/Creat Ratio 13.1 RATIO (10-20); Calcium,Total 9.5 mg/dL (8.5-10.1); Chloride 95 mmol/L (98-107); Creatinine, Serum 0.84 mg/dL (0.70-1.30); EST Glomerular Filtration Rate 99 mL/min (>60); Est Glom Filt Rate - Afr Amer 119 mL/min (>60); Glucose 88 mg/dL (74-106); Potassium 3.9 mmol/L (3.5-5.1); Sodium Level 129 mmol/L (136-145)
[2022-02-14 11:45] LABS: Platelet Estimate ADEQUATE (ADEQ); Red Cell Morphology NORM C+C NORMAL (NORM C&C)
[2022-02-14 13:34] LABS: Pathologist Review Reviewed
== END | disposition home or self-care (01) ==
LOC: OLS.SW300 04:00
PROVIDERS: PCP Family Medicine; Referring Provider Family Medicine; Visit Provider Family Medicine
DX: R53.83 Other fatigue (principal)
CPT/HCPCS: 36415; 80048; 85025

== ENCOUNTER 2022-02-21 04:00 | Outpatient (REF) | payer MEDICARE, MEDICAID, SELFPAY ==
[2020-04-01 10:26] VITALS: BMI 27.5
[2022-02-21 11:30] LABS: Sodium Level 129 mmol/L (136-145); Thyroid Stim Hormone (TSH) 4.25 uIU/mL (0.358-3.74)
== END 2022-02-21 23:59 | disposition home or self-care (01) ==
LOC: OLS.SW300 04:00
PROVIDERS: PCP Family Medicine; Referring Provider Family Medicine; Visit Provider Family Medicine
DX: Z51.0 Encounter for antineoplastic radiation therapy (principal)
CPT/HCPCS: 36415; 84295; 84443

== ENCOUNTER → 2022-03-25 | Outpatient (REF) | payer MEDICARE, MEDICAID, SELFPAY ==
[2020-04-01 10:26] VITALS: BMI 27.5
[2022-03-25 09:15] LABS: Thyroid Stim Hormone (TSH) 2.84 uIU/mL (0.358-3.74)
== END | disposition home or self-care (01) ==
LOC: OLS.SW300 05:00
PROVIDERS: PCP Family Medicine; Visit Provider Family Medicine
DX: E03.9 Hypothyroidism, unspecified (principal)
CPT/HCPCS: 36415; 84443

== ENCOUNTER → 2022-05-16 04:00 | Outpatient (REF) | payer MEDICARE, MEDICAID, SELFPAY ==
[2020-04-01 10:26] VITALS: BMI 27.5
[2022-05-16 08:38] LABS: Absolute Lymphocyte Count 0.53 X10^3/uL (0.83-4.51); Basophil# 0.01 X10^3/uL; Basophil% 0.3 % (0-1); Eosinophil# 0.12 X10^3/uL; Eosinophils% 3.8 % (0-5); Hemoglobin 13.3 g/dL (13.0-16.5); Lymphocyte # 0.53 X10^3/ul (0.83-4.51); Lymphocyte % 16.6 % (19-41); Mean Corpuscular Hgb 29.2 pg (27.0-32.0); Mean Corpuscular Volume 83.3 fL (80-94); Mean Platelet Vol. 10.7 fl (6.2-12.0); Monocyte# 0.53 X10^3/uL; Monocyte% 16.6 % (0-10); NRBC Flagged by Analyzer 0 % (0-5); Neutrophil # 1.99 X10^3/uL (2.7-7.7); Neutrophil % 62.4 % (47-70); POSITIVE DIFFERENTIAL YES; Platelet Count 149 K/mm3 (150-450); RBC Distribution Width CV 12.8 % (11.6-14.6); Red Blood Count 4.56 M/mm3 (4.6-6.2); White Blood Count 3.2 K/mm3 (4.4-11.0)
[2022-05-16 08:42] LABS: Differential Indicated SCAN CRITERIA MET
[2022-05-16 08:51] LABS: Anion Gap 8 (5-15); BUN 11 mg/dL (7-18); BUN/Creat Ratio 13.3 RATIO (10-20); Calcium,Total 8.9 mg/dL (8.5-10.1); Chloride 91 mmol/L (98-107); Creatinine, Serum 0.83 mg/dL (0.70-1.30); EST Glomerular Filtration Rate 100 mL/min (>60); Est Glom Filt Rate - Afr Amer 121 mL/min (>60); Glucose 86 mg/dL (74-106); Potassium 4.1 mmol/L (3.5-5.1); Sodium Level 127 mmol/L (136-145)
[2022-05-16 09:27] LABS: Platelet Estimate SLT DEC (ADEQ); Red Cell Morphology NORM C+C NORMAL (NORM C&C)
[2022-05-17 09:55] LABS: Pathologist Review Reviewed
== END ==
LOC: OLS.SW300 04:00
PROVIDERS: PCP Family Medicine; Referring Provider Family Medicine; Visit Provider Family Medicine
DX: R53.83 Other fatigue (principal)
CPT/HCPCS: 36415; 80048; 85025

== ENCOUNTER → 2022-05-20 | Outpatient (REF) | payer MEDICARE, MEDICAID, SELFPAY ==
[2020-04-01 10:26] VITALS: BMI 27.5
[2022-05-20 09:43] LABS: AST(SGOT) 19 U/L (15-37); Alanine Aminotransfer ALT/SGPT 22 U/L (16-61); Alkaline Phosphatase 33 U/L (45-117); Anion Gap 5 (5-15); BUN 7 mg/dL (7-18); BUN/Creat Ratio 8.5 RATIO (10-20); Calcium,Total 8.8 mg/dL (8.5-10.1); Chloride 95 mmol/L (98-107); Creatinine, Serum 0.83 mg/dL (0.70-1.30); EST Glomerular Filtration Rate 100 mL/min (>60); Est Glom Filt Rate - Afr Amer 121 mL/min (>60); Globulin 3.1 g/dL (2.2-4.2); Glucose 87 mg/dL (74-106); Potassium 3.8 mmol/L (3.5-5.1); Protein, Total 6.1 g/dL (6.4-8.2); Sodium Level 129 mmol/L (136-145)
== END | disposition home or self-care (01) ==
LOC: OLS.SW300 05:00
PROVIDERS: PCP Family Medicine; Visit Provider Family Medicine
DX: J44.9 Chronic obstructive pulmonary disease, unspecified (principal)
CPT/HCPCS: 36415; 80053

== ENCOUNTER → 2022-05-25 | Outpatient (REF) | payer MEDICARE, MEDICAID, SELFPAY ==
[2020-04-01 10:26] VITALS: BMI 27.5
[2022-05-31 17:44] LABS: Trileptal-Oxcarbazepine 13 ug/mL (10-35)
== END ==
LOC: OLS.SW300 04:00
PROVIDERS: PCP Family Medicine; Referring Provider Family Medicine; Visit Provider Family Medicine
DX: Z79.899 Other long term (current) drug therapy (principal)
CPT/HCPCS: 36415; 82542

== ENCOUNTER → 2022-06-17 | Outpatient (REF) | payer MEDICARE, MEDICAID, SELFPAY ==
[2020-04-01 10:26] VITALS: BMI 27.5
[2022-06-17 08:33] LABS: AST(SGOT) 19 U/L (15-37); Alanine Aminotransfer ALT/SGPT 22 U/L (16-61); Albumin, Serum 3.1 g/dL (3.2-5.0); Alkaline Phosphatase 35 U/L (45-117); Anion Gap 5 (5-15); BUN 10 mg/dL (7-18); BUN/Creat Ratio 10.8 RATIO (10-20); Chloride 96 mmol/L (98-107); Creatinine, Serum 0.92 mg/dL (0.70-1.30); EST Glomerular Filtration Rate 88 mL/min (>60); Est Glom Filt Rate - Afr Amer 107 mL/min (>60); Globulin 3.1 g/dL (2.2-4.2); Glucose 88 mg/dL (74-106); Potassium 4.1 mmol/L (3.5-5.1); Protein, Total 6.2 g/dL (6.4-8.2); Sodium Level 130 mmol/L (136-145)
== END ==
LOC: OLS.SW300 05:00
PROVIDERS: PCP Family Medicine; Visit Provider Family Medicine
DX: J44.9 Chronic obstructive pulmonary disease, unspecified (principal)
CPT/HCPCS: 36415; 80053

== ENCOUNTER → 2022-07-01 | Outpatient (REF) | payer MEDICARE, MEDICAID, SELFPAY ==
[2020-04-01 10:26] VITALS: BMI 27.5
[2022-07-01 08:50] LABS: ALB/GLOB Ratio 0.9 RATIO (0.9-2.4); AST(SGOT) 19 U/L (15-37); Alanine Aminotransfer ALT/SGPT 23 U/L (16-61); Alkaline Phosphatase 45 U/L (45-117); Anion Gap 6 (5-15); BUN 10 mg/dL (7-18); BUN/Creat Ratio 11.1 RATIO (10-20); Chloride 97 mmol/L (98-107); EST Glomerular Filtration Rate 90 mL/min (>60); Est Glom Filt Rate - Afr Amer 109 mL/min (>60); Globulin 3.3 g/dL (2.2-4.2); Glucose 90 mg/dL (74-106); Potassium 3.8 mmol/L (3.5-5.1); Protein, Total 6.3 g/dL (6.4-8.2); Sodium Level 132 mmol/L (136-145)
== END ==
LOC: OLS.SW300 05:00
PROVIDERS: PCP Family Medicine; Visit Provider Family Medicine
DX: I10 Essential (primary) hypertension (principal)
CPT/HCPCS: 36415; 80053

== ENCOUNTER → 2022-07-15 | Outpatient (REF) | payer MEDICARE, MEDICAID, SELFPAY ==
[2020-04-01 10:26] VITALS: BMI 27.5
[2022-07-15 08:06] LABS: ALB/GLOB Ratio 0.9 RATIO (0.9-2.4); AST(SGOT) 21 U/L (15-37); Alanine Aminotransfer ALT/SGPT 23 U/L (16-61); Albumin, Serum 3.2 g/dL (3.2-5.0); Alkaline Phosphatase 34 U/L (45-117); Anion Gap 6 (5-15); BUN 11 mg/dL (7-18); BUN/Creat Ratio 11.7 RATIO (10-20); Calcium,Total 9.4 mg/dL (8.5-10.1); Chloride 97 mmol/L (98-107); Creatinine, Serum 0.94 mg/dL (0.70-1.30); EST Glomerular Filtration Rate 86 mL/min (>60); Est Glom Filt Rate - Afr Amer 105 mL/min (>60); Globulin 3.6 g/dL (2.2-4.2); Glucose 87 mg/dL (74-106); Protein, Total 6.8 g/dL (6.4-8.2); Sodium Level 132 mmol/L (136-145)
== END ==
LOC: OLS.SW300 05:00
PROVIDERS: PCP Family Medicine; Visit Provider Family Medicine
DX: J44.9 Chronic obstructive pulmonary disease, unspecified (principal)
CPT/HCPCS: 36415; 80053

== ENCOUNTER → 2022-07-29 | Outpatient (REF) | payer MEDICARE, MEDICAID, SELFPAY ==
[2020-04-01 10:26] VITALS: BMI 27.5
[2022-07-29 08:19] LABS: ALB/GLOB Ratio 0.9 RATIO (0.9-2.4); AST(SGOT) 15 U/L (15-37); Alanine Aminotransfer ALT/SGPT 21 U/L (16-61); Albumin, Serum 2.9 g/dL (3.2-5.0); Alkaline Phosphatase 31 U/L (45-117); Anion Gap 7 (5-15); BUN 8 mg/dL (7-18); BUN/Creat Ratio 9.2 RATIO (10-20); Calcium,Total 8.5 mg/dL (8.5-10.1); Chloride 96 mmol/L (98-107); Creatinine, Serum 0.87 mg/dL (0.70-1.30); EST Glomerular Filtration Rate 94 mL/min (>60); Est Glom Filt Rate - Afr Amer 114 mL/min (>60); Globulin 3.3 g/dL (2.2-4.2); Glucose 88 mg/dL (74-106); Potassium 3.9 mmol/L (3.5-5.1); Protein, Total 6.2 g/dL (6.4-8.2); Sodium Level 129 mmol/L (136-145)
== END ==
LOC: OLS.SW300 05:00
PROVIDERS: PCP Family Medicine; Visit Provider Family Medicine
DX: J44.9 Chronic obstructive pulmonary disease, unspecified (principal)
CPT/HCPCS: 36415; 80053

== ENCOUNTER → 2022-08-16 | Outpatient (REF) | payer MEDICARE, MEDICAID, SELFPAY ==
[2020-04-01 10:26] VITALS: BMI 27.5
[2022-08-16 09:11] LABS: Absolute Lymphocyte Count 0.53 X10^3/uL (0.83-4.51); Absolute Neutrophil Count 2.2 X10^3/uL (2.0-7.7); Basophil# 0.02 X10^3/uL; Basophil% 0.6 % (0-1); Eosinophil# 0.07 X10^3/uL; Eosinophils% 2.2 % (0-5); Hematocrit 40.6 % (40-54); Hemoglobin 14.5 g/dL (13.0-16.5); Lymphocyte # 0.53 X10^3/ul (0.83-4.51); Lymphocyte % 16.3 % (19-41); Mean Corp Hgb Conc 35.7 g/dL (32-36); Mean Corpuscular Hgb 30.3 pg (27.0-32.0); Mean Corpuscular Volume 84.9 fL (80-94); Mean Platelet Vol. 10.5 fl (6.2-12.0); Monocyte# 0.46 X10^3/uL; Monocyte% 14.2 % (0-10); NRBC Flagged by Analyzer 0 % (0-5); Neutrophil # 2.16 X10^3/uL (2.7-7.7); Neutrophil % 66.4 % (47-70); POSITIVE DIFFERENTIAL YES; Platelet Count 137 K/mm3 (150-450); RBC Distribution Width CV 12.3 % (11.6-14.6); RBC Distribution Width SD 37.9 fl (35.1-43.9); Red Blood Count 4.78 M/mm3 (4.6-6.2); White Blood Count 3.3 K/mm3 (4.4-11.0)
[2022-08-16 09:13] LABS: Differential Indicated SCAN CRITERIA MET
[2022-08-16 09:32] LABS: AST(SGOT) 18 U/L (15-37); Alanine Aminotransfer ALT/SGPT 22 U/L (16-61); Albumin, Serum 3.3 g/dL (3.2-5.0); Alkaline Phosphatase 33 U/L (45-117); Anion Gap 6 (5-15); BUN 9 mg/dL (7-18); BUN/Creat Ratio 9.5 RATIO (10-20); Calcium,Total 8.8 mg/dL (8.5-10.1); Chloride 98 mmol/L (98-107); Creatinine, Serum 0.95 mg/dL (0.70-1.30); EST Glomerular Filtration Rate 85 mL/min (>60); Est Glom Filt Rate - Afr Amer 103 mL/min (>60); Globulin 3.3 g/dL (2.2-4.2); Glucose 106 mg/dL (74-106); Potassium 3.8 mmol/L (3.5-5.1); Protein, Total 6.6 g/dL (6.4-8.2); Sodium Level 130 mmol/L (136-145); Thyroid Stim Hormone (TSH) 3.05 uIU/mL (0.358-3.74)
[2022-08-16 11:19] LABS: Platelet Estimate ADEQUATE (ADEQ); Red Cell Morphology NORM C+C NORMAL (NORM C&C)
[2022-08-17 12:43] LABS: Pathologist Review Reviewed
== END ==
LOC: OLS.SW 08:25
PROVIDERS: PCP Family Medicine; Visit Provider Family Medicine
DX: R53.83 Other fatigue (principal); E87.1 Hypo-osmolality and hyponatremia; I10 Essential (primary) hypertension
CPT/HCPCS: 36415; 80053; 82140; 84443; 85025

== ENCOUNTER → 2022-08-25 | Outpatient (REF) | payer MEDICARE, MEDICAID, SELFPAY ==
[2020-04-01 10:26] VITALS: BMI 27.5
[2022-08-25 10:00] LABS: AST(SGOT) 22 U/L (15-37); Alanine Aminotransfer ALT/SGPT 24 U/L (16-61); Albumin, Serum 3.3 g/dL (3.2-5.0); Alkaline Phosphatase 35 U/L (45-117); Anion Gap 6 (5-15); BUN 8 mg/dL (7-18); BUN/Creat Ratio 8.8 RATIO (10-20); Chloride 93 mmol/L (98-107); Creatinine, Serum 0.91 mg/dL (0.70-1.30); EST Glomerular Filtration Rate 90 mL/min (>60); Est Glom Filt Rate - Afr Amer 109 mL/min (>60); Globulin 3.3 g/dL (2.2-4.2); Glucose 81 mg/dL (74-106); Potassium 4.1 mmol/L (3.5-5.1); Protein, Total 6.6 g/dL (6.4-8.2); Sodium Level 127 mmol/L (136-145)
[2022-09-02 14:26] LABS: Trileptal-Oxcarbazepine 11 ug/mL (10-35)
== END ==
LOC: OLS.SW 05:00
PROVIDERS: PCP Family Medicine; Visit Provider Family Medicine
DX: I10 Essential (primary) hypertension (principal)
CPT/HCPCS: 36415; 80053; 82542

== ENCOUNTER 2022-08-31 17:00 | Emergency (ER) | payer MEDICARE, MEDICAID, SELFPAY ==
[2020-04-01 10:26] VITALS: BMI 27.5
[2022-08-31 17:00] VITALS: BP 200/107; PULSE 94; RESP 16; TEMP 36.8; O2SAT 97; BMI 23.0
--- NOTE | 2022-08-31 17:57 | CT_ITS ---
STUDY: CT BRAIN WITHOUT CONTRAST REASON FOR EXAM: Male, 62 years old. Change in Mental Status Individualized dose optimization techniques were used for this CT. TECHNIQUE: Transaxial CT imaging of the brain was performed without administration of intravenous contrast material. COMPARISON: MRI 03/27/2020 FINDINGS: There are calcifications around the carotid artery. These are noted in the cavernous carotid arteries. Normal calvarium. Normal soft tissues. 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 There is mild cerebral atrophy with widening of the extra-axial spaces and ventricular dilatation. There are areas of decreased attenuation within the white matter tracts of the supratentorial brain, consistent with microvascular disease changes. Normal basal ganglia and thalami. Normal brainstem. There is mild cerebellar atrophy. There is no intracranial hemorrhage. There are no findings of an acute ischemic infarction. Normal visualized paranasal sinuses. ASPECTS Score for Acute Strokes: 08/01 CT/Brain/Head without Contrast IMPRESSION: There are no acute findings. Chronic involutional changes of the brain. Electronically Signed: Mazin Keys MD at 18:58 EST ,
--- NOTE | 2022-08-31 18:08 | EDS_ITS ---
HPI HPI - Psych History of Present Illness Chief Complaint: Mental Health Informant: patient Narrative Narrative: In assisted living and agitated, physically violent. Patient cooperative here and not sure why he is here. At this time, his records show a history of alcoholic dementia but his baseline is unknown. He does not remember being in a fight with anyone earlier, he denies any physical complaints right now. [facility] Medical History Alcohol dependence with alcohol-induced persisting dementia Alcoholic peripheral neuropathy Anxiety Benign prostatic hyperplasia without lower urinary tract symptoms Bipolar 1 disorder Cancer Cellulitis of right lower limb Chronic obstructive pulmonary disease, unspecified COVID Essential (primary) hypertension Foot infection Foot osteomyelitis, right HTN (hypertension) Impulse disorder, unspecified Major depressive disorder, recurrent, mild Mass of lateral neck Home Medications Magic Mouth Wash 15 ml PO ACHS PRN ORAL/CANCER PAIN 06/03/20 [History Last Taken 06/03/20 15 ml] aluminum-magnesium hydroxide 225 mg-200 mg/5 mL oral suspension 5 ml PO Q4H PRN gi distress 06/30/20 [History Last Taken Unknown] buspirone 10 mg tablet 10 mg PO BID BIPOLAR 06/24/21 [History Last Taken Unknown] guaifenesin 100 mg/5 mL oral liquid 200 mg PO Q4H PRN COUGH, CONGESTION 06/24/21 [History Last Taken Unknown] lorazepam 1 mg tablet 1 mg PO Q12H PRN Anxiety 06/24/21 [History Last Taken Unknown] saliva substitute combo no.9 (Biotene Dry Mouth Oral Rinse mouthwash) 15 ml mucous membrane BID-QID PRN Dry Mouth 06/24/21 [History Last Taken Unknown] acetaminophen 650 mg rectal suppository 650 mg HI Q4H PRN pain/fever 08/07/21 [History Last Taken Unknown] acetaminophen 650 mg tablet 650 mg PO Q4H PRN pain/fever 08/07/21 [History Last Taken Unknown] doxazosin 1 mg tablet 1 mg PO QHS BPH 08/07/21 [History Last Taken Unknown] famotidine 20 mg tablet 20 mg PO BID GI DISTRESS 08/07/21 [History Last Taken Unknown] memantine 10 mg tablet 10 mg PO BID ALCOHOL DEPENDENCE 08/07/21 [History Last Taken Unknown] sertraline 100 mg tablet 75 mg PO DAILY depression 08/07/21 [History Last Taken Unknown] ceftriaxone 2 gram intravenous solution 2 g IV DAILY 40 days #40 ea 08/10/21 [Rx Last Taken Unknown] bisacodyl 10 mg rectal suppository 10 mg HI DAILY PRN 11/01/21 [History Last Taken Unknown] bisacodyl 10 mg rectal suppository 10 mg HI DAILY PRN 07/07/22 [History Last Taken Unknown] levothyroxine 50 mcg tablet (Synthroid) 50 mcg PO DAILY 07/07/22 [History Last Taken Unknown] ondansetron HCl 8 mg tablet 8 mg PO Q8H 07/07/22 [History Last Taken Unknown] oxcarbazepine 300 mg tablet 300 mg PO BID 07/07/22 [History Last Taken Unknown] pilocarpine HCl 7.5 mg tablet 7.5 mg PO ONCE 07/07/22 [History Last Taken Unknown] polyethylene glycol 3350 17 gram/dose oral powder 4 g PO DAILY 07/07/22 [History Last Taken Unknown] sodium chloride 1 gram tablet 1,000 mg PO QD-QID PRN 07/07/22 [History Last Taken Unknown] lisinopril 10 mg tablet 10 mg PO DAILY #30 tabs 08/31/22 [Rx Last Taken Unknown] Allergy/AdvReac Type Severity Reaction Status Date / Time No Known Allergies Allergy Verified 08/31/22 17:04 Family History Mother History of heart artery stent Pacemaker Hypertension Father Heart problem Grandmother Hypertension Sister Melanoma of thigh Surgical History history of neck biopsy (~02/2020) Hx of knee surgery Social History Smoking Status: Former smoker ROS ROS ED Constitutional Constitutional ED: Denies chills or fever(s) Eyes Eyes: Denies change in vision or diplopia ENT ENT ED: Denies rhinorrhea or sore throat Cardiovascular Cardiovascular: Denies chest pain or palpitations Respiratory/Chest Respiratory/Chest: Denies cough or dyspnea Gastrointestinal Gastrointestinal: Denies abdominal pain, diarrhea, nausea or vomiting Genitourinary Genitourinary ED: Denies dysuria or hematuria Musculoskeletal Musculoskeletal: Denies back pain or neck pain Integumentary Denies abscess or rash Neurologic Neurologic: Denies headache(s), paresthesias or weakness Psychiatric Psychiatric: Reports as per HPI; Denies anxiety or suicidal thoughts EXAM Physical Exam Const Vital Signs: 08/31/22 17:00 08/31/22 20:00 08/31/22 20:45 Temperature 98.2 F Temperature Source Temporal Pulse Rate 94 Respiratory Rate 16 Blood Pressure 200/107 H 210/109 H 181/101 H Blood Pressure Mean 138 142 127 Pulse Ox 97 Oxygen Delivery Method Room Air 08/31/22 21:04 Temperature Temperature Source Pulse Rate 88 Respiratory Rate 16 Blood Pressure 161/97 H Blood Pressure Mean 118 Pulse Ox 98 Oxygen Delivery Method Room Air Positive well nourished and well developed General Appearance ED: well developed and NAD HEENT Reports moist mucous membranes normocephalic and atraumatic Eyes PERRL and EOMs intact bilaterally Neck full ROM and supple Resp normal respiratory effort and clear to auscultation bilaterally Cardio regular rate, regular rhythm and no murmurs GI non-tender and non-distended Auscultation: normoactive bowel sounds Palpation: soft Back/Spine no CVA tenderness General Back: other FROM Extremity normal to inspection General Extremety ED: Negative for edema, pulses abnormal or tenderness General Extremity: Negative for edema or pulses abnormal Neuro CN's II-XII intact bilaterally and no sensory deficits noted Sensorium / Orientation: awake, alert and oriented to time Motor Exam: strength 5/5 throughout Psych mental status grossly normal, cooperative, affect normal, speech normal, activity/motor behavior normal, denies hallucinations, denies homicidal ideation and denies suicidal ideation Skin no rashes or lesions noted and no wounds MDM MDM MDM Narrative Medical decision making narrative: Show a slightly higher TSH than his prior 1, he is already on levothyroxine. This can be adjusted by his PCP as an outpatient does not require emergent dressing. Sodium is a little low but not low enough to cause all of this. His potassium is also a little low, 3.4. I gave him a dose of oral potassium chloride. His initial blood pressure was 200, had this rechecked and it went higher. He is asymptomatic from this, reviewing his medications I do not see any antihypertensives so I am giving him clonidine orally. He has been calm and cooperative while he is here, his head scan is negative the other labs are unremarkable, no sign of any infection in his urine, and he is otherwise medically cleared. With the clonidine we were able to get his blood pressure down to the 160s. Seen as he is on nothing for his blood pressure I prescribed him lisinopril as we are sending him back to assisted living. We had nursing and social work discussed with them and they are comfortable taking him back since he has been doing so well here. Lab Data Attestation: I reviewed the patient's lab results. Labs: Laboratory Results - last 24 hr 08/31/22 08/31/22 08/31/22 18:06 18:06 18:11 WBC 4.2 L RBC 4.62 Hgb 13.5 Hct 39.2 L MCV 84.8 MCH 29.2 MCHC 34.4 RDW Std Deviation 39.3 RDW Coeff of Puneet 12.7 Plt Count 155 MPV 10.3 Immature Gran % (Auto) 0.500 Neut % (Auto) 70.8 H Lymph % (Auto) 13.5 L Grainger % (Auto) 13.5 H Eos % (Auto) 1.2 Baso % (Auto) 0.5 Absolute Neuts (auto) 2.9 Absolute Lymphs (auto) 0.56 L Nucleated RBC % 0 Differential Comment SCANNED Diff Path Review May foll Sodium Potassium Chloride Carbon Dioxide Anion Gap BUN Creatinine Estim Creat Clear Calc Est GFR (MDRD) Af Amer Est GFR (MDRD) Non-Af BUN/Creatinine Ratio Glucose Calcium Total Bilirubin AST ALT Alkaline Phosphatase Total Protein Albumin Globulin Albumin/Globulin Ratio TSH Urine Color Yellow Urine Clarity Clear Urine pH 7.0 Ur Specific [place] 1.005 Urine Protein 100 H Urine Glucose (UA) Normal Urine Ketones Negative Urine Occult Blood Negative Urine Nitrite Negative Urine Bilirubin Negative Urine Urobilinogen Normal Ur Leukocyte Esterase Negative Urine RBC 0 SEEN Urine WBC 0 SEEN Ur Squamous Epith Cells 0 SEEN Urine Bacteria 0 SEEN Urine Mucus 0 SEEN Urine Opiates Screen NEGATIVE Urine Methadone Screen NEGATIVE Ur Barbiturates Screen NEGATIVE Ur Phencyclidine Scrn NEGATIVE Ur Amphetamines Screen NEGATIVE MDMA (Ecstasy) Screen NEGATIVE U Benzodiazepines Scrn NEGATIVE Urine Cocaine Screen NEGATIVE U Cannabinoids Screen NEGATIVE Ur Drug Screen Comment Ethyl Alcohol 08/31/22 08/31/22 18:11 18:11 WBC RBC Hgb Hct MCV MCH MCHC RDW Std Deviation RDW Coeff of Puneet Plt Count MPV Immature Gran % (Auto) Neut % (Auto) Lymph % (Auto) Grainger % (Auto) Eos % (Auto) Baso % (Auto) Absolute Neuts (auto) Absolute Lymphs (auto) Nucleated RBC % Differential Comment Diff Path Review Sodium 129 L Potassium 3.4 L Chloride 94 L Carbon Dioxide 28.0 Anion Gap 7 BUN 7 Creatinine 0.97 Estim Creat Clear Calc 86.12 Est GFR (MDRD) Af Amer 101 Est GFR (MDRD) Non-Af 83 BUN/Creatinine Ratio 7.2 L Glucose 103 Calcium 9.0 Total Bilirubin 0.30 AST 22 ALT 24 Alkaline Phosphatase 46 Total Protein 7.0 Albumin 3.6 Globulin 3.4 Albumin/Globulin Ratio 1.1 TSH 4.16 H Urine Color Urine Clarity Urine pH Ur Specific [place] Urine Protein Urine Glucose (UA) Urine Ketones Urine Occult Blood Urine Nitrite Urine Bilirubin Urine Urobilinogen Ur Leukocyte Esterase Urine RBC Urine WBC Ur Squamous Epith Cells Urine Bacteria Urine Mucus Urine Opiates Screen Urine Methadone Screen Ur Barbiturates Screen Ur Phencyclidine Scrn Ur Amphetamines Screen MDMA (Ecstasy) Screen U Benzodiazepines Scrn Urine Cocaine Screen U Cannabinoids Screen Ur Drug Screen Comment Ethyl Alcohol < 3.0 Radiography Diagnostic Testing: Clinical Impression(s) from Imaging Studies Brain CT 08/31/22 17:57 IMPRESSION: There are no acute findings. Chronic involutional changes of the brain. Electronically Signed: Mazin Keys MD at 18:58 EST Reading Location ID and State: [facility] / [place] , Service support , Discharge Plan Triage Chief Complaint: Mental Health ED Provider: Fidel De La Fuente Dx/Rx/DC Orders Clinical Impression: Agitation due to dementia, Episode of hypertension, Hyponatremia, Hypothyroid ism, Hypokalemia Instructions: Hypertension Dc, ED Hyponatremia, ED Hypokalemia Prescriptions: New lisinopril 10 mg tablet 10 mg PO DAILY Qty: 30 0RF No Action aluminum-magnesium hydroxide 225 mg-200 mg/5 mL oral suspension 225-200 mg/5 mL suspension 5 ml PO Q4H PRN (Reason: gi distress) Biotene Dry Mouth Oral Rinse Mouthwash 15 ml mucous membrane BID-QID PRN (Reason: Dry Mouth) Rx Instructions: May use 2-10 times/daily. swish for 15-30 secs , then spit out; do not swallow buspirone 10 mg tablet 10 mg PO BID guaifenesin 100 mg/5 mL liquid 200 mg PO Q4H PRN (Reason: COUGH, CONGESTION) bisacodyl 10 mg suppository 10 mg HI DAILY PRN bisacodyl 10 mg suppository 10 mg HI DAILY PRN ondansetron HCl 8 mg tablet 8 mg PO Q8H oxcarbazepine 300 mg tablet 300 mg PO BID pilocarpine HCl 7.5 mg tablet 7.5 mg PO ONCE sodium chloride 1 gram tablet 1,000 mg PO QD-QID PRN levothyroxine [Synthroid] 50 mcg tablet 50 mcg PO DAILY polyethylene glycol 3350 17 gram/dose powder 4 g PO DAILY Magic Mouth Wash 15 ml PO ACHS PRN (Reason: ORAL/CANCER PAIN) lorazepam 1 mg tablet 1 mg PO Q12H PRN (Reason: Anxiety) doxazosin 1 MG tablet 1 mg PO QHS famotidine 20 MG tablet 20 mg PO BID memantine 10 MG tablet 10 mg PO BID sertraline 100 MG tablet 75 mg PO DAILY acetaminophen 650 mg Tablet 650 mg PO Q4H PRN (Reason: pain/fever) acetaminophen 650 mg Suppository 650 mg HI Q4H PRN (Reason: pain/fever) ceftriaxone 2 gram recon soln 2 g IV DAILY 40 Days Qty: 40 0RF Rx Instructions: stop date 09/18/21 dx: foot osteomyelitis weekly bmp, cbc, and esr. Fax to [phone] routine picc care with heparin/saline flush per protocol Primary Care Provider: Nolan Yin Referrals: Giana Hansen MD [Med Staff - Adjunct Faculty Mathematics Department] - As soon as possible (For reevaluation of blood pressure and to possibly have thyroid medication adjusted due to elevated TSH) Disposition Disposition: Home, Self Care
[2022-08-31 18:17] LABS: Bacteria 0 SEEN /hpf (None Seen); Mucous, Urine 0 SEEN /hpf (<or=2+); Red Blood Cells-Urine 0 SEEN /hpf (0-5); Squamous Epithelial Cells - UA 0 SEEN /hpf (0-5); White Blood Cells 0 SEEN /hpf (0-5)
[2022-08-31 18:25] LABS: Absolute Lymphocyte Count 0.56 X10^3/uL (0.83-4.51); Absolute Neutrophil Count 2.9 X10^3/uL (2.0-7.7); Basophil# 0.02 X10^3/uL; Basophil% 0.5 % (0-1); Eosinophil# 0.05 X10^3/uL; Eosinophils% 1.2 % (0-5); Hematocrit 39.2 % (40-54); Hemoglobin 13.5 g/dL (13.0-16.5); Lymphocyte # 0.56 X10^3/ul (0.83-4.51); Lymphocyte % 13.5 % (19-41); Mean Corp Hgb Conc 34.4 g/dL (32-36); Mean Corpuscular Hgb 29.2 pg (27.0-32.0); Mean Corpuscular Volume 84.8 fL (80-94); Mean Platelet Vol. 10.3 fl (6.2-12.0); Monocyte# 0.56 X10^3/uL; Monocyte% 13.5 % (0-10); NRBC Flagged by Analyzer 0 % (0-5); Neutrophil # 2.94 X10^3/uL (2.7-7.7); Neutrophil % 70.8 % (47-70); POSITIVE DIFFERENTIAL YES; Platelet Count 155 K/mm3 (150-450); RBC Distribution Width CV 12.7 % (11.6-14.6); RBC Distribution Width SD 39.3 fl (35.1-43.9); Red Blood Count 4.62 M/mm3 (4.6-6.2); White Blood Count 4.2 K/mm3 (4.4-11.0)
[2022-08-31 18:26] LABS: Color, Urine Yellow (Yellow); Glucose, Dipstick Normal (Normal); Ketone-Dipstick Negative (Negative); Leukocyte Esterase-Dipstick Negative /ul (Negative); Nitrite-Dipstick Negative (Negative); Occult Blood-Urine Negative /ul (Negative); Protein-Dipstick 100 mg/dl (Negative); Specific Gravity, Urine 1.005 (1.002-1.030); Urine Bilirubin Dipstick Negative (Negative); Urine Clarity Clear (Clear); Urine Urobilinogen Normal (Normal)
[2022-08-31 18:26] LABS: Differential Indicated SCAN CRITERIA MET
[2022-08-31 18:31] LABS: Amphetamine Urine VISTA NEGATIVE (<1000 ng/mL); Barbiturate Urine VISTA NEGATIVE (< 200 ng/mL); Benzodiazepine Urine VISTA NEGATIVE (< 200 ng/mL); Cocaine Urine VISTA NEGATIVE (< 300 ng/mL); Ecstacy Urine VISTA NEGATIVE (< 500 ng/mL); Methadone Urine VISTA NEGATIVE (< 300 ng/mL); PCP Urine VISTA NEGATIVE (< 25 ng/mL); THC Urine VISTA NEGATIVE (< 50 ng/mL); Vista UDS pH Range 7
[2022-08-31 18:45] LABS: ALB/GLOB Ratio 1.1 RATIO (0.9-2.4); AST(SGOT) 22 U/L (15-37); Alanine Aminotransfer ALT/SGPT 24 U/L (16-61); Albumin, Serum 3.6 g/dL (3.2-5.0); Alkaline Phosphatase 46 U/L (45-117); Anion Gap 7 (5-15); BUN 7 mg/dL (7-18); BUN/Creat Ratio 7.2 RATIO (10-20); Chloride 94 mmol/L (98-107); Creatinine, Serum 0.97 mg/dL (0.70-1.30); EST Glomerular Filtration Rate 83 mL/min (>60); Est Glom Filt Rate - Afr Amer 101 mL/min (>60); Estimated Creatinine Clearance 86.12 ml/min; Globulin 3.4 g/dL (2.2-4.2); Glucose 103 mg/dL (74-106); Potassium 3.4 mmol/L (3.5-5.1); Sodium Level 129 mmol/L (136-145); Thyroid Stim Hormone (TSH) 4.16 uIU/mL (0.358-3.74)
[2022-08-31 18:51] LABS: Differential Comment SCANNED
[2022-08-31 19:26] LABS: Alcohol, Blood (Medical)-Serum < 3.0 mg/dL
[2022-08-31] MEDS: Potassium Chloride Oral Tablet 20 MEQ 40 MEQ PO (19:45)
[2022-08-31] MEDS: cloNIDine HCl 0.2 MG Tablet PO (19:58)
[2022-08-31 20:00] VITALS: BP 210/109
--- NOTE | 2022-08-31 20:12 | CM.ED ---
Social Work Consult: Mental Health Referral source: Dr. De La Fuente Patient is a long-term resident at [facility] ([facility]). Patient sent to ED initially for mental health evaluation due to behaviors at [facility]. Patient has been calm and appropriate with medical team during ED stay. This social work assistant collaborating with Dr. De La Fuente. Plan is for this social work assistant to reach out to [facility] to inquire about further information/option for patient to return as patient does not appear to meet need for inpatient psychiatric placement. Telephone call to [facility], Hina. 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 Hina states that sometimes other staff will get patient worked up. Hina states that patient is a sick man in regards to mental health. Hina states that there are moments that it is difficult to get patient deescalated, but that patient is typically able to be redirected. Hina states he can turn on and off his behaviors. Hina voices understanding that currently does not appear that patient meets criteria for inpatient psychiatric placement. Hina states able to have patient come back. This social work assistant updated medical team. Nurse to call report when patient is cleared for discharge. PLAN: Return to [facility] Deepika EUGENE, AVIS
[2022-08-31 20:45] VITALS: BP 181/101
[2022-08-31 21:04] VITALS: BP 161/97; PULSE 88; RESP 16; O2SAT 98
[2022-08-31 22:13] VITALS: BP 158/78; PULSE 66; RESP 18; TEMP 36.6; O2SAT 99
[2022-09-01 15:35] LABS: Pathologist Review Reviewed
== END 2022-08-31 23:34 | disposition home or self-care (01) ==
PROVIDERS: Emergency Provider Emergency Medicine; PCP Family Medicine; Visit Provider Emergency Medicine
DX: F03.90 Unspecified dementia, unspecified severity, without behavioral disturbance, psychotic disturbance, mood disturbance, and anxiety (principal); J44.9 Chronic obstructive pulmonary disease, unspecified; E87.1 Hypo-osmolality and hyponatremia; E03.9 Hypothyroidism, unspecified; I10 Essential (primary) hypertension; E87.6 Hypokalemia; R45.1 Restlessness and agitation; R45.6 Violent behavior; Z79.899 Other long term (current) drug therapy; Z87.891 Personal history of nicotine dependence
CPT/HCPCS: 70450; 80053; 80307; 81001; 82077; 84443; 85025; 87811; 99284

== ENCOUNTER → 2022-09-21 | Outpatient (REF) | payer MEDICARE, MEDICAID, SELFPAY ==
[2020-04-01 10:26] VITALS: BMI 27.5
[2022-09-21 07:48] LABS: ALB/GLOB Ratio 0.9 RATIO (0.9-2.4); AST(SGOT) 18 U/L (15-37); Alanine Aminotransfer ALT/SGPT 23 U/L (16-61); Albumin, Serum 2.9 g/dL (3.2-5.0); Alkaline Phosphatase 29 U/L (45-117); Anion Gap 7 (5-15); BUN 9 mg/dL (7-18); Calcium,Total 8.7 mg/dL (8.5-10.1); Chloride 84 mmol/L (98-107); Creatinine, Serum 0.82 mg/dL (0.70-1.30); EST Glomerular Filtration Rate 101 mL/min (>60); Est Glom Filt Rate - Afr Amer 122 mL/min (>60); Globulin 3.2 g/dL (2.2-4.2); Glucose 92 mg/dL (74-106); Potassium 3.8 mmol/L (3.5-5.1); Protein, Total 6.1 g/dL (6.4-8.2); Sodium Level 118 mmol/L (136-145)
== END ==
LOC: OLS.SW 05:00
PROVIDERS: PCP Family Medicine; Visit Provider Family Medicine
DX: I10 Essential (primary) hypertension (principal); E03.9 Hypothyroidism, unspecified; E87.1 Hypo-osmolality and hyponatremia
CPT/HCPCS: 36415; 80053

== ENCOUNTER → 2022-10-19 | Outpatient (REF) | payer MEDICARE, MEDICAID, SELFPAY ==
[2020-04-01 10:26] VITALS: BMI 27.5
[2022-10-19 08:34] LABS: AST(SGOT) 21 U/L (15-37); Alanine Aminotransfer ALT/SGPT 23 U/L (16-61); Albumin, Serum 3.1 g/dL (3.2-5.0); Alkaline Phosphatase 31 U/L (45-117); Anion Gap 8 (5-15); BUN 11 mg/dL (7-18); Calcium,Total 8.9 mg/dL (8.5-10.1); Chloride 93 mmol/L (98-107); Creatinine, Serum 0.91 mg/dL (0.70-1.30); EST Glomerular Filtration Rate 89 mL/min (>60); Est Glom Filt Rate - Afr Amer 108 mL/min (>60); Globulin 3.1 g/dL (2.2-4.2); Glucose 93 mg/dL (74-106); Potassium 4.3 mmol/L (3.5-5.1); Protein, Total 6.2 g/dL (6.4-8.2); Sodium Level 126 mmol/L (136-145)
== END ==
LOC: OLS.SW 05:00
PROVIDERS: PCP Family Medicine; Visit Provider Family Medicine
DX: E87.1 Hypo-osmolality and hyponatremia (principal)
CPT/HCPCS: 36415; 80053

== ENCOUNTER → 2022-11-01 | Outpatient (REF) | payer MEDICARE, MEDICAID, SELFPAY ==
[2020-04-01 10:26] VITALS: BMI 27.5
[2022-11-01 09:15] LABS: Absolute Neutrophil Count 1.7 X10^3/uL (2.0-7.7); Basophil# 0.01 X10^3/uL; Basophil% 0.3 % (0-1); Eosinophil# 0.09 X10^3/uL; Eosinophils% 3.1 % (0-5); Hematocrit 34.2 % (40-54); Hemoglobin 12.1 g/dL (13.0-16.5); Lymphocyte % 17.5 % (19-41); Mean Corp Hgb Conc 35.4 g/dL (32-36); Mean Corpuscular Hgb 29.7 pg (27.0-32.0); Mean Corpuscular Volume 83.8 fL (80-94); Mean Platelet Vol. 10.1 fl (6.2-12.0); Monocyte# 0.54 X10^3/uL; Monocyte% 18.9 % (0-10); NRBC Flagged by Analyzer 0 % (0-5); Neutrophil % 59.5 % (47-70); POSITIVE DIFFERENTIAL YES; Platelet Count 146 K/mm3 (150-450); RBC Distribution Width CV 12.7 % (11.6-14.6); RBC Distribution Width SD 38.8 fl (35.1-43.9); Red Blood Count 4.08 M/mm3 (4.6-6.2); White Blood Count 2.9 K/mm3 (4.4-11.0)
[2022-11-01 09:19] LABS: Differential Indicated SCAN CRITERIA MET
[2022-11-01 09:39] LABS: ALB/GLOB Ratio 0.9 RATIO (0.9-2.4); AST(SGOT) 15 U/L (15-37); Alanine Aminotransfer ALT/SGPT 21 U/L (16-61); Albumin, Serum 2.9 g/dL (3.2-5.0); Alkaline Phosphatase 30 U/L (45-117); Anion Gap 8 (5-15); BUN 11 mg/dL (7-18); Calcium,Total 8.7 mg/dL (8.5-10.1); Chloride 93 mmol/L (98-107); Creatinine, Serum 0.78 mg/dL (0.70-1.30); EST Glomerular Filtration Rate 106 mL/min (>60); Est Glom Filt Rate - Afr Amer 129 mL/min (>60); Globulin 3.2 g/dL (2.2-4.2); Glucose 90 mg/dL (74-106); LDH 147 U/L (87-241); Potassium 4.1 mmol/L (3.5-5.1); Protein, Total 6.1 g/dL (6.4-8.2); Sodium Level 126 mmol/L (136-145); Thyroid Stim Hormone (TSH) 3.34 uIU/mL (0.358-3.74)
[2022-11-01 10:20] LABS: Differential Comment SCANNED
[2022-11-03 09:17] LABS: Pathologist Review Reviewed
== END ==
LOC: OLS.SW 05:00
PROVIDERS: PCP Family Medicine; Visit Provider Family Medicine
DX: R63.4 Abnormal weight loss (principal)
CPT/HCPCS: 36415; 80053; 83615; 84439; 84443; 85025

== ENCOUNTER → 2022-12-14 | Outpatient (REF) | payer MEDICARE, MEDICAID, SELFPAY ==
[2020-04-01 10:26] VITALS: BMI 27.5
[2022-12-14 09:25] LABS: Absolute Lymphocyte Count 0.52 X10^3/uL (0.83-4.51); Absolute Neutrophil Count 2.1 X10^3/uL (2.0-7.7); Basophil# 0.01 X10^3/uL; Basophil% 0.3 % (0-1); Eosinophil# 0.09 X10^3/uL; Eosinophils% 2.8 % (0-5); Hematocrit 38.1 % (40-54); Lymphocyte # 0.52 X10^3/ul (0.83-4.51); Lymphocyte % 15.9 % (19-41); Mean Corp Hgb Conc 34.1 g/dL (32-36); Mean Corpuscular Hgb 29.1 pg (27.0-32.0); Mean Corpuscular Volume 85.4 fL (80-94); Mean Platelet Vol. 10.5 fl (6.2-12.0); Monocyte# 0.52 X10^3/uL; Monocyte% 15.9 % (0-10); NRBC Flagged by Analyzer 0 % (0-5); Neutrophil % 64.2 % (47-70); POSITIVE DIFFERENTIAL YES; Platelet Count 154 K/mm3 (150-450); RBC Distribution Width CV 12.8 % (11.6-14.6); RBC Distribution Width SD 39.7 fl (35.1-43.9); Red Blood Count 4.46 M/mm3 (4.6-6.2); White Blood Count 3.3 K/mm3 (4.4-11.0)
[2022-12-14 09:30] LABS: Differential Indicated SCAN CRITERIA MET
[2022-12-14 09:34] LABS: Anion Gap 9 (5-15); BUN 14 mg/dL (7-18); BUN/Creat Ratio 14.6 RATIO (10-20); Calcium,Total 9.3 mg/dL (8.5-10.1); Chloride 92 mmol/L (98-107); Creatinine, Serum 0.96 mg/dL (0.70-1.30); EST Glomerular Filtration Rate 84 mL/min (>60); Est Glom Filt Rate - Afr Amer 102 mL/min (>60); Glucose 88 mg/dL (74-106); Potassium 4.2 mmol/L (3.5-5.1); Sodium Level 126 mmol/L (136-145)
[2022-12-14 10:04] LABS: Differential Comment SCANNED
[2022-12-14 13:45] LABS: Pathologist Review Reviewed
[2022-12-19 21:03] LABS: Trileptal-Oxcarbazepine 14 ug/mL (10-35)
== END ==
LOC: OLS.SW 05:00
PROVIDERS: PCP Family Medicine; Visit Provider Family Medicine
DX: D70.9 Neutropenia, unspecified (principal); E87.1 Hypo-osmolality and hyponatremia
CPT/HCPCS: 36415; 80048; 82542; 85025

== ENCOUNTER → 2023-03-15 | Outpatient (REF) | payer MEDICARE, MEDICAID, SELFPAY ==
[2020-04-01 10:26] VITALS: BMI 27.5
[2023-03-15 09:13] LABS: Absolute Lymphocyte Count 0.62 X10^3/uL (0.83-4.51); Absolute Neutrophil Count 2.4 X10^3/uL (2.0-7.7); Basophil# 0.01 X10^3/uL; Basophil% 0.3 % (0-1); Eosinophil# 0.08 X10^3/uL; Eosinophils% 2.2 % (0-5); Hematocrit 37.3 % (40-54); Hemoglobin 13.2 g/dL (13.0-16.5); Lymphocyte # 0.62 X10^3/ul (0.83-4.51); Lymphocyte % 16.8 % (19-41); Mean Corp Hgb Conc 35.4 g/dL (32-36); Mean Platelet Vol. 10.2 fl (6.2-12.0); Monocyte# 0.51 X10^3/uL; Monocyte% 13.9 % (0-10); NRBC Flagged by Analyzer 0 % (0-5); Neutrophil # 2.43 X10^3/uL (2.7-7.7); Platelet Count 179 K/mm3 (150-450); RBC Distribution Width SD 38.8 fl (35.1-43.9); Red Blood Count 4.55 M/mm3 (4.6-6.2); White Blood Count 3.7 K/mm3 (4.4-11.0)
[2023-03-15 09:50] LABS: ALB/GLOB Ratio 0.9 RATIO (0.9-2.4); AST(SGOT) 24 U/L (15-37); Alanine Aminotransfer ALT/SGPT 26 U/L (16-61); Albumin, Serum 3.2 g/dL (3.2-5.0); Alkaline Phosphatase 36 U/L (45-117); Anion Gap 8 (5-15); BUN 8 mg/dL (7-18); BUN/Creat Ratio 8.9 RATIO (10-20); Bilirubin, Direct 0.13 mg/dL (0.00-0.30); Calcium,Total 8.7 mg/dL (8.5-10.1); Chloride 92 mmol/L (98-107); EST Glomerular Filtration Rate 90 mL/min (>60); Est Glom Filt Rate - Afr Amer 109 mL/min (>60); Globulin 3.6 g/dL (2.2-4.2); Glucose 101 mg/dL (74-106); Potassium 4.4 mmol/L (3.5-5.1); Protein, Total 6.8 g/dL (6.4-8.2); Sodium Level 123 mmol/L (136-145); Thyroid Stim Hormone (TSH) 3.55 uIU/mL (0.358-3.74)
[2023-03-16 16:10] LABS: Trileptal-Oxcarbazepine 12 ug/mL (10-35)
== END ==
LOC: OLS.SW 05:00
PROVIDERS: PCP Family Medicine; Visit Provider Family Medicine
DX: I10 Essential (primary) hypertension (principal)
CPT/HCPCS: 36415; 80053; 82248; 82542; 84443; 85025

== ENCOUNTER → 2023-05-02 | Outpatient (REF) | payer MEDICARE, MEDICAID, SELFPAY ==
[2020-04-01 10:26] VITALS: BMI 27.5
[2023-05-02 08:11] LABS: Absolute Lymphocyte Count 0.62 X10^3/uL (0.83-4.51); Absolute Neutrophil Count 2.5 X10^3/uL (2.0-7.7); Basophil# 0.01 X10^3/uL; Basophil% 0.3 % (0-1); Eosinophil# 0.06 X10^3/uL; Eosinophils% 1.6 % (0-5); Hematocrit 38.7 % (40-54); Lymphocyte # 0.62 X10^3/ul (0.83-4.51); Lymphocyte % 16.2 % (19-41); Mean Corp Hgb Conc 33.6 g/dL (32-36); Mean Corpuscular Hgb 28.5 pg (27.0-32.0); Mean Corpuscular Volume 84.9 fL (80-94); Mean Platelet Vol. 9.6 fl (6.2-12.0); Monocyte# 0.58 X10^3/uL; Monocyte% 15.1 % (0-10); NRBC Flagged by Analyzer 0 % (0-5); Neutrophil # 2.54 X10^3/uL (2.7-7.7); Neutrophil % 66.3 % (47-70); Platelet Count 184 K/mm3 (150-450); RBC Distribution Width CV 13.5 % (11.6-14.6); Red Blood Count 4.56 M/mm3 (4.6-6.2); White Blood Count 3.8 K/mm3 (4.4-11.0)
[2023-05-02 08:44] LABS: ALB/GLOB Ratio 0.8 RATIO (0.9-2.4); AST(SGOT) 20 U/L (15-37); Alanine Aminotransfer ALT/SGPT 22 U/L (16-61); Albumin, Serum 3.1 g/dL (3.2-5.0); Alkaline Phosphatase 37 U/L (45-117); Anion Gap 4 (5-15); BUN 9 mg/dL (7-18); BUN/Creat Ratio 9.5 RATIO (10-20); Calcium,Total 9.5 mg/dL (8.5-10.1); Chloride 93 mmol/L (98-107); Creatinine, Serum 0.95 mg/dL (0.70-1.30); EST Glomerular Filtration Rate 85 mL/min (>60); Est Glom Filt Rate - Afr Amer 103 mL/min (>60); Globulin 3.9 g/dL (2.2-4.2); Glucose 95 mg/dL (74-106); LDH 183 U/L (87-241); Potassium 3.9 mmol/L (3.5-5.1); Sodium Level 125 mmol/L (136-145); T4 Free Direct 1.02 ng/dL (0.76-1.46)
== END ==
LOC: OLS.SW 05:00
PROVIDERS: PCP Family Medicine; Visit Provider Family Medicine
DX: I10 Essential (primary) hypertension (principal); C10.9 Malignant neoplasm of oropharynx, unspecified; E03.9 Hypothyroidism, unspecified; R63.4 Abnormal weight loss
CPT/HCPCS: 36415; 80053; 83615; 84439; 85025

== ENCOUNTER → 2023-05-25 | Outpatient (REF) | payer MEDICARE, MEDICAID, SELFPAY ==
[2020-04-01 10:26] VITALS: BMI 27.5
[2023-05-25 09:33] LABS: Absolute Lymphocyte Count 0.72 X10^3/uL (0.83-4.51); Absolute Neutrophil Count 3.1 X10^3/uL (2.0-7.7); Basophil# 0.02 X10^3/uL; Basophil% 0.4 % (0-1); Eosinophil# 0.07 X10^3/uL; Eosinophils% 1.5 % (0-5); Hematocrit 36.4 % (40-54); Hemoglobin 12.4 g/dL (13.0-16.5); Lymphocyte # 0.72 X10^3/ul (0.83-4.51); Mean Corp Hgb Conc 34.1 g/dL (32-36); Mean Platelet Vol. 10.5 fl (6.2-12.0); Monocyte# 0.91 X10^3/uL; NRBC Flagged by Analyzer 0 % (0-5); Neutrophil # 3.06 X10^3/uL (2.7-7.7); Neutrophil % 63.7 % (47-70); Platelet Count 176 K/mm3 (150-450); RBC Distribution Width CV 13.6 % (11.6-14.6); RBC Distribution Width SD 42.2 fl (35.1-43.9); Red Blood Count 4.28 M/mm3 (4.6-6.2); White Blood Count 4.8 K/mm3 (4.4-11.0)
[2023-05-25 09:54] LABS: ALB/GLOB Ratio 0.8 RATIO (0.9-2.4); AST(SGOT) 23 U/L (15-37); Alanine Aminotransfer ALT/SGPT 25 U/L (16-61); Albumin, Serum 2.9 g/dL (3.2-5.0); Alkaline Phosphatase 38 U/L (45-117); Anion Gap 5 (5-15); BUN 9 mg/dL (7-18); BUN/Creat Ratio 9.8 RATIO (10-20); Calcium,Total 8.8 mg/dL (8.5-10.1); Chloride 94 mmol/L (98-107); Creatinine, Serum 0.92 mg/dL (0.70-1.30); EST Glomerular Filtration Rate 89 mL/min (>60); Est Glom Filt Rate - Afr Amer 107 mL/min (>60); Globulin 3.6 g/dL (2.2-4.2); Glucose 94 mg/dL (74-106); Potassium 4.4 mmol/L (3.5-5.1); Protein, Total 6.5 g/dL (6.4-8.2); Sodium Level 127 mmol/L (136-145)
== END ==
LOC: OLS.SW 04:00
PROVIDERS: PCP Family Medicine; Referring Provider Family Medicine; Visit Provider Family Medicine
DX: L03.90 Cellulitis, unspecified (principal)
CPT/HCPCS: 36415; 80053; 85025; 86140

== ENCOUNTER 2023-05-26 15:36 | Inpatient (IN) | payer MEDICARE, MEDICAID, SELFPAY ==
[2020-04-01 10:26] VITALS: BMI 27.5
[2023-05-26] VITALS (7 sets, daily range): BP systolic 155–176; BP diastolic 70–93; PULSE 75–98; RESP 14–17; TEMP 36.1–36.6; O2SAT 97–99; BMI 26.0; BMI 25.0
--- NOTE | 2023-05-26 15:53 | EDS_ITS ---
HPI History of Present Illness Chief Complaint: Wound Check Informant: patient and SNF Narrative Narrative: Patient presents via EMS secondary to left great toe wound. Patient was sent in from his ECF secondary to worsening wound. They reportedly started him on Keflex 2 days ago and have noted increased redness and swelling. They are concerned he may have osteomyelitis again. Patient is not able to provide much history. He denies having fever or chills. He denies having much pain in the toe. PFSH [facility] Medical History Alcohol dependence with alcohol-induced persisting dementia Alcoholic peripheral neuropathy Anxiety Benign prostatic hyperplasia without lower urinary tract symptoms Bipolar 1 disorder Cancer Cellulitis of right lower limb Chronic obstructive pulmonary disease, unspecified COVID Essential (primary) hypertension Foot infection Foot osteomyelitis, right HTN (hypertension) Impulse disorder, unspecified Major depressive disorder, recurrent, mild Mass of lateral neck Home Medications aluminum-magnesium hydroxide 225 mg-200 mg/5 mL oral suspension 5 ml PO Q4H PRN gi distress 06/30/20 [History Last Taken Unknown] guaifenesin 100 mg/5 mL oral liquid 200 mg PO Q4H PRN COUGH, CONGESTION 06/24/21 [History Last Taken Unknown] acetaminophen 650 mg rectal suppository 650 mg OR Q4H PRN pain/fever 08/07/21 [History Last Taken Unknown] acetaminophen 650 mg tablet 650 mg PO Q4H PRN pain/fever 08/07/21 [History Last Taken Unknown] doxazosin 1 mg tablet 1 mg PO QHS BPH 08/07/21 [History Last Taken Unknown] memantine 10 mg tablet 10 mg PO BID ALCOHOL DEPENDENCE 08/07/21 [History Last Taken Unknown] bisacodyl 10 mg rectal suppository 10 mg OR DAILY PRN constipation 07/07/22 [History Last Taken Unknown] levothyroxine 50 mcg tablet (Synthroid) 50 mcg PO DAILY 07/07/22 [History Last Taken Unknown] oxcarbazepine 300 mg tablet 300 mg PO BID 07/07/22 [History Last Taken Unknown] pilocarpine HCl 7.5 mg tablet 7.5 mg PO TID 07/07/22 [History Last Taken Unknown] sodium chloride 1 gram tablet 2,000 mg PO Q8H 07/07/22 [History Last Taken Unknown] lisinopril 10 mg tablet 10 mg PO DAILY #30 tabs 08/31/22 [Rx Last Taken Unknown] cimetidine 200 mg tablet (Tagamet HB) 200 mg PO QHS 05/03/23 [History Last Taken Unknown] escitalopram oxalate 10 mg tablet 10 mg PO DAILY 05/03/23 [History Last Taken Unknown] magnesium hydroxide 400 mg/5 mL oral suspension (Milk of Magnesia) 15 ml PO DAILY PRN stomach upset 05/03/23 [History Last Taken Unknown] miconazole nitrate 2 % topical powder (Remedy Phytoplex Antifungal) 1 applic topical DAILY PRN PRN redness 05/03/23 [History Last Taken Unknown] thiamine HCl (vitamin B1) 100 mg tablet 300 mg PO DAILY 05/03/23 [History Last Taken Unknown] cephalexin 500 mg capsule 500 mg PO Q8H 05/26/23 [History Last Taken Unknown] Allergy/AdvReac Type Severity Reaction Status Date / Time No Known Allergies Allergy Verified 05/26/23 15:37 Family History Mother History of heart artery stent Pacemaker Hypertension Father Heart problem Grandmother Hypertension Sister Melanoma of thigh Surgical History history of neck biopsy (~02/2020) Hx of knee surgery Social History Smoking Status: Former smoker ROS ROS ED ROS Narrative Accuracy of ROS limited by patient's dementia. Constitutional Constitutional ED: Denies chills or fever(s) ENT ENT ED: Denies rhinorrhea or sore throat Cardiovascular Cardiovascular: Denies chest pain Respiratory/Chest Respiratory/Chest: Denies cough or dyspnea Gastrointestinal Gastrointestinal: Denies abdominal pain, nausea or vomiting Musculoskeletal Musculoskeletal: Reports extremity pain; Denies back pain Integumentary Reports other Details: Left great toe wound ; Denies Abrasions or rash Neurologic Neurologic: Denies headache(s) or weakness Allergic/Immunologic Allergic/Immunologic ED: Denies lip swelling or urticaria EXAM Physical Exam Const Vital Signs: 05/26/23 15:37 Temperature 97.9 F Temperature Source Temporal Pulse Rate 77 Respiratory Rate 17 Blood Pressure 159/78 H Blood Pressure Mean 105 Pulse Ox 99 Oxygen Delivery Method Room Air Positive well nourished and well developed General Appearance ED: well developed HEENT Reports normocephalic and head/scalp atraumatic Eyes PERRL and EOMs intact bilaterally Neck supple Chest Wall inspection of chest normal and palpation of chest normal Resp normal respiratory effort and clear to auscultation bilaterally Cardio regular rate and regular rhythm GI normal to inspection, nondistended, normoactive bowel sounds Palpation: soft Extremity Extremity Narrative: 1 x 3 cm ulcerated wound to the left great toe. Erythema and mild edema noted to the toe. No drainage at this time. Neuro No no sensory deficits noted Sensorium / Orientation: alert Motor Exam: strength 5/5 throughout Psych mental status grossly normal MDM MDM MDM Narrative Medical decision making narrative: Labwork obtained to evaluate for leukocytosis, anemia, and electrolyte derangement. Blood cultures obtained. Left foot x-rays obtained to evaluate for bony erosion or subcutaneous air. Lab Data Attestation: I reviewed the patient's lab results. Labs: Laboratory Results - last 24 hr 05/26/23 16:03 WBC 5.3 RBC 4.09 L Hgb 12.0 L Hct 34.8 L MCV 85.1 MCH 29.3 MCHC 34.5 RDW Std Deviation 42.5 RDW Coeff of Puneet 13.5 Plt Count 168 MPV 9.6 Immature Gran % (Auto) 0.400 Neut % (Auto) 71.8 H Lymph % (Auto) 11.0 L Stokes % (Auto) 15.7 H Eos % (Auto) 0.9 Baso % (Auto) 0.2 Absolute Neuts (auto) 3.8 Absolute Lymphs (auto) 0.58 L Nucleated RBC % 0 Differential Comment SCANNED Sodium 126 L Potassium 4.0 Chloride 94 L Carbon Dioxide 27.0 Anion Gap 5 BUN 13 Creatinine 1.09 Estim Creat Clear Calc 76.14 Est GFR (MDRD) Af Amer 88 Est GFR (MDRD) Non-Af 73 BUN/Creatinine Ratio 11.9 Glucose 103 Lactic Acid 1.0 Calcium 8.6 Radiography Diagnostic Testing: Clinical Impression(s) from Imaging Studies Foot X-Ray 05/26/23 16:18 IMPRESSION: Diffuse soft tissue swelling around the fifth metatarsophalangeal joint. Possible healed fracture involving the base of the fifth proximal phalanx. Ill-defined lucent area along the head of the fifth metatarsal bone. Infectious process cannot be excluded. Electronically Signed: Mazin Keys MD at 16:45 EDT , Treatment and Re-Evaluation :: CBC was normal white count at 5.3 with 72% neutrophils. Hemoglobin is 12.0. Chemistry studies reveal a sodium of 126 which appears to be consistent with his baseline. Chloride is 94. Renal function is normal. Lactic acid is normal at 1.0. Left foot x-rays per my interpretation reveal some chronic changes laterally. I do not see any obvious bony erosion over the great toe where his current infection is located. Given the size of the patient's wound and erythema and edema to his great toe, I do feel he should be admitted for IV antibiotics with potential MRI to rule out osteo-. Wound cultures will be obtained. Patient is given a dose of cefepime and vancomycin. I will speak with hospitalist regarding admission. Discharge Plan Triage Chief Complaint: Wound Check ED Provider: Serina Florence Dx/Rx/DC Orders Clinical Impression: Foot infection Prescriptions: No Action aluminum-magnesium hydroxide 225 mg-200 mg/5 mL oral suspension 225-200 mg/5 mL suspension 5 ml PO Q4H PRN (Reason: gi distress) guaifenesin 100 mg/5 mL liquid 200 mg PO Q4H PRN (Reason: COUGH, CONGESTION) bisacodyl 10 mg suppository 10 mg OR DAILY PRN (Reason: constipation) oxcarbazepine 300 mg tablet 300 mg PO BID pilocarpine HCl 7.5 mg tablet 7.5 mg PO TID sodium chloride 1 gram tablet 2,000 mg PO Q8H levothyroxine [Synthroid] 50 mcg tablet 50 mcg PO DAILY escitalopram oxalate 10 mg tablet 10 mg PO DAILY miconazole nitrate [Remedy Phytoplex Antifungal] 2 % powder 1 applic topical DAILY PRN PRN (Reason: redness) magnesium hydroxide [Milk of Magnesia] 400 mg/5 mL suspension 15 ml PO DAILY PRN (Reason: stomach upset) cimetidine [Tagamet HB] 200 mg tablet 200 mg PO QHS thiamine HCl (vitamin B1) 100 mg tablet 300 mg PO DAILY doxazosin 1 MG tablet 1 mg PO QHS memantine 10 MG tablet 10 mg PO BID acetaminophen 650 mg Tablet 650 mg PO Q4H PRN (Reason: pain/fever) acetaminophen 650 mg Suppository 650 mg OR Q4H PRN (Reason: pain/fever) lisinopril 10 mg tablet 10 mg PO DAILY Qty: 30 0RF cephalexin 500 mg capsule 500 mg PO Q8H Primary Care Provider: Nolan Yin Referrals: Nolan Yin [[facility]] - Disposition Disposition: Acute Care Hospital [facility]
[2023-05-26] MEDS: 0.9% Normal Saline 1,000 ML 150 ML IV (16:16)
[2023-05-26 16:18] LABS: Absolute Lymphocyte Count 0.58 X10^3/uL (0.83-4.51); Absolute Neutrophil Count 3.8 X10^3/uL (2.0-7.7); Basophil# 0.01 X10^3/uL; Basophil% 0.2 % (0-1); Eosinophil# 0.05 X10^3/uL; Eosinophils% 0.9 % (0-5); Hematocrit 34.8 % (40-54); Lymphocyte # 0.58 X10^3/ul (0.83-4.51); Mean Corp Hgb Conc 34.5 g/dL (32-36); Mean Corpuscular Hgb 29.3 pg (27.0-32.0); Mean Corpuscular Volume 85.1 fL (80-94); Mean Platelet Vol. 9.6 fl (6.2-12.0); Monocyte# 0.83 X10^3/uL; Monocyte% 15.7 % (0-10); NRBC Flagged by Analyzer 0 % (0-5); Neutrophil # 3.79 X10^3/uL (2.7-7.7); Neutrophil % 71.8 % (47-70); POSITIVE DIFFERENTIAL YES; Platelet Count 168 K/mm3 (150-450); RBC Distribution Width CV 13.5 % (11.6-14.6); RBC Distribution Width SD 42.5 fl (35.1-43.9); Red Blood Count 4.09 M/mm3 (4.6-6.2); White Blood Count 5.3 K/mm3 (4.4-11.0)
--- NOTE | 2023-05-26 16:18 | RAD_ITS ---
STUDY: XR Foot Min 3 Views CLINICAL: Male, 63 years old. infection TECHNIQUE: XR Foot Min 3 ViewsLEFT COMPARISON: None. FINDINGS: Normal talus, calcaneus, and tarsal bones. Normal visualized subtalar, talonavicular, calcaneocuboid, tarsal and tarsometatarsal articulations. Normal metatarsophalangeal joint of the great toe. Normal tibial and fibular sesamoid bones. Normal interphalangeal joint of the great toe. Normal phalanges of the great toe. Diffuse soft tissue swelling around the fifth metatarsophalangeal joint. Possible healed fracture involving the base of the fifth proximal phalanx. Ill-defined lucent area along the head of the fifth metatarsal bone. Infectious process cannot be excluded. RAD/Foot min 3 Views IMPRESSION: Diffuse soft tissue swelling around the fifth metatarsophalangeal joint. Possible healed fracture involving the base of the fifth proximal phalanx. Ill-defined lucent area along the head of the fifth metatarsal bone. Infectious process cannot be excluded. Electronically Signed: Mazin Keys MD at 16:45 EDT ,
[2023-05-26 16:19] LABS: Differential Indicated SCAN CRITERIA MET
[2023-05-26 16:42] LABS: Differential Comment SCANNED
[2023-05-26 16:53] LABS: Anion Gap 5 (5-15); BUN 13 mg/dL (7-18); BUN/Creat Ratio 11.9 RATIO (10-20); Calcium,Total 8.6 mg/dL (8.5-10.1); Chloride 94 mmol/L (98-107); Creatinine, Serum 1.09 mg/dL (0.70-1.30); EST Glomerular Filtration Rate 73 mL/min (>60); Est Glom Filt Rate - Afr Amer 88 mL/min (>60); Estimated Creatinine Clearance 76.14 ml/min; Glucose 103 mg/dL (74-106); Sodium Level 126 mmol/L (136-145)
--- NOTE | 2023-05-26 16:59 | CM.ED ---
Social Work SW introduced self and role to patient. Pt has a living will on file but does not have a HCPOA. SW spoke to patient who reports he is unsure whether he has a HCPOA or not. Pt is a alf resident of [facility]. If admitted patient intends to return to [facility]. Shelly Ennis ASSISTANT REFINERY OPERATOR, [employer] CONSULTANT
--- NOTE | 2023-05-26 18:14 | NURSING ---
MED SURG YURIDIA FOOT INFECTION
--- NOTE | 2023-05-26 18:56 | PCM.HP.STD ---
HPI - General General Date of Admission: 05/26/23 Date of Service: 05/26/23 Chief Complaint: Left great toe ulcer HPI Narrative Neeta ZIEGLER, is a 63 M, [facility] resident to came to ED by EMS for left great toe ulcer. Patient does not know how long he has ulcer probably because of dementia as he is on memantine 10 mg twice daily in SNF. From chart review it seems patient was started on Keflex 2 days ago and had blood work in residential. Blood work reviewed patient does not have leukocytosis but elevated CRP 76, sodium 127 and albumin 2.9. Glucose was in normal range. Patient was sent to ED for worsening wound.Patient himself denies fever or chills, headache or other systemic symptoms. He denies alteration in bowel movement or dysuria or new lower Yariel tract symptoms. He ED, patient blood pressure is 159/78 otherwise vitals in normal range. Patient was started on IV antibiotic vancomycin and 1 dose of cefepime and further admitted. [facility] Medical History Alcohol dependence with alcohol-induced persisting dementia Alcoholic peripheral neuropathy Anxiety Benign prostatic hyperplasia without lower urinary tract symptoms Bipolar 1 disorder Cancer Cellulitis of right lower limb Chronic obstructive pulmonary disease, unspecified COVID Essential (primary) hypertension Foot infection Foot osteomyelitis, right HTN (hypertension) Impulse disorder, unspecified Major depressive disorder, recurrent, mild Mass of lateral neck Home Medications aluminum-magnesium hydroxide 225 mg-200 mg/5 mL oral suspension 5 ml PO Q4H PRN gi distress 06/30/20 [History Last Taken Unknown] guaifenesin 100 mg/5 mL oral liquid 200 mg PO Q4H PRN COUGH, CONGESTION 06/24/21 [History Last Taken Unknown] acetaminophen 650 mg rectal suppository 650 mg IA Q4H PRN pain/fever 08/07/21 [History Last Taken Unknown] acetaminophen 650 mg tablet 650 mg PO Q4H PRN pain/fever 08/07/21 [History Last Taken Unknown] doxazosin 1 mg tablet 1 mg PO QHS BPH 08/07/21 [History Last Taken Unknown] memantine 10 mg tablet 10 mg PO BID ALCOHOL DEPENDENCE 08/07/21 [History Last Taken Unknown] bisacodyl 10 mg rectal suppository 10 mg IA DAILY PRN constipation 07/07/22 [History Last Taken Unknown] levothyroxine 50 mcg tablet (Synthroid) 50 mcg PO DAILY 07/07/22 [History Last Taken Unknown] oxcarbazepine 300 mg tablet 300 mg PO BID 07/07/22 [History Last Taken Unknown] pilocarpine HCl 7.5 mg tablet 7.5 mg PO TID 07/07/22 [History Last Taken Unknown] sodium chloride 1 gram tablet 2,000 mg PO Q8H 07/07/22 [History Last Taken Unknown] lisinopril 10 mg tablet 10 mg PO DAILY #30 tabs 08/31/22 [Rx Last Taken Unknown] cimetidine 200 mg tablet (Tagamet HB) 200 mg PO QHS 05/03/23 [History Last Taken Unknown] escitalopram oxalate 10 mg tablet 10 mg PO DAILY 05/03/23 [History Last Taken Unknown] magnesium hydroxide 400 mg/5 mL oral suspension (Milk of Magnesia) 15 ml PO DAILY PRN stomach upset 05/03/23 [History Last Taken Unknown] miconazole nitrate 2 % topical powder (Remedy Phytoplex Antifungal) 1 applic topical DAILY PRN PRN redness 05/03/23 [History Last Taken Unknown] thiamine HCl (vitamin B1) 100 mg tablet 300 mg PO DAILY 05/03/23 [History Last Taken Unknown] cephalexin 500 mg capsule 500 mg PO Q8H 05/26/23 [History Last Taken Unknown] Allergy/AdvReac Type Severity Reaction Status Date / Time No Known Allergies Allergy Verified 05/26/23 15:37 Family History Mother History of heart artery stent Pacemaker Hypertension Father Heart problem Grandmother Hypertension Sister Melanoma of thigh Surgical History history of neck biopsy (~02/2020) Hx of knee surgery Social History Smoking Status: Former smoker ROS ROS Narrative Constitutional: Reports fatigue and weakness. No fever. HEENT: Reports systems reviewed and no addt'l complaints, except as documented Respiratory/Chest: No acute shortness of breath or respiratory distress or wheezing. CVS: Denies chest pain pressure or tightness Gastrointestinal: Denies coffee ground emesis, hematemesis or vomiting Genitourinary: Denies burning urination or new urinary tract symptoms Musculoskeletal: Denies acute joint pain or limited range of motion. No acute injury Neurologic: Denies seizure-like symptoms. Peripheral neuropathy in bilateral foot. History of alcoholic neuropathy Psychiatric: History of impulse disorder, alcohol-related dementia. skin: Left great toe ulcer Endocrinology: Reports systems reviewed and no addt'l complaints, except as documented Hematologic/Lymphatic: Reports systems reviewed and no addt'l complaints, except as documented Rest 14 ROS are negative except as mentioned in HPI Vital Signs Vital Signs Vital Signs: 05/26/23 15:37 05/26/23 17:37 05/26/23 17:40 Temperature 97.9 F 97.5 F L Temperature Source Temporal Temporal Pulse Rate 77 79 78 Respiratory Rate 17 17 15 Blood Pressure 159/78 H 160/74 H 160/74 H Blood Pressure Mean 105 102 102 Pulse Ox 99 99 97 Oxygen Delivery Method Room Air Room Air Room Air 05/26/23 18:12 Temperature 97.6 F L Temperature Source Temporal Pulse Rate 77 Respiratory Rate 15 Blood Pressure 159/78 H Blood Pressure Mean 105 Pulse Ox 97 Oxygen Delivery Method Room Air Weight Weight: 192 lb 0.362 oz Body Mass Index (BMI) 26.0 Physical Exam Narrative General: Alert, Oriented x3, Cooperative HEENT: Atraumatic, PERRLA, EOMI, Normocephalic Oral: Oral mucosa dry. No Gingival or Mucosal Lesions/ Ulcerations Neck: Supple, No JVD, Negative Carotid Bruits Lungs: Air entry diminished in bilateral lung bases. No crepitation/rhonchi Cardiovascular: Regular rate, Regular Rhythm, Normal S1, Normal S2, No murmurs Abdomen: Bowel Sounds Present, Soft, Non Tender, Non-Distended : No renal angle tenderness. No suprapubic tenderness. Extremities: No edema, Capillary Refill Less than 3 Seconds Skin: Superficial open ulcer, non decubitus ulcer over plantar surface of distal left great toe. Minimal discharge. Musculoskeletal: No Tenderness to Palpation of Joints or Extremities ROM intact but muscle strength 4+/5 at knee and hip joints. Mild muscle atrophy of thigh and calf muscles. Neurological: Cranial nerves II-XII grossly intact, DTR 2+/4. Chronic decreased sensation to touch and pressure on bilateral lower one third of lower legs and feet. Position sense of great toe impaired. Two-point discrimination is diminished in left lower leg. Psych/Mental Status: Flat affect. Chronic impulsive disorder. History of chronic alcohol and dementia Results Lab / Micro Data 05/26/23 16:03 05/26/23 16:03 Labs: Laboratory Results - last 24 hr 05/26/23 16:03: WBC 5.3, RBC 4.09 L, Hgb 12.0 L, Hct 34.8 L, MCV 85.1, MCH 29.3, MCHC 34.5, RDW Std Deviation 42.5, RDW Coeff of Puneet 13.5, Plt Count 168, MPV 9.6, Immature Gran % (Auto) 0.400, Neut % (Auto) 71.8 H, Lymph % (Auto) 11.0 L, [place] % (Auto) 15.7 H, Eos % (Auto) 0.9, Baso % (Auto) 0.2, Absolute Neuts (auto) 3.8, Absolute Lymphs (auto) 0.58 L, Nucleated RBC % 0, Differential Comment SCANNED, Sodium 126 L, Potassium 4.0, Chloride 94 L, Carbon Dioxide 27.0, Anion Gap 5, BUN 13, Creatinine 1.09, Estim Creat Clear Calc 76.14, Est GFR (MDRD) Af Amer 88, Est GFR (MDRD) Non-Af 73, BUN/Creatinine Ratio 11.9, Glucose 103, Lactic Acid 1.0, Calcium 8.6 Radiology Impression Foot X-Ray 05/26/23 16:18 IMPRESSION: Diffuse soft tissue swelling around the fifth metatarsophalangeal joint. Possible healed fracture involving the base of the fifth proximal phalanx. Ill-defined lucent area along the head of the fifth metatarsal bone. Infectious process cannot be excluded. Electronically Signed: Mazin Keys MD at 16:45 EDT Reading Location ID and State: [facility] / [place] , Service support , Assessment & Plan Assessment/Plan (1) Foot infection: PLAN: Plan 1. Left great toe none decubitus ulcer: [facility] Wound culture and wound MRSA ordered. Blood cultures x2 ordered by ER physician. Patient had 1 dose of IV vancomycin and cefepime. Sys Dir consulted. Continue vancomycin and start IV Unasyn to cover gram-negative gram-positive and anaerobes. Foot x-ray shows ill-defined lucent area along the fifth metatarsal bone diffuse soft tissue swelling around the fifth metatarsal joint. Patient was last admitted in July 2021 for right foot cellulitis status post amputation of right toe and debridement. At that time patient had debridement of all nonviable infected and necrotic soft tissue and bone of right foot for osteomyelitis abscess, gas infection ulcer to bone in right fifth toe and metatarsal head. 2. 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 Hypertension: Blood BP is elevated. Continue lisinopril 10 mg daily 4. Dyslipidemia: Patient not on a statin. Fasting provided ordered for tomorrow a.m. 5. COPD: Stable. Bronchodilator as needed 6. 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 Patient last saw Dr. Calderón in October 2022 and finished Chemotherapy-Taxol and Carboplatin weekly with Radiation on 06/16/2020 with clinical response. Continue follow-up with Dr. Calderón. 7. DVT prophylaxis, high risk: Started on Lovenox. Living will/advanced directive/end of life care: Patient does not have living will or advanced directive. After discussion of benefits/risks procedures involved with full code, DNR CC arrest and DNR CC, the patient opted for full code. Patient does want artificial life support including intubation, tube feed, ventilator and/chest compression, central venous catheter, vasopressor and DC shock if needed Total time spent in [id number] encounter in discussion of advanced directive 17 minutes. Laboratory Results 05/26/23 16:03: WBC 5.3, RBC 4.09 L, Hgb 12.0 L, Hct 34.8 L, MCV 85.1, MCH 29.3, MCHC 34.5, RDW Std Deviation 42.5, RDW Coeff of Puneet 13.5, Plt Count 168, MPV 9.6, Immature Gran % (Auto) 0.400, Neut % (Auto) 71.8 H, Lymph % (Auto) 11.0 L, [place] % (Auto) 15.7 H, Eos % (Auto) 0.9, Baso % (Auto) 0.2, Absolute Neuts (auto) 3.8, Absolute Lymphs (auto) 0.58 L, Nucleated RBC % 0, Differential Comment SCANNED Sodium 126 L, Potassium 4.0, Chloride 94 L, Carbon Dioxide 27.0, Anion Gap 5, BUN 13, Creatinine 1.09, Estim Creat Clear Calc 76.14, Est GFR (MDRD) Af Amer 88, Est GFR (MDRD) Non-Af 73, BUN/Creatinine Ratio 11.9, Glucose 103, Lactic Acid 1.0, Calcium 8.6 Clinical Impression(s) from Imaging Studies Foot X-Ray 05/26/23 16:18 IMPRESSION: Diffuse soft tissue swelling around the fifth metatarsophalangeal joint. Possible healed fracture involving the base of the fifth proximal phalanx. Ill-defined lucent area along the head of the fifth metatarsal bone. Infectious process cannot be excluded. Charges/Coding Visit Charges Inpatient E&M: 02728 Init Hosp L3 Procedures Hospitalists Procedures: 41726 Advncd Care Plan 30 Min
--- NOTE | 2023-05-26 19:40 | ED.RN ---
attempted to call [facility] x3, no answer.
--- NOTE | 2023-05-26 20:28 | PCM.RX.CS ---
Consult Antibiotic Management Pharmacy has been consulted to manage selected antiobiotic: Vancomycin Type of Intervention Type of Consult: New start Suspected Infection Suspected Infection: Skin/Soft tissue Prior Doses of Antibiotics Prior Doses of Antibiotics Received/Current Regimen: Received 1250mg iv x 1 in ER as loading dose. Labs Labs: Sodium 126 mmol/L (136-145) L 05/26/23 16:03 Potassium 4.0 mmol/L (3.5-5.1) 05/26/23 16:03 Chloride 94 mmol/L (98-107) L 05/26/23 16:03 Carbon Dioxide 27.0 mmol/L (21.0-32.0) 05/26/23 16:03 Anion Gap 5 (5-15) 05/26/23 16:03 BUN 13 mg/dL (7-18) 05/26/23 16:03 Creatinine 1.09 mg/dL (0.70-1.30) 05/26/23 16:03 Est GFR (MDRD) Af Amer 88 mL/min (>60) 05/26/23 16:03 Est GFR (MDRD) Non-Af 73 mL/min (>60) 05/26/23 16:03 BUN/Creatinine Ratio 11.9 RATIO (10-20) 05/26/23 16:03 Glucose 103 mg/dL (74-106) 05/26/23 16:03 Dosing Weight Weight used for dosin.7 kg Estimated Creatinine Clearance Estimated Creatinine Clearance: 76 ml/min Goal Trough Goal Trough: 10-15 mcg/mL Pharmacy Plan for Drug Dosing Pharmacy Plan for Drug Dosing: Recommend starting dose of 750mg iv q12h with trough level before 4th total dose. Pharmacy Service will continue to monitor and adjust dosing as required. Follow-Up Labs Follow-Up Labs: Trough: Vancomycin (8.6.23 @0630 before 0700 dose)
[2023-05-26] MEDS: hydrALAZINE 20 MG/ML Vial 10 MG IV (20:39)
[2023-05-26] MEDS: 0.9% Normal Saline 1,000 ML 75 ML IV (20:49)
[2023-05-26] MEDS: Doxazosin 1 MG Tablet PO (21:05)
[2023-05-26] MEDS: Memantine Hydrochloride 10 MG Tablet PO (21:05)
[2023-05-26] MEDS: OXcarbazepine 300 MG Tablet PO (21:05)
[2023-05-27] VITALS (7 sets, daily range): BP systolic 145–181; BP diastolic 80–107; PULSE 92–98; RESP 16–20; TEMP 36.6–36.8; O2SAT 98–99
[2023-05-27] MEDS: hydrALAZINE 20 MG/ML Vial 10 MG IV (02:23)
[2023-05-27] MEDS: MELATONIN 3 MG TABLET PO ×2 (02:30→22:22)
[2023-05-27] MEDS: Levothyroxine 50 MCG Tablet PO (05:08)
[2023-05-27 06:12] LABS: Absolute Lymphocyte Count 0.42 X10^3/uL (0.83-4.51); Absolute Neutrophil Count 3.4 X10^3/uL (2.0-7.7); Basophil# 0.02 X10^3/uL; Basophil% 0.4 % (0-1); Eosinophil# 0.04 X10^3/uL; Eosinophils% 0.9 % (0-5); Hematocrit 34.1 % (40-54); Lymphocyte # 0.42 X10^3/ul (0.83-4.51); Lymphocyte % 9.4 % (19-41); Mean Corp Hgb Conc 35.2 g/dL (32-36); Mean Corpuscular Hgb 29.4 pg (27.0-32.0); Mean Corpuscular Volume 83.6 fL (80-94); Mean Platelet Vol. 9.9 fl (6.2-12.0); Monocyte# 0.63 X10^3/uL; Monocyte% 14.1 % (0-10); NRBC Flagged by Analyzer 0 % (0-5); Neutrophil # 3.36 X10^3/uL (2.7-7.7); POSITIVE DIFFERENTIAL YES; Platelet Count 164 K/mm3 (150-450); RBC Distribution Width CV 13.4 % (11.6-14.6); RBC Distribution Width SD 41.3 fl (35.1-43.9); Red Blood Count 4.08 M/mm3 (4.6-6.2); White Blood Count 4.5 K/mm3 (4.4-11.0)
[2023-05-27 06:23] LABS: Differential Indicated SCAN CRITERIA MET
[2023-05-27 06:42] LABS: Differential Comment SCANNED
[2023-05-27 06:54] LABS: Anion Gap 7 (5-15); BUN 10 mg/dL (7-18); BUN/Creat Ratio 13.1 RATIO (10-20); Calcium,Total 8.9 mg/dL (8.5-10.1); Chloride 96 mmol/L (98-107); Cholesterol 182 mg/dL (200); Creatinine, Serum 0.76 mg/dL (0.70-1.30); EST Glomerular Filtration Rate 110 mL/min (>60); Est Glom Filt Rate - Afr Amer 133 mL/min (>60); Glucose 109 mg/dL (74-106); High Density Lipoprotein 97 mg/dL; Potassium 3.9 mmol/L (3.5-5.1); Sodium Level 125 mmol/L (136-145); Thyroid Stim Hormone (TSH) 2.35 uIU/mL (0.358-3.74); Triglycerides 49 mg/dL; Very Low Density Lipoprotein 10 mg/dL (5-40)
[2023-05-27] MEDS: Ensure Plus High Protein 120 ML LIQUID PO ×3 (08:46→16:12)
[2023-05-27] MEDS: OXcarbazepine 300 MG Tablet PO ×2 (08:47→22:19)
[2023-05-27] MEDS: Enoxaparin 40 MG/0.4 ML Syringe SC (08:47)
[2023-05-27] MEDS: Memantine Hydrochloride 10 MG Tablet PO ×2 (08:47→22:19)
[2023-05-27] MEDS: Lisinopril 10 MG Tablet PO (08:48)
[2023-05-27] MEDS: Thiamine Hydrochloride 100 MG Tablet PO (08:48)
--- NOTE | 2023-05-27 09:27 | PN_ITS ---
Subjective Subjective Patient seen and examined. He had no active complaints and was lying comfortably in bed. He denied any fever, chills, cough, chest pain, palpitations, dizziness, nausea or vomiting and denied any pain in his foot. Review of systems is otherwise negative. He has remained hemodynamically stable. Objective Data Objective Data Vital Signs: Vital Signs Temp Pulse Resp BP Pulse Ox O2 Del Method 97.9 F 98 16 146/95 H 99 Room Air 05/27/23 01:50 05/27/23 02:23 05/27/23 01:50 05/27/23 03:12 05/27/23 01:50 05/27/23 01:50 Oxygen Delivery Method Room Air Weight: 184 lb 8.43 oz Body Mass Index (BMI) 25.0 Intake & Output: Intake and Output for Last 24 Hours 05/25/23 05/26/23 05/27/23 23:59 23:59 23:59 Intake Total 1419.5 / 1419.5 477 / 477 Balance 1419.5 / 1419.5 477 / 477 Lab / Micro Data 05/27/23 05:25 05/27/23 05:25 Labs: Laboratory Results - last 24 hr 05/26/23 16:03: WBC 5.3, RBC 4.09 L, Hgb 12.0 L, Hct 34.8 L, MCV 85.1, MCH 29.3, MCHC 34.5, RDW Std Deviation 42.5, RDW Coeff of Puneet 13.5, Plt Count 168, MPV 9.6, Immature Gran % (Auto) 0.400, Neut % (Auto) 71.8 H, Lymph % (Auto) 11.0 L, [place] % (Auto) 15.7 H, Eos % (Auto) 0.9, Baso % (Auto) 0.2, Absolute Neuts (auto) 3.8, Absolute Lymphs (auto) 0.58 L, Nucleated RBC % 0, Differential Comment SCANNED, Sodium 126 L, Potassium 4.0, Chloride 94 L, Carbon Dioxide 27.0, Anion Gap 5, BUN 13, Creatinine 1.09, Estim Creat Clear Calc 76.14, Est GFR (MDRD) Af Amer 88, Est GFR (MDRD) Non-Af 73, BUN/Creatinine Ratio 11.9, Glucose 103, Lactic Acid 1.0, Calcium 8.6 08/05/23 05:25: WBC 4.5, RBC 4.08 L, Hgb 12.0 L, Hct 34.1 L, MCV 83.6, MCH 29.4, MCHC 35.2, RDW Std Deviation 41.3, RDW Coeff of Puneet 13.4, Plt Count 164, MPV 9.9, Immature Gran % (Auto) 0.200, Neut % (Auto) 75.0 H, Lymph % (Auto) 9.4 L, [place] % (Auto) 14.1 H, Eos % (Auto) 0.9, Baso % (Auto) 0.4, Absolute Neuts (auto) 3.4, Absolute Lymphs (auto) 0.42 L, Nucleated RBC % 0, Differential Comment SCANNED, Sodium 125 L, Potassium 3.9, Chloride 96 L, Carbon Dioxide 22.0, Anion Gap 7, BUN 10, Creatinine 0.76, Estim Creat Clear Calc 109.20, Est GFR (MDRD) Af Amer 133, Est GFR (MDRD) Non-Af 110, BUN/Creatinine Ratio 13.1, Glucose 109 H, Calcium 8.9, Triglycerides 49, Cholesterol 182, LDL Cholesterol 75, VLDL Cholesterol 10, HDL Cholesterol 97, TSH 2.35 Radiography Diagnostic Testing: Radiology Impression Foot X-Ray 05/26/23 16:18 IMPRESSION: Diffuse soft tissue swelling around the fifth metatarsophalangeal joint. Possible healed fracture involving the base of the fifth proximal phalanx. Ill-defined lucent area along the head of the fifth metatarsal bone. Infectious process cannot be excluded. Electronically Signed: Mazin Keys MD at 16:45 EDT Reading Location ID and State: [facility] / [place] , Service support , Physical Exam Const alert, oriented x3 and no apparent distress General Appearance: cooperative HEENT normocephalic, head/scalp atraumatic and moist oral mucous membranes Mouth: dry mucous membranes Eyes PERRL and EOMs intact bilaterally Neck no lymphadenopathy and no JVD Lymph Lymphatic: no lymphadenopathy noted and no lymphedema noted Resp normal respiratory effort, normal air movement and clear to auscultation bilaterally Cardio regular rate, regular rhythm, S1 normal heart sound, S2 normal heart sound and no murmurs GI normal to inspection, nondistended, normoactive bowel sounds, soft to palpation, non-tender and non-distended Extremity Extremity Narrative: right big toe is bandaged. Skin Wound Narrative: as under extremity Neuro CN's II-XII intact bilaterally, no focal motor deficits, no sensory deficits noted and deep tendon reflexes 2+ bilaterally Motor Exam: strength 5/5 throughout Psych thought process normal, cooperative and affect normal Appearance: appropriate Assessment & Plan Assessment/Plan (1) Foot infection: PLAN: Plan #Left great toe ulcer * denies any fever or chills and couldnt tell how long he had had the ulceration on his foot. * on IV vancomycin and cefepime * xray of the foot showed a diffuse soft tissue swelling around the fifth metatarsophalangeal joint with possible healed fracture of the base of the fifth proximal phalanx with an ill defined lucent area along the head of the fifth metatarsal bone * podiatry consulted; await rec's * Pt/OT on board * fall precautions * #Alcohol use dementia: on memantine #Hypertension: on lisinopril 10mg daily. IV hydralazine prn #Hyponatremia: sodium is 125. This appears to be chronic, going all the way back to 2019. Will monitor #COPD: not in exacerbation. Stable. 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 Finished chemotharapy on 05/27/2020 and also had rad iation * continue follow up with oncology on outpatient basis * DVT prophylaxis: lovenox Charges/Coding Visit Charges Inpatient E&M: 12983 Subs Hosp L2
--- NOTE | 2023-05-27 10:05 | PCM.CONS.GEN ---
Assessment & Plan Assessment/Plan (1) Cellulitis of foot, left: (2) Chronic ulcer of left foot with fat layer exposed: (3) Other hereditary and idiopathic neuropathies: PLAN: Plan Evaluation performed. Reviewed diagnostic data. A culture has been obtained from left 1st toe ulceration - results pending. Reviewed left foot xrays, no gas in the tissues, no evidence of osteomyelitis. Debrided left 1st toe and sub left 5th met heal ulcerations using a 15 blade down to healthy viable base and margins down to subcutaneous tissue level, this was done in excisional fashion. Area debrided measured 2.5cm x 2.0cm for left 1st toe ulceration and 0.5cm x 0.3cm for left sub 5th met ulceration - both down to subcutaneous tissue. Betadine and gauze dressing applied. Change daily. No anesthesia was needed due to patient's peripheral neuropathy. Hemostasis was achieved with gauze and pressure. No weightbearing to left forefoot, ok to put weight on heel if needed. Ordered surgical shoe for left foot. Keep foot elevated. Patient is on IV antibiotic Unasyn and Vancomycin. Also will plan to reduce/debride patient's toenails. Podiatry will continue to follow - thank you for consultation. HPI Consult Data Date of Consult: 05/27/23 HPI Narrative Reason for Consultation: Left 1st toe ulcer and cellulitis HPI Narrative: Neeta ZIEGLER, is a 63 M who presents for left foot infection with wound. He resides at [facility], he is a poor historian. He has hx of right 5th ray partial amputation in 2020 which is doing well. There is redness and swelling to left 1st toe. He has no pain. His shoes are extremely old and falling apart, he relates he has no one to take him to get new shoes. No f/c/n/v. WBC is within normal limits. 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 Anxiety Benign prostatic hyperplasia without lower urinary tract symptoms Bipolar 1 disorder Cancer Cellulitis of right lower limb Chronic obstructive pulmonary disease, unspecified COVID Essential (primary) hypertension Foot infection Foot osteomyelitis, right HTN (hypertension) Impulse disorder, unspecified Major depressive disorder, recurrent, mild Mass of lateral neck Home Medications aluminum-magnesium hydroxide 225 mg-200 mg/5 mL oral suspension 5 ml PO Q4H PRN gi distress 06/30/20 [History Last Taken Unknown] guaifenesin 100 mg/5 mL oral liquid 200 mg PO Q4H PRN COUGH, CONGESTION 06/24/21 [History Last Taken Unknown] acetaminophen 650 mg rectal suppository 650 mg SC Q4H PRN pain/fever 08/07/21 [History Last Taken Unknown] acetaminophen 650 mg tablet 650 mg PO Q4H PRN pain/fever 08/07/21 [History Last Taken Unknown] doxazosin 1 mg tablet 1 mg PO QHS BPH 08/07/21 [History Last Taken 05/25/23] memantine 10 mg tablet 5 mg PO BID ALCOHOL DEPENDENCE 08/07/21 [History Last Taken 05/25/23] bisacodyl 10 mg rectal suppository 10 mg SC DAILY PRN constipation 07/07/22 [History Last Taken Unknown] levothyroxine 50 mcg tablet (Synthroid) 50 mcg PO DAILY thyroid 07/07/22 [History Last Taken 05/25/23] oxcarbazepine 300 mg tablet 300 mg PO BID 07/07/22 [History Last Taken Unknown] pilocarpine HCl 7.5 mg tablet 7.5 mg PO TID dry mouth 07/07/22 [History Last Taken 05/25/23] sodium chloride 1 gram tablet 2,000 mg PO Q8H mineral 07/07/22 [History Last Taken 05/25/23] lisinopril 10 mg tablet 10 mg PO DAILY #30 tabs 08/31/22 [Rx Last Taken 05/25/23] cimetidine 200 mg tablet (Tagamet HB) 200 mg PO QHS etoh 05/03/23 [History Last Taken 05/25/23] escitalopram oxalate 10 mg tablet 10 mg PO DAILY depression 05/03/23 [History Last Taken 05/25/23] magnesium hydroxide 400 mg/5 mL oral suspension (Milk of Magnesia) 15 ml PO DAILY PRN stomach upset 05/03/23 [History Last Taken Unknown] miconazole nitrate 2 % topical powder (Remedy Phytoplex Antifungal) 1 applic topical DAILY PRN PRN redness 05/03/23 [History Last Taken Unknown] thiamine HCl (vitamin B1) 100 mg tablet 300 mg PO DAILY etoh 05/03/23 [History Last Taken 05/25/23] cephalexin 500 mg capsule 500 mg PO Q8H atb 05/26/23 [History Last Taken 05/25/23] Allergy/AdvReac Type Severity Reaction Status Date / Time No Known Allergies Allergy Verified 05/26/23 15:37 Family History Mother History of heart artery stent Pacemaker Hypertension Father Heart problem Grandmother Hypertension Sister Melanoma of thigh Surgical History history of neck biopsy (~02/2020) Hx of knee surgery Social History Smoking Status: Former smoker Physical Exam Narrative Left foot with ulceration plantar 1st toe down to subcutaneous tissue - there is nonviable tissue to the base and margins, there is cellulitis to the 1st toe extending to the dorsal foot, there is edema to the left foot, there is some serous drainage from the ulceration, there is no probe to bone, there is also ulceration to sub 5th met left foot with no evidence of infection here - there is overlying nonviable tissue - ulcer is down to subcutaneous tissue, there is no visible abscess, no crepitus, no fluctuance, no visible abscess to the left foot. CFT < 2 seconds to all toes bilateral with normal temperature bilateral, there are no open lesions right foot or evidence of acute infection to the right foot. Toenails 1-5 left and 1-4 right are elongated, thickened, dystrophic, yellow with subungual debris. No evidence of ischemia to the foot bilateral. No POP or pain on ROM to the foot or ankle bilateral. Chronic peripheral neuropathy is present bilateral. Right 5th toe is abscess - site well healed. Const alert and no apparent distress Lab / Micro Data 05/27/23 05:25 05/27/23 05:25 Labs: Laboratory Results - last 24 hr 05/26/23 16:03: WBC 5.3, RBC 4.09 L, Hgb 12.0 L, Hct 34.8 L, MCV 85.1, MCH 29.3, MCHC 34.5, RDW Std Deviation 42.5, RDW Coeff of Puneet 13.5, Plt Count 168, MPV 9.6, Immature Gran % (Auto) 0.400, Neut % (Auto) 71.8 H, Lymph % (Auto) 11.0 L, [place] % (Auto) 15.7 H, Eos % (Auto) 0.9, Baso % (Auto) 0.2, Absolute Neuts (auto) 3.8, Absolute Lymphs (auto) 0.58 L, Nucleated RBC % 0, Differential Comment SCANNED, Sodium 126 L, Potassium 4.0, Chloride 94 L, Carbon Dioxide 27.0, Anion Gap 5, BUN 13, Creatinine 1.09, Estim Creat Clear Calc 76.14, Est GFR (MDRD) Af Amer 88, Est GFR (MDRD) Non-Af 73, BUN/Creatinine Ratio 11.9, Glucose 103, Lactic Acid 1.0, Calcium 8.6 05/27/23 05:25: WBC 4.5, RBC 4.08 L, Hgb 12.0 L, Hct 34.1 L, MCV 83.6, MCH 29.4, MCHC 35.2, RDW Std Deviation 41.3, RDW Coeff of Puneet 13.4, Plt Count 164, MPV 9.9, Immature Gran % (Auto) 0.200, Neut % (Auto) 75.0 H, Lymph % (Auto) 9.4 L, [place] % (Auto) 14.1 H, Eos % (Auto) 0.9, Baso % (Auto) 0.4, Absolute Neuts (auto) 3.4, Absolute Lymphs (auto) 0.42 L, Nucleated RBC % 0, Differential Comment SCANNED, Sodium 125 L, Potassium 3.9, Chloride 96 L, Carbon Dioxide 22.0, Anion Gap 7, BUN 10, Creatinine 0.76, Estim Creat Clear Calc 109.20, Est GFR (MDRD) Af Amer 133, Est GFR (MDRD) Non-Af 110, BUN/Creatinine Ratio 13.1, Glucose 109 H, Calcium 8.9, Triglycerides 49, Cholesterol 182, LDL Cholesterol 75, VLDL Cholesterol 10, HDL Cholesterol 97, TSH 2.35 Radiology Impression Foot X-Ray 05/26/23 16:18 IMPRESSION: Diffuse soft tissue swelling around the fifth metatarsophalangeal joint. Possible healed fracture involving the base of the fifth proximal phalanx. Ill-defined lucent area along the head of the fifth metatarsal bone. Infectious process cannot be excluded. Electronically Signed: Mazin Keys MD at 16:45 EDT ,
--- NOTE | 2023-05-27 11:37 | CASEMGMT ---
Social Work SW performed chart review; LW on file as of 2006. SW met with patient and inquired about LW and HCPOA documents. Patient verified LW is complete and reports no HCPOA document. Patient declines HCPOA information/assistance to complete. Anette EUGENE, CASS
--- NOTE | 2023-05-27 11:39 | CASEMGMT ---
Social Work SW met with patient and introduced self and role as [facility] SW. Patient sitting up in hospital bed and agreeable to speak with SW. SW verified patient's d/c plan. Patient reports he has been living at [facility] for an extended period of time, unable to recall how long, and plans to return. Patient explained he will need transportation arranged as family will be unable to assist with transport. SW to continue to assist with D/C plan as needed. Updates sent via [employer]. Plan: return to [facility] Anette EUGENE, CASS
[2023-05-27] MEDS: 0.9% Normal Saline 1,000 ML 75 ML IV (13:04)
[2023-05-27] MEDS: Doxazosin 1 MG Tablet PO (22:19)
[2023-05-28] VITALS (7 sets, daily range): BP systolic 146–189; BP diastolic 80–102; PULSE 91–100; RESP 16–20; TEMP 36.6–36.7; O2SAT 96–99
[2023-05-28 03:33] LABS: Absolute Lymphocyte Count 0.54 X10^3/uL (0.83-4.51); Absolute Neutrophil Count 1.8 X10^3/uL (2.0-7.7); Basophil# 0.02 X10^3/uL; Basophil% 0.7 % (0-1); Eosinophil# 0.09 X10^3/uL; Eosinophils% 2.9 % (0-5); Hematocrit 31.9 % (40-54); Hemoglobin 11.1 g/dL (13.0-16.5); Lymphocyte # 0.54 X10^3/ul (0.83-4.51); Lymphocyte % 17.6 % (19-41); Mean Corp Hgb Conc 34.8 g/dL (32-36); Mean Corpuscular Hgb 29.1 pg (27.0-32.0); Mean Corpuscular Volume 83.7 fL (80-94); Mean Platelet Vol. 9.5 fl (6.2-12.0); Monocyte# 0.58 X10^3/uL; Monocyte% 18.9 % (0-10); NRBC Flagged by Analyzer 0 % (0-5); Neutrophil # 1.83 X10^3/uL (2.7-7.7); Neutrophil % 59.6 % (47-70); POSITIVE DIFFERENTIAL YES; Platelet Count 147 K/mm3 (150-450); RBC Distribution Width CV 13.4 % (11.6-14.6); RBC Distribution Width SD 41.2 fl (35.1-43.9); Red Blood Count 3.81 M/mm3 (4.6-6.2); White Blood Count 3.1 K/mm3 (4.4-11.0)
[2023-05-28 03:39] LABS: Differential Indicated SCAN CRITERIA MET
[2023-05-28 03:57] LABS: Vancomycin, Trough Level 15.7 ug/mL (5.0-15.0)
[2023-05-28 04:24] LABS: Anion Gap 6 (5-15); BUN 12 mg/dL (7-18); BUN/Creat Ratio 14.4 RATIO (10-20); Calcium,Total 8.7 mg/dL (8.5-10.1); Chloride 99 mmol/L (98-107); Creatinine, Serum 0.84 mg/dL (0.70-1.30); Differential Comment SCANNED; EST Glomerular Filtration Rate 99 mL/min (>60); Est Glom Filt Rate - Afr Amer 119 mL/min (>60); Glucose 97 mg/dL (74-106); Potassium 3.8 mmol/L (3.5-5.1); Sodium Level 130 mmol/L (136-145)
--- NOTE | 2023-05-28 04:27 | PCM.RX.CS ---
Consult Antibiotic Management Pharmacy has been consulted to manage selected antiobiotic: Vancomycin Type of Intervention Type of Consult: Follow-up Suspected Infection Suspected Infection: Skin/Soft tissue Labs Labs: Sodium 130 mmol/L (136-145) L 05/28/23 03:20 Potassium 3.8 mmol/L (3.5-5.1) 05/28/23 03:20 Chloride 99 mmol/L (98-107) 05/28/23 03:20 Carbon Dioxide 25.0 mmol/L (21.0-32.0) 05/28/23 03:20 Anion Gap 6 (5-15) 05/28/23 03:20 BUN 12 mg/dL (7-18) 05/28/23 03:20 Creatinine 0.84 mg/dL (0.70-1.30) 05/28/23 03:20 Est GFR (MDRD) Af Amer 119 mL/min (>60) 05/28/23 03:20 Est GFR (MDRD) Non-Af 99 mL/min (>60) 05/28/23 03:20 BUN/Creatinine Ratio 14.4 RATIO (10-20) 05/28/23 03:20 Glucose 97 mg/dL (74-106) 05/28/23 03:20 Vancomycin Trough 15.7 ug/mL (5.0-15.0) H 05/28/23 03:20 Microbiology Microbiology: Microbiology 05/26/23 17:41 Wound - Toe Gram Stain - Final Dosing Weight Weight used for dosin.7 kg Estimated Creatinine Clearance Estimated Creatinine Clearance: 99 Goal Trough Goal Trough: 10-15 mcg/mL Pharmacy Plan for Drug Dosing Pharmacy Plan for Drug Dosing: Vancomycin trough level, drawn 11 hours post-dose, was 15.7. This was slightly above the target range of 10-15. Will continue dosing at 1250mg q12h, and re-draw a trough level in two days. Pharmacy Service will continue to monitor and adjust dosing as required. Follow-Up Labs Follow-Up Labs: Trough: Vancomycin Date/Time Labs Ordered Labs to be done on [date and time ordered]: 05/30/23 @0335
[2023-05-28] MEDS: Levothyroxine 50 MCG Tablet PO (05:44)
[2023-05-28] MEDS: hydrALAZINE 20 MG/ML Vial 10 MG IV ×2 (06:37→22:53)
--- NOTE | 2023-05-28 08:37 | PN_ITS ---
Subjective Subjective Patient seen and examined. He had no complaints today and had an uneventful night. Review of systems is otherwise negative. He has remained hemodynamically stable. Objective Data Objective Data Vital Signs: Vital Signs Temp Pulse Resp BP Pulse Ox O2 Del Method 98.1 F 96 20 H 182/94 H 96 Room Air 05/28/23 06:31 05/28/23 06:37 05/28/23 06:31 05/28/23 06:37 05/28/23 07:15 05/28/23 07:15 Oxygen Delivery Method Room Air Weight: 184 lb 8.43 oz Body Mass Index (BMI) 25.0 Intake & Output: Intake and Output for Last 24 Hours 05/26/23 05/27/23 05/28/23 23:59 23:59 23:59 Intake Total 1419.5 / 1419.5 2501 / 2501 1699 / 1699 Balance 1419.5 / 1419.5 2501 / 2501 1699 / 1699 Lab / Micro Data 05/28/23 03:20 05/28/23 03:20 Labs: Laboratory Results - last 24 hr 05/28/23 03:20: WBC 3.1 L, RBC 3.81 L, Hgb 11.1 L, Hct 31.9 L, MCV 83.7, MCH 29.1, MCHC 34.8, RDW Std Deviation 41.2, RDW Coeff of Puneet 13.4, Plt Count 147 L, MPV 9.5, Immature Gran % (Auto) 0.300, Neut % (Auto) 59.6, Lymph % (Auto) 17.6 L , [place] % (Auto) 18.9 H, Eos % (Auto) 2.9, Baso % (Auto) 0.7, Absolute Neuts (auto) 1.8 L, Absolute Lymphs (auto) 0.54 L, Nucleated RBC % 0, Differential Comment SCANNED, Diff Path Review February foll, Sodium 130 L, Potassium 3.8, Chloride 99, Carbon Dioxide 25.0, Anion Gap 6, BUN 12, Creatinine 0.84, Estim Creat Clear Calc 98.80, Est GFR (MDRD) Af Amer 119, Est GFR (MDRD) Non-Af 99, BUN/Creatinine Ratio 14.4, Glucose 97, Calcium 8.7, Vancomycin Trough 15.7 H Micro: Microbiology 05/26/23 17:41 Wound - Toe Gram Stain - Final Physical Exam Const alert, oriented x3 and no apparent distress General Appearance: cooperative HEENT normocephalic, head/scalp atraumatic and moist oral mucous membranes Eyes PERRL and EOMs intact bilaterally Neck no lymphadenopathy, supple and no JVD Lymph Lymphatic: no lymphadenopathy noted and no lymphedema noted Resp normal respiratory effort, normal air movement and clear to auscultation bilaterally Cardio regular rate, regular rhythm, S1 normal heart sound, S2 normal heart sound and no murmurs GI normal to inspection, nondistended, normoactive bowel sounds, soft to palpation, non-tender and non-distended Extremity Extremity Narrative: right big toe is bandaged. Skin Skin Narrative: as under extremities Wound Narrative: as under extremity Neuro CN's II-XII intact bilaterally, no focal motor deficits, no sensory deficits noted and deep tendon reflexes 2+ bilaterally Motor Exam: strength 5/5 throughout Psych thought process normal, cooperative and affect normal Appearance: appropriate Assessment & Plan Assessment/Plan (1) Foot infection: PLAN: Plan #Left great toe ulcer * denies any fever or chills and couldnt tell how long he had had the ulceration on his foot. * on IV vancomycin and unasyn * xray of the foot showed a diffuse soft tissue swelling around the fifth metatarsophalangeal joint with possible healed fracture of the base of the fifth proximal phalanx with an ill defined lucent area along the head of the fifth metatarsal bone * podiatry on board. Did bedside debridement yesterday morning. * Pt/OT on board * fall precautions * #Alcohol use dementia: on memantine #Hypertension: on lisinopril 10mg daily and doxazosin. IV hydralazine prn #Hyponatremia: sodium is 130 today; higher than the 125 of yesterday. This appears to be chronic, going all the way back to 2019. Will monitor #COPD: not in exacerbation. Stable. 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 Finished chemotharapy on 05/27/2020 and also had radiation * continue follow up with oncology on outpatient basis * DVT prophylaxis: lovenox Charges/Coding Visit Charges Inpatient E&M: 47737 Subs Hosp L2
--- NOTE | 2023-05-28 11:32 | PN_ITS ---
Subjective Subjective Patient was seen this morning for follow up on left foot. He is resting in bed. No f/c/n/v. He denies pain. Objective Data Objective Data Vital Signs: Vital Signs Temp Pulse Resp BP Pulse Ox O2 Del Method 98.1 F 96 20 H 182/94 H 96 Room Air 05/28/23 06:31 05/28/23 06:37 05/28/23 06:31 05/28/23 06:37 05/28/23 07:15 05/28/23 07:15 Oxygen Delivery Method Room Air Weight: 83.7 kg Body Mass Index (BMI) 25.0 Intake & Output: Intake and Output for Last 24 Hours 05/26/23 05/27/23 05/28/23 23:59 23:59 23:59 Intake Total 1419.5 / 1419.5 2501 / 2501 1699 / 1699 Balance 1419.5 / 1419.5 2501 / 2501 1699 / 1699 Lab / Micro Data 05/28/23 03:20 05/28/23 03:20 Labs: Laboratory Results - last 24 hr 05/28/23 03:20: WBC 3.1 L, RBC 3.81 L, Hgb 11.1 L, Hct 31.9 L, MCV 83.7, MCH 29.1, MCHC 34.8, RDW Std Deviation 41.2, RDW Coeff of Puneet 13.4, Plt Count 147 L, MPV 9.5, Immature Gran % (Auto) 0.300, Neut % (Auto) 59.6, Lymph % (Auto) 17.6 L , [place] % (Auto) 18.9 H, Eos % (Auto) 2.9, Baso % (Auto) 0.7, Absolute Neuts (auto) 1.8 L, Absolute Lymphs (auto) 0.54 L, Nucleated RBC % 0, Differential Comment SCANNED, Diff Path Review February foll, Sodium 130 L, Potassium 3.8, Chloride 99, Carbon Dioxide 25.0, Anion Gap 6, BUN 12, Creatinine 0.84, Estim Creat Clear Calc 98.80, Est GFR (MDRD) Af Amer 119, Est GFR (MDRD) Non-Af 99, BUN/Creatinine Ratio 14.4, Glucose 97, Calcium 8.7, Vancomycin Trough 15.7 H Micro: Microbiology 05/26/23 17:41 Wound - Toe Gram Stain - Final 05/26/23 17:41 Wound - Toe Wound Culture - Preliminary Gram negative wilner Staphylococcus species Gram positive wilner Physical Exam Narrative Left foot with ulceration plantar 1st toe down to subcutaneous tissue - tissues viable to base and margin, there is cellulitis to the 1st toe extending to the d orsal foot but much improved today, there is edema to the left foot but is less today, there is no probe to bone, there is also ulceration to sub 5th met left foot with no evidence of infection here, and is healthy and viable - ulcer is down to subcutaneous tissue, there is no visible abscess, no crepitus, no fluctuance, no visible abscess to the left foot. CFT < 2 seconds to all toes bilateral with normal temperature bilateral, there are no open lesions right foot or evidence of acute infection to the right foot. Toenails 1-5 left and 1-4 right are elongated, thickened, dystrophic, yellow with subungual debris. No evidence of ischemia to the foot bilateral. No POP or pain on ROM to the foot or ankle bilateral. Chronic peripheral neuropathy is present bilateral. Right 5th toe is abscess - site well healed. Const alert and no apparent distress Assessment & Plan Assessment/Plan (1) Cellulitis of foot, left: (2) Chronic ulcer of left foot with fat layer exposed: (3) Other hereditary and idiopathic neuropathies: PLAN: Plan Evaluation performed. Reviewed diagnostic data. A culture has been obtained from left 1st toe ulceration - gram neg wilner, gram positive wilner, and staph noted so far. Final results pending. Reviewed left foot xrays, no gas in the tissues, no evidence of osteomyelitis. Ulcerations left plantar 1st toe and sub 5th metatarsal head are improved. No weightbearing to left forefoot, ok to put weight on heel with surgical shoe if needed. Keep foot elevated. Patient is on IV antibiotic Unasyn and Vancomycin. Also debrided toenails 1-5 left and 1-4 right using a nail nipper, removing bulk. This was done without incident. Podiatry will continue to follow.
[2023-05-28] MEDS: Thiamine Hydrochloride 100 MG Tablet PO (12:08)
[2023-05-28] MEDS: Enoxaparin 40 MG/0.4 ML Syringe SC (12:08)
[2023-05-28] MEDS: Lisinopril 10 MG Tablet PO (12:09)
[2023-05-28] MEDS: OXcarbazepine 300 MG Tablet PO ×2 (12:09→22:53)
[2023-05-28] MEDS: Memantine Hydrochloride 10 MG Tablet PO ×2 (12:09→22:53)
[2023-05-28] MEDS: Ensure Plus High Protein 120 ML LIQUID PO (12:09)
[2023-05-28] MEDS: Doxazosin 1 MG Tablet PO (22:52)
[2023-05-28] MEDS: MELATONIN 3 MG TABLET PO (22:53)
[2023-05-29] VITALS: BP 130/58; PULSE 90; RESP 16; TEMP 36.6; O2SAT 96
[2023-05-29 06:00] VITALS: BP 156/81; PULSE 85; RESP 16; TEMP 36.4; O2SAT 95
[2023-05-29 06:17] LABS: Absolute Lymphocyte Count 0.57 X10^3/uL (0.83-4.51); Absolute Neutrophil Count 1.8 X10^3/uL (2.0-7.7); Basophil# 0.03 X10^3/uL; Basophil% 0.9 % (0-1); Eosinophils% 3.1 % (0-5); Hematocrit 34.8 % (40-54); Hemoglobin 11.5 g/dL (13.0-16.5); Lymphocyte # 0.57 X10^3/ul (0.83-4.51); Lymphocyte % 17.8 % (19-41); Mean Corpuscular Hgb 28.3 pg (27.0-32.0); Mean Corpuscular Volume 85.7 fL (80-94); Mean Platelet Vol. 9.6 fl (6.2-12.0); Monocyte# 0.69 X10^3/uL; Monocyte% 21.6 % (0-10); NRBC Flagged by Analyzer 0 % (0-5); Neutrophil # 1.79 X10^3/uL (2.7-7.7); POSITIVE DIFFERENTIAL YES; Platelet Count 172 K/mm3 (150-450); RBC Distribution Width CV 13.2 % (11.6-14.6); RBC Distribution Width SD 41.8 fl (35.1-43.9); Red Blood Count 4.06 M/mm3 (4.6-6.2); White Blood Count 3.2 K/mm3 (4.4-11.0)
[2023-05-29 06:27] LABS: Differential Indicated SCAN CRITERIA MET
[2023-05-29] MEDS: Levothyroxine 50 MCG Tablet PO (06:33)
[2023-05-29 06:46] LABS: Anion Gap 7 (5-15); BUN 12 mg/dL (7-18); BUN/Creat Ratio 15.9 RATIO (10-20); Calcium,Total 8.6 mg/dL (8.5-10.1); Chloride 100 mmol/L (98-107); Creatinine, Serum 0.75 mg/dL (0.70-1.30); EST Glomerular Filtration Rate 111 mL/min (>60); Est Glom Filt Rate - Afr Amer 135 mL/min (>60); Estimated Creatinine Clearance 110.65 ml/min; Glucose 93 mg/dL (74-106); Potassium 3.6 mmol/L (3.5-5.1); Sodium Level 132 mmol/L (136-145)
--- NOTE | 2023-05-29 08:37 | PN_ITS ---
Subjective Subjective no changes overnight Objective Data Objective Data Vital Signs: Vital Signs Temp Pulse Resp BP Pulse Ox O2 Del Method 97.5 F L 85 16 156/81 H 95 Room Air 05/29/23 06:00 05/29/23 06:00 05/29/23 06:00 05/29/23 06:00 05/29/23 06:00 05/29/23 06:00 Oxygen Delivery Method Room Air Weight: 83.7 kg Body Mass Index (BMI) 25.0 Intake & Output: Intake and Output for Last 24 Hours 05/27/23 05/28/23 05/29/23 23:59 23:59 23:59 Intake Total 2501 / 2501 3310 / 3310 275 / 275 Balance 2501 / 2501 3310 / 3310 275 / 275 Lab / Micro Data 05/29/23 05:40 05/29/23 05:40 Labs: Laboratory Results - last 24 hr 05/29/23 05:40: WBC 3.2 L, RBC 4.06 L, Hgb 11.5 L, Hct 34.8 L, MCV 85.7, MCH 28.3, MCHC 33.0 D, RDW Std Deviation 41.8, RDW Coeff of [place]uneet 13.2, Plt Count 172, MPV 9.6, Immature Gran % (Auto) 0.600, Neut % (Auto) 56.0, Lymph % (Auto) 17.8 L, [place] % (Auto) 21.6 H, Eos % (Auto) 3.1, Baso % (Auto) 0.9, Absolute Neuts (auto) 1.8 L, Absolute Lymphs (auto) 0.57 L, Nucleated RBC % 0, Diff Path Review February, Sodium 132 L, Potassium 3.6, Chloride 100, Carbon Dioxide 25.0, Anion Gap 7, BUN 12, Creatinine 0.75, Estim Creat Clear Calc 110.65, Est GFR (MDRD) Af Amer 135, Est GFR (MDRD) Non-Af 111, BUN/Creatinine Ratio 15.9, Glucose 93, Calcium 8.6 Micro: Microbiology 05/26/23 17:41 Wound - Toe Gram Stain - Final 05/26/23 17:41 Wound - Toe Wound Culture - Final Stenotrophomonas maltophilia Staphylococcus cohnii urealyti Actinomyces odontolyticus Physical Exam Narrative Left foot with ulceration plantar 1st toe down to subcutaneous tissue - tissues viable to base and margin, there is cellulitis to the 1st toe extending to the dorsal foot but much improved today, there is edema to the left foot but is less today, there is no probe to bone, there is also ulceration to sub 5th met left foot with no evidence of infection here, and is healthy and viable - ulcer is down to subcutaneous tissue, there is no visible abscess, no crepitus, no fluctuance, no visible abscess to the left foot. CFT < 2 seconds to all toes bilateral with normal temperature bilateral, there are no open lesions right foot or evidence of acute infection to the right foot. Toenails 1-5 left and 1-4 right are elongated, thickened, dystrophic, yellow with subungual debris. No evidence of ischemia to the foot bilateral. No POP or pain on ROM to the foot or ankle bilateral. Chronic peripheral neuropathy is present bilateral. Right 5th toe is abscess - site well healed. Cellulitis appears improved today. (05/29/23). Const alert and no apparent distress Assessment & Plan Assessment/Plan (1) Cellulitis of foot, left: (2) Chronic ulcer of left foot with fat layer exposed: (3) Other hereditary and idiopathic neuropathies: PLAN: Plan Evaluation performed. Reviewed diagnostic data. Reviewed left foot xrays, no gas in the tissues, no evidence of osteomyelitis. Ulcerations left plantar 1st toe and sub 5th metatarsal head are improved. No weightbearing to left forefoot, ok to put weight on heel with surgical shoe if needed. Keep foot elevated. Patient is on IV antibiotic Unasyn and Vancomycin. Podiatry will continue to follow. Final cultures growing stenotrophomonas maltophilia, staphylococcus cohnii, urealyti, actinomyces odontolyticus. Patient can likely d/c with PO doxycylcine/ciprofloxacin for 10 days based on C+S. Patient should remain heel weightbearing in surgical shoe. Recommend home health care dressing changes to left foot 2-3 times per week including wound cleansing, application of silver alginate and DSD. Patient will follow up in 1 week
[2023-05-29 09:19] VITALS: BP 157/95; PULSE 95; RESP 18; TEMP 36.7; O2SAT 96
[2023-05-29] MEDS: Lisinopril 10 MG Tablet PO (09:22)
[2023-05-29] MEDS: Memantine Hydrochloride 10 MG Tablet PO (09:22)
[2023-05-29] MEDS: Enoxaparin 40 MG/0.4 ML Syringe SC (09:22)
[2023-05-29] MEDS: Thiamine Hydrochloride 100 MG Tablet PO (09:23)
[2023-05-29] MEDS: OXcarbazepine 300 MG Tablet PO (09:23)
--- NOTE | 2023-05-29 09:36 | TREXTCAR_ITS ---
Diet Diet Order/Speech Therapy: 05/26/23 19:40 Diet: Cardiac - Heart Healthy Food consistency:: Regular Liquid Consistency:: Regular/Thin Type of Dietary Supplement:: Lex Diet Comments: lex bid w/ breakfast and dinner Routine Orders/Code Status Enema Type: Fleetz Enema Frequency: Daily PRN Suppository Type: Dulcolax 10mg Suppository Frequency: Daily PRN Wound(s) left great toe: Wound Type: Neuropathic/Diabetic Foot Ulcer Therapies Weight Bearing: Non weight bearing Problem/Diagnosis (1) Cellulitis of foot, left: Status: Acute Code(s): L03.116 - Cellulitis of left lower limb (2) Chronic ulcer of left foot with fat layer exposed: Status: Chronic Code(s): L97.522 - Non-pressure chronic ulcer of other part of left foot with fat layer exposed (3) Other hereditary and idiopathic neuropathies: Status: Acute Code(s): G60.8 - Other hereditary and idiopathic neuropathies Plan #Left great toe ulcer * denies any fever or chills and couldnt tell how long he had had the ulceration on his foot. * on IV vancomycin and unasyn * xray of the foot showed a diffuse soft tissue swelling around the fifth metatarsophalangeal joint with possible healed fracture of the base of the fifth proximal phalanx with an ill defined lucent area along the head of the fifth metatarsal bone * podiatry on board. Did bedside debridement yesterday morning. * Pt/OT on board * fall precautions * #Alcohol use dementia: on memantine #Hypertension: on lisinopril 10mg daily and doxazosin. IV hydralazine prn #Hyponatremia: sodium is 130 today; higher than the 125 of yesterday. This appears to be chronic, going all the way back to 2019. Will monitor #COPD: not in exacerbation. Stable. 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 Finished chemotharapy on 05/27/2020 and also had radiation * continue follow up with oncology on outpatient basis * DVT prophylaxis: lovenox Allergies/Procedures Done in Hospital Allergies No Known Allergies Allergy (Verified 05/26/23 15:37) Procedures: None Type of Care/Length of Stay Estimated LOS: Convalescent Care Less Than 30 days Type of Care Needed: Skilled Rehab Potential: Fair Prognosis: Fair Additional Orders/Day of Discharge Day of Discharge: 05/29/23 Dietary and Speech Recommendations Dietitian Recommendations/Changes: Continue cardiac diet Continue ensure plus tid w/ medpass Will order lex bid w/ breakfast and lunch for increased nutrition if consumed to help w/ skin healing Discharge Plan Admission Admit Date/Time: 05/26/23 18:52 Primary Reason for Your Visit: left big toe ulceration Attending Provider: Livia Aguiar Primary Care Provider: Nolan Yin Consulting Providers: Joss Dodson; Anurag Tineo Instructions Additional Instructions / Restrictions: follow up in 1 week with podiatry remain heel weightbearing in surgical shoe recommend home health care dressing changes consisting of silver alginate, DSD, kashmir bandage 2-3 times per week for left halluc wound Discharge Orders/Prescriptions Prescriptions: New doxycycline hyclate 100 mg capsule 100 mg PO BID Qty: 20 0RF ciprofloxacin HCl 500 mg tablet 500 mg PO BID Qty: 20 0RF Continued aluminum-magnesium hydroxide 225 mg-200 mg/5 mL oral suspension 225-200 mg/5 mL suspension 5 ml PO Q4H PRN (Reason: gi distress) guaifenesin 100 mg/5 mL liquid 200 mg PO Q4H PRN (Reason: COUGH, CONGESTION) bisacodyl 10 mg suppository 10 mg NH DAILY PRN (Reason: constipation) oxcarbazepine 300 mg tablet 300 mg PO BID pilocarpine HCl 7.5 mg tablet 7.5 mg PO TID sodium chloride 1 gram tablet 2,000 mg PO Q8H levothyroxine [Synthroid] 50 mcg tablet 50 mcg PO DAILY escitalopram oxalate 10 mg tablet 10 mg PO DAILY miconazole nitrate [Remedy Phytoplex Antifungal] 2 % powder 1 applic topical DAILY PRN PRN (Reason: redness) magnesium hydroxide [Milk of Magnesia] 400 mg/5 mL suspension 15 ml PO DAILY PRN (Reason: stomach upset) cimetidine [Tagamet HB] 200 mg tablet 200 mg PO QHS thiamine HCl (vitamin B1) 100 mg tablet 300 mg PO DAILY doxazosin 1 MG tablet 1 mg PO QHS memantine 10 MG tablet 5 mg PO BID acetaminophen 650 mg Tablet 650 mg PO Q4H PRN (Reason: pain/fever) acetaminophen 650 mg Suppository 650 mg [place] Q4H PRN (Reason: pain/fever) lisinopril 10 mg tablet 10 mg PO DAILY Qty: 30 0RF Discontinued cephalexin 500 mg capsule 500 mg PO Q8H Referrals / Follow Up: Max Rocha DPM [Med Staff - Active Staff] - Nolan Yin MD [Primary Care Provider] - Within 2 Weeks Nolan Yin [[facility]] - Disposition Disposition (needs filled in before D/C Order can be placed): [facility]
--- NOTE | 2023-05-29 09:39 | DS.PCM_ITS ---
Providers Date of Admission: 05/26/23 Date of Discharge: 05/29/23 Primary Care Physician: Dr. Nolan Yin MD Consultations 05/26/23 19:40 Consult: Podiatry Routine Consulting Provider: Joss Dodson Reason for Consult: left great toe ulcer EMERGENT Consult: No MD Notified: Yes Date Notified: 05/26/23 Time Notified: 18:59 Method of Notification: Text Reason For Visit: LEFT GREAT TOE ULCER Diagnosis Discharge Diagnosis (1) Cellulitis of foot, left: Status: Acute Code(s): L03.116 - Cellulitis of left lower limb (2) Chronic ulcer of left foot with fat layer exposed: Status: Chronic Code(s): L97.522 - Non-pressure chronic ulcer of other part of left foot with fat layer exposed (3) Other hereditary and idiopathic neuropathies: Status: Acute Code(s): G60.8 - Other hereditary and idiopathic neuropathies Plan #Left great toe ulcer * denies any fever or chills and couldnt tell how long he had had the ulceration on his foot. * on IV vancomycin and unasyn * xray of the foot showed a diffuse soft tissue swelling around the fifth metatarsophalangeal joint with possible healed fracture of the base of the fifth proximal phalanx with an ill defined lucent area along the head of the fifth metatarsal bone * podiatry on board. Did bedside debridement yesterday morning. * Pt/OT on board * fall precautions * #Alcohol use dementia: on memantine #Hypertension: on lisinopril 10mg daily and doxazosin. IV hydralazine prn #Hyponatremia: sodium is 130 today; higher than the 125 of yesterday. This appears to be chronic, going all the way back to 2019. Will monitor #COPD: not in exacerbation. Stable. 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 Finished chemotharapy on 05/27/2020 and also had radiation * continue follow up with oncology on outpatient basis * DVT prophylaxis: lovenox Medications at Discharge Home Medications aluminum-magnesium hydroxide 225 mg-200 mg/5 mL oral suspension 5 ml PO Q4H PRN gi distress 06/30/20 guaifenesin 100 mg/5 mL oral liquid 200 mg PO Q4H PRN COUGH, CONGESTION 06/24/21 acetaminophen 650 mg rectal suppository 650 mg AR Q4H PRN pain/fever 08/07/21 acetaminophen 650 mg tablet 650 mg PO Q4H PRN pain/fever 08/07/21 doxazosin 1 mg tablet 1 mg PO QHS BPH 08/07/21 memantine 10 mg tablet 5 mg PO BID ALCOHOL DEPENDENCE 08/07/21 bisacodyl 10 mg rectal suppository 10 mg AR DAILY PRN constipation 07/07/22 levothyroxine 50 mcg tablet (Synthroid) 50 mcg PO DAILY thyroid 07/07/22 oxcarbazepine 300 mg tablet 300 mg PO BID 07/07/22 pilocarpine HCl 7.5 mg tablet 7.5 mg PO TID dry mouth 07/07/22 sodium chloride 1 gram tablet 2,000 mg PO Q8H mineral 07/07/22 lisinopril 10 mg tablet 10 mg PO DAILY #30 tabs 08/31/22 cimetidine 200 mg tablet (Tagamet HB) 200 mg PO QHS etoh 05/03/23 escitalopram oxalate 10 mg tablet 10 mg PO DAILY depression 05/03/23 magnesium hydroxide 400 mg/5 mL oral suspension (Milk of Magnesia) 15 ml PO DAILY PRN stomach upset 05/03/23 miconazole nitrate 2 % topical powder (Remedy Phytoplex Antifungal) 1 applic topical DAILY PRN PRN redness 05/03/23 thiamine HCl (vitamin B1) 100 mg tablet 300 mg PO DAILY etoh 05/03/23 ciprofloxacin HCl 500 mg tablet 500 mg PO BID #20 tabs 05/29/23 doxycycline hyclate 100 mg capsule 100 mg PO BID #20 caps 05/29/23 Hospital Course Operations None Procedures - (bedside debridement of left great toe ulceration) Summary of Care Provided Minutes Spent on Discharge: 48 Hospital Course: Patient is a 63 y/o male who is resident in [facility]. he was admitted via the ED on 05/26/2023 with a complaint of a left great toe ulcer. It wasnt clear how long it had been present. He had been started on PO Keflex in the SNF 2 days prior for this but it still persisted so he was brought in to the ED. He had no associated fever or chills or any other symptoms. Review of systems was otherwise negative. Xray showed diffuse soft tissue swelling around the fifth metatarsophalangeal joint and possible healed fracture involving the base of the fifth proximal phalanx and ill defined lucent area along the head of the fifth metatarsal bone. He was started on IV vancomycin and cefepime. Podiatry was consulted. He had bedside debridement by podiatry. Per podiatry, there was no suspicion for osteomyelitis. WOund cultures grew Stenotrophomonas maltophilia, Staph cohnii urealyti and Actinomyces odontolyticus. Per podiatry rec's he was discharged on PO ciprofloxacin 500mg bid x 10 days and PO doxycycline 100mg bid x 10 days. He is to follow up with his PCP and podiatry within 1-2 weeks. Patient seen and examined. He had no active complaints and had an uneventful night. Review of systems was otherwise negative. Labs and vitals reviewed. Home meds reviewed and reconciled. Physical Exam Const alert, oriented x3 and no apparent distress General Appearance: cooperative, comfortable and well kempt HEENT normocephalic, head/scalp atraumatic, hearing grossly normal bilaterally, moist oral mucous membranes and oropharynx normal Mouth: oral and palatal mucosa normal Eyes PERRL and EOMs intact bilaterally Neck no lymphadenopathy, supple and no JVD Lymph Lymphatic: no lymphadenopathy noted and no lymphedema noted Resp normal respiratory effort, normal air movement and clear to auscultation bilaterally Cardio regular rate, regular rhythm, S1 normal heart sound, S2 normal heart sound and no murmurs GI normal to inspection, nondistended, normoactive bowel sounds, soft to palpation, non-tender and non-distended Extremity Extremity Narrative: right big toe is bandaged. Skin Skin Narrative: as under extremities Wound Narrative: as under extremity Neuro CN's II-XII intact bilaterally, moves all extremities, no focal motor deficits, no sensory deficits noted and deep tendon reflexes 2+ bilaterally Neuro Narrative: dementia Motor Exam: strength 5/5 throughout Psych thought process normal, cooperative and affect normal Appearance: appropriate Weight / BMI Weight Weight: 184 lb 8.43 oz Body Mass Index (BMI) 25.0 ABG / Lab / Microbiology Data 05/29/23 05:40 05/29/23 05:40 Laboratory: Laboratory Results - last 24 hr 05/29/23 05:40: WBC 3.2 L, RBC 4.06 L, Hgb 11.5 L, Hct 34.8 L, MCV 85.7, MCH 28.3, MCHC 33.0 D, RDW Std Deviation 41.8, RDW Coeff of Puneet 13.2, Plt Count 172, MPV 9.6, Immature Gran % (Auto) 0.600, Neut % (Auto) 56.0, Lymph % (Auto) 17.8 L, [place] % (Auto) 21.6 H, Eos % (Auto) 3.1, Baso % (Auto) 0.9, Absolute Neuts (auto) 1.8 L, Absolute Lymphs (auto) 0.57 L, Nucleated RBC % 0, Diff Path Review February, Sodium 132 L, Potassium 3.6, Chloride 100, Carbon Dioxide 25.0, Anion Gap 7, BUN 12, Creatinine 0.75, Estim Creat Clear Calc 110.65, Est GFR (MDRD) Af Amer 135, Est GFR (MDRD) Non-Af 111, BUN/Creatinine Ratio 15.9, Glucose 93, Calcium 8.6 Microbiology: Microbiology 05/26/23 17:41 Wound - Toe Gram Stain - Final 05/26/23 17:41 Wound - Toe Wound Culture - Final Stenotrophomonas maltophilia Staphylococcus cohnii urealyti Actinomyces odontolyticus D/C Instructions Discharge Diet: Low fat / Low cholesterol Discharge Activity: Return to Normal Activity Weight Bearing Status: - (remain heel weight bearing in surgical shoe) Call your doctor if you observe: Fever of 101 or Higher, Dizziness, Swelling in the ankles, Chest pain and Uncontrolled pain Meaningful Use Info Meaningful Use Diagnoses (Choose all that apply): None applicable Discharge Plan Admission Admit Date/Time: 05/26/23 18:52 Primary Reason for Your Visit: left big toe ulceration Attending Provider: Livia Aguiar Primary Care Provider: Nolan Yin Consulting Providers: Joss Dodson; Anurag Tineo Instructions Additional Instructions / Restrictions: follow up in 1 week with podiatry remain heel weightbearing in surgical shoe recommend home health care dressing changes consisting of silver alginate, DSD, kashmir bandage 2-3 times per week for left halluc wound Discharge Orders/Prescriptions Prescriptions: New doxycycline hyclate 100 mg capsule 100 mg PO BID Qty: 20 0RF ciprofloxacin HCl 500 mg tablet 500 mg PO BID Qty: 20 0RF Continued aluminum-magnesium hydroxide 225 mg-200 mg/5 mL oral suspension 225-200 mg/5 mL suspension 5 ml PO Q4H PRN (Reason: gi distress) guaifenesin 100 mg/5 mL liquid 200 mg PO Q4H PRN (Reason: COUGH, CONGESTION) bisacodyl 10 mg suppository 10 mg AR DAILY PRN (Reason: constipation) oxcarbazepine 300 mg tablet 300 mg PO BID pilocarpine HCl 7.5 mg tablet 7.5 mg PO TID sodium chloride 1 gram tablet 2,000 mg PO Q8H levothyroxine [Synthroid] 50 mcg tablet 50 mcg PO DAILY escitalopram oxalate 10 mg tablet 10 mg PO DAILY miconazole nitrate [Remedy Phytoplex Antifungal] 2 % powder 1 applic topical DAILY PRN PRN (Reason: redness) magnesium hydroxide [Milk of Magnesia] 400 mg/5 mL suspension 15 ml PO DAILY PRN (Reason: stomach upset) cimetidine [Tagamet HB] 200 mg tablet 200 mg PO QHS thiamine HCl (vitamin B1) 100 mg tablet 300 mg PO DAILY doxazosin 1 MG tablet 1 mg PO QHS memantine 10 MG tablet 5 mg PO BID acetaminophen 650 mg Tablet 650 mg PO Q4H PRN (Reason: pain/fever) acetaminophen 650 mg Suppository 650 mg AR Q4H PRN (Reason: pain/fever) lisinopril 10 mg tablet 10 mg PO DAILY Qty: 30 0RF Discontinued cephalexin 500 mg capsule 500 mg PO Q8H Referrals / Follow Up: Max Rocha DPM [Med Staff - Active Staff] - Nolan Yin MD [Primary Care Provider] - Within 2 Weeks Nolan Yin [[facility]] - Disposition Disposition (needs filled in before D/C Order can be placed): [facility] Charges/Coding Visit Charges Inpatient E&M: 27131 Disch Hosp >30min
--- NOTE | 2023-05-29 10:10 | ART_ITS ---
Reason For Study: Ulcer Procedure A bilateral lower extremity continuous wave Doppler with analog waveform analysis,segmental pressures,and ankle brachial indexes without exercise. Left Segmental Pressures Left posterior tibial artery = 182mmHg. Left dorsalis pedis artery = 204mmHg. The left dorsalis pedis waveforms are triphasic. The left posterior tibial artery waveforms are triphasic. Right Segmental Pressures Right brachial= 186mmHg. Right posterior tibial artery = 180mmHg. Right dorsalis pedis artery = 204mmHg. Right digit = 179 mmHg. The right dorsalis pedis waveforms are triphasic. The right posterior tibial artery waveforms are triphasic. Indices The right ankle brachial index by the dorsalis pedis is 1.10. The right ankle brachial index by the posterior tibial artery is 0.97. The right digital-brachial index is 0.96. The left ankle brachial index by the dorsalis pedis is 1.10. The left ankle brachial index by the posterior tibial artery is 0.98. VL/Lower Ext Art Exam w/o Exercis Interpretation Summary Right HERBERT 1.1, normal. TBI and Doppler/PVR waveforms of the right leg normal at rest. Left HERBERT 1.1, normal. Doppler/PVR waveforms of the left leg normal at rest. Ordering Physician: Max Rocha Referring Physician: Nolan Yin Performed By: Chantel Rabago RVT
--- NOTE | 2023-05-29 10:24 | PHA.DC.MR.R ---
Pharmacy IN Med Reconciliation Pharmacy Service has performed discharge medication reconciliation for this patient. The patient's discharge medication list was reviewed for discrepancies and discrepancies were resolved. Medications at Discharge Home Medications aluminum-magnesium hydroxide 225 mg-200 mg/5 mL oral suspension 5 ml PO Q4H PRN gi distress 06/30/20 guaifenesin 100 mg/5 mL oral liquid 200 mg PO Q4H PRN COUGH, CONGESTION 06/24/21 acetaminophen 650 mg rectal suppository 650 mg [place] Q4H PRN pain/fever 08/07/21 acetaminophen 650 mg tablet 650 mg PO Q4H PRN pain/fever 08/07/21 doxazosin 1 mg tablet 1 mg PO QHS BPH 08/07/21 memantine 10 mg tablet 5 mg PO BID ALCOHOL DEPENDENCE 08/07/21 bisacodyl 10 mg rectal suppository 10 mg [place] DAILY PRN constipation 07/07/22 levothyroxine 50 mcg tablet (Synthroid) 50 mcg PO DAILY thyroid 07/07/22 oxcarbazepine 300 mg tablet 300 mg PO BID 07/07/22 pilocarpine HCl 7.5 mg tablet 7.5 mg PO TID dry mouth 07/07/22 sodium chloride 1 gram tablet 2,000 mg PO Q8H mineral 07/07/22 lisinopril 10 mg tablet 10 mg PO DAILY #30 tabs 08/31/22 cimetidine 200 mg tablet (Tagamet HB) 200 mg PO QHS etoh 05/03/23 escitalopram oxalate 10 mg tablet 10 mg PO DAILY depression 05/03/23 magnesium hydroxide 400 mg/5 mL oral suspension (Milk of Magnesia) 15 ml PO DAILY PRN stomach upset 05/03/23 miconazole nitrate 2 % topical powder (Remedy Phytoplex Antifungal) 1 applic topical DAILY PRN PRN redness 05/03/23 thiamine HCl (vitamin B1) 100 mg tablet 300 mg PO DAILY etoh 05/03/23 ciprofloxacin HCl 500 mg tablet 500 mg PO BID #20 tabs 05/29/23 doxycycline hyclate 100 mg capsule 100 mg PO BID #20 caps 05/29/23
[2023-05-29] MEDS: Ensure Plus High Protein 120 ML LIQUID PO (12:56)
--- NOTE | 2023-05-29 13:02 | CASEMGMT ---
Social Work Per physician, pt is ready for discharge today. Discharge orders sent to [facility] via [facility]. Transportation arranged with [facility] for 1:30 pickling operator via Wheel chair van. SW met with pt and updated and he is agreeable to return to [facility] at this time. Nurse and CC notified of pickling operator time. Disposition: [facility], intermediate level of care HOOD Medeiros
[2023-05-29 13:19] VITALS: BP 126/49; PULSE 102; RESP 18; TEMP 36.8; O2SAT 96
[2023-05-30 15:20] LABS: Pathologist Review Reviewed
[2023-05-31 13:13] LABS: Pathologist Review Reviewed
== END 2023-05-29 13:50 | disposition skilled nursing facility (03) | DRG 571 ==
LOC: ED 17:46 → MS3 18:28
PROVIDERS: Admitting Provider Internal Medicine; Emergency Provider Emergency Medicine; PCP Family Medicine; Visit Provider Student in an Organized Health Care Education/Training Program
DX: L97.522 Non-pressure chronic ulcer of other part of left foot with fat layer exposed (principal); L03.116 Cellulitis of left lower limb; E87.1 Hypo-osmolality and hyponatremia; F10.27 Alcohol dependence with alcohol-induced persisting dementia; F03.90 Unspecified dementia, unspecified severity, without behavioral disturbance, psychotic disturbance, mood disturbance, and anxiety; F31.9 Bipolar disorder, unspecified; J44.9 Chronic obstructive pulmonary disease, unspecified; G62.1 Alcoholic polyneuropathy; I10 Essential (primary) hypertension; E78.5 Hyperlipidemia, unspecified; G60.9 Hereditary and idiopathic neuropathy, unspecified; B96.5 Pseudomonas (aeruginosa) (mallei) (pseudomallei) as the cause of diseases classified elsewhere; Z79.890 Hormone replacement therapy; Z79.899 Other long term (current) drug therapy; Z86.16 Personal history of COVID-19; Z92.3 Personal history of irradiation; Z87.891 Personal history of nicotine dependence; Z85.9 Personal history of malignant neoplasm, unspecified
CPT/HCPCS: 36415; 73630; 80048; 80053; 80061; 80202; 83605; 84443; 85025; 86140; 87040; 87070; 87077; 87186; 87205; 93923; 97162; 97166; 97530; 97535; 97802; 99285; J7030; J7050; A4216; J0295

== ENCOUNTER → 2023-06-15 | Outpatient (REF) | payer MEDICARE, MEDICAID, SELFPAY ==
[2020-04-01 10:26] VITALS: BMI 27.5
[2023-06-15 09:35] LABS: Absolute Lymphocyte Count 0.65 X10^3/uL (0.83-4.51); Absolute Neutrophil Count 1.8 X10^3/uL (2.0-7.7); Basophil# 0.02 X10^3/uL; Basophil% 0.7 % (0-1); Eosinophil# 0.07 X10^3/uL; Eosinophils% 2.3 % (0-5); Hematocrit 36.1 % (40-54); Hemoglobin 12.3 g/dL (13.0-16.5); Lymphocyte # 0.65 X10^3/ul (0.83-4.51); Lymphocyte % 21.2 % (19-41); Mean Corp Hgb Conc 34.1 g/dL (32-36); Mean Corpuscular Hgb 28.8 pg (27.0-32.0); Mean Corpuscular Volume 84.5 fL (80-94); Mean Platelet Vol. 10.6 fl (6.2-12.0); Monocyte% 16.3 % (0-10); NRBC Flagged by Analyzer 0 % (0-5); Neutrophil # 1.82 X10^3/uL (2.7-7.7); Neutrophil % 59.2 % (47-70); Platelet Count 164 K/mm3 (150-450); RBC Distribution Width CV 13.6 % (11.6-14.6); RBC Distribution Width SD 41.6 fl (35.1-43.9); Red Blood Count 4.27 M/mm3 (4.6-6.2); White Blood Count 3.1 K/mm3 (4.4-11.0)
[2023-06-15 09:57] LABS: ALB/GLOB Ratio 0.9 RATIO (0.9-2.4); AST(SGOT) 22 U/L (15-37); Alanine Aminotransfer ALT/SGPT 24 U/L (16-61); Alkaline Phosphatase 41 U/L (45-117); Anion Gap 6 (5-15); BUN 9 mg/dL (7-18); Calcium,Total 8.8 mg/dL (8.5-10.1); Chloride 94 mmol/L (98-107); EST Glomerular Filtration Rate 91 mL/min (>60); Est Glom Filt Rate - Afr Amer 110 mL/min (>60); Globulin 3.4 g/dL (2.2-4.2); Glucose 88 mg/dL (74-106); Potassium 4.1 mmol/L (3.5-5.1); Protein, Total 6.4 g/dL (6.4-8.2); Sodium Level 126 mmol/L (136-145); Thyroid Stim Hormone (TSH) 2.38 uIU/mL (0.358-3.74)
[2023-06-18 16:07] LABS: Trileptal-Oxcarbazepine 15 ug/mL (10-35)
== END ==
LOC: OLS.SW 05:00
PROVIDERS: PCP Family Medicine; Referring Provider Family Medicine; Visit Provider Family Medicine
DX: I10 Essential (primary) hypertension (principal)
CPT/HCPCS: 36415; 80053; 82542; 84443; 85025

== ENCOUNTER → 2023-07-26 | Outpatient (REF) | payer MEDICARE, MEDICAID, SELFPAY ==
[2020-04-01 10:26] VITALS: BMI 27.5
[2023-07-26 09:27] LABS: Hematocrit 42.5 % (40-54); Hemoglobin 13.9 g/dL (13.0-16.5); Mean Corp Hgb Conc 32.7 g/dL (32-36); Mean Corpuscular Hgb 28.5 pg (27.0-32.0); Mean Corpuscular Volume 87.1 fL (80-94); Mean Platelet Vol. 10.2 fl (6.2-12.0); Platelet Count 171 K/mm3 (150-450); RBC Distribution Width CV 13.3 % (11.6-14.6); RBC Distribution Width SD 42.6 fl (35.1-43.9); Red Blood Count 4.88 M/mm3 (4.6-6.2); White Blood Count 4.2 K/mm3 (4.4-11.0)
[2023-07-26 09:41] LABS: T3 Total - Triiodothyronine 1.18 ng/mL (0.6-1.81)
[2023-07-26 09:47] LABS: Anion Gap 5 (5-15); BUN 15 mg/dL (7-18); BUN/Creat Ratio 15.1 RATIO (10-20); Calcium,Total 9.3 mg/dL (8.5-10.1); Chloride 97 mmol/L (98-107); Creatinine, Serum 0.99 mg/dL (0.70-1.30); EST Glomerular Filtration Rate 81 mL/min (>60); Est Glom Filt Rate - Afr Amer 98 mL/min (>60); Glucose 94 mg/dL (74-106); Potassium 4.2 mmol/L (3.5-5.1); Sodium Level 131 mmol/L (136-145); Thyroid Stim Hormone (TSH) 5.43 uIU/mL (0.358-3.74)
[2023-08-01 02:07] LABS: Trileptal-Oxcarbazepine 11 ug/mL (10-35)
== END ==
LOC: OLS.SW 07:54
PROVIDERS: PCP Family Medicine; Visit Provider Family Medicine
DX: D70.9 Neutropenia, unspecified (principal); F03.90 Unspecified dementia, unspecified severity, without behavioral disturbance, psychotic disturbance, mood disturbance, and anxiety; I10 Essential (primary) hypertension
CPT/HCPCS: 36415; 80048; 82542; 84436; 84443; 84480; 85027

== ENCOUNTER → 2023-09-15 | Outpatient (REF) | payer MEDICARE, MEDICAID, SELFPAY ==
[2020-04-01 10:26] VITALS: BMI 27.5
[2023-09-15 08:44] LABS: Absolute Lymphocyte Count 0.64 X10^3/uL (0.83-4.51); Absolute Neutrophil Count 2.8 X10^3/uL (2.0-7.7); Basophil# 0.03 X10^3/uL; Basophil% 0.7 % (0-1); Eosinophil# 0.12 X10^3/uL; Eosinophils% 2.9 % (0-5); Hematocrit 36.2 % (40-54); Hemoglobin 12.3 g/dL (13.0-16.5); Lymphocyte # 0.64 X10^3/ul (0.83-4.51); Lymphocyte % 15.4 % (19-41); Mean Corpuscular Hgb 28.5 pg (27.0-32.0); Mean Platelet Vol. 9.9 fl (6.2-12.0); Monocyte# 0.59 X10^3/uL; Monocyte% 14.2 % (0-10); NRBC Flagged by Analyzer 0 % (0-5); Neutrophil # 2.75 X10^3/uL (2.7-7.7); Neutrophil % 66.3 % (47-70); Platelet Count 164 K/mm3 (150-450); RBC Distribution Width CV 13.2 % (11.6-14.6); RBC Distribution Width SD 41.3 fl (35.1-43.9); Red Blood Count 4.31 M/mm3 (4.6-6.2); White Blood Count 4.2 K/mm3 (4.4-11.0)
[2023-09-15 08:48] LABS: Anion Gap 6 (5-15); BUN 14 mg/dL (7-18); Calcium,Total 8.6 mg/dL (8.5-10.1); Chloride 97 mmol/L (98-107); Creatinine, Serum 1.08 mg/dL (0.70-1.30); EST Glomerular Filtration Rate 73 mL/min (>60); Est Glom Filt Rate - Afr Amer 89 mL/min (>60); Glucose 102 mg/dL (74-106); Potassium 4.3 mmol/L (3.5-5.1); Sodium Level 127 mmol/L (136-145)
[2023-09-19 06:08] LABS: Trileptal-Oxcarbazepine 16 ug/mL (10-35)
== END ==
LOC: OLS.SW 05:00
PROVIDERS: PCP Family Medicine; Visit Provider Family Medicine
DX: D70.9 Neutropenia, unspecified (principal); D61.818 Other pancytopenia; F10.27 Alcohol dependence with alcohol-induced persisting dementia; E87.1 Hypo-osmolality and hyponatremia; I10 Essential (primary) hypertension; E03.9 Hypothyroidism, unspecified
CPT/HCPCS: 36415; 80048; 82542; 85025

== ENCOUNTER 2023-10-15 06:06 | Emergency (ER) | payer MEDICARE, MEDICAID, SELFPAY ==
[2020-04-01 10:26] VITALS: BMI 27.5
[2023-10-15 06:06] VITALS: BP 163/94; PULSE 90; RESP 18; TEMP 36.7; O2SAT 96; BMI 23.0
[2023-10-15 06:31] LABS: Absolute Lymphocyte Count 0.92 X10^3/uL (0.83-4.51); Absolute Neutrophil Count 3.8 X10^3/uL (2.0-7.7); Basophil# 0.02 X10^3/uL; Basophil% 0.4 % (0-1); Eosinophil# 0.07 X10^3/uL; Eosinophils% 1.3 % (0-5); Hematocrit 38.5 % (40-54); Lymphocyte # 0.92 X10^3/ul (0.83-4.51); Lymphocyte % 16.8 % (19-41); Mean Corp Hgb Conc 33.8 g/dL (32-36); Mean Corpuscular Hgb 27.9 pg (27.0-32.0); Mean Corpuscular Volume 82.6 fL (80-94); Monocyte# 0.67 X10^3/uL; Monocyte% 12.2 % (0-10); NRBC Flagged by Analyzer 0 % (0-5); Neutrophil # 3.75 X10^3/uL (2.7-7.7); Neutrophil % 68.6 % (47-70); Platelet Count 227 K/mm3 (150-450); RBC Distribution Width CV 13.1 % (11.6-14.6); RBC Distribution Width SD 39.2 fl (35.1-43.9); Red Blood Count 4.66 M/mm3 (4.6-6.2); White Blood Count 5.5 K/mm3 (4.4-11.0)
--- NOTE | 2023-10-15 06:35 | EX.ED.DYSGE1 ---
HPI <Dr. Vanna Mcgee DO - Last Filed: 10/17/23 09:55> History of Present Illness Chief Complaint: Complaint Informant: patient Narrative Narrative: Patient is a 63-year-old male with history of dementia from alcoholism, oropharyngeal carcinoma, hypertension and COPD as well as BPH presenting for difficulty urinating. Patient states it has been 8 to 10 hours since he last urinated. Denies feeling the need to urinate at this time. Denies any abdominal pain. Denies any other GI or symptoms. Nursing staff at his facility attempted straight catheter but was unsuccessful. He was sent to the ER for further evaluation. No other complaints or concerns at this time. No report of any recent fevers or chills. [facility] <Dr. Vanna Mcgee DO - Last Filed: 10/17/23 09:55> [facility] Medical History Alcohol dependence with alcohol-induced persisting dementia Alcoholic peripheral neuropathy Anxiety Benign prostatic hyperplasia without lower urinary tract symptoms Bipolar 1 disorder Cancer Cellulitis of right lower limb Chronic obstructive pulmonary disease, unspecified Chronic ulcer of left foot with fat layer exposed COVID Essential (primary) hypertension Foot infection Foot osteomyelitis, right HTN (hypertension) Impulse disorder, unspecified Major depressive disorder, recurrent, mild Mass of lateral neck Other hereditary and idiopathic neuropathies Home Medications aluminum-magnesium hydroxide 225 mg-200 mg/5 mL oral suspension 5 ml PO Q4H PRN gi distress 06/30/20 [History Last Taken Unknown] guaifenesin 100 mg/5 mL oral liquid 200 mg PO Q4H PRN COUGH, CONGESTION 06/24/21 [History Last Taken Unknown] acetaminophen 650 mg rectal suppository 650 mg NJ Q4H PRN pain/fever 08/07/21 [History Last Taken Unknown] acetaminophen 650 mg tablet 650 mg PO Q4H PRN pain/fever 08/07/21 [History Last Taken Unknown] doxazosin 1 mg tablet 1 mg PO QHS BPH 08/07/21 [History Last Taken 05/25/23] memantine 10 mg tablet 5 mg PO BID ALCOHOL DEPENDENCE 08/07/21 [History Last Taken 05/25/23] bisacodyl 10 mg rectal suppository 10 mg NJ DAILY PRN constipation 07/07/22 [History Last Taken Unknown] levothyroxine 50 mcg tablet (Synthroid) 50 mcg PO DAILY thyroid 07/07/22 [History Last Taken 05/25/23] oxcarbazepine 300 mg tablet 300 mg PO BID 07/07/22 [History Last Taken Unknown] pilocarpine HCl 7.5 mg tablet 7.5 mg PO TID dry mouth 07/07/22 [History Last Taken 05/25/23] sodium chloride 1 gram tablet 2,000 mg PO Q8H mineral 07/07/22 [History Last Taken 05/25/23] lisinopril 10 mg tablet 10 mg PO DAILY #30 tabs 08/31/22 [Rx Last Taken 05/25/23] cimetidine 200 mg tablet (Tagamet HB) 200 mg PO QHS etoh 05/03/23 [History Last Taken 05/25/23] escitalopram oxalate 10 mg tablet 10 mg PO DAILY depression 05/03/23 [History Last Taken 05/25/23] magnesium hydroxide 400 mg/5 mL oral suspension (Milk of Magnesia) 15 ml PO DAILY PRN stomach upset 05/03/23 [History Last Taken Unknown] miconazole nitrate 2 % topical powder (RemedWhodini Phytoplex Antifungal) 1 applic topical DAILY PRN PRN redness 05/03/23 [History Last Taken Unknown] thiamine HCl (vitamin B1) 100 mg tablet 300 mg PO DAILY etoh 05/03/23 [History Last Taken 05/25/23] ciprofloxacin HCl 500 mg tablet 500 mg PO BID #20 tabs 05/29/23 [Rx Last Taken Unknown] doxycycline hyclate 100 mg capsule 100 mg PO BID #20 caps 05/29/23 [Rx Last Taken Unknown] Allergy/AdvReac Type Severity Reaction Status Date / Time No Known Allergies Allergy Verified 10/15/23 06:20 Family History Mother History of heart artery stent Pacemaker Hypertension Father Heart problem Grandmother Hypertension Sister Melanoma of thigh Surgical History history of neck biopsy (~02/2020) Hx of knee surgery Social History Smoking Status: Former smoker ROS <Dr. Vanna Mcgee DO - Last Filed: 10/17/23 09:55> ROS ED Constitutional Constitutional ED: Denies chills or fever(s) Respiratory/Chest Respiratory/Chest: Denies cough Gastrointestinal Gastrointestinal: Denies abdominal pain Genitourinary Genitourinary ED: Reports other Details: Creased urination ; Denies dysuria or hematuria Musculoskeletal Musculoskeletal: Denies arthralgias, back pain or myalgias Integumentary Denies rash Neurologic Neurologic: Denies headache(s) EXAM <Dr. Vanna Mcgee, DO - Last Filed: 10/17/23 09:55> Physical Exam Const Vital Signs: 10/15/23 06:06 Temperature 98.0 F Temperature Source Temporal Pulse Rate 90 Respiratory Rate 18 Blood Pressure 163/94 H Blood Pressure Mean 117 Pulse Ox 96 Oxygen Delivery Method Room Air Positive well nourished and well developed General Appearance ED: well developed and NAD HEENT Reports dry mucous membranes Mouth ED: Yes dry mucous membranes Mouth: dry mucous membranes Eyes PERRL Neck supple and no JVD Resp normal respiratory effort and clear to auscultation bilaterally Cardio regular rate and regular rhythm GI normal to inspection, nondistended, normoactive bowel sounds, non-tender and non-distended GI Narrative: No palpable bladder appreciated Back/Spine no CVA tenderness Neuro Sensorium / Orientation: alert Motor Exam: Negative for general weakness Psych mental status grossly normal Skin no rashes or lesions noted and no wounds <Dr. Max Giraldo, DO - Last Filed: 10/15/23 11:17> Physical Exam Const Vital Signs: 10/15/23 06:06 Temperature 98.0 F Temperature Source Temporal Pulse Rate 90 Respiratory Rate 18 Blood Pressure 163/94 H Blood Pressure Mean 117 Pulse Ox 96 Oxygen Delivery Method Room Air MDM <Dr. Vanna Mcgee, DO - Last Filed: 10/17/23 09:55> [facility] MDM Narrative Medical decision making narrative: Patient is evaluated for difficulty/inability to urinate. Bladder scan obtained in the ER is less than 300 cc. Will check a CBC, BMP for kidney function as well as urinalysis. Will give IV fluids as he does have some dry because of membranes and attempt to obtain a urinalysis. Lower suspicion for acute urinary retention given that he does not have a distended bladder. Differential also includes CLARK as well as mild dehydration. The CVA tenderness or infectious symptoms will suspicion for pyelonephritis. Anticipated kidney function is at baseline can discharge ? antibiotics if required for urinary tract infection once patient is able to urinate once bladder is full. Lab Data Labs: Laboratory Results - last 24 hr 10/15/23 10/15/23 06:26 10:32 WBC 5.5 RBC 4.66 Hgb 13.0 Hct 38.5 L MCV 82.6 MCH 27.9 MCHC 33.8 RDW Std Deviation 39.2 RDW Coeff of Puneet 13.1 Plt Count 227 MPV 9.0 Immature Gran % (Auto) 0.700 Neut % (Auto) 68.6 Lymph % (Auto) 16.8 L [place] % (Auto) 12.2 H Eos % (Auto) 1.3 Baso % (Auto) 0.4 Absolute Neuts (auto) 3.8 Absolute Lymphs (auto) 0.92 Nucleated RBC % 0 Sodium 128 L Potassium 4.1 Chloride 94 L Carbon Dioxide 27.0 Anion Gap 7 BUN 15 Creatinine 1.00 Estim Creat Clear Calc 82.24 Est GFR (MDRD) Af Amer 97 Est GFR (MDRD) Non-Af 80 BUN/Creatinine Ratio 15.0 Glucose 111 H Calcium 9.5 Urine Color Yellow Urine Clarity Clear Urine pH 7.0 Ur Specific [place] 1.015 Urine Protein 500 H Urine Glucose (UA) Normal Urine Ketones 5 H Urine Occult Blood 25 H Urine Nitrite Negative Urine Bilirubin Negative Urine Urobilinogen 1 H Ur Leukocyte Esterase Negative Urine RBC 0 SEEN Urine WBC 0-5 SEEN Ur Squamous Epith Cells 0 SEEN Urine Bacteria 0 SEEN Urine Mucus 1+ <Dr. Max Giraldo, DO - Last Filed: 10/15/23 11:17> [facility] MDM Narrative Medical decision making narrative: Patient is evaluated for difficulty/inability to urinate. Bladder scan obtained in the ER is less than 300 cc. Will check a CBC, BMP for kidney function as well as urinalysis. Will give IV fluids as he does have some dry because of membranes and attempt to obtain a urinalysis. Lower suspicion for acute urinary retention given that he does not have a distended bladder. Differential also includes CLARK as well as mild dehydration. The CVA tenderness or infectious symptoms will suspicion for pyelonephritis. Anticipated kidney function is at baseline can discharge ? antibiotics if required for urinary tract infection once patient is able to urinate once bladder is full. Patient received his IV fluids. He has been up moving around the room and asking when he can leave. We BladderScan him several times. He had just over 500 cc and was still unable to urinate anything more than about 50 cc. Onofre catheter was placed which relieved his pressure in his pelvis that he was experiencing. Urinalysis does not show any overt infection. Catheter will be left in place. He will need to follow-up in approximately 3 days to see if the catheter can be removed. I do not see a new medicine on reports that would have caused this. I do not see an infection. The catheter was not difficult to place per nursing. History & Record Review Discussion w/independent historian: Patient Lab Data Attestation: I reviewed the patient's lab results. Labs: Laboratory Results - last 24 hr 10/15/23 10/15/23 06:26 10:32 WBC 5.5 RBC 4.66 Hgb 13.0 Hct 38.5 L MCV 82.6 MCH 27.9 MCHC 33.8 RDW Std Deviation 39.2 RDW Coeff of Puneet 13.1 Plt Count 227 MPV 9.0 Immature Gran % (Auto) 0.700 Neut % (Auto) 68.6 Lymph % (Auto) 16.8 L [place] % (Auto) 12.2 H Eos % (Auto) 1.3 Baso % (Auto) 0.4 Absolute Neuts (auto) 3.8 Absolute Lymphs (auto) 0.92 Nucleated RBC % 0 Sodium 128 L Potassium 4.1 Chloride 94 L Carbon Dioxide 27.0 Anion Gap 7 BUN 15 Creatinine 1.00 Estim Creat Clear Calc 82.24 Est GFR (MDRD) Af Amer 97 Est GFR (MDRD) Non-Af 80 BUN/Creatinine Ratio 15.0 Glucose 111 H Calcium 9.5 Urine Color Yellow Urine Clarity Clear Urine pH 7.0 Ur Specific [place] 1.015 Urine Protein 500 H Urine Glucose (UA) Normal Urine Ketones 5 H Urine Occult Blood 25 H Urine Nitrite Negative Urine Bilirubin Negative Urine Urobilinogen 1 H Ur Leukocyte Esterase Negative Urine RBC 0 SEEN Urine WBC 0-5 SEEN Ur Squamous Epith Cells 0 SEEN Urine Bacteria 0 SEEN Urine Mucus 1+ Discharge Plan Triage Chief Complaint: Complaint ED Provider: Vanna Mcgee Dx/Rx/DC Orders Clinical Impression: Decreased urination, Acute urinary retention Instructions: ED Onofre Catheter, Care Prescriptions: No Action aluminum-magnesium hydroxide 225 mg-200 mg/5 mL oral suspension 225-200 mg/5 mL suspension 5 ml PO Q4H PRN (Reason: gi distress) guaifenesin 100 mg/5 mL liquid 200 mg PO Q4H PRN (Reason: COUGH, CONGESTION) bisacodyl 10 mg suppository 10 mg NJ DAILY PRN (Reason: constipation) oxcarbazepine 300 mg tablet 300 mg PO BID pilocarpine HCl 7.5 mg tablet 7.5 mg PO TID sodium chloride 1 gram tablet 2,000 mg PO Q8H levothyroxine [Synthroid] 50 mcg tablet 50 mcg PO DAILY escitalopram oxalate 10 mg tablet 10 mg PO DAILY miconazole nitrate [Remedy Phytoplex Antifungal] 2 % powder 1 applic topical DAILY PRN PRN (Reason: redness) magnesium hydroxide [Milk of Magnesia] 400 mg/5 mL suspension 15 ml PO DAILY PRN (Reason: stomach upset) cimetidine [Tagamet HB] 200 mg tablet 200 mg PO QHS thiamine HCl (vitamin B1) 100 mg tablet 300 mg PO DAILY doxazosin 1 MG tablet 1 mg PO QHS memantine 10 MG tablet 5 mg PO BID acetaminophen 650 mg Tablet 650 mg PO Q4H PRN (Reason: pain/fever) acetaminophen 650 mg Suppository 650 mg NJ Q4H PRN (Reason: pain/fever) lisinopril 10 mg tablet 10 mg PO DAILY Qty: 30 0RF doxycycline hyclate 100 mg capsule 100 mg PO BID Qty: 20 0RF ciprofloxacin HCl 500 mg tablet 500 mg PO BID Qty: 20 0RF Primary Care Provider: Nolan Yin Referrals: Nolan Yin MD [Primary Care Provider] - 3-5 Days (3 days he should see either urologist or primary care to see if the Onofre catheter can be removed.) Disposition Disposition: Home, Self Care Discharge Date/Time: 10/15/23 12:38
[2023-10-15 06:46] LABS: Anion Gap 7 (5-15); BUN 15 mg/dL (7-18); Calcium,Total 9.5 mg/dL (8.5-10.1); Chloride 94 mmol/L (98-107); EST Glomerular Filtration Rate 80 mL/min (>60); Est Glom Filt Rate - Afr Amer 97 mL/min (>60); Estimated Creatinine Clearance 82.24 ml/min; Glucose 111 mg/dL (74-106); Potassium 4.1 mmol/L (3.5-5.1); Sodium Level 128 mmol/L (136-145)
[2023-10-15] MEDS: 0.9% Normal Saline (500mL Bag) 500 ML 999 ML IV (07:11)
[2023-10-15 10:40] LABS: Bacteria 0 SEEN /hpf (None Seen); Red Blood Cells-Urine 0 SEEN /hpf (0-5); Squamous Epithelial Cells - UA 0 SEEN /hpf (0-5)
[2023-10-15 10:48] LABS: Color, Urine Yellow (Yellow); Glucose, Dipstick Normal (Normal); Nitrite-Dipstick Negative (Negative); Protein-Dipstick 500 mg/dl (Negative); Specific Gravity, Urine 1.015 (1.002-1.030); Urine Bilirubin Dipstick Negative (Negative); Urine Urobilinogen 1 mg/dl (Normal)
[2023-10-15 10:54] LABS: Ketone-Dipstick 5 mg/dl (Negative); Leukocyte Esterase-Dipstick Negative /ul (Negative); Occult Blood-Urine 25 /ul (Negative); Urine Clarity Clear (Clear)
[2023-10-15 11:11] LABS: Mucous, Urine 1+ /hpf (<or=2+); White Blood Cells 0-5 SEEN /hpf (0-5)
[2023-10-15 11:49] VITALS: BP 160/70; PULSE 72; RESP 14; O2SAT 99
== END 2023-10-15 12:38 | disposition home or self-care (01) ==
PROVIDERS: Emergency Provider Emergency Medicine; PCP Family Medicine; Visit Provider Emergency Medicine
DX: R33.9 Retention of urine, unspecified (principal); J44.9 Chronic obstructive pulmonary disease, unspecified; F10.27 Alcohol dependence with alcohol-induced persisting dementia; I10 Essential (primary) hypertension; Z87.891 Personal history of nicotine dependence
CPT/HCPCS: 51702; 80048; 81001; 85025; 96360; 96361; 99283; J7030; A4216

== ENCOUNTER → 2023-11-02 | Outpatient (REF) | payer MEDICARE, MEDICAID, SELFPAY ==
[2020-04-01 10:26] VITALS: BMI 27.5
[2023-11-02 09:26] LABS: Hematocrit 34.4 % (40-54); Hemoglobin 11.4 g/dL (13.0-16.5); Mean Corp Hgb Conc 33.1 g/dL (32-36); Mean Corpuscular Hgb 27.5 pg (27.0-32.0); Mean Corpuscular Volume 83.1 fL (80-94); Mean Platelet Vol. 10.2 fl (6.2-12.0); Platelet Count 168 K/mm3 (150-450); RBC Distribution Width CV 13.6 % (11.6-14.6); RBC Distribution Width SD 41.4 fl (35.1-43.9); Red Blood Count 4.14 M/mm3 (4.6-6.2); White Blood Count 5.3 K/mm3 (4.4-11.0)
[2023-11-02 09:51] LABS: Anion Gap 7 (5-15); BUN 12 mg/dL (7-18); BUN/Creat Ratio 12.2 RATIO (10-20); Calcium,Total 8.6 mg/dL (8.5-10.1); Chloride 103 mmol/L (98-107); Creatinine, Serum 0.99 mg/dL (0.70-1.30); EST Glomerular Filtration Rate 81 mL/min (>60); Est Glom Filt Rate - Afr Amer 98 mL/min (>60); Glucose 103 mg/dL (74-106); Sodium Level 136 mmol/L (136-145); Thyroid Stim Hormone (TSH) 3.05 uIU/mL (0.358-3.74)
== END ==
LOC: OLS.SW 05:00
PROVIDERS: PCP Family Medicine; Visit Provider Family Medicine
DX: E03.9 Hypothyroidism, unspecified (principal); J44.9 Chronic obstructive pulmonary disease, unspecified; I10 Essential (primary) hypertension
CPT/HCPCS: 36415; 80048; 84443; 85027

== ENCOUNTER → 2023-11-06 | Outpatient (REF) | payer MEDICARE, MEDICAID, SELFPAY ==
[2020-04-01 10:26] VITALS: BMI 27.5
[2023-11-07 08:58] LABS: Bacteria 0 SEEN /hpf (None Seen); Mucous, Urine 0 SEEN /hpf (<or=2+)
[2023-11-07 09:19] LABS: Color, Urine Yellow (Yellow); Glucose, Dipstick Normal (Normal); Ketone-Dipstick Negative (Negative); Leukocyte Esterase-Dipstick Negative /ul (Negative); Nitrite-Dipstick Negative (Negative); Occult Blood-Urine 25 /ul (Negative); Protein-Dipstick 500 mg/dl (Negative); Urine Bilirubin Dipstick Negative (Negative); Urine Clarity Clear (Clear); Urine Urobilinogen 1 mg/dl (Normal)
[2023-11-07 09:26] LABS: Red Blood Cells-Urine 0-5 SEEN /hpf (0-5); Squamous Epithelial Cells - UA 0-5 SEEN /hpf (0-5); White Blood Cells 25-50 SEEN /hpf (0-5)
== END ==
LOC: OLS.SW 08:57
PROVIDERS: PCP Family Medicine; Visit Provider Family Medicine
DX: R41.82 Altered mental status, unspecified (principal)
CPT/HCPCS: 81001; 87086; 87088

== ENCOUNTER → 2023-12-11 | Outpatient (REF) | payer MEDICARE, MEDICAID, SELFPAY ==
[2020-04-01 10:26] VITALS: BMI 27.5
--- OUTSIDE RECORDS SUMMARY | 2023-12-11 05:34 | XMS RPT_ITS | CCD ---
Author Name Unknown Address [address] [place] [address] Organization [facility] Care Team Providers Care [employer] Name Role Phone Unavailable Primary Care Provider Unavailabl e Medications Completed/Discontinued Medications Medication Drug Class(es) Dates Sig (Normalized) Sig (Original) OLANZapine 5 mg oral tablet (1 source) Atypical Antipsychotic Start: 11-21-2006 ZYPREXA 5 MG TAB ramipril 5 mg oral capsule (1 source) Angiotensin Converting Enzyme Inhibitor Start: 11-21-2006 ALTACE 5 MG CAP Problems Problem Classification Problem Date Documented Da te Episodic/Chronic Gastrointestinal hemorrhage (1 source) Hemorrhage of rectum and anus; Translations: [Hemorrhage of anus and rectum] 04-10-2007 Episodic Results Test Name Value Interpretation Reference Range Facil ity Encounters Encounter Date Encounter Type Care Provider Facility Start: 12-05-2023 Telephone encounter Chetan beltran PA-C Work Phone: Urology Plan of Treatment Date Care Activity Detail Author Start: 10-23-2023 Depression Assessment Depression Ass essment [facility] Start: 06-23-2023 Influenza vaccination Influenza Vacc ine (#1) [facility] Start: 2020 RSV Vaccine (1 - 1-d ose 60+ series) RSV Vaccine (1 - 1-dose 60+ series) [facility] Start: 01-06-2015 Prostate specific an tigen measurement Prostate Cancer Screening Discussion [facility] Start: 01-06-2010 Shingrix Vaccine (1 of 2) [place] grix Vaccine (1 of 2) [facility] Start: 01-06-2005 Diabetes Screening Diabetes Screenin g [facility] Start: 01-06-2005 Screening for malign ant neoplasm of colon [facility] Start: 01-06-1995 Lipid panel Lipid Screening [facility] Start: 01-06-1979 Urine microalbumin profile DTa P,Tdap,Td Vaccine (1 - Tdap) [facility] Start: 01-06-1978 Hepatitis C screening Hepatitis C Sc arik [facility] Start: 01-06-1978 HIV screening HIV Screening [facility] Start: 1960 Covid-19 Vaccine (#1) Covid-19 Vacci ne (#1) [facility] Payers Date Payer Category Payer Medicaid [employer] [id number] 2014-Present [phone] [address] [place] [address] Medicaid [id number] Social History Date Type Detail Facility Tobacco smoking stat [facility] Smokes tobacco daily [facility] History of tobacco use Cigarette Smoker [facility] Start: 04-17-2007 Alcohol intake Current drinke r of alcohol (finding) [facility] Start: 1960 Sex Assigned At Not on file [facility] Gender identity Not on file [facility] inic Note 12-07-2023 Telephone Encounter - Bouchra Gaitan LPN - 12/07/2023 3:01 PM ESTTelephone Encounter - Bouchra Gaitan LPN - 12/05/2023 3:22 PM EST Note Date & Type Note Facility 12-07-2023 Miscellaneous Notes Formattin g of this note might be different from the original. Called [facility]- spoke with Mireille and requested records to be faxed. Bouchra Gaitan LPN [facility] Spoke with Brandon on [address] and informed of need for records pertaining to appointment. States will get them faxed to clinic. Bouchra Gaitan LPN documented in this encounter [facility] Summary Purpose Family History No Family History Records Found Advance Directives No Advanced Directives Records Found Additional Source Comments Source Comments (unrecognize d section and content) In the event this informatio n is protected by the Federal Confidentiality of Alcohol and Drug Abuse Patient Records regulations: The Federal rules restrict any use of the information to criminally investigate or prosecute any alcohol or drug abuse patient.[facility] Reason for Visit (unrecogniz ed section and content) (unrecognized sect ion and content) No Status Records Found INFORMATION SOURCE (unrecogn ized section and content) FOR RECORDS PERTAINING TO PATIENTS WHO ARE OR HAVE BEEN ENROLLED IN A CHEMICAL DEPENDENCY/SUBSTANCEABUSE PROGRAM, SOME INFORMATION MAY BE OMITTED. This clinical summary was aggregated from multiple sources. Caution should be exercised in using it in the provision of clinical care. This summary normalizes information from multiple sources, and as a consequence, information in this document may materially change the coding, format and clinical context of patient data. In addition, data may be omitted in some cases. CLINICAL DECISIONS SHOULD BE BASED ON THE PRIMARY CLINICAL RECORDS. [facility] Robert Applebaum MD [facility]. provides no warranty or guarantee of the accuracy or completeness of information in this document.
[2023-12-11 08:33] LABS: Hematocrit 34.1 % (40-54); Hemoglobin 11.2 g/dL (13.0-16.5); Mean Corp Hgb Conc 32.8 g/dL (32-36); Mean Corpuscular Hgb 26.9 pg (27.0-32.0); Platelet Count 183 K/mm3 (150-450); RBC Distribution Width CV 15.9 % (11.6-14.6); RBC Distribution Width SD 47.1 fl (35.1-43.9); Red Blood Count 4.16 M/mm3 (4.6-6.2); White Blood Count 5.8 K/mm3 (4.4-11.0)
[2023-12-12 05:19] LABS: Anion Gap 5 (5-15); BUN 13 mg/dL (7-18); BUN/Creat Ratio 14.9 RATIO (10-20); Calcium,Total 8.1 mg/dL (8.5-10.1); Chloride 104 mmol/L (98-107); Creatinine, Serum 0.87 mg/dL (0.70-1.30); EST Glomerular Filtration Rate 94 mL/min (>60); Est Glom Filt Rate - Afr Amer 113 mL/min (>60); Glucose 94 mg/dL (74-106); Potassium 3.3 mmol/L (3.5-5.1); Sodium Level 138 mmol/L (136-145)
== END ==
LOC: OLS.SW 05:00
PROVIDERS: PCP Family Medicine; Visit Provider Family Medicine
DX: D69.6 Thrombocytopenia, unspecified (principal); D70.9 Neutropenia, unspecified
CPT/HCPCS: 36415; 80048; 85027

== ENCOUNTER → 2023-12-13 05:00 | Outpatient (REF) | payer MEDICARE, MEDICAID, SELFPAY ==
[2020-04-01 10:26] VITALS: BMI 27.5
--- OUTSIDE RECORDS SUMMARY | 2023-12-13 04:02 | XMS RPT_ITS | CCD ---
Author Name Unknown Address [address] [place] [address] Organization [facility] Care Team Providers Care Bill Checker Name Role Phone Unavailable Primary Care Provider Unavailabl e Medications Completed/Discontinued Medications Medication Drug Class(es) Dates Sig (Normalized) Sig (Original) acetaminophen 650 mg rectal suppository (2 sources) take 650 mg rectal route every four hours as needed acetaminophen (TYLENOL) 650 mg suppository 650 mg by RECTAL route every 4 hours as needed. 0 Active Problems Problem Classification Problem Date Documented Da te Episodic/Chronic Gastrointestinal hemorrhage (2 sources) Hemorrhage of rectum and anus; Translations: [Hemorrhage of anus and rectum] 04-10-2007 Episodic Genitourinary symptoms and ill-defined conditions (1 source) Urinary incontinence; Translations: [Unspecified urinary incontinence] 12-12-2023 Chronic Hyperplasia of prostate (1 source) Benign prostatic hypertrophy with outflow obstruction; Translations: [Benign prostatic hyperplasia with lower urinary tract symptoms] 12-12-2023 Chronic Results Test Name Value Interpretation Reference Range Facil ity Vital Signs Date Time Vital Sign Value Performing Clinician Faci lity 12-12-2023 11:28-0500 Body height 182.9 cm Chetan Yip [employer] Work Phone: [facility] 12-12-2023 11:28-0500 Body temperature 97 [degF] Chetan Yip PA-C Work Phone: [facility] 12-12-2023 11:28-0500 Body weight 73.12 kg Chetan Yip [employer] Work Phone: [facility] 12-12-2023 11:28-0500 Diastolic blood pressure 62 mm[Hg] Chetan Yip PA-C Work Phone: [facility] 12-12-2023 11:28-0500 Heart rate 96 /min Chetan Yip PA-C Work Phone: [facility] 12-12-2023 11:28-0500 Respiratory rate 16 /min Chetan Yip PA-C Work Phone: [facility] 12-12-2023 11:28-0500 SaO2% (BldA) [Mass fraction] 99 % Chetan Yip PA-C Work Phone: [facility] 12-12-2023 11:28-0500 Systolic blood pressure 90 mm[Hg] Chetan Yip PA-C Work Phone: [facility] Encounters Encounter Date Encounter Type Care Provider Facility Start: 12-12-2023 End: 12-12-2023 Patient encounter procedure Chetan Yip PA-C Work Phone: Urology Plan of Treatment Date Care Activity Detail Author Start: 10-23-2023 Depression Assessment Depression Assessment [facility] Start: 06-23-2023 Covid-19 Vaccine () Covid-19 Vaccine () [facility] Start: 06-23-2023 Influenza vaccination Influenza Vaccine (#1) [facility] Start: 2020 RSV Vaccine (1 - 1-dose 60+ series) RSV Vaccine (1 - 1-dose 60+ series) [facility] Start: 01-06-2015 Prostate specific antigen measurement Prostate Cancer Screening Discussion [facility] Start: 01-06-2010 Shingrix Vaccine (1 of 2) Shingrix Vaccine (1 of 2) [facility] Start: 01-06-2005 Diabetes Screening Diabetes Screening [facility] Start: 01-06-2005 Screening for malignant neoplasm of colon [facility] Start: 01-06-1995 Lipid panel Lipid Screening [facility] Start: 01-06-1979 Urine microalbumin profile DTaP,Tdap,Td Vaccine (1 - Tdap) [facility] Start: 01-06-1978 Hepatitis C screening Hepatitis C Screening [facility] Start: 01-06-1978 HIV screening HIV Screening [facility] Start: 1960 Covid-19 Vaccine (#1) Covid-19 Vaccine (#1) [facility] POST VOID RESIDUAL POST VOID RES IDUAL Procedures Routine Urinary incontinence, unspecified type Ordered: 12/12/2023 [facility] Work Phone: Immunizations Immunization Date Immunization Notes Care Provider Keaton lee 08-19-2020 influenza virus vacc ine, unspecified formulation Chetan Yip PA-C Work Phone: [facility] Payers Date Payer Category Payer Medicaid [facility] MEDIC AID [employer] MEDICAID [id number] 2014-Present [phone] [address] [place] [address] Medicaid [id number] Social History Date Type Detail Facility Tobacco smoking stat [facility] Smokes tobacco daily [facility] History of tobacco use Cigarette Smoker [facility] Start: 04-17-2007 Alcohol intake Current drinke r of alcohol (finding) [facility] Start: 1960 Sex Assigned At Not on file [facility] Start: 12-12-2023 Gender identity Not on file [facility] Start: 12-12-2023 Tobacco smoking stat [facility] Ex-smoker [facility] History of tobacco use Current smoker [facility] Start: 12-12-2023 Cigarettes smoked cu rrent (pack per day) - Reported 2 [facility] Start: 12-12-2023 Tobacco use and exposure Smoke less tobacco non-user [facility] Start: 12-12-2023 Alcohol intake Ex-drinker (finding) [facility] History of Present illness Narrative 12-12-2023 Chetan Yip PA-C - 12/12/2023 6:55 PM ESTBouchra Gaitan LPN - 12/12/2023 11:25 AM EST Note Date & Type Note Facility 12-12-2023 History of Presen t illness Narrative Images from the original note were not included. [facility] NEW PATIENT CLINIC NOTE SERVICE DATE: 12/12/2023 SERVICE TIME: 6:55 PM NAME: Oralia Drake CHIEF COMPLAINT: Incontinence HISTORY OF PRESENT ILLNESS: Oralia Drake is a 63 year old male presenting as an New Patient for Incontinence The patient reports he has been having urinary urgency and overflow incontinence, he likely has BPH with obstruction And I recommend either continue using pads daily for his incontinence or we could insert a kaur catheter to help manage the over flow incontinence Since he is already takes 2 alpha blockers,we did briefly discuss testing to see if a TUR could be helpful but he is not interested in surgery And would rather continue using pads and not have a kaur catheter that would need exchanged monthly LUTS: DYSURIA: no URGENCY: Yes FREQUENCY:5 per day NOCTURIA: 1 per night STRAINING TO VOID: No EMPTIES COMPLETELY: No UTI: No GROSS HEMATURIA: no UA DIPSTICK POSITIVE ONLY: no Other symptoms: LABS: No results found for: TESTOST No results found for: TESTFREE No results found for: PSA Hematocrit (%) Date Value 03/08/2011 45.3 04/04/2009 48.0 No results found for: PSA Creatinine Date Value Ref Range Status 03/08/2011 0.65 0.52 - 1.04 mg/dL Final 04/04/2009 0.8 0.6 - 1.3 mg/dL Final MEDICATIONS: acetaminophen (TYLENOL) 650 mg suppository 650 mg by RECTAL route every 4 hours as needed. acetaminophen (TYLENOL) 325 mg tablet Take 650 mg by mouth every 4 hours as needed. aluminum-magnesium hydroxide-simethicone (ANTACID-ANTIGAS) 200-200-20 mg/5 mL suspension Take 30 mL by mouth as needed. bisacodyl (DULCOLAX) 10 mg supp 10 mg by RECTAL route once daily as needed for constipation. busPIRone (BUSPAR) 10 mg tablet Take 10 mg by mouth two times a day. Morning & at bedtime doxazosin (CARDURA) 1 mg tablet Take 1 mg by mouth daily at bedtime. sodium phosphate,mono-dibasic (FLEET ENEMA RECTAL) 1 Dose by RECTAL route as needed. escitalopram oxalate (LEXAPRO) 20 mg tablet Take 20 mg by mouth once daily. lisinopril (ZESTRIL) 10 mg tablet Take 10 mg by mouth once daily. memantine (NAMENDA) 5 mg tablet Take 5 mg by mouth two times a day. miconazole [facility] micronized powder powd 1 Dose two times a day. magnesium hydroxide (MILK OF MAGNESIA ORAL) Take 30 mL by mouth as needed. OXcarbazepine (TRILEPTAL) 300 mg tablet Take 300 mg by mouth two times a day. Pilocarpine HCl 7.5 mg tablet Take 7.5 mg by mouth three times a day. sodium chloride 1 g tab Take 1 g by mouth three times a day. levothyroxine (SYNTHROID) 75 mcg tablet Take 75 mcg by mouth daily before breakfast. cimetidine (TAGAMET) 200 mg tablet Take 200 mg by mouth daily at bedtime. terazosin (HYTRIN) 2 mg capsule Take 2 mg by mouth daily at bedtime. thiamine (VITAMIN B-1) 100 mg tablet Take 300 mg by mouth once daily. 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) Bipolar disorder, unspecified (HCC) BPH without obstruction/lower urinary tract symptoms Cellulitis of left lower limb Chronic obstructive pulmonary disease (COPD) (HCC) Encounter for orthopedic aftercare following surgical amputation Gastric ulcer Hemorrhage of rectum and anus Hereditary sensory neuropathy Hyperlipemia Hyposmolality syndrome hypo-osmaolality & hyponatremia Impulse disorder Inflammatory liver disease Localized swelling, mass and lump, neck Major depressive disorder, recurrent episode, mild (HCC) Malignant neoplasm of head, face, and neck (HCC) Malignant neoplasm of oropharynx, unspecified site (HCC) Malignant neoplasm of tongue, unspecified site (HCC) Mononeuropathy Neutropenia, unspecified (HCC) Other pancytopenia (HCC) Other specified anxiety disorders Other specified local infections of skin and subcutaneous tissue Paraphilia Personal history of tobacco use Post-COVID syndrome Restlessness and agitation Sexual aversion disorder Ulcer of left foot, with fat layer exposed (HCC) Unspecified essential hypertension Essential hypertension Unspecified essential hypertension Unspecified hypothyroidism PAST SURGICAL HISTORY: PAST SURGICAL HISTORY Procedure Laterality Date COLSC FLX W/RMVL OF TUMOR POLYP LESION SNARE TQ 04/10/07 EXC TUMOR SOFT TISSUE NECK/ANT THORAX SUBQ <3CM 12/05/2006 FAMILY HISTORY: FAMILY HISTORY Problem Relation Age of Onset Heart Father SOCIAL HISTORY: Social Connections: Not on file REVIEW OF SYSTEMS: GENERAL: No fever, chills, weight loss, or fatigue. ENMT: Negative CARDIOVASCULAR:NO CHEST PAIN, PALPITATIONS, ANKLE EDEMA RESPIRATORY: No chronic cough, wheezing, dyspnea, hemoptysis. GENITOURINARY: SEE HPI MUSCULOSKELETAL:NO CHRONIC BACK PAIN, ARTHRITIS, CHRONIC NECK PAIN SKIN: NO VARICOSE VEINS, RASH, ABNORMAL ITCHING HEME/LYMPH/IMMUNE:Negative for prolonged bleeding, bruising easily or swollen nodes NEUROLOGICAL: NO HEADACHES, NUMBNESS, SEIZURES, STROKE DIABETES: no All other systems reviewed and are negative PHYSICAL EXAMINATION: Blood pressure 90/62, pulse 96, temperature 36.1 C (97 F), temperature source Temporal, resp. rate 16, height 182.9 cm (6'), weight 73.1 kg (161 lb 3.2 oz), SpO2 99%. GENERAL: WNL nutrition, no deformities, healthy appearing NEURO: Awake, alert and oriented x 3 and Normal gait PSYCH: No signs of depression, anxiety, or agitation ENMT (Ear, Nose, Mouth, Throat): No masses, adenopathy, icterus. Thyroid nonpalpable RESP: NL effort, no retractions or purse-lip breathing. CV: No extremity swelling, varices, edema, pallor, erythema GASTROINTESTINAL: Soft, nontender, nondistended, no masses. HERNIAS: None SKIN: No rash, lesions No palpable lymphadenopathy MUSCULOSKELETAL: Extremities normal. No deformities, edema, clubbing or skin discoloration. PROBLEM LIST REVIEW: Yes LABS: Results for orders placed or performed in visit on 03/08/11 RPR SCRN Result Value Ref Range RPR Nonreactive Nonreactive PROCEDURES: PVR: 190 ml IMAGING: IMPRESSION/PLAN: 63 year old male with 1. Urinary incontinence, unspecified type - ICD9: 788.30, ICD10: R32 (primary diagnosis) 2. Benign prostatic hyperplasia with urinary retention - ICD9: 600.01, 788.20, ICD10: N40.1, R33.8 > Continue using pads for overflow incontinence > If a kaur catheter exchanged monthly is needed we can do the monthly exchanges but patient is not interested at this time > follow up annually for PVR or sooner if interested in kaur placement and monthly exchanges I spent a total of 30 minutes on the date of the service which included preparing to see the patient, face to face patient care, completing clinical documentation, obtaining and/or reviewing separately obtained history, performing a medically appropriate examination, counseling and educating the patient/family/caregiver, ordering medications, tests, or procedures, and care coordination. HAILEY Ellington MT, PA-C Verified name and date of . CC Post Void Residual HPI: Oralia Drake is a 63 year old male. The patient is here now for an appointment with HAILEY Ellington MT, PA-COV. Procedure: Explained procedure to patient and verbalizes understanding. Performed a PVR. Patient unable to urinate, states went at 1015 this morning. Patient states he cannot even try to give specimen. Results of scan: 190 mL The patient tolerated the procedure well. Plan: Appointment with Chetan. documented in this encounter [facility] Note 12-07-2023 Telephone Encounter - Bouchra Gaitan LPN - 12/07/2023 3:01 PM ESTTelephone Encounter - Bouchra Gaitan LPN - 12/05/2023 3:22 PM EST Note Date & Type Note Facility 12-07-2023 Miscellaneous Notes Formattin g of this note might be different from the original. Called [facility]- spoke with Mireille and requested records to be faxed. Bouchra Gaitan LPN [facility] Spoke with Brandon on [address] and informed of need for records pertaining to appointment. States will get them faxed to clinic. Bouchra Gaitan LPN documented in this encounter [facility] Evaluation note Note Date & Type Note Facility documented in this encounter [facility] Summary Purpose Family History No Family History [...] or prosecute any alcohol or drug abuse patient.[facility] the event this information is protected by the Federal Confidentiality of Alcohol and Drug Abuse Patient Records regulations: The Federal rules restrict any use of the information to criminally investigate or prosecute any alcohol or drug abuse patient.[facility] Reason for Visit (unrecogniz ed section and content) Reason Comments Urinary Incontinence Urinary Retention New Patient (unrecognized sect ion and content) No Status [...] BE BASED ON THE PRIMARY CLINICAL RECORDS. [employer] [facility]. provides no warranty or guarantee of the accuracy or completeness of information in this document.
[2023-12-13 08:21] LABS: Ammonia < 10.0 umol/L (11-32)
[2023-12-13 09:31] LABS: AST(SGOT) 96 U/L (15-37); Alanine Aminotransfer ALT/SGPT 93 U/L (16-61); Albumin, Serum 2.2 g/dL (3.2-5.0); Alkaline Phosphatase 203 U/L (45-117); Bilirubin, Direct 5.35 mg/dL (0.00-0.30); Globulin 3.8 g/dL (2.2-4.2)
== END ==
LOC: OLS.SW 05:00
PROVIDERS: PCP Family Medicine; Visit Provider Family Medicine
DX: K75.9 Inflammatory liver disease, unspecified (principal); E87.1 Hypo-osmolality and hyponatremia
CPT/HCPCS: 36415; 80076; 82140

== ENCOUNTER → 2023-12-14 | Outpatient (REF) | payer MEDICARE, MEDICAID, SELFPAY ==
[2020-04-01 10:26] VITALS: BMI 27.5
--- OUTSIDE RECORDS SUMMARY | 2023-12-14 04:26 | XMS RPT_ITS | CCD ---
Author Name Unknown Address [address] [place] [address] Organization [facility] Care Team Providers Care Dip Stand Loader Name Role Phone Unavailable Primary Care Provider Unavailabl e SELF Referring Unavailable KARL YIP Attending Unavailable Medications Completed/Discontinued Medications Medication Drug Class(es) Dates [...] lity 12-12-2023 11:28-0500 Body height 182.9 cm Karl Yip PA-C Work Phone: [facility] 12-12-2023 11:28-0500 Body temperature 97 [degF] Karl ADLER-Z[employer] Work Phone: [facility] 12-12-2023 11:28-0500 Body weight 73.12 kg Karl Yip PA-C Work Phone: [facility] 12-12-2023 11:28-0500 Diastolic blood pressure 62 mm[Hg] Karl ADLER-Zain Work Phone: [facility] 12-12-2023 11:28-0500 Heart rate 96 /min Karl Yip PA-C Work Phone: [facility] 12-12-2023 11:28-0500 Respiratory rate 16 /min Karl Yip PA-C Work Phone: [facility] 12-12-2023 11:28-0500 SaO2% (BldA) [Mass fraction] 99 % Karl Yip PA-C Work Phone: [facility] 12-12-2023 11:28-0500 Systolic blood pressure 90 mm[Hg] Karl Yip PA-C Work Phone: [facility] Encounters Encounter Date Encounter Type Care Provider Facility Start: 12-12-2023 ambulatory SELF Facility:[facility] Start: 12-12-2023 End: 12-12-2023 Patient encounter procedure Karl Yip PA-C Work Phone: Urology Plan of Treatment Date Care Activity Detail Author Start: 10-23-2023 Depression Assessment Depression Assessment [facility] Start: 06-23-2023 Covid-19 Vaccine ( season) Covid-19 Vaccine () [facility] Start: 06-23-2023 Influenza vaccination Influenza Vaccine (#1) [facility] Start: 2020 RSV Vaccine (1 - 1-dose 60+ series) RSV Vaccine (1 - 1-dose 60+ series) [facility] Start: 01-06-2015 Prostate specific antigen measurement Prostate Cancer Screening Discussion [facility] Start: 01-06-2010 Shingrix Vaccine (1 of 2) Shingrix Vaccine (1 of 2) [facility] Start: 01-06-2005 Diabetes Screening Diabetes Screening [facility] Start: 01-06-2005 Screening for malignant neoplasm of colon [facility] Start: 01-06-1995 Lipid panel Lipid Screening [facility] Start: 01-06-1979 Urine microalbumin profile DTaP,Tdap,Td Vaccine (1 - Tdap) [facility] Start: 01-06-1978 Hepatitis C screening Hepatitis C Screening [facility] Start: 01-06-1978 HIV screening HIV Screening [facility] Start: 1960 Covid-19 Vaccine (#1) Covid-19 Vaccine (#1) [facility] POST VOID RESIDUAL POST VOID RES IDUAL Procedures Routine Urinary incontinence, unspecified type Ordered: 12/12/2023 [facility] Work Phone: Immunizations Immunization Date Immunization Notes Care Provider Keaton lee 08-19-2020 influenza virus vacc ine, unspecified formulation Karl Yip PA-C Work Phone: [facility] Payers Date Payer Category Payer Medicaid [employer] MEDIC AID [facility] MEDICAID [id number] 2014-Present [phone] [address] [place] [address] Medicaid [id number] 2014 Medicaid [id number] Social History Date Type Detail Facility Tobacco smoking stat [facility] Smokes tobacco daily [facility] History of tobacco use Cigarette Smoker [facility] Start: 04-17-2007 Alcohol intake Current drinke r of alcohol (finding) [facility] Start: 1960 Sex Assigned At Not on file C [facility] Start: 12-12-2023 Gender identity Not on file [facility] Start: 12-12-2023 Tobacco smoking stat [facility] Ex-smoker [facility] History of tobacco use Current smoker [facility] Start: 12-12-2023 Cigarettes smoked cu rrent (pack per day) - Reported 2 [facility] Start: 12-12-2023 Tobacco use and exposure Smoke less tobacco non-user [facility] Start: 12-12-2023 Alcohol intake Ex-drinker (finding) [facility] Progress note 12-12-2023 Note Date & Type Note Facility 12-12-2023 Note HNO ID: [id number] Author: KARL YIP PA-C Service: ? Author Type: Physician Statistician Mathematical Type: Progress Notes Filed: 12/12/2023 19:04 Note Text: [facility] NEW PATIENT CLINIC NOTE SERVICE DATE: 12/12/2023 SERVICE TIME: 6:55 PM NAME: Lissa Ziegler CHIEF COMPLAINT: Incontinence HISTORY OF PRESENT ILLNESS: Lissa Ziegler is a 63 year old male presenting [...] by mouth two times a day. Morning AND at bedtime doxazosin (CARDURA) 1 mg tablet [...] by mouth two times a day. 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 [facility] History of Present illness Narrative 12-12-2023 Karl Yip PA-C - 12/12/2023 6:55 PM CindiSvetlanaWayneJANEL cevallos - 12/12/2023 11:25 AM EST Note Date & Type Note Facility 12-12-2023 History of Presen t illness Narrative Images from the original note were not included. [facility] NEW PATIENT CLINIC NOTE SERVICE DATE: 12/12/2023 SERVICE TIME: 6:55 PM NAME: Lissa Ziegler CHIEF COMPLAINT: Incontinence HISTORY OF PRESENT ILLNESS: Lissa Ziegler is a 63 year old male presenting [...] by mouth two times a day. miconazole RETIREMENT micronized powder powd 1 Dose two times [...] for PVR or sooner if interested in akur placement and monthly exchanges I spent a [...] of . CC Post Void Residual HPI: Lissa Ziegler is a 63 year old male. The patient is here now for an appointment with HAILEY Ellington MT, PA-COV. Procedure: Explained procedure to patient and verbalizes understanding. Performed a PVR. Patient unable to urinate, states went at 1015 this morning. Patient states he cannot even try to give specimen. Results of scan: 190 mL The patient tolerated the procedure well. Plan: Appointment with Karl. documented in this encounter [facility] Progress note 12-12-2023 Note Date & Type Note Facility 12-12-2023 Note HNO ID: [id number] Author: WAYNE GAITAN LPN Service: ? Author Type: LICENSED NURSE Type: Progress Notes Filed: 12/12/2023 19:04 Note Text: Verified name and date of . CC Post Void Residual HPI: Lissa Ziegler is a 63 year old male. The patient is here now for an appointment with Karl Yip, JOES, MT, PA-COV. Procedure: Explained procedure to patient and verbalizes understanding. Performed a PVR. Patient unable to urinate, states went at 1015 this morning. Patient states he cannot even try to give specimen. Results of scan: 190 mL The patient tolerated the procedure well. Plan: Appointment with Karl. [facility] [place] Note 12-07-2023 Telephone Encounter - Wayne Gaitan LPN - 12/07/2023 3:01 PM ESTTelephone Encounter - Wayne Gaitan LPN - 12/05/2023 3:22 PM EST Note Date & Type Note Facility 12-07-2023 Miscellaneous Notes Formattin g of this note might be different from the original. Called [facility]- spoke with Mireille and requested records to be faxed. Wayne Gaitan LPN [facility] Spoke with Brandon on [address] and informed of need for records pertaining to appointment. [facility] will get them faxed to clinic. Wayne Gaitan LPN documented in this encounter [facility] Evaluation note Note Date & Type Note Facility documented in this encounter [facility] Summary Purpose Family History No Family History [...] or prosecute any alcohol or drug abuse patient.[facility] the event this information is protected by the Federal Confidentiality of Alcohol and Drug Abuse Patient Records regulations: The Federal rules restrict any use of the information to criminally investigate or prosecute any alcohol or drug abuse patient.[facility] Reason for Visit (unrecogniz ed section and [...] BE BASED ON THE PRIMARY CLINICAL RECORDS. [employer] [facility]. provides no warranty or guarantee of the accuracy or completeness of information in this document.
[2023-12-14 08:27] LABS: Absolute Lymphocyte Count 0.52 X10^3/uL (0.83-4.51); Absolute Neutrophil Count 3.9 X10^3/uL (2.0-7.7); Basophil# 0.02 X10^3/uL; Basophil% 0.4 % (0-1); Eosinophil# 0.03 X10^3/uL; Eosinophils% 0.6 % (0-5); Hemoglobin 10.6 g/dL (13.0-16.5); Lymphocyte # 0.52 X10^3/ul (0.83-4.51); Lymphocyte % 10.1 % (19-41); Mean Corp Hgb Conc 33.1 g/dL (32-36); Mean Corpuscular Hgb 27.2 pg (27.0-32.0); Mean Corpuscular Volume 82.3 fL (80-94); Mean Platelet Vol. 10.9 fl (6.2-12.0); Monocyte# 0.66 X10^3/uL; Monocyte% 12.8 % (0-10); NRBC Flagged by Analyzer 0 % (0-5); Neutrophil # 3.89 X10^3/uL (2.7-7.7); Neutrophil % 75.3 % (47-70); POSITIVE DIFFERENTIAL YES; Platelet Count 163 K/mm3 (150-450); RBC Distribution Width CV 16.3 % (11.6-14.6); RBC Distribution Width SD 48.7 fl (35.1-43.9); Red Blood Count 3.89 M/mm3 (4.6-6.2); White Blood Count 5.2 K/mm3 (4.4-11.0)
[2023-12-14 09:00] LABS: ALB/GLOB Ratio 0.6 RATIO (0.9-2.4); AST(SGOT) 86 U/L (15-37); Alanine Aminotransfer ALT/SGPT 82 U/L (16-61); Alkaline Phosphatase 179 U/L (45-117); Anion Gap 4 (5-15); BUN 14 mg/dL (7-18); BUN/Creat Ratio 15.5 RATIO (10-20); Bilirubin, Direct 5.03 mg/dL (0.00-0.30); Calcium,Total 8.2 mg/dL (8.5-10.1); Chloride 112 mmol/L (98-107); EST Glomerular Filtration Rate 90 mL/min (>60); Est Glom Filt Rate - Afr Amer 109 mL/min (>60); Globulin 3.4 g/dL (2.2-4.2); Glucose 104 mg/dL (74-106); Potassium 2.7 mmol/L (3.5-5.1); Protein, Total 5.4 g/dL (6.4-8.2); Sodium Level 141 mmol/L (136-145); Thyroid Stim Hormone (TSH) 2.63 uIU/mL (0.358-3.74)
[2023-12-18 22:06] LABS: Trileptal-Oxcarbazepine 23 ug/mL (10-35)
== END ==
LOC: OLS.SW 05:00
PROVIDERS: PCP Family Medicine; Visit Provider Family Medicine
DX: F03.90 Unspecified dementia, unspecified severity, without behavioral disturbance, psychotic disturbance, mood disturbance, and anxiety (principal); I10 Essential (primary) hypertension; E87.1 Hypo-osmolality and hyponatremia
CPT/HCPCS: 36415; 80053; 82248; 82542; 84443; 85025

== ENCOUNTER → 2023-12-18 | Outpatient (REF) | payer MEDICARE, MEDICAID, SELFPAY ==
[2020-04-01 10:26] VITALS: BMI 27.5
[2023-12-18 09:57] LABS: ALB/GLOB Ratio 0.6 RATIO (0.9-2.4); AST(SGOT) 104 U/L (15-37); Alanine Aminotransfer ALT/SGPT 99 U/L (16-61); Albumin, Serum 2.1 g/dL (3.2-5.0); Alkaline Phosphatase 189 U/L (45-117); Anion Gap 3 (5-15); BUN 15 mg/dL (7-18); BUN/Creat Ratio 14.2 RATIO (10-20); Calcium,Total 8.4 mg/dL (8.5-10.1); Chloride 111 mmol/L (98-107); Creatinine, Serum 1.06 mg/dL (0.70-1.30); EST Glomerular Filtration Rate 75 mL/min (>60); Est Glom Filt Rate - Afr Amer 91 mL/min (>60); Globulin 3.5 g/dL (2.2-4.2); Glucose 98 mg/dL (74-106); Potassium 3.8 mmol/L (3.5-5.1); Protein, Total 5.6 g/dL (6.4-8.2); Sodium Level 139 mmol/L (136-145)
== END ==
LOC: OLS.SW 04:00
PROVIDERS: PCP Family Medicine; Referring Provider Family Medicine; Visit Provider Family Medicine
DX: K75.9 Inflammatory liver disease, unspecified (principal)
CPT/HCPCS: 36415; 80053

== ENCOUNTER 2023-12-20 15:06 | Emergency (ER) | payer MEDICARE, MEDICAID, SELFPAY ==
[2020-04-01 10:26] VITALS: BMI 27.5
[2023-12-20 15:08] VITALS: BP 144/87; PULSE 97; RESP 16; TEMP 35.8; O2SAT 100
[2023-12-20 16:39] LABS: Absolute Lymphocyte Count 0.67 X10^3/uL (0.83-4.51); Absolute Neutrophil Count 6.3 X10^3/uL (2.0-7.7); Basophil# 0.03 X10^3/uL; Basophil% 0.4 % (0-1); Eosinophil# 0.04 X10^3/uL; Eosinophils% 0.5 % (0-5); Hematocrit 34.4 % (40-54); Hemoglobin 11.1 g/dL (13.0-16.5); Lymphocyte # 0.67 X10^3/ul (0.83-4.51); Lymphocyte % 8.2 % (19-41); Mean Corp Hgb Conc 32.3 g/dL (32-36); Mean Corpuscular Hgb 27.5 pg (27.0-32.0); Mean Corpuscular Volume 85.4 fL (80-94); Mean Platelet Vol. 10.5 fl (6.2-12.0); Monocyte# 1.06 X10^3/uL; NRBC Flagged by Analyzer 0 % (0-5); Neutrophil # 6.29 X10^3/uL (2.7-7.7); Neutrophil % 77.2 % (47-70); Platelet Count 186 K/mm3 (150-450); RBC Distribution Width CV 17.4 % (11.6-14.6); RBC Distribution Width SD 54.2 fl (35.1-43.9); Red Blood Count 4.03 M/mm3 (4.6-6.2); White Blood Count 8.2 K/mm3 (4.4-11.0)
[2023-12-20 16:56] LABS: AST(SGOT) 123 U/L (15-37); Alanine Aminotransfer ALT/SGPT 111 U/L (16-61); Albumin, Serum 2.2 g/dL (3.2-5.0); Alkaline Phosphatase 212 U/L (45-117); Anion Gap 8 (5-15); BUN 21 mg/dL (7-18); BUN/Creat Ratio 17.8 RATIO (10-20); Calcium,Total 8.4 mg/dL (8.5-10.1); Chloride 108 mmol/L (98-107); Creatinine, Serum 1.18 mg/dL (0.70-1.30); EST Glomerular Filtration Rate 66 mL/min (>60); Est Glom Filt Rate - Afr Amer 80 mL/min (>60); Globulin 3.6 g/dL (2.2-4.2); Glucose 100 mg/dL (74-106); Lipase 72 U/L (13-75); Potassium 3.8 mmol/L (3.5-5.1); Protein, Total 5.8 g/dL (6.4-8.2); Sodium Level 136 mmol/L (136-145)
--- NOTE | 2023-12-20 17:01 | ED.RN ---
Patient refusing care and is wanting to leave. Spoke with sister Valencia. She will be coming in to pick him up and bring him back to the [facility].
--- NOTE | 2023-12-20 17:06 | ED.RN ---
Spoke to DERIC of [facility], updated on pt's refusal of further testing and treatment here at the ED. DERIC states Dr Yin requested pt sent to ED for gallbladder US, despite pt stating he did not want to be evaluated. DERIC updated that pt's sister is enroute to take pt back to [facility].
--- NOTE | 2023-12-20 17:20 | ED.VIS.GI ---
HPI HPI - GI History of Present Illness Chief Complaint: Abd Pain Narrative Narrative: 63-year-old male presenting for evaluation per his alf. Patient states he does not want to be here. He states he has no pain. Is not nauseous or vomiting. He states he is angry because he does not want to be here and he told nursing staff or his at that he does not want to come here. He states that he was sent anyway for an ultrasound. Patient states that I just want to go home and eat my fucking dinner . He states I do not want any testing done. He states he will come back another time to have any testing done but does not want to miss dinner. 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 Anxiety Benign prostatic hyperplasia without lower urinary tract symptoms Bipolar 1 disorder Cancer Cellulitis of right lower limb Chronic obstructive pulmonary disease, unspecified Chronic ulcer of left foot with fat layer exposed COVID Essential (primary) hypertension Foot infection Foot osteomyelitis, right HTN (hypertension) Impulse disorder, unspecified Major depressive disorder, recurrent, mild Mass of lateral neck Other hereditary and idiopathic neuropathies Home Medications aluminum-magnesium hydroxide 225 mg-200 mg/5 mL oral suspension 5 ml PO Q4H PRN gi distress 06/30/20 [History Last Taken Unknown] guaifenesin 100 mg/5 mL oral liquid 200 mg PO Q4H PRN COUGH, CONGESTION 06/24/21 [History Last Taken Unknown] acetaminophen 650 mg rectal suppository 650 mg MN Q4H PRN pain/fever 08/07/21 [History Last Taken Unknown] acetaminophen 650 mg tablet 650 mg PO Q4H PRN pain/fever 08/07/21 [History Last Taken Unknown] doxazosin 1 mg tablet 1 mg PO QHS BPH 08/07/21 [History Last Taken 05/25/23] memantine 10 mg tablet 5 mg PO BID ALCOHOL DEPENDENCE 08/07/21 [History Last Taken 05/25/23] bisacodyl 10 mg rectal suppository 10 mg MN DAILY PRN constipation 07/07/22 [History Last Taken Unknown] levothyroxine 50 mcg tablet (Synthroid) 50 mcg PO DAILY thyroid 07/07/22 [History Last Taken 05/25/23] oxcarbazepine 300 mg tablet 300 mg PO BID 07/07/22 [History Last Taken Unknown] pilocarpine HCl 7.5 mg tablet 7.5 mg PO TID dry mouth 07/07/22 [History Last Taken 05/25/23] sodium chloride 1 gram tablet 2,000 mg PO Q8H mineral 07/07/22 [History Last Taken 05/25/23] lisinopril 10 mg tablet 10 mg PO DAILY #30 tabs 08/31/22 [Rx Last Taken 05/25/23] cimetidine 200 mg tablet (Tagamet HB) 200 mg PO QHS etoh 05/03/23 [History Last Taken 05/25/23] escitalopram oxalate 10 mg tablet 10 mg PO DAILY depression 05/03/23 [History Last Taken 05/25/23] magnesium hydroxide 400 mg/5 mL oral suspension (Milk of Magnesia) 15 ml PO DAILY PRN stomach upset 05/03/23 [History Last Taken Unknown] miconazole nitrate 2 % topical powder (Remedy Phytoplex Antifungal) 1 applic topical DAILY PRN PRN redness 05/03/23 [History Last Taken Unknown] thiamine HCl (vitamin B1) 100 mg tablet 300 mg PO DAILY etoh 05/03/23 [History Last Taken 05/25/23] ciprofloxacin HCl 500 mg tablet 500 mg PO BID #20 tabs 05/29/23 [Rx Last Taken Unknown] doxycycline hyclate 100 mg capsule 100 mg PO BID #20 caps 05/29/23 [Rx Last Taken Unknown] Allergy/AdvReac Type Severity Reaction Status Date / Time No Known Allergies Allergy Verified 10/15/23 06:20 Family History Mother History of heart artery stent Pacemaker Hypertension Father Heart problem Grandmother Hypertension Sister Melanoma of thigh Surgical History history of neck biopsy (~02/2020) Hx of knee surgery Social History Smoking Status: Former smoker ROS ROS ED Constitutional Constitutional ED: Denies chills or fever(s) ENT ENT ED: Denies rhinorrhea or sore throat Cardiovascular Cardiovascular: Denies chest pain or palpitations Respiratory/Chest Respiratory/Chest: Denies cough or dyspnea Gastrointestinal Gastrointestinal: Denies abdominal pain, nausea or vomiting Genitourinary Genitourinary ED: Denies dysuria or hematuria Musculoskeletal Musculoskeletal: Denies arthralgias Integumentary Denies abscess or Abrasions Psychiatric Psychiatric: Denies anxiety or depression Endocrine Endocrinology: Denies polydipsia EXAM Physical Exam Const Vital Signs: 12/20/23 15:08 Temperature 96.4 F L Temperature Source Temporal Pulse Rate 97 Respiratory Rate 16 Blood Pressure 144/87 H Blood Pressure Mean 106 Pulse Ox 100 Positive well nourished General Appearance ED: NAD HEENT normocephalic and atraumatic Eyes General Eye ED: Yes scleral icterus Resp normal respiratory effort and clear to auscultation bilaterally Auscultation: Negative for rales or rhonchi Cardio regular rate and regular rhythm GI non-tender GI Narrative: Abdomen diffusely distended with slight fluid wave. Nontender to palpation. Neuro CN's II-XII intact bilaterally and moves all extremities Sensorium / Orientation: alert Motor Exam: strength 5/5 throughout Psych Psych Narrative: Angry Skin General Skin Exam: jaundice MDM MDM MDM Narrative Medical decision making narrative: Patient presenting with no symptoms but was sent in because his lab work is abnormal. He is also concerned that his abdomen is distended and I do agree it is mildly distended but he does not have any pain. He does not feel he is distended at all. He states he does not want to be here and we did obtain basic lab work which is about the same as it was this morning. His white blood cell count is 8.2. Hemoglobin 11.1. Platelets are 186. Renal function is normal. Total bilirubin 8.5, direct bilirubin 7.2 AST 123 ALT 111 alkaline phosphatase 212 and lipase 72. Patient had an ammonia level drawn today which was 34. Also had a GGTP which was 1091. His hepatitis panel was negative today. At this point I explained to the patient that he has painless jaundice and is likely represents malignancy. The differential is broad here but is hepatitis panel was negative. He states this point he does not care. He states he wants to go home and eat his dinner. He is very angry and states he did not want to come here. He states he will come back at another time. Patient is alert and awake. He has a capacity to make this decision. He acknowledged understanding that he may have malignancy or acute abdominal pathology but states he does not want to stay. Patient called for a ride from a family member who came and picked him up. Impression: 1. Jaundice 2. Ascites 3. Hyperbilirubinemia Lab Data Labs: Laboratory Results - last 24 hr 12/20/23 16:25 WBC 8.2 RBC 4.03 L Hgb 11.1 L Hct 34.4 L MCV 85.4 MCH 27.5 MCHC 32.3 RDW Std Deviation 54.2 H RDW Coeff of [place]uneet 17.4 H Plt Count 186 MPV 10.5 Immature Gran % (Auto) 0.700 Neut % (Auto) 77.2 H Lymph % (Auto) 8.2 L [place] % (Auto) 13.0 H Eos % (Auto) 0.5 Baso % (Auto) 0.4 Absolute Neuts (auto) 6.3 Absolute Lymphs (auto) 0.67 L Nucleated RBC % 0 Sodium 136 Potassium 3.8 Chloride 108 H Carbon Dioxide 20.0 L Anion Gap 8 BUN 21 H Creatinine 1.18 Est GFR (MDRD) Af Amer 80 Est GFR (MDRD) Non-Af 66 BUN/Creatinine Ratio 17.8 Glucose 100 Calcium 8.4 L Total Bilirubin 8.50 H Direct Bilirubin 7.20 H AST 123 H ALT 111 H Alkaline Phosphatase 212 H Total Protein 5.8 L Albumin 2.2 L Globulin 3.6 Lipase 72 Discharge Plan Triage Chief Complaint: Abd Pain ED Provider: Alvin Garcia Dx/Rx/DC Orders Clinical Impression: Jaundice Instructions: ED Cirrhosis Prescriptions: No Action aluminum-magnesium hydroxide 225 mg-200 mg/5 mL oral suspension 225-200 mg/5 mL suspension 5 ml PO Q4H PRN (Reason: gi distress) guaifenesin 100 mg/5 mL liquid 200 mg PO Q4H PRN (Reason: COUGH, CONGESTION) bisacodyl 10 mg suppository 10 mg MN DAILY PRN (Reason: constipation) oxcarbazepine 300 mg tablet 300 mg PO BID pilocarpine HCl 7.5 mg tablet 7.5 mg PO TID sodium chloride 1 gram tablet 2,000 mg PO Q8H levothyroxine [Synthroid] 50 mcg tablet 50 mcg PO DAILY escitalopram oxalate 10 mg tablet 10 mg PO DAILY miconazole nitrate [Remedy Phytoplex Antifungal] 2 % powder 1 applic topical DAILY PRN PRN (Reason: redness) magnesium hydroxide [Milk of Magnesia] 400 mg/5 mL suspension 15 ml PO DAILY PRN (Reason: stomach upset) cimetidine [Tagamet HB] 200 mg tablet 200 mg PO QHS thiamine HCl (vitamin B1) 100 mg tablet 300 mg PO DAILY doxazosin 1 MG tablet 1 mg PO QHS memantine 10 MG tablet 5 mg PO BID acetaminophen 650 mg Tablet 650 mg PO Q4H PRN (Reason: pain/fever) acetaminophen 650 mg Suppository 650 mg MN Q4H PRN (Reason: pain/fever) lisinopril 10 mg tablet 10 mg PO DAILY Qty: 30 0RF doxycycline hyclate 100 mg capsule 100 mg PO BID Qty: 20 0RF ciprofloxacin HCl 500 mg tablet 500 mg PO BID Qty: 20 0RF Primary Care Provider: Nolan Yin Referrals: Nolan Yin MD [Primary Care Provider] - Disposition Disposition: Home, Self Care Discharge Date/Time: 12/20/23 17:21
--- NOTE | 2023-12-20 17:20 | ED.RN ---
Pt discharged back to [facility], transported by sister Valencia. Discharge papers given to .
== END 2023-12-20 17:21 | disposition home or self-care (01) ==
PROVIDERS: Emergency Provider Student in an Organized Health Care Education/Training Program; PCP Family Medicine; Visit Provider Student in an Organized Health Care Education/Training Program
DX: K74.60 Unspecified cirrhosis of liver (principal); J44.9 Chronic obstructive pulmonary disease, unspecified; R10.9 Unspecified abdominal pain; R18.8 Other ascites; Z87.891 Personal history of nicotine dependence; I10 Essential (primary) hypertension; E80.7 Disorder of bilirubin metabolism, unspecified
CPT/HCPCS: 36415; 80048; 80053; 80076; 82140; 82248; 82977; 83690; 85025; 85027; 86038; 86803; 87340; 99283; A4216

== ENCOUNTER → 2023-12-20 | Outpatient (REF) | payer MEDICARE, MEDICAID, SELFPAY ==
[2020-04-01 10:26] VITALS: BMI 27.5
[2023-12-20 08:19] LABS: Hematocrit 32.4 % (40-54); Mean Corpuscular Hgb 28.1 pg (27.0-32.0); Mean Corpuscular Volume 82.9 fL (80-94); Mean Platelet Vol. 10.8 fl (6.2-12.0); Platelet Count 173 K/mm3 (150-450); RBC Distribution Width CV 17.2 % (11.6-14.6); RBC Distribution Width SD 52.1 fl (35.1-43.9); Red Blood Count 3.91 M/mm3 (4.6-6.2)
[2023-12-20 09:02] LABS: ALB/GLOB Ratio 0.6 RATIO (0.9-2.4); AST(SGOT) 121 U/L (15-37); Alanine Aminotransfer ALT/SGPT 105 U/L (16-61); Albumin, Serum 2.1 g/dL (3.2-5.0); Alkaline Phosphatase 206 U/L (45-117); Anion Gap 7 (5-15); BUN 19 mg/dL (7-18); BUN/Creat Ratio 18.3 RATIO (10-20); Bilirubin, Direct 6.87 mg/dL (0.00-0.30); Calcium,Total 8.7 mg/dL (8.5-10.1); Chloride 112 mmol/L (98-107); Creatinine, Serum 1.04 mg/dL (0.70-1.30); EST Glomerular Filtration Rate 76 mL/min (>60); Est Glom Filt Rate - Afr Amer 93 mL/min (>60); GGTP 1091 U/L (15-85); Globulin 3.5 g/dL (2.2-4.2); Glucose 98 mg/dL (74-106); Potassium 3.8 mmol/L (3.5-5.1); Protein, Total 5.6 g/dL (6.4-8.2); Sodium Level 139 mmol/L (136-145)
[2023-12-20 09:26] LABS: Hepatitis B Surface Antigen Non-Reactive (Nonreactive); Hepatitis C Antibody Non-Reactive (Nonreactive)
[2023-12-21 13:08] LABS: ANTINUCLEAR ANTIBODIES DIRECT Positive (Negative)
== END ==
LOC: OLS.SW 05:00
PROVIDERS: PCP Family Medicine; Visit Provider Family Medicine
DX: K74.60 Unspecified cirrhosis of liver (principal)
CPT/HCPCS: 36415; 80053; 82140; 82248; 82977; 85027; 86038; 86803; 87340